=== PATIENT | male | born 1945 | race Caucasian/White ===

== ENCOUNTER 2023-03-21 07:28 | Outpatient (OUT) | payer MEDICARE, SELFPAY ==
[2023-03-21 09:24] LABS: Prostate Specific Antigen Dx 3.88 ng/mL (<=4.00)
== END 2023-03-21 07:29 | disposition home or self-care (01) ==
LOC: LAB 07:33
PROVIDERS: PCP Family Medicine
DX: N40.0 Benign prostatic hyperplasia without lower urinary tract symptoms (principal)
CPT/HCPCS: 36415; 84153

== ENCOUNTER 2023-06-15 08:04 | Outpatient (OUT) | payer MEDICARE, SELFPAY ==
[2023-06-15 08:24] LABS: Basophils Percent Auto 0.9 % (0.2-2.0); Eosinophils Absolute Auto 0.1 10^3/uL (0.0-0.7); Eosinophils Percent Auto 2.8 % (0.9-7.0); Hematocrit 41.4 % (42.0-54.0); Hemoglobin 13.8 g/dL (14.0-18.0); Immature Granulocytes Abs Auto 0.03 10^3/uL (0.00-0.03); Immature Granulocytes Pct Auto 0.7 % (0.0-0.5); Lymphocytes Absolute Auto 1.5 10^3/uL (1.2-3.8); Lymphocytes Percent Auto 34.6 % (20.5-60.0); Mean Corpuscular HGB Conc 33.3 g/dL (29.9-35.2); Mean Corpuscular Hemoglobin 31.1 pg (25.9-34.0); Mean Corpuscular Volume 93.2 fL (80.0-94.0); Mean Platelet Volume 10.6 fL (9.5-13.5); Monocytes Absolute Auto 0.3 10^3/uL (0.3-0.8); Monocytes Percent Auto 7.7 % (1.7-12.0); Neutrophils Absolute Auto 2.3 10^3/uL (1.4-6.5); Neutrophils Percent Auto 53.3 % (43.0-75.0); Platelet Count 158 10^3/uL (150-450); Red Blood Count 4.44 10^6/uL (4.70-6.10); White Blood Count 4.3 10^3/uL (4.0-11.0)
[2023-06-15 14:34] LABS: Anion Gap 11.8; Calcium 9.1 mg/dL (8.5-10.1); Carbon Dioxide 29.3 mmol/L (21.0-32.0); Chloride 102 mmol/L (98-107); Estimated GFR (African America >60 (>=60); Estimated GFR (Non-African Ame >60 (>=60); Glucose 85 mg/dL (74-106); Potassium 4.1 mmol/L (3.5-5.1); Sodium 139 mmol/L (136-145)
== END 2023-06-15 08:05 | disposition home or self-care (01) ==
LOC: LAB 08:05
PROVIDERS: PCP Family Medicine; Visit Provider Internal Medicine Cardiovascular Disease
DX: I25.10 Atherosclerotic heart disease of native coronary artery without angina pectoris (principal); I48.0 Paroxysmal atrial fibrillation; Z79.899 Other long term (current) drug therapy
CPT/HCPCS: 36415; 80048; 85025

== ENCOUNTER 2023-10-13 10:57 | Outpatient (OUT) | payer MEDICARE, SELFPAY ==
--- NOTE | 2023-10-13 11:13 | XR_ITS ---
The [address] [address] Patient Name: TANISHA JAIN MRN: [id number] date: 1945 Sex: M Assigned Patient Location: RAD Current Patient Location: RAD Accession/Order Number: [id number] Exam Date: 10/13/2023 11:08 Report Date: 10/13/2023 11:24 At the request of: ZUHAIR MISTRY Procedure: XR knee LT 3V PROCEDURE: XR knee LT 3V COMPARISON: None. 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 No acute fracture, dislocation or mechanical failure. SOFT TISSUES:Negative. No visible soft tissue swelling. EFFUSION:Moderate joint effusion OTHER: Negative. XR/XR knee LT 3V IMPRESSION: Moderate joint effusion Electronically authenticated by: FORTINO GREENE Date: 10/13/2023 11:24
== END 2023-10-13 10:58 | disposition home or self-care (01) ==
LOC: RAD 10:58
PROVIDERS: PCP Family Medicine; Visit Provider Physician Assistant
DX: M25.562 Pain in left knee (principal); M25.462 Effusion, left knee
CPT/HCPCS: 73562

== ENCOUNTER 2023-12-22 14:03 | Outpatient (OUT) | payer MEDICARE, SELFPAY ==
[2023-12-22 07:39] LABS: Basophils Percent Auto 0.8 % (0.2-2.0); Eosinophils Absolute Auto 0.1 10^3/uL (0.0-0.7); Eosinophils Percent Auto 2.9 % (0.9-7.0); Hematocrit 42.1 % (42.0-54.0); Hemoglobin 14.3 g/dL (14.0-18.0); Immature Granulocytes Abs Auto 0.03 10^3/uL (0.00-0.03); Immature Granulocytes Pct Auto 0.6 % (0.0-0.5); Lymphocytes Absolute Auto 1.8 10^3/uL (1.2-3.8); Lymphocytes Percent Auto 37.9 % (20.5-60.0); Mean Corpuscular Hemoglobin 32.1 pg (25.9-34.0); Mean Corpuscular Volume 94.6 fL (80.0-94.0); Mean Platelet Volume 10.7 fL (9.5-13.5); Monocytes Absolute Auto 0.4 10^3/uL (0.3-0.8); Monocytes Percent Auto 9.1 % (1.7-12.0); Neutrophils Absolute Auto 2.4 10^3/uL (1.4-6.5); Neutrophils Percent Auto 48.7 % (43.0-75.0); Platelet Count 179 10^3/uL (150-450); Red Blood Count 4.45 10^6/uL (4.70-6.10); Red Cell Distribution Width 12.3 % (11.0-15.0); White Blood Count 4.9 10^3/uL (4.0-11.0)
[2023-12-22 09:04] LABS: Alanine Aminotransferase 61 U/L (16-63); Anion Gap 10.3; Aspartate Amino Transferase 32 U/L (15-37); BUN Creatinine Ratio 22.4; Calcium 9.1 mg/dL (8.5-10.1); Carbon Dioxide 31.5 mmol/L (21.0-32.0); Chloride 103 mmol/L (98-107); Chol HDL Ratio 2.1; Cholesterol 121 mg/dL (<=200); Estimated GFR (African America >60 (>=60); Estimated GFR (Non-African Ame >60 (>=60); Glucose 104 mg/dL (74-106); HDL Cholesterol 58 mg/dL (40-60); LDL Cholesterol Calculated 51.4 mg/dL; Potassium 3.8 mmol/L (3.5-5.1); Sodium 141 mmol/L (136-145); Triglycerides 58 mg/dL (<=150); VLDL CHOLESTEROL 11.6 mg/dL
--- OUTSIDE RECORDS SUMMARY | 2023-12-26 14:18 | XMS_ITS | CCD ---
Author Organization [facility] Care Team Providers Care Sales Team Member Name Role Phone Unavailable Unavailable Jasmin Watts Unavailable MD Jasmin Watts Primary Care Provider [phone] MD David Braga Admit Provider MD David Braga Attending Provider [phone] Jasmin Watts Primary Care Unavailable David Braga Attending Unavailable David Braga Admitting Unavailable JASMIN WATTS Primary Care Unavailable David Braga Attending Unavailable David Braga Referring Unavailable David Braga Attending Unavailable MAC, JASMIN Primary Care Unavailable David Braga Referring Unavailable David Braga Attending Unavailable JASMIN WATTS Primary Care Unavailable David Brgaa Referring Unavailable MACJASMIN Primary Care Unavailable David Braga Attending Unavailable David Braga Attending Unavailable David Braga Referring Unavailable MAC, RUGVALERIY Primary Care Unavailable David Braga Attending Unavailable JASMIN WATTS Primary Care Unavailable MAC, DR JONES Primary Care Unavailable CARL, DR ANGEL Sun Admitting Unavailable CARL, DR ANGEL Sun Attending Unavailable CARL, DR ANGEL Sun Consulting Unavailable RADHA, DR DELTA Ram Consulting UnavailMARYBEL Braxton Consulting Unavailable SHELBY ARZATE Consulting Unavailable BRAGA, DR DAVID Bowen Admitting Unavailable BRAGA, DR DAVID Bowen Attending Unavailable MAC, DR JONES Primary Care Unavailable BRAGA, DR DAVID Bowen Consulting Unavailable MAC, DR JONES Admitting Unavailable MAC, DR JONES Attending Unavailable MAC, DR JONES Primary Care Unavailable MAC, DR JONES Consulting Unavailable LEONARD, DR KACIE Sun Consulting Unavailable SUZIE RED Attending Unavailable JASMIN WATTS Attending Unavailable [place] MD, Rugen Mabalay Primary Care Provider [phone] David Braga MD Unavailable DAVID BRAGA Attending Unavailable JASMIN WATTS Primary Care Unavailable Medications Current Medications Medication Drug Class(es) Dates Sig (Normalized) Sig (Original) apixaban 5 mg oral tablet (12 sources) Factor Xa Inhibitor Start: 11-02-2022 take 1 tablet by mouth twice daily Apixaban (Eliquis) 5 mg tablet Active 5 MG PO Twice daily November 02, 2022 12:00am dofetilide 0.25 mg oral capsule (7 sources) Antiarrhythmic Start: 10-07-2023 dofetilide (Tikosyn) 250 mcg capsule Indications: Paroxysmal atrial fibrillation (CMS/HCC) Take one capsule twice daily 180 capsule 1 10/07/2023 Active Start: 11-26-2022 take 1 capsule by mo uth every twelve hours Dofetilide 250 MCG Oral Capsule TAKE 1 CAPSULE BY MOUTH EVERY 12 HOURS FOR 30 DAYS Quantity: 30 Refills: 0 Ordered: 29-Nov-2022 David Braga MD Start : 26-Nov-2022 Active Start: 11-04-2022 take 250 ug by mouth every twelve hours Dofetilide Active 250 MCG PO Q12H 60 November 04, 2022 12:00am take 1 capsule by mo uth twice daily Tikosyn 250 MCG Oral Capsule TAKE 1 CAPSULE TWICE DAILY. Quantity: 0 Refills: 0 Ordered: 11-Nov-2022 DO Active lisinopril 2.5 mg oral tablet (14 sources) Angiotensin Converting Enzyme Inhibitor Start: 08-31-2021 take 1 tablet by mouth once daily lisinopril 2.5 mg tablet Take 1 tablet (2.5 mg) by mouth once daily. 0 08/31/2021 Active nitroglycerin 0.4 mg sublingual tablet (1 source) Nitrate Vasodilator Start: 06-16-2020 Nitroglycerin Active 0.4 MG SUBLINGUAL every 5 to 15 minutes June 15, 2020 11:00pm Completed/Discontinued Medications Medication Drug Class(es) Dates Sig (Normalized) Sig (Original) aspirin 81 mg delayed release oral tablet (15 sources) Platelet Aggregation Inhibitor, Nonsteroidal Anti-inflammatory Drug Start: 06-14-2023 Aspirin 81 MG Oral Tablet Delayed Release take one tablet on Tue and only Quantity: 24 Refills: 3 Ordered: 14-Jun-2023 David Braga MD Start : 14-Jun-2023 Active Start: 04-20-2021 take 1 tablet by lynsey th two times weekly aspirin 81 mg EC tablet Take 1 tablet (81 mg) by mouth 2 times a week. 0 04/20/2021 Active Start: 06-16-2020 take 1 tablet by lynsey th once daily Aspirin EC 81 MG Oral Tablet Delayed Release TAKE 1 TABLET DAILY. Quantity: 90 Refills: 3 Ordered: 30-Sep-2022 David Braga MD Start : 28-Oct-2021 Active atorvastatin 80 mg oral tablet (5 sources) HMG-CoA Reductase Inhibitor Start: 11-26-2022 take 1 tablet by mouth once daily at bedtime Atorvastatin Calcium 80 MG Oral Tablet TAKE 1 TABLET BY MOUTH EVERYDAY AT BEDTIME Quantity: 90 Refills: 3 Ordered: 29-Nov-2022 David Braga MD Start : 26-Nov-2022 Active Start: 11-04-2022 take 80 mg by mouth at bedtime Atorvastatin Active 80 MG PO Bedtime November 04, 2022 12:00am baclofen 10 mg oral tablet (6 sources) gamma-Aminobutyric Acid-ergic Agonist take 1 tablet by mouth three times daily as needed for muscle spasms Baclofen 10 MG Oral Tablet TAKE 1 TABLET 3 TIMES DAILY NEEDED FOR MUSCLE SPASM. Quantity: 0 Refills: 0 Ordered: 30-Sep-2022 DO Active Calcium Citrate (6 sources) Citracal TABS TA KE 1 TABLET ONCE DAILY. Quantity: 0 Refills: 0 Ordered: 28-Oct-2021 DO Active clopidogrel 75 mg oral tablet (2 sources) P2Y12 Platelet Inhibitor Start: 021 take 1 tablet by mouth once daily Clopidogrel Bisulfate 75 MG Oral Tablet TAKE 1 TABLET DAILY. Quantity: 0 Refills: 0 Ordered: 30-Aug-2021 DO Start : 20-Apr-2021 Active lovastatin 40 mg oral tablet (1 source) HMG-CoA Reductase Inhibitor Start: 020 End: 023 take 40 mg by mouth once daily at bedtime Lovastatin Discontinued 40 MG PO Daily at bedtime June 15, 2020 11:00pm November 02, 2022 11:10am metoprolol tartrate 25 mg oral tablet (16 sources) beta-Adrenergic Marleny Start: take 1 tablet by mouth twice daily as needed Metoprolol Tartrate 25 MG Oral Tablet Take 1 tablet twice daily as needed only Quantity: 20 Refills: 5 Ordered: 14-Jun-2023 David Braga MD Start : 14-Jun-2023 Active PRN, NEW Start: 06-16-2020 take 1 tablet by lynsey th once daily metoprolol succinate XL (Toprol-XL) 50 mg 24 hr tablet Take 1 tablet (50 mg) by mouth once daily. 0 04/20/2021 Active rosuvastatin calcium 40 mg oral tablet (9 sources) HMG-CoA Reductase Inhibitor Start: 11-02-2022 End: 11-04-2022 take 40 mg by mouth at bedtime Rosuvastatin Discontinued 40 MG PO Bedtime November 02, 2022 12:00am November 04, 2022 1:19pm Start: 07-14-2021 take 1 tablet by lynsey th at bedtime Rosuvastatin Calcium 40 MG Oral Tablet TAKE 1 TABLET Bedtime Quantity: 90 Refills: 0 Ordered: 25-Oct-2022 David Braga MD Start : 14-Jul-2021 Active ticagrelor 90 mg oral tablet (1 source) Start: 06-16-2020 End: 11-02-2022 take 1 tablet by mouth twice daily Ticagrelor (Brilinta) 90 mg Tablet Discontinued 90 MG PO Twice daily 180 90 June 15, 2020 11:00pm November 02, 2022 11:11am Vitamin B Complex CAPS (8 sources) Vitamin B Comple x CAPS TAKE 1 CAPSULE Daily Quantity: 0 Refills: 0 Ordered: 28-Oct-2021 DO Active Problems Active Problems Problem Classification Problem Date Documented Date Episodic/Chronic Cardiac dysrhythmias (18 sources) Paroxysmal atrial fibrillation; Translations: [Atrial fibrillation] Onset: 02-11-2022 11-02-2022 Chronic Cardiac dysrhythmias (3 sources) Tachycardia; Translations: [Tachycardia, unspecified] Episodic Coronary atherosclerosis and other heart disease (20 sources) Arteriosclerotic vascular disease; Translations: [Cardiovascular disease, unspecified] Onset: 05-26-2022 02-14-2023 Chronic Coronary atherosclerosis and other heart disease (5 sources) Stented coronary artery; Translations: [Presence of coronary angioplasty implant and graft] Onset: 02-11-2022 11-02-2022 Episodic Disorders of lipid metabolism (20 sources) Hyperlipidemia; Translations: [Other and unspecified hyperlipidemia] Onset: 11-02-2022 11-02-2022 Chronic Essential hypertension (1 source) Essential (primary) hypertension; Translations: [ESSENTIAL PRIMARY HYPERTENSION] Onset: 02-11-2022 Chronic Immunizations and screening for infectious disease (6 sources) Patient encounter status; Translations: [Other specified vaccination] Episodic Other aftercare (10 sources) Drug therapy finding; Translations: [Long-term (current) use of other medications] Episodic Other aftercare (1 source) Other prison (current) drug therapy; 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] Onset: 12-11-2022 Episodic Other aftercare (1 source) Taking high risk medication; Translations: [Other prison (current) drug therapy] 12-20-2023 Episodic Other nutritional; endocrine; and metabolic disorders (14 sources) Overweight in adulthood with body mass index of 25 or more but less than 30; Translations: [Overweight] Onset: 12-20-2023 12-20-2023 Episodic Other nutritional; endocrine; and metabolic disorders (2 sources) Body mass index (BMI) 27.0-27.9, adult; Translations: [Body mass index (BMI) 27.0-27.9, adult] Onset: 12-20-2023 Episodic Residual codes; unclassified (2 sources) Never smoked tobacco; Translations: [Other specified health status] Onset: 12-20-2023 12-20-2023 Episodic Residual codes; unclassified (2 sources) Other specified health status; Translations: [Other specified health status] Onset: 12-20-2023 Episodic Unclassified (1 source) CONTACT W/AND (SUSP) EXPOS COVID-19; Translations: [CONTACT W/AND (SUSP) EXPOS COVID-19] Onset: 02-11-2022 Past or Other Problems Problem Classification Problem Date Documented Da te Episodic/Chronic Abdominal pain (3 sources) Epigastric pain; Translations: [EPIGASTRIC PAIN] Onset: 01-02-2022 Episodic Nonspecific chest pain (11 sources) Atypical chest pain; Translations: [Other chest pain] Resolved: 03-15-2022 Episodic Other aftercare (1 source) snf (current) use of aspirin; 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] Onset: 02-11-2022 Episodic Other gastrointestinal disorders (1 source) Perforation of intestine (nontraumatic); Translations: [PERFORATION INTESTINE NONTRAUMATIC] Onset: 02-11-2022 Episodic Other hematologic conditions (1 source) Other specified abnormalities of plasma proteins; Translations: [OTH SPEC ABNORM PLASMA PROTEINS] Onset: 02-11-2022 Episodic Other screening for suspected conditions (not mental disorders or infectious disease) (12 sources) Cardiovascular stress test abnormal; Translations: [Other nonspecific abnormal results of function study of cardiovascular system] Resolved: 10-28-2021 Episodic Residual codes; unclassified (10 sources) History of clinical finding in subject; Translations: [Personal history of other specified diseases] Resolved: 03-15-2022 Episodic Sprains and strains (4 sources) Sprain of ligaments of lumbar spine, initial encounter; Translations: [SPRAIN LIGAMENTS LUMBAR SPN INITIAL] Onset: 12-17-2021 Episodic Unclassified (12 sources) Never smoked tobacco; Translations: [Never a smoker] Unclassified (1 source) Onset: 12-20-2023 12-20-2023 Results Test Name Value Interpretation Reference Range Facility ECG 12 Leadon 12-20-2023 ECG revealed normal sinus rhythm and normal ECG [facility] Work Phone: Tobacco Screening.on 023 Tobacco use status [facility]PH[facility] b) No MP-Cardiolo aram-Kellee 250 DO Work Phone: LIPID PROFILEon 12-06-2022 CHOL-HDL RATIO NORM SEE BELOW Normal [facility] Comment on above: Result Comment: 3.3 - 4.4 LOW RISK 4.4 - 7.1 AVERAGE RISK 7.1 - 11.0 MODERATE RISK >11.0 HIGH RISK Performed By: #### B MP, LIPID, ALT, AST #### [facility] [address] [address] [address] Luz Burr Cholesterol [Mass/Vol] 105 mg/dL Normal <=200 Th e [facility] Comment on above: Performed By: #### B MP, LIPID, ALT, AST #### [facility] [address] [address] [address] Luz Burr Cholesterol in HDL [Mass/Vol] 50 mg/dL Normal 40-60 Comment on above: Performed By: #### B MP, LIPID, ALT, AST #### [facility] [address] [address] [address] Luz Burr Cholesterol in LDL [Mass/Vol] 44.8 mg/dL Normal Comment on above: Performed By: #### B MP, LIPID, ALT, AST #### [facility] [address] [address] [address] Luz Burr Cholesterol.total/Chol esterol in HDL [Mass ratio] 2.1 {ratio} Normal Comment on above: Performed By: #### B MP, LIPID, ALT, AST #### [facility] [address] [address] [address] Luz Burr HDL NORMAL > or = 60 mg/dl - LO W CARDIOVASCULAR RISK <40 mg/dl - HIGH CARDIOVASCULAR RISK Normal Comment on above: Performed By: #### B MP, LIPID, ALT, AST #### [facility] [address] [place] [address] Dr. Luz Burr LDL CALC NORMAL SEE BELOW Normal Comment on above: Result Comment: <100 mg/dl OPTIMAL 100 - 129 mg/dl NEAR OR ABOVE OPTIMAL 130 - 159 mg/dl BORDERLINE HIGH 160 - 189 mg/dl HIGH >190 mg/dl VERY HIGH Performed By: #### B MP, LIPID, ALT, AST #### [facility] [address] [address] [address] Luz Burr Triglyceride [Mass/Vol] 51 mg/dL Normal <=150 [facility] Comment on above: Performed By: #### B MP, LIPID, ALT, AST #### [facility] [address] [place] [address] Dr. Luz Burr VLDL CALC 10.2 mg/dL Normal Comment on above: Performed By: #### B MP, LIPID, ALT, AST #### [facility] [address] [address] [address] Luz Burr PROF CHEM 8 (BAS METB)on Anion gap [Moles/Vol] 10.2 mmol/L Normal Th [facility] Comment on above: Performed By: #### B MP, LIPID, ALT, AST #### [facility] [address] [place] [address] Dr. Luz Burr Calcium [Mass/Vol] 9.4 mg/dL Normal 8.5-10.1 Comment on above: Performed By: #### B MP, LIPID, ALT, AST #### [facility] [address] [address] [address] Luz Burr Chloride [Moles/Vol] 103 mmol/L Normal 98-107 Comment on above: Performed By: #### B MP, LIPID, ALT, AST #### [facility] [address] [place] [address] Dr. Luz Burr CO2 [Moles/Vol] 31.1 mmol/L Normal 21.0-32.0 Comment on above: Performed By: #### B MP, LIPID, ALT, AST #### [facility] [address] [place] [address] Dr. Luz Burr Creatinine [Mass/Vol] 0.83 mg/dL Normal 0.70-1.30 Comment on above: Performed By: #### B MP, LIPID, ALT, AST #### [facility] [address] [place] [address] Dr. Luz Burr EGFR-AF SOU[place] >60 Normal >=60 Comment on above: Performed By: #### B MP, LIPID, ALT, AST #### [facility] [address] [place] [address] Dr. Luz Burr EGFR-NON AF [place] >60 Normal >=60 Comment on above: Performed By: #### B MP, LIPID, ALT, AST #### [facility] [address] [place] [address] Dr. Luz Burr Glucose [Mass/Vol] 110 mg/dL Critically high 74-106 T [facility] Comment on above: Performed By: #### B MP, LIPID, ALT, AST #### [facility] [address] [place] [address] Dr. Luz Burr Potassium [Moles/Vol] 4.3 mmol/L Normal 3.5-5.1 Comment on above: Performed By: #### B MP, LIPID, ALT, AST #### [facility] [address] [place] [address] Dr. Luz Burr Sodium [Moles/Vol] 140 mmol/L Normal 136-145 Comment on above: Performed By: #### B MP, LIPID, ALT, AST #### [facility] [address] [place] [address] Dr. Luz Burr Urea nitrogen [Mass/Vol] 21.0 mg/dL Critically high 7.0-18.0 Comment on above: Performed By: #### B MP, LIPID, ALT, AST #### [facility] [address] [place] [address] Dr. Luz Burr Urea nitrogen/Creatinine [Mass ratio] 25.3 mg/mg Normal Comment on above: Performed By: #### B MP, LIPID, ALT, AST #### [facility] [address] [place] [address] Dr. Luz Barillas 12-06-2022 AST [Catalytic activity/Vol] 29 U/L Normal 15-37 Comment on above: Performed By: #### B MP, LIPID, ALT, AST #### [facility] [address] [place] [address] Dr. Luz SAHNIPTon 12-06-2022 ALT [Catalytic activity/Vol] 57 U/L Normal 16-63 Comment on above: Performed By: #### B MP, LIPID, ALT, AST #### [facility] [address] [place] [address] Dr. Luz Burr Office Visit (Cardiology)on 12-02-2022 Follow-up visit Diagnoses/Problems Assessed Paroxysmal atrial fibrillation (427.31) (I48.0) Arteriosclerotic cardiovascular disease (ASCVD) (429.2,440.9) (I25.10) History of PTCA (V45.82) (Z98.61) Hyperlipidemia (272.4) (E78.5) High risk medication use (V58.69) (Z79.899) Overweight with body mass index (BMI) of 27 to 27.9 in adult (278.02,V85.23) (E66.3,Z68.27) Never a smoker Orders Arteriosclerotic cardiovascular disease (ASCVD), High risk medication use Basic Metabolic Panel; Status:Active - Retrospective Authorization; Requested for:03Dec2022; Arteriosclerotic cardiovascular disease (ASCVD), History of PTCA, PMH: History of tachycardia, Hyperlipidemia Renew: Aspirin EC 81 MG Oral Tablet Delayed Release; TAKE 1 TABLET DAILY Arteriosclerotic cardiovascular disease (ASCVD), Hyperlipidemia ALT - Alanine Aminotransferase, Serum; Status:Active - Retrospective Authorization; Requested for:02Dec2022; AST; Status:Active - Retrospective Authorization; Requested for:02Dec2022; Lipid Panel; Status:Active - Retrospective Authorization; Requested for:02Dec2022; Overweight with body mass index (BMI) of 27 to 27.9 in adult Healthy Weight Tips; Status:Complete - Retrospective Authorization; Done: 02Dec2022 Some eating tips that can help you lose weight.; Status:Complete - Retrospective Authorization; Done: 02Dec2022 Paroxysmal atrial fibrillation IO EKG Electrocardiogram- 12 Lead; Status:Complete; Done: 02Dec2022 SocHx: Never a smoker Tobacco Use Screening; Status:Complete; Done: 02Dec2022 Patient Instructions Please bring all medicines, vitamins, and herbal supplements with you when you come to the office. Prescriptions will not be filled unless you are compliant with your follow up appointments or have a follow up appointment scheduled as per instruction of your physician. Refills should be requested at the time of your visit. Follow up in 6 months Ablation discussed The provider reviewed the following test(s) and result(s) with the patient: ECG Chief Complaint HOSSEIN BENTLEY is being seen for follow-up of a hospitalization for. Patient is in the office for follow-up for paroxysmal atrial fibrillation. He was admitted recently to the hospital for drug loading with dofetilide which was successful. EKG today confirmed normal sinus rhythm and normal intervals. He is currently anticoagulated. He has had intermittent breakthrough atrial fibrillation lasting for several hours. They are not causing a problem in particular but the patient feels the symptoms. His examination otherwise is unremarkable for overweight today. Presently patient has no side effect of medications. 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 No recurrent symptoms and risk factors have been under control. 2?hyperlipidemia on statin therapy, lipid profile is ordered 3?slight overweight, patient has remained very active in his lifestyle, few pounds weight loss will be advised. 4?paroxysmal atrial fibrillation, currently on Tikosyn and long-term anticoagulation with Eliquis but with recurrent breakthrough events. I provided the patient and his the option of radiofrequency ablation as a last resort and long-term therapy atrial fibrillation. 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 If he cannot tolerate atrial fibrillation he does not need to go that route. He will decide later. 5?high risk medication with Eliquis and Tikosyn, no complications Current Meds Medication NameInstruction Aspirin EC 81 MG Oral Tablet Delayed ReleaseTAKE 1 TABLET DAILY. Atorvastatin Calcium 80 MG Oral TabletTAKE 1 TABLET BY MOUTH EVERYDAY AT BEDTIME Baclofen 10 MG Oral TabletTAKE 1 TABLET 3 TIMES DAILY NEEDED FOR MUSCLE SPASM. Dofetilide 250 MCG Oral CapsuleTAKE 1 CAPSULE BY MOUTH EVERY 12 HOURS FOR 30 DAYS Eliquis 5 MG Oral TabletTake 1 tablet twice daily Lisinopril 2.5 MG Oral TabletTAKE 1 TABLET BY MOUTH EVERY DAY Metoprolol Succinate ER 50 MG Oral Tablet Extended Release 24 HourTAKE 1 TABLET BY MOUTH EVERY DAY Allergies Medication No Known Drug Allergies Recorded By: Thelma Hernadez; 09/01/2021 2:38:02 PM Social History Problems Caffeine use (V49.89) (Z78.9) Never a smoker No alcohol use No illicit drug use Review of Systems Constitutional: not feeling tired. Cardiovascular: no intermittent leg claudication and as noted in HPI. Respiratory: no cough and no shortness of breath. Gastrointestinal: no change in bowel habits and no blood in stools. Integumentary: no skin rashes. Neurological: no seizures and no frequent falls. All other systems have been reviewed and are negative for complaint. Vitals Vital Signs Recorded: 02Dec2022 10:56AM Heart Rate57, Apical Saihtydi230, RUE Xfstdhxga45, RUE Height5 ft 9 in Mihghy153 lb BMI Calculated2 (more content not included)... Normal [facility] ECG 12 lead ECGon 11-04-2022 ECG 12 lead [place] [address] Electrocardiograph Report Signed Patient: Hossein Bentley MR#: [id number] 2 : 1945 Acct:[id number] Age/Sex: 77 / M ADM Date: 11/02/22 Loc: Room: [address] [place] [address] Type: DIS IN Attending Dr: David Braga MD Ordering Provider: David Braga MD, [facility] Date of Service: 11/04/22 ECG/ECG 12 lead ECG: rhythm assessment Copies to: Test Reason : Blood Pressure : / mmHG Vent. Rate : 053 BPM Atrial Rate : 053 BPM P-R Int : 168 ms QRS Dur : 088 ms QT Int : 444 ms P-R-T Axes : 040 002 027 degrees QTc Int : 416 ms Sinus bradycardia Otherwise normal ECG When compared with ECG of 03-NOV-2022 07:29, (Unconfirmed) No significant change was found Confirmed by SHELBY CALDERON DO ([id number]) on 11/04/2022 9:42:38 PM Referred By: Electronically Signed By:HSELBY CALDERON DO Transcribed By: MUS Signed By Shelby Calderon DO 11/04 Normal [facility] - CoagulationOrde red By: David Braga on 11-04-2022 PT Coag (PPP) [Time] 16.2 s 9.0-12.9 [facility] Platelet poor plasma interna tional normalized ratio (INR) by coagulation assay (relatOrdered By: David Braga on 11-04-2022 INR Coag (PPP) [Relative time] 1.4 {INR} [facility] Comment on above: INR Therapeutic Rang e A) Pre- and Peroperative OAT started two weeks before surgery. NOT HIP SURGERY: 1.5 - 2.5 HIP SURGERY: 2 - 3B) Primary and secondary prevention of venous THROMBOSIS: 2 - 3C) Active venous thrombosis, pulmonary embolismand prevention of recurrent venous thrombosis: 2 - 3D) Prevention of arterial thromboembolismincluding patients with mechanical heart valves: 3 - 4.5 Prothrombin Time INRon 11-04 INR Coag (PPP) [Relative time] 1.4 {INR} Normal [facility] Comment on above: Result Comment: INR Therapeutic Range A) Pre- and Peroperative OAT started two weeks before surgery. NOT HIP SURGERY: 1.5 - 2.5 HIP SURGERY: 2 - 3 B) Primary and secondary prevention of venous THROMBOSIS: 2 - 3 C) Active venous thrombosis, pulmonary embolism and prevention of recurrent venous thrombosis: 2 - 3 D) Prevention of arterial thromboembolism including patients with mechanical heart valves: 3 - 4.5 PERFORMED BY: [place] [address] PATHOLOGIST TREAD BUILDER MARQUIS CARRANZA M.D. Performed By: #### P T #### [facility] [address] [place] [address] PT Coag (PPP) [Time] 16.2 s High 9.0-12.9 [facility] Comment on above: Performed By: #### P T #### [facility] [address] [place] [address] ECG 12 lead ECGon 11-03-2022 ECG 12 lead [place] [address] Electrocardiograph Report Signed Patient: Hossein Bentley MR#: [id number] 2 : 1945 Acct:[id number] Age/Sex: 77 / M ADM Date: 11/02/22 Loc: Room: [address] [place] [address] Type: DIS IN Attending Dr: David Braga MD Ordering Provider: David Braga MD, [facility] Date of Service: 11/03/22 ECG/ECG 12 lead ECG: rhythm assessment Copies to: Test Reason : Blood Pressure : / mmHG Vent. Rate : 054 BPM Atrial Rate : 054 BPM P-R Int : 150 ms QRS Dur : 084 ms QT Int : 428 ms P-R-T Axes : 053 007 034 degrees QTc Int : 405 ms Sinus bradycardia Otherwise normal ECG When compared with ECG of 02-NOV-2022 23:52, (Unconfirmed) No significant change was found Confirmed by SHELBY CALDERON DO ([id number]) on 11/04/2022 9:56:25 PM Referred By: Electronically Signed By:SHELBY CALDERON DO Transcribed By: MUS Signed By Shelby Calderon DO 11/04 [facility] ECG 12 lead ECG [facility] [address] [place] [address] Electrocardiograph Report Signed Patient: Hossein Bentley MR#: [id number] 2 : 1945 Acct:[id number] Age/Sex: 77 / M ADM Date: 11/02/22 Loc: Room: [address] [place] [address] Type: DIS IN Attending Dr: David Braga MD Ordering Provider: David Braga MD, [facility] Date of Service: 11/02/22 ECG/ECG 12 lead ECG: Rhythm change Copies to: Test Reason : Blood Pressure : / mmHG Vent. Rate : 057 BPM Atrial Rate : 057 BPM P-R Int : 156 ms QRS Dur : 086 ms QT Int : 440 ms P-R-T Axes : 063 015 055 degrees QTc Int : 428 ms Sinus bradycardia Otherwise normal ECG When compared with ECG of 02-NOV-2022 10:17, (Unconfirmed) Sinus rhythm has replaced Atrial fibrillation Vent. rate has decreased BY 59 BPM Nonspecific T wave abnormality no longer evident in Lateral leads Confirmed by SHELBY CALDERON DO ([id number]) on 11/04/2022 9:56:51 PM Referred By: Electronically Signed By:SHELBY CALDERON DO Transcribed By: MUS Signed By Shelby Calderon DO 11/04 [facility] Prothrombin Time INRon 11-03 INR Coag (PPP) [Relative time] 1.4 {INR} [facility] Comment on above: Result Comment: INR Therapeutic Range A) Pre- and Peroperative OAT started two weeks before surgery. NOT HIP SURGERY: 1.5 - 2.5 HIP SURGERY: 2 - 3 B) Primary and secondary prevention of venous THROMBOSIS: 2 - 3 C) Active venous thrombosis, pulmonary embolism and prevention of recurrent venous thrombosis: 2 - 3 D) Prevention of arterial thromboembolism including patients with mechanical heart valves: 3 - 4.5 PERFORMED BY: [place] [address] PATHOLOGIST TREAD BUILDER MARQUIS CARRANZA M.D. Performed By: #### P T #### [address] PT Coag (PPP) [Time] 15.7 s High 9.0-12.9 [facility] Comment on above: Performed By: #### P T #### [address] Basic Metabolic Panelon 10-20 Anion gap [Moles/Vol] 11.0 mmol/L Normal 6.0-15.0 [facility] Comment on above: Performed By: #### B MP, PT #### [address] Calcium [Mass/Vol] 9.7 mg/dL Normal 8.2-10.2 [facility] Comment on above: Result Comment: PERF ORMED BY: [place] [address] PATHOLOGIST [employer] BUIL[employer] MARQUIS CARRANZA M.D. Performed By: #### B MP, PT #### [address] Chloride [Moles/Vol] 104 mmol/L Normal 95-114 [facility] Comment on above: Performed By: #### B MP, PT #### [address] CO2 [Moles/Vol] 28.2 mmol/L Normal 22.0-30.0 [facility] Comment on above: Performed By: #### B MP, PT #### [address] Creatinine [Mass/Vol] 0.83 mg/dL Normal 0.64-1.[address] [facility] Comment on above: Performed By: #### B MP, PT #### [facility] [address] Estimated GFR ( Nicol > 60 Normal [facility] Comment on above: Result Comment: GFR estimated reference range: According to KDOQI guidelines, <60 ml/min/1.73m2 is sufficient to diagnose a patient with chronic kidney disease. Performed By: #### B MP, PT #### [facility] [address] Estimated GFR (Non- Am > 60 Normal [facility] Comment on above: Performed By: #### B MP, PT #### [facility] [address] Glucose [Mass/Vol] 137 mg/dL High 70-100 [facility] Comment on above: Result Comment: [place] Glucose Reference Range is dependent on time and content of last meal. Glucose of more than 200 mg/dL in a nonstressed, ambulatory subject supports the diagnosis of Diabetes Mellitus. ADA recommended reference range Performed By: #### B MP, PT #### [address] Potassium [Moles/Vol] 4.2 mmol/L Normal 3.5-5.[address] [facility] Comment on above: Performed By: #### B MP, PT #### [facility] [address] [place] [address] [place] Sodium [Moles/Vol] 139 mmol/L Normal 136-146 [facility] Comment on above: Performed By: #### B MP, PT #### [facility] [address] [place] [address] [place] Urea nitrogen [Mass/Vol] 23 mg/dL Normal 9-23 [facility] Comment on above: Performed By: #### B MP, PT #### [facility] [address] [place] [address] [place] Creatinine and Glomerular fi ltration rate.predicted panel (S/P/Bld)Ordered By: David Braga on 11-02-2022 Creatinine [Mass/Vol] 0.83 mg/dL 0.64-1.[address] [facility] ECG 12 lead ECGon 11-02-2022 ECG 12 lead ECG [facility] [address] [place], [place] [id number] Electrocardiograph Report Signed Patient: Hossein Bentley MR#: [id number] 2 : 1945 Acct:[id number] Age/Sex: 77 / M ADM Date: 11/02/22 Loc: Room: [address] [place] [address] Type: DIS IN Attending Dr: David Braga MD Ordering Provider: David Braga MD, [facility] Date of Service: 11/02/22 ECG/ECG 12 lead ECG: rhythm assessment Copies to: Test Reason : Blood Pressure : / mmHG Vent. Rate : 116 BPM Atrial Rate : 288 BPM P-R Int : 000 ms QRS Dur : 080 ms QT Int : 316 ms P-R-T Axes : 000 003 043 degrees QTc Int : 439 ms Atrial fibrillation with rapid ventricular response Abnormal ECG When compared with ECG of 16-JUN-2020 12:11, Atrial fibrillation has replaced Sinus rhythm Vent. rate has increased BY 54 BPM Confirmed by SHELBY CALDERON DO ([id number]) on 11/04/2022 9:57:50 PM Referred By: Electronically Signed By:SHELBY CALDERON DO Transcribed By: MUS Signed By Shelby Calderon DO 11/04 Normal [facility] Estimated glomerular filtrat ion rate (GFR) non- AmericanOrdered By: David Braga on 11-02-2022 GFR/1.73 sq M.predicted among non-blacks MDRD (S/P/Bld) [Vol rate/Area] > 60 mL/Min [facility] No Panel InformationOrdered By: David Braga on 11-02-2022 Estimated GFR () > 60 mL/Min [facility] Comment on above: GFR estimated refere nce range: According to KDOQI guidelines, <60 ml/min/1.73m2 is sufficient to diagnose a patient with chronic kidney disease. Pharmacy Creatinine Clearance (Chem N/A [facility] Prothrombin Time INRon 11-02 INR Coag (PPP) [Relative time] 1.4 {INR} Normal [facility] Comment on above: Result Comment: INR Therapeutic Range A) Pre- and Peroperative OAT started two weeks before surgery. NOT HIP SURGERY: 1.5 - 2.5 HIP SURGERY: 2 - 3 B) Primary and secondary prevention of venous THROMBOSIS: 2 - 3 C) Active venous thrombosis, pulmonary embolism and prevention of recurrent venous thrombosis: 2 - 3 D) Prevention of arterial thromboembolism including patients with mechanical heart valves: 3 - 4.5 PERFORMED BY: [place] [address] PATHOLOGIST TREAD BUILDER MARQUIS CARRANZA M.D. Performed By: #### B MP, PT #### [facility] [address] [place] [address] PT Coag (PPP) [Time] 16.6 s High 9.0-12.9 [facility] Comment on above: Performed By: #### B MP, PT #### [facility] [address] [place] [address] Serum or plasma anion gap de terminationOrdered By: David Braga on 11-02-2022 Anion gap [Moles/Vol] 11.0 mmol/L 6.0-15.0 [facility] Serum or plasma calcium vicenta urement (mass/volume)Ordered By: David Braga on 11-02-2022 Calcium [Mass/Vol] 9.7 mg/dL 8.2-10.2 [facility] Serum or plasma chloride yoli surement (moles/volume)Ordered By: David Braga on 11-02-2022 Chloride [Moles/Vol] 104 mmol/L 95-114 [facility] Serum or plasma glucose vicenta urement (mass/volume)Ordered By: David Braga on 11-02-2022 Glucose [Mass/Vol] 137 mg/dL 70-100 [facility] Comment on above: ADA recommended refe rence rangeRandom Glucose Reference Range is dependent on time and content of last meal. Glucose of more than 200 mg/dL in a nonstressed, ambulatory subject supports the diagnosis of Diabetes Mellitus. Serum or plasma potassium me asurement (moles/volume)Ordered By: David Braga on 11-02-2022 Potassium [Moles/Vol] 4.2 mmol/L 3.5-5.[address] [facility] Serum or plasma sodium measu rement (moles/volume)Ordered By: David Braga on 11-02-2022 Sodium [Moles/Vol] 139 mmol/L 136-146 [facility] Serum or plasma total carbon dioxide measurement (moles/volume)Ordered By: David Braga on 11-02-2022 CO2 [Moles/Vol] 28.2 mmol/L 22.0-30.0 [facility] Serum or plasma urea nitroge n measurement (mass/volume)Ordered By: David Braga on 11-02-2022 Urea nitrogen [Mass/Vol] 23 mg/dL 9-23 [facility] Office Visit (Cardiology)on 09-30-2022 Follow-up visit Diagnoses/Problems Assessed Arteriosclerotic cardiovascular disease (ASCVD) (429.2,440.9) (I25.10) History of PTCA (V45.82) (Z98.61) Hyperlipidemia (272.4) (E78.5) Paroxysmal atrial fibrillation (427.31) (I48.0) High risk medication use (V58.69) (Z79.899) Never a smoker Overweight with body mass index (BMI) of 27 to 27.9 in adult (278.02,V85.23) (E66.3,Z68.27) Orders Arteriosclerotic cardiovascular disease (ASCVD), High risk medication use, Hyperlipidemia, Paroxysmal atrial fibrillation ALT - Alanine Aminotransferase, Serum; Status:Active - Retrospective Authorization; Requested for:30Sep2022; AST; Status:Active - Retrospective Authorization; Requested for:30Sep2022; Basic Metabolic Panel; Status:Active - Retrospective Authorization; Requested for:30Sep2022; Complete Blood Count; Status:Active - Retrospective Authorization; Requested for:30Sep2022; Lipid Panel; Status:Active - Retrospective Authorization; Requested for:30Sep2022; Arteriosclerotic cardiovascular disease (ASCVD), History of PTCA, PMH: History of tachycardia, Hyperlipidemia Renew: Aspirin EC 81 MG Oral Tablet Delayed Release; TAKE 1 TABLET DAILY Arteriosclerotic cardiovascular disease (ASCVD), Hyperlipidemia Renew: Rosuvastatin Calcium 40 MG Oral Tablet; TAKE 1 TABLET DAILY Overweight with body mass index (BMI) of 27 to 27.9 in adult Continue with our present treatment plan.; Status:Complete - Retrospective Authorization; Done: 30Sep2022 Healthy Weight Tips; Status:Complete - Retrospective Authorization; Done: 30Sep2022 Paroxysmal atrial fibrillation Drug Load Inpatient Med Initiation; Status:Active - Retrospective Authorization; Requested for:30Sep2022; SocHx: Never a smoker Tobacco Use Screening; Status:Complete; Done: 30Sep2022 Patient Instructions Please bring all medicines, vitamins, and herbal supplements with you when you come to the office. Prescriptions will not be filled unless you are compliant with your follow up appointments or have a follow up appointment scheduled as per instruction of your physician. Refills should be requested at the time of your visit. 2 day drug load at [facility] tikosyn 250 mcg BID Follow up after testing completed Chief Complaint HOSSEIN BENTLEY is being seen for a 6 month follow-up of. Patient is in the office for follow-up for the problems noted below accompanied by his . He reported recurrent episodes of atrial fibrillation lasting for over a day at times and actually make him stay at home. He denies any angina associated with it no dizziness and no shortness of breath. He has been on Eliquis which has been well-tolerated. He has not utilize nitroglycerin lately, he is active but slightly is overweight. He has not had any blood work since he was last seen in the office. His examination today was essentially normal except for overweight. Assessment/recommendations : 1?significant coronary arteries involving the proximal anterior descending artery status post drug-eluting stent with no complications. Back in May 2020. No recurrent symptoms and risk factors have been under control. 2?hyperlipidemia on statin therapy, lipid profile is ordered 3?slight overweight, patient has remained very active in his lifestyle, few pounds weight loss will be advised. 4?paroxysmal atrial fibrillation, currently on no antiarrhythmic therapy but on Eliquis. Recently there has been an increase in the frequency of atrial fibrillation. Discussed with the patient the best options available and I suggested admission to the hospital for drug loading with dofetilide 250 mcg twice daily and if that fails ablation procedure. Patient is in full agreement. 5?high risk medication with Eliquis which will be monitored. Active Problems Problems Arteriosclerotic cardiovascular disease (ASCVD) (429.2,440.9) (I25.10) High risk medication use (V58.69) (Z79.899) History of PTCA (V45.82) (Z98.61) Hyperlipidemia (272.4) (E78.5) Never a smoker Overweight with body mass index (BMI) of 27 to 27.9 in adult (278.02,V85.23) (E66.3,Z68.27) Paroxysmal atrial fibrillation (427.31) (I48.0) Surgical History Problems History of Back surgery History of Cardiac catheterization History of Colonoscopy History of Knee replacement History of Laparoscopy History of Percutaneous transluminal coronary angioplasty Current Meds Medication NameInstruction Aspirin EC 81 MG Oral Tablet Delayed ReleaseTAKE 1 TABLET DAILY. Baclofen 10 MG Oral TabletTAKE 1 TABLET 3 TIMES DAILY NEEDED FOR MUSCLE SPASM. Eliquis 5 MG Oral TabletTake 1 tablet twice daily Lisinopril 2.5 MG Oral TabletTAKE 1 TABLET BY MOUTH EVERY DAY Metoprolol Succinate ER 50 MG Oral Tablet Extended Release 24 HourTAKE 1 TABLET BY MOUTH EVERY DAY Rosuvastatin Calcium 40 MG Oral TabletTAKE 1 TABLET DAILY. Vitamin B Complex CAPSTAKE 1 CAPSULE Daily Patient did not bring medication list or bottles. Updated verbally with patient Allergies Medication No (more content not included)... Normal [facility] Tobacco Screening.on 023 Adult depression screening assessment No [facility] [employer] DO Work Phone: Fall risk assessment a) No falls within the last year [facility] [employer] DO Work Phone: Tobacco use status [facility] b) No [facility] [employer] DO Work Phone: Office Visit (Cardiology)on 03-15-2022 Follow-up visit Diagnoses/Problems Assessed Arteriosclerotic cardiovascular disease (ASCVD) (429.2,440.9) (I25.10) Hyperlipidemia (272.4) (E78.5) History of PTCA (V45.82) (Z98.61) Paroxysmal atrial fibrillation (427.31) (I48.0) Never a smoker Overweight with body mass index (BMI) of 27 to 27.9 in adult (278.02,V85.23) (E66.3,Z68.27) High risk medication use (V58.69) (Z79.899) Orders Arteriosclerotic cardiovascular disease (ASCVD), History of PTCA, PMH: History of tachycardia, Hyperlipidemia Renew: Aspirin EC 81 MG Oral Tablet Delayed Release; TAKE 1 TABLET DAILY Overweight with body mass index (BMI) of 27 to 27.9 in adult Healthy Weight Tips; Status:Complete - Retrospective Authorization; Done: 15Mar2022 SocHx: Never a smoker Tobacco Use Screening; Status:Complete; Done: 15Mar2022 Patient Instructions Please bring all medicines, vitamins, and herbal supplements with you when you come to the office. Prescriptions will not be filled unless you are compliant with your follow up appointments or have a follow up appointment scheduled as per instruction of your physician. Refills should be requested at the time of your visit. Patient is okay to hold his Eliquis 3 days and Aspirin 7 days prior to colonoscopy. Will request [facility] records Follow up in 6 months Chief Complaint HOSSEIN BENTLEY is being seen for follow-up of a hospitalization for [facility] D/C 01/05. Patient is in the office for follow-up for CAD and previous PCI in 2019. Since his last visit in October 2021 he had an admission to [facility] in [place] where he had laparoscopic abdominal procedure for pain which came back negative. Apparently during that admission he had atrial fibrillation with RVR which prompted discontinuation of Plavix and institution of therapy with Eliquis. There has been no recurrent abdominal pain and no recurrent tachycardia. Has had no bleeding complications. His lab data from October 2021 which I reviewed with him showed excellent lipid profile LDL of 70. He has no side effect of medications. Currently denies any chest pain and is scheduled to have colonoscopy next week for which she has to hold the Eliquis and the aspirin which I allowed. His heart rhythm was regular today. His weight is over target and this was brought his attention as well. Assessment/recommendations : 1?significant coronary arteries involving the proximal anterior descending artery status post drug-eluting stent with no complications. Back in May 2020. No recurrent symptoms and risk factors have been under control. 2?hyperlipidemia on statin therapy, lipid profile is under control based on October 2021 data. 3?slight overweight, patient has remained very active in his lifestyle, few pounds weight loss will be advised. 4?paroxysmal atrial fibrillation while having acute abdominal pain 2021. He was in [place]. Records were requested, presently he is on Eliquis replacing the Plavix but still on aspirin. No antiarrhythmic therapy was initiated or needed at the present time. Patient remains without any palpitations. 5?high risk medication with Eliquis which will be monitored. 6?patient need colonoscopy next week he was advised to hold the Eliquis and the aspirin as requested by gastroenterology Surgical History Problems History of Back surgery History of Cardiac catheterization History of Knee replacement History of Laparoscopy History of Percutaneous transluminal coronary angioplasty Past Medical History Problems History of Abnormal stress test (794.39) (R94.39) Resolved Date: 28 Oct 2021 History of Atypical chest pain (786.59) (R07.89) History of tachycardia (V13.89) (Z87.898) Current Meds Medication NameInstruction Aspirin EC 81 MG Oral Tablet Delayed ReleaseTAKE 1 TABLET DAILY. Citracal TABSTAKE 1 TABLET ONCE DAILY. Eliquis 5 MG Oral TabletTake 1 tablet twice daily Lisinopril 2.5 MG Oral TabletTAKE 1 TABLET BY MOUTH EVERY DAY Metoprolol Succinate ER 50 MG Oral Tablet Extended Release 24 HourTAKE 1 TABLET DAILY. Rosuvastatin Calcium 40 MG Oral TabletTAKE 1 TABLET DAILY. Vitamin B Complex CAPSTAKE 1 CAPSULE Daily Allergies Medication No Known Drug Allergies Recorded By: Thelma Hernadez; 09/01/2021 2:38:02 PM Social History Problems Caffeine use (V49.89) (Z78.9) Never a smoker No alcohol use No illicit drug use Review of Systems Constitutional: not feeling tired. Cardiovascular: palpitations, but no intermittent leg claudication and as noted in HPI. Respiratory: shortness of breath, but no cough. Gastrointestinal: no change in bowel habits and no blood in stools. Integumentary: no skin rashes. Neurological: dizziness, but no seizures and no frequent falls. All other systems have been reviewed and are negative for complaint. Vitals Vital Signs Recorded: 15Mar2022 02:16PM Heart Rate60, R Radial [id number], RUE, Sitting Gqqhqakpl12, RUE, Sitting Height5 ft 9 in Qobwry771 lb (more content not included)... Normal [facility] Tobacco Screening.on 022 Adult depression screening assessment No [facility] [employer] DO Work Phone: Fall risk assessment a) No falls within the last year [facility] [employer] DO Work Phone: Tobacco use status [facility] b) No [facility] [employer] DO Work Phone: AMYLASEon 01-02-2022 Amylase [Catalytic activity/Vol] 57 U/L Normal 25-115 [facility] Comment on above: Performed By: #### B MP, LIPID, ALT, AST #### [facility] [address] [place] [address] Dr. Luz Burr CBC AUTO DIFFon 01-02-2022 BASO # 0.0 103/ul Normal 0.0-0.1 [facility] Comment on above: Performed By: #### B MP, LIPID, ALT, AST #### [facility] [address] [address] [address] Luz Burr Basophils/100 WBC (Bld) 0.3 % Normal 0.2-2.0 [facility] Comment on above: Performed By: #### B MP, LIPID, ALT, AST #### [facility] [address] [place] [address] Dr. Luz Burr EO # 0.0 103/ul Normal 0.0-0.7 [facility] Comment on above: Performed By: #### B MP, LIPID, ALT, AST #### [facility] [address] [place] [address] Dr. Luz Burr Eosinophils/100 WBC (Bld) 0.2 % Critically low 0.9-7.0 [facility] Comment on above: Performed By: #### B MP, LIPID, ALT, AST #### [facility] [address] [place] [address] Dr. Luz Burr Erythrocyte distribution width (RBC) [Ratio] 13.1 % Normal 11.0-15.0 [facility] Comment on above: Performed By: #### B MP, LIPID, ALT, AST #### [facility] [address] [place] [address] Dr. Luz Burr Hematocrit (Bld) [Volume fraction] 50.5 % Normal 42.0-54.0 Comment on above: Performed By: #### B MP, LIPID, ALT, AST #### [facility] [address] [place] [address] Dr. Luz Burr Hemoglobin (Bld) [Mass/Vol] 17.0 g/dL Normal 14.0-18.0 Comment on above: Performed By: #### B MP, LIPID, ALT, AST #### [facility] [address] [place] [address] Dr. Luz Burr IG # 0.09 10e3/ul Critically high 0.00-0.03 Comment on above: Performed By: #### B MP, LIPID, ALT, AST #### [facility] [address] [place] [address] Dr. Luz Burr IG % 0.7 % Critically high 0.0-0.5 Comment on above: Performed By: #### B MP, LIPID, ALT, AST #### [facility] [address] [place] [address] Dr. Luz Burr LYMPH # 0.8 103/ul Critically low 1.2-3.8 Comment on above: Performed By: #### B MP, LIPID, ALT, AST #### [facility] [address] [place] [address] Dr. Luz Burr Lymphocytes/100 WBC (Bld) 5.8 % Critically low 20.5-60.0 Comment on above: Performed By: #### B MP, LIPID, ALT, AST #### [facility] [address] [place] [address] Dr. Luz Burr MANUAL DIFF REQ NO Normal [facility] Comment on above: Performed By: #### B MP, LIPID, ALT, AST #### [facility] [address] [place] [address] Dr. Luz Burr MCH (RBC) [Entitic mass] 31.4 pg Normal 25.9-34.0 [facility] Comment on above: Performed By: #### B MP, LIPID, ALT, AST #### [facility] [address] [place] [address] Dr. Luz Burr MCHC (RBC) [Mass/Vol] 33.7 g/dL Normal 29.9-35.2 [facility] Comment on above: Performed By: #### B MP, LIPID, ALT, AST #### [facility] [address] [place] [address] Dr. Luz Burr MCV (RBC) [Entitic vol] 93.3 fL Normal 80.0-94.0 Comment on above: Performed By: #### B MP, LIPID, ALT, AST #### [facility] [address] [place] [address] Dr. Luz Burr MONO # 0.7 103/ul Normal 0.3-0.8 [facility] Comment on above: Performed By: #### B MP, LIPID, ALT, AST #### [facility] [address] [place] [address] Dr. Luz Burr Monocytes/100 WBC (Bld) 5.4 % Normal 1.7-12.0 Comment on above: Performed By: #### B MP, LIPID, ALT, AST #### [facility] [address] [place] [address] Dr. Luz Burr NEUT # 11.4 103/ul Critically high 1.4-6.5 [facility] Comment on above: Performed By: #### B MP, LIPID, ALT, AST #### [facility] [address] [place] [address] Dr. Luz Burr Neutrophils/100 WBC (Bld) 87.6 % Critically high 43.0-75.0 Comment on above: Performed By: #### B MP, LIPID, ALT, AST #### [facility] [address] [place] [address] Dr. Luz Burr Platelet mean volume (Bld) [Entitic vol] 10.3 fL Normal 9.5-13.5 Comment on above: Performed By: #### B MP, LIPID, ALT, AST #### [facility] [address] [address] [address] Luz Burr PLT 213 103/ul Normal 150-450 [facility] Comment on above: Performed By: #### B MP, LIPID, ALT, AST #### [facility] [address] [address] [address] Luz Burr RBC 5.41 106/ul Normal 4.70-6.10 Comment on above: Performed By: #### B MP, LIPID, ALT, AST #### [facility] [address] [address] [address] Luz Burr WBC 13.0 103/ul Critically high 4.0-11.0 Comment on above: Performed By: #### B MP, LIPID, ALT, AST #### [facility] [address] [place] [address] ABD/PELV W CONon 01-03-20 CT ABD/PELV W CON EXAMINATION: CT ABD/ PELV W CON HISTORY: Abdominal pain COMPARISON: None. TECHNIQUE: Axial CT images through the abdomen and pelvis were obtained after the intravenous administration of 100 mL Omnipaque 300 contrast. Coronal and sagittal reformats were obtained. Dose reduction techniques were achieved by using automated exposure control and/or adjustment of mA and/or kV according to patient size and/or use of iterative reconstruction technique. FINDINGS: There is mild bibasilar atelectasis. There is coronary artery disease. Fluid is seen within the esophagus. Abdomen: There are a few cysts within the liver with additional subcentimeter hypodensities in the liver which are too small to characterize by CT size criteria. The spleen enhances homogeneously without focal lesion. There is no intra or extrahepatic biliary duct dilatation. The gallbladder is unremarkable. There is a 1.6 x 1.1 cm cyst in the pancreatic head (series 3, image 57). There are numerous bilateral renal cysts with additional renal hypodensities which are too small to characterize by CT size criteria. There is liquid stool throughout the colon without evidence of bowel obstruction. There are a few small foci of intraperitoneal free air adjacent to the ascending colon. The adrenal glands and the appendix are unremarkable. There is no mesenteric or retroperitoneal lymphadenopathy. There is a tiny fat-containing umbilical hernia. Pelvis: The bladder and rectum are unremarkable. There is no iliac or inguinal lymphadenopathy. There is mild prostatomegaly. There is mild atherosclerotic disease. Bone windows show no aggressive osseous lesions. IMPRESSION: 1. There are a few small foci of intraperitoneal free air adjacent to the ascending colon, concerning for a bowel perforation. 2. Fluid in the esophagus suggestive of gastroesophageal reflux. 3. There is a 1.6 x 1.17 m cyst in the pancreatic head which could represent an IPMN; however, further evaluation with a nonemergent outpatient contrast-enhanced MRI examination is recommended to exclude malignancy. 4. Numerous renal and hepatic cysts. 5. Liquid stool throughout the colon, in keeping with diarrhea. There is no evidence of bowel obstruction. 6. Mild prostatomegaly. Finding #[address] Lozoya by Dr. Richter at 6:08 AM on 01/02/2022. Electronically authenticated by: Mal RICHTER Date: 2022-01-02 06:09 Normal [facility] Covid-19 PCR (CVDTB)on 12-18 SARS-CoV-2 (COVID-19) RNA BLANCA+probe Ql (Unsp spec) Not detected Normal NOT DETECTED [facility] Comment on above: Result Comment: When diagnostic testing is negative, the possibility of a false negative should be considered in the context of a patient's recent exposures and the presence of clinical signs and symptoms consistent with SARS-CoV-2. This test is not yet approved or cleared by the [place] Food and Drug Administration (FDA). This test was developed by [employer], [place], [place]. The performance characteristics of this test were validated by [facility]. The results are not intended to be used as the sole means for clinical diagnosis or patient management decisions. The [facility] is authorized under Clinical Laboratory Improvement Amendments (CLIA) to perform high- complexity testing. This test is not yet approved or cleared by the [place] FDA. When there are no FDA-approved or cleared tests available, and other criteria are met, FDA can make tests available under an emergency access mechanism called an Emergency Use Authorization (EUA). The EUA for this test is supported by the Ballistics Tester of Health and Human Service's declaration that circumstances exist to justify the emergency use of in vitro diagnostics for the detection and/or diagnosis of the virus that causes COVID-19. This EUA will remain in effect for the duration of the COVID-19 declaration justifying emergency of IVDs, unless it is terminated or revoked by the FDA (after which the test may no longer be used). Performed By: #### C VDTBH #### [facility] [address] [place] [address] Dr. Luz Burr LIPASEon 01-02-2022 Lipase [Catalytic activity/Vol] 178.0 U/L Normal 23.0-300.0 Comment on above: Performed By: #### B MP, LIPID, ALT, AST #### [facility] [address] [place] [address] Dr. Luz Burr PROF 14(COMP METB)on 022 Albumin [Mass/Vol] 3.8 g/dL Normal 3.4-5.0 Comment on above: Performed By: #### B MP, LIPID, ALT, AST #### [facility] [address] [place] [address] Dr. Luz Burr Albumin/Globulin [Mass ratio] 1.0 {ratio} Normal [facility] Comment on above: Performed By: #### B MP, LIPID, ALT, AST #### [facility] [address] [place] [address] Dr. Luz Burr ALP [Catalytic activity/Vol] 53 U/L Normal 46-116 [facility] Comment on above: Performed By: #### B MP, LIPID, ALT, AST #### [facility] [address] [place] [address] Dr. Luz Burr ALT [Catalytic activity/Vol] 47 U/L Normal 16-63 [facility] Comment on above: Performed By: #### B MP, LIPID, ALT, AST #### [facility] [address] [place] [address] Dr. Luz Burr Anion gap [Moles/Vol] 16.0 mmol/L Normal Th e [facility] Comment on above: Performed By: #### B MP, LIPID, ALT, AST #### [facility] [address] [place] [address] Dr. Luz Burr AST [Catalytic activity/Vol] 33 U/L Normal 15-37 Comment on above: Performed By: #### B MP, LIPID, ALT, AST #### [facility] [address] [place] [address] Dr. Luz Burr Bilirubin [Mass/Vol] 1.2 mg/dL Normal 0.2-1.3 [facility] Comment on above: Performed By: #### B MP, LIPID, ALT, AST #### [facility] [address] [place] [address] Dr. Luz Burr Calcium [Mass/Vol] 8.5 mg/dL Normal 8.5-10.1 Comment on above: Performed By: #### B MP, LIPID, ALT, AST #### [facility] [address] [place] [address] Dr. Luz Burr Chloride [Moles/Vol] 100 mmol/L Normal 98-107 [facility] Comment on above: Performed By: #### B MP, LIPID, ALT, AST #### [facility] [address] [place] [address] Dr. Luz Burr CO2 [Moles/Vol] 26.3 mmol/L Normal 22.0-30.0 Comment on above: Performed By: #### B MP, LIPID, ALT, AST #### [facility] [address] [place] [address] Dr. Luz Burr Creatinine [Mass/Vol] 1.21 mg/dL Normal 0.66-1.25 [facility] Comment on above: Performed By: #### B MP, LIPID, ALT, AST #### [facility] [address] [place] [address] Dr. Luz Burr EGFR-AF SOUTH AFRICAN >60 Normal >=60 [facility] Comment on above: Performed By: #### B MP, LIPID, ALT, AST #### [facility] [address] [address] [address] Luz Burr EGFR-NON AF SOUTH AFRICAN 58 mL/min/1.73m2 Critically low >=60 Comment on above: Performed By: #### B MP, LIPID, ALT, AST #### [facility] [address] [address] [address] Luz Burr Globulin (S) [Mass/Vol] 3.7 g/dL Normal Comment on above: Performed By: #### B MP, LIPID, ALT, AST #### [facility] [address] [address] [address] Luz Burr Glucose [Mass/Vol] 169 mg/dL Critically high 74-106 [facility] Comment on above: Performed By: #### B MP, LIPID, ALT, AST #### [facility] [address] [place] [address] Dr. uLz Burr Potassium [Moles/Vol] 4.3 mmol/L Normal 3.4-5.0 Comment on above: Performed By: #### B MP, LIPID, ALT, AST #### [facility] [address] [address] [address] Luz Burr Protein [Mass/Vol] 7.5 g/dL Normal 6.1-8.2 Comment on above: Performed By: #### B MP, LIPID, ALT, AST #### [facility] [address] [address] [address] Luz Burr Sodium [Moles/Vol] 138 mmol/L Normal 137-145 Comment on above: Performed By: #### B MP, LIPID, ALT, AST #### [facility] [address] [address] [address] Luz Burr Urea nitrogen [Mass/Vol] 37.0 mg/dL Critically high 7.0-18.0 Comment on above: Performed By: #### B MP, LIPID, ALT, AST #### [facility] [address] [address] [address] Luz Burr Urea nitrogen/Creatinine [Mass ratio] 30.6 mg/mg Normal Comment on above: Performed By: #### B MP, LIPID, ALT, AST #### [facility] [address] [id number] Luz Burr TROPONIN, HIGH SENSITIVITYon 01-02-2022 HSTROP 101.8 pg/mL Critically high 4.0-42.2 Comment on above: Result Comment: CUT- OFF POINTS HAVE BEEN ESTABLISHED BASED ON THE FOURTH UNIVERSAL DEFINITIONS OF MYOCARDIAL INFARCTION. THE UPPER REFERENCE LIMIT (URL) OF TROPONIN, DEFINED THE 99TH PERCENTILE OF cTnI DISTRIBUTION IN A REFERENCE POPULATION, HAS BEEN CONFIRMED THE DECISION THRESHOLD FOR [place] DIAGNOSIS. repeated Performed By: #### H STROPN #### [facility] [address] [place] [address] Dr. Luz Burr HSTROP 91.6 pg/mL Critically high 4.0-42.2 Comment on above: Result Comment: CUT- OFF POINTS HAVE BEEN ESTABLISHED BASED ON THE FOURTH UNIVERSAL DEFINITIONS OF MYOCARDIAL INFARCTION. THE UPPER REFERENCE LIMIT (URL) OF TROPONIN, DEFINED THE 99TH PERCENTILE OF cTnI DISTRIBUTION IN A REFERENCE POPULATION, HAS BEEN CONFIRMED THE DECISION THRESHOLD FOR [place] DIAGNOSIS. repeated Performed By: #### H STROPN #### [facility] [address] [place] [address] Dr. Luz Burr XR CHEST 1 Von 01-02-2022 XR CHEST 1 V EXAM: XR CHEST 1 V HISTORY: Abdominal pain COMPARISON: None. TECHNIQUE: Single frontal view chest x-ray FINDINGS: No lobar consolidation, large pleural effusions, pneumothorax, or acute bony abnormality. Cardiac size unremarkable. IMPRESSION: No radiographic evidence for acute chest abnormality. Electronically authenticated by: SHELBY ARZATE Date: 2022-01-02 04:33 Normal XR LSPINE 2_3 VIEWSon 2021 XR LSPINE 2_3 VIEWS EXAMINATION: XR LSPI NE 2_3 VIEWS HISTORY: Lumbar sprain , chronic COMPARISON: No relevant comparison available. FINDINGS: BONES: Grade 1 anterior listhesis of L3 on 4. No fracture or bone lesion. Moderate degenerative facet arthropathy L3-L4 through L5-S1. DISC SPACES: Marked narrowing L4-L5, L5-S1. PARASPINOUS: Negative. No paraspinous abnormality is seen. OTHER: Negative. IMPRESSION: 1. Multilevel marked degenerative disc disease and moderate degenerative facet arthropathy. Consider MRI for further evaluation. Electronically authenticated by: KACIE VALLE Date: 2021-12-17 10:15 Normal [facility] Tobacco Screening.on 022 Fall risk assessment a) No falls within the last year [facility] [place] [address] DO Work Phone: Tobacco use status CP b) No [facility] 250 DO Work Phone: Vital Signs Date Time Vital Sign Value Performing Clinician Facility 12-20-2023 09:52-0400 Body height 172.7 cm David Braga MD Work Phone: [facility] 12-20-2023 09:52-0400 Body mass index (BMI) [Ratio] 27.83 kg/m2 David Braga MD Work Phone: [facility] 12-20-2023 09:52-0400 Body weight 83.01 kg David Braga MD Work Phone: [facility] 12-20-2023 09:52-0400 Diastolic blood pressure 74 mm[Hg] David Braga MD Work Phone: [facility] 12-20-2023 09:52-0400 Heart rate 64 /min David Braga MD Work Phone: [facility] 12-20-2023 09:52-0400 Systolic blood pressure 128 mm[Hg] David Braga MD Work Phone: [facility] 06-14-2023 10:51-0400 Body height 175.26 cm Jasmin Watts Work Phone: [facility]Frdis [facility] 250 DO Work Phone: 06-14-2023 10:51-0400 Body mass index (BMI) [Ratio] 26.82 kg/m2 Jasmin Watts Work Phone: SV-Eofkaklzds-Jgcwh [address] 250 DO Work Phone: 06-14-2023 10:51-0400 Body surface area Derived from formula 1.98 m2 Rugen M [place] Work Phone: AY-Vmhlqdujpg-Ryhiv [address]gar 250 DO Work Phone: 06-14-2023 10:51-0400 Body weight 82.37 kg Rugen M Mac Work Phone: ZQ-Bdpaieaeex-Ogopd [address] 250 DO Work Phone: 06-14-2023 10:51-0400 Diastolic blood pressure 72 mm[Hg] Rugen M Mac Work Phone: CP-Kplsudtvfe-Hebba [address] 250 DO Work Phone: 06-14-2023 10:51-0400 Heart rate 61 /min Rugen M [place] Work Phone: OR-Skonnbbbgc-Auenv [address] 250 DO Work Phone: 06-14-2023 10:51-0400 Systolic blood pressure 114 mm[Hg] Rugen M [place] Work Phone: ED-Jerjfjjeai-Uoicc [address]gar 250 DO Work Phone: 11-11-2022 14:10-0500 Body height 175.26 cm Rugen M Mac Work Phone: [facility] 250 DO Work Phone: 11-11-2022 14:10-0500 Body mass index (BMI) [Ratio] 27.02 kg/m2 Rugen M [place] Work Phone: [facility] 250 DO Work Phone: 11-11-2022 14:10-0500 Body surface area Derived from formula 1.99 m2 Rugen M Mac Work Phone: [facility] 250 DO Work Phone: 11-11-2022 14:10-0500 Body weight 83.01 kg Rugen M Mac Work Phone: [facility] 250 DO Work Phone: 11-11-2022 14:10-0500 Diastolic blood pressure 78 mm[Hg] Jasmin Bowen [place] Work Phone: [facility] 250 DO Work Phone: 11-11-2022 14:10-0500 Heart rate 55 /min Jasmin Bowen Mac Work Phone: [facility] 250 DO Work Phone: 11-11-2022 14:10-0500 Systolic blood pressure 132 mm[Hg] Jasmin Bowen [place] Work Phone: [facility] DO Work Phone: 11-04-2022 11:27-0500 Body temperature 98.3 [degF] MD Jasmin Watts Work Phone: [facility] 11-04-2022 11:27-0500 Diastolic blood pressure 75 mm[Hg] MD Jasmin Watts Work Phone: [facility] 11-04-2022 11:27-0500 Heart rate 56 /min MD Jasmin Watts Work Phone: [facility] 11-04-2022 11:27-0500 Respiratory rate 18 /min MD Jasmin Watts Work Phone: [facility] 11-04-2022 11:27-0500 SaO2% (BldA) [Mass fraction] 95 % MD Jasmin Watts Work Phone: [facility] 11-04-2022 11:27-0500 Systolic blood pressure 120 mm[Hg] MD Jasmin Watts Work Phone: [facility] 11-04-2022 04:23-0500 Body weight 82.6 kg MD Jasmin Watts Work Phone: [facility] 11-03-2022 13:54-0500 Body height 175.26 cm Jasmin Mac Work Phone: [facility] 09-30-2022 08:49-0500 Body height 175.26 cm Rugen M [place] Work Phone: [facility] 250 DO Work Phone: 09-30-2022 08:49-0500 Body mass index (BMI) [Ratio] 27.02 kg/m2 Rugen M Mac Work Phone: [facility] 250 DO Work Phone: 09-30-2022 08:49-0500 Body surface area Derived from formula 1.99 m2 Rugen M Mac Work Phone: [facility] 250 DO Work Phone: 09-30-2022 08:49-0500 Body weight 83.01 kg Rugen M [place] Work Phone: [facility] 250 DO Work Phone: 09-30-2022 08:49-0500 Diastolic blood pressure 64 mm[Hg] Rugen M Mac Work Phone: [facility] 250 DO Work Phone: 09-30-2022 08:49-0500 Heart rate 62 /min Rugen M Mac Work Phone: [facility] 250 DO Work Phone: 09-30-2022 08:49-0500 Systolic blood pressure 122 mm[Hg] Rugen M Mac Work Phone: [facility] 250 DO Work Phone: 03-15-2022 14:16-0400 Body height 175.26 cm Rugen M Mac Work Phone: [facility] 250 DO Work Phone: 03-15-2022 14:16-0400 Body mass index (BMI) [Ratio] 27.47 kg/m2 Rugen M Mac Work Phone: [facility] 250 DO Work Phone: 03-15-2022 14:16-0400 Body surface area Derived from formula 2 m2 Rugen M Mac Work Phone: [facility] 250 DO Work Phone: 03-15-2022 14:16-0400 Body weight 84.37 kg Rugen M [place] Work Phone: [facility] 250 DO Work Phone: 03-15-2022 14:16-0400 Diastolic blood pressure 80 mm[Hg] Rugen M Mac Work Phone: [facility] 250 DO Work Phone: 03-15-2022 14:16-0400 Heart rate 60 /min Rugen Jessi [place] Work Phone: [facility] DO Work Phone: 03-15-2022 14:16-0400 Systolic blood pressure 130 mm[Hg] Rugen M [place] Work Phone: [facility] 250 DO Work Phone: 10-28-2021 11:21-0500 Body height 175.26 cm Rugen M [place] Work Phone: [facility] 250 DO Work Phone: 10-28-2021 11:21-0500 Body mass index (BMI) [Ratio] 27.17 kg/m2 Rugen M Mac Work Phone: [facility] 250 DO Work Phone: 10-28-2021 11:21-0500 Body surface area Derived from formula 1.99 m2 Rugen M [place] Work Phone: [facility] 250 DO Work Phone: 10-28-2021 11:21-0500 Body weight 83.46 kg Rugen M [place] Work Phone: [facility] 250 DO Work Phone: 10-28-2021 11:21-0500 Diastolic blood pressure 72 mm[Hg] Rugen M Mac Work Phone: [facility] 250 DO Work Phone: 10-28-2021 11:21-0500 Heart rate 76 /min Rugen M [place] Work Phone: [facility] 250 DO Work Phone: 10-28-2021 11:21-0500 Systolic blood pressure 108 mm[Hg] Rugen M Mac Work Phone: [facility] 250 DO Work Phone: Encounters Encounter Date Encounter Type Care Provider Facility Start: 12-20-2023 End: 12-20-2023 ambulatory DAVID Bowen [facility] Ambulatory Start: 12-20-2023 End: 12-20-2023 Office outpatient visit 25 minutes David Braga MD Work Phone: [facility] Comment on above: Arteriosclerotic car diovascular disease (ASCVD) (Primary Dx); History of PTCA; Paroxysmal atrial fibrillation (CMS/HCC); Mixed hyperlipidemia; BMI 27.0-27.9,adult; Never smoked tobacco; High risk medication use Start: 10-13-2023 End: 10-13-2023 ambulatory SUZIE RED Not Available Start: 08-29-2023 End: 08-29-2023 ambulatory JASMIN Bowen [place] Not Available Start: 06-14-2023 Office outpatient vi sit 25 minutes Rugen M Mac Work Phone: [facility] 250 DO Work Phone: Start: 12-06-2022 End: 12-07-[address] DAVID BRAGA Facility:[facility] Start: 12-02-2022 ambulatory David Braga Facility : Start: 11-26-2022 Rx Renewal Rugen M Mac Work Phone: [facility] 250 DO Work Phone: Start: 11-26-2022 Rx Renewal Rugen M [place] Work Phone: [facility] 250 DO Work Phone: Start: 11-11-2022 Patient encounter procedure Ru gen M Mac Work Phone: [facility] 250 DO Work Phone: Start: 11-11-2022 ambulatory David Braga Facility : Start: 11-04-2022 ambulatory David Braga Facility :[id number] Start: 11-03-2022 ambulatory RUGEN MAC Facility:[id number] Start: 11-02-2022 End: 11-04-2022 Evaluation and management of inpatient Rugen M Mac Facility:[facility] Start: 11-02-2022 End: 11-04-2022 Evaluation and management of inpatient Jasmin Noonana Work Phone: [facility] [place] [facility] Work Phone: Start: 10-25-2022 Rx Renewal Rugen M Mac Work Phone: [facility] 250 DO Work Phone: Start: 09-30-2022 Office outpatient vi sit 25 minutes Rugen M [place] Work Phone: [facility] 250 DO Work Phone: Start: 09-30-2022 ambulatory David Braga Facility : Start: 06-07-2022 Rx Renewal Rugen M Mac Work Phone: [facility] 250 DO Work Phone: Start: 05-20-2022 Rx Renewal Rugen M [place] Work Phone: [facility] 250 DO Work Phone: Start: 03-15-2022 Office outpatient vi sit 25 minutes Rugen M [place] Work Phone: [facility] 250 DO Work Phone: Start: 03-15-2022 ambulatory David Braga Facility :[id number] Start: 01-02-2022 End: 01-02-[address] JASMIN WATTS Facility:[facility] Start: 12-17-2021 End: 12-18-[address] JASMIN WATTS Facility:[facility] Start: 10-28-2021 Office outpatient vi sit 25 minutes Rugen M Mac Work Phone: [facility] 250 DO Work Phone: Start: 10-28-2021 Patient encounter procedure Ru gen M [place] Work Phone: [facility] 250 DO Work Phone: Start: 08-31-2021 Rx Renewal David Braga MD Work Phone: [facility] 250 DO Work Phone: Procedures Date Procedure Procedure Detail Performing Clinician Start: 12-20-2023 Alanine aminotransfe rase [Enzymatic activity/volume] in Serum or Plasma DAVID BRAGA Start: 12-20-2023 Aspartate aminotrans ferase [Enzymatic activity/volume] in Serum or Plasma DAVID BRAGA Start: 12-20-2023 Basic metabolic 2000 panel - Serum or Plasma DAVID BRAGA Start: 12-20-2023 CBC panel - Blood by Automated count DAVID BRAGA Start: 12-20-2023 Lipid panel DAVID THIBODEAUX Start: 12-20-2023 ECG 12-LEAD DAVID THIBODEAUX Start: 12-20-2023 Ecg routine ecg w/le ast 12 lds w/i&r David Braga MD Work Phone: Start: 10-06-2023 History of percutane ous transluminal coronary angioplasty History of PTCA David Braga MD Work Phone: Arthroplasty of knee Rugen M Mac Work Phone: Cardiac catheterization Ruge n M [place] Work Phone: Colonoscopy Rugen M [place] Work Phone: History of percutane ous transluminal coronary angioplasty History of PTCA Rugen M [place] Work Phone: History of percutane ous transluminal coronary angioplasty History of PTCA David Braga MD Work Phone: Laparoscopy Rugen M [place] Work Phone: Percutaneous translu khang coronary angioplasty Rugen M [place] Work Phone: Procedure on back Jasmin Bowen [place] Work Phone: Plan of Treatment Date Care Activity Detail Author Start: 12-26-2028 DTaP/Tdap/Td Vaccines (2 - Td or Tdap) DTaP/Tdap/Td Vaccines (2 - Td or Tdap) [facility] Start: 06-27-2024 End: 06-27-2024 Patient encounter procedure 06/27/2024 9:30 AM EDT Office Visit [facility] [address] [id number] David Braga MD 703 [facility] [address], [address] [address] [facility] Start: 12-20-2023 End: 12-19-2024 Alanine aminotransferase [Enzymatic activity/volume] in Serum or Plasma by With P-5'-P Alanine Aminotransferase Lab Routine 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 Paroxysmal atrial fibrillation (CMS/HCC) Mixed hyperlipidemia Expected: 12/20/2023 (Approximate), Expires: 12/19/2024 [facility] Service Area Work Phone: Comment on above: Expected: 12/20/2023 (Approximate), Expi res: 12/19/2024 Start: 12-20-2023 End: 12-19-2024 Aspartate aminotransferase [Enzymatic activity/volume] in Serum or Plasma by With P-5'-P Aspartate Aminotransferase Lab Routine 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 Paroxysmal atrial fibrillation (CMS/HCC) Mixed hyperlipidemia Expected: 12/20/2023 (Approximate), Expires: 12/19/2024 [facility] Work Phone: Comment on above: Expected: 12/20/2023 (Approximate), Expi res: 12/19/2024 Start: 12-20-2023 End: 12-19-2024 Basic metabolic 2000 panel - Serum or Plasma Basic Metabolic Panel Lab Routine 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 Paroxysmal atrial fibrillation (CMS/HCC) Mixed hyperlipidemia Expected: 12/20/2023 (Approximate), Expires: 12/19/2024 [facility] Work Phone: Comment on above: Expected: 12/20/2023 (Approximate), Expi res: 12/19/2024 Start: 12-20-2023 End: 12-19-2024 CBC panel - Blood by Automated count CBC Lab Routine 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 Paroxysmal atrial fibrillation (CMS/HCC) Mixed hyperlipidemia Expected: 12/20/2023 (Approximate), Expires: 12/19/2024 [facility] Work Phone: Comment on above: Expected: 12/20/2023 (Approximate), Expi res: 12/19/2024 Start: 12-20-2023 End: 12-19-2024 Lipid 1996 panel - Serum or Plasma Lipid Panel Lab Routine 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 Paroxysmal atrial fibrillation (CMS/HCC) Mixed hyperlipidemia Expected: 12/20/2023 (Approximate), Expires: 12/19/2024 [facility] Work Phone: Comment on above: Expected: 12/20/2023 (Approximate), Expi res: 12/19/2024 Start: 12-02-2022 FUV, Provider: David Braga, Status: Pen, Time: 11:00 AM FUV, Provider: David Braga, Status: Pen, Time: 11:00 AM -[facility] 250 DO Work Phone: Start: 11-04-2022 [facility] Start: 11-02-2022 Hospital admission [facility] Start: 10-19-2022 SURGNONUH, Provider: David Braga, Status: Pen, Time: 8:00 AM SURGNONUH, Provider: David Braga, Status: Pen, Time: 8:00 AM -[facility] 250 DO Work Phone: Start: 09-30-2022 FUV, Provider: David Braga, Status: Pen, Time: 9:00 AM FUV, Provider: David Braga, Status: Pen, Time: 9:00 AM MP-[facility] 250 DO Work Phone: Start: 05-05-2022 FUV, Provider: David Braga, Status: Pen, Time: 10:30 AM FUV, Provider: David Braga, Status: Pen, Time: 10:30 AM [facility] 250 DO Work Phone: Start: 10-28-2021 FUV, Provider: David Braga, Status: Pen, Time: 11:00 AM FUV, Provider: David Braga, Status: Pen, Time: 11:00 AM -[facility] 250 DO Work Phone: Start: 1994 Zoster Vaccines (1 of 2) Zoster Vaccines (1 of 2) [facility] Start: 1962 Diabetes mellitus screening Diabetes Screening [facility] Start: 1962 Hepatitis C screening Hepatitis C Screening [facility] Start: 1944 Lipid panel Lipid Panel [facility] Start: 1944 Medicare Annual Wellness Visit Medicare Annual Wellness Visit (AWV) [facility] Patient Education Atrial Fibrillation (DC ) [facility] Work Phone: Patient referral [facility] Work Phone: Immunizations Immunization Date Immunization Notes Care Provider Shu moyer 05-31-2023 Fluad Quadrivalent 0 .5 ML Intramuscular Prefilled Syringe Rugen Jessi [place] Work Phone: [facility] 250 DO Work Phone: 06-19-2022 influenza, injectabl e, quadrivalent, preservative free Rugen Jessi [place] Work Phone: [facility] DO Work Phone: 06-02-2022 Moderna COVID-19 Biv al Booster 50 MCG/0.5ML Intramuscular Suspension Rugvaleriy Noon[place] Work Phone: [facility] 250 DO Work Phone: 05-26-2022 Fluzone High-Dose Quadrivalent 0.7 ML Intramuscular Suspension Prefilled Syringe Rugen Jessi [place] Work Phone: [facility] 250 DO Work Phone: 12-22-2021 Moderna COVID-19 Vac cine 100 MCG/0.5ML Intramuscular Suspension Jasmin Noonana Work Phone: [facility] 250 DO Work Phone: 07-13-2021 Moderna COVID-19 Vac cine 100 MCG/0.5ML Intramuscular Suspension Jasmin [place] Work Phone: [facility] 250 DO Work Phone: 06-19-2021 influenza, seasonal, injectable Rugen M [place] Work Phone: [facility] 250 DO Work Phone: Comment on above: Series: 12-10-2020 Moderna COVID-19 Vac cine 100 MCG/0.5ML Intramuscular Suspension Rugen M [place] Work Phone: [facility] 250 DO Work Phone: 11-12-2020 Moderna COVID-19 Vac cine 100 MCG/0.5ML Intramuscular Suspension Rugen M [place] Work Phone: [place] [address] DO Work Phone: 05-20-2020 influenza, high dose seasonal, preservative-free Rugen M [place] Work Phone: [place] [address] DO Work Phone: 05-28-2019 influenza, high dose seasonal, preservative-free Rugen M [place] Work Phone: [place] [address] DO Work Phone: 12-26-2018 tetanus toxoid, redu miranda diphtheria toxoid, and acellular pertussis vaccine, adsorbed Rugen M [place] Work Phone: [place] [address] DO Work Phone: 06-19-2018 influenza, high dose seasonal, preservative-free Rugen M [place] Work Phone: [place] [address] DO Work Phone: 06-19-2018 pneumococcal conjuga te vaccine, 13 valent Rugen M [place] Work Phone: [place] [address] DO Work Phone: 06-30-2017 pneumococcal conjuga te vaccine, 13 valent Rugen M [place] Work Phone: [place] [address] DO Work Phone: 06-06-2017 influenza, injectabl e, quadrivalent, preservative free Rugen M Mac Work Phone: [place] [address] DO Work Phone: 05-23-2017 pneumococcal conjuga te vaccine, 13 valent Rugen M Mac Work Phone: [place] [address] DO Work Phone: 01-19-2016 pneumococcal polysaccharide vaccine, 23 valent Rugen M [place] Work Phone: -[facility] 250 DO Work Phone: 09-24-2009 novel influenza-H1N1 -09, preservative-free, injectable Jasmin Watts Work Phone: -[facility] 250 DO Work Phone: Payers Date Payer Category Payer Medicare [id number] 2022 Self-pay [id number] 2021 Medicare AETNA MEDICARE A ETNA GOLDEN MEDICARE [id number] 2021-Present [address] [place] [address] [id number] 1959 Private Health Insurance [id number] 1944 Unknown [id number] 56 1944 Unknown [id number] 56 1944 Unknown [id number] [id number] 56 1944 Unknown [id number] [id number] 56 1944 Unknown [id number] [id number] 56 1944 Unknown [id number] [id number] 56 1944 Unknown [id number] [id number] 93 1944 Unknown [id number] [id number] 93 1944 Unknown [id number] [id number] 93 1944 Unknown [id number] [id number] 259 1944 Unknown [id number] [id number] 259 1944 Unknown [id number] 244 Unknown [employer] Unknown [id number] 31 Social History Date Type Detail Facility Start: 12-20-2023 Caffeine use Caffeine use -[facility] 250 DO Work Phone: Start: 11-02-2022 End: 12-20-2023 Tobacco smoking status NHIS Never smoked tobacco (finding) [facility] Start: 1945 Sex Assigned At Male [facility] Start: 12-20-2023 Tobacco use and exposure Smokeless tobacco non-user [facility] Work Phone: Start: 12-20-2023 Alcohol intake Lifetime non-d faith (finding) [facility] Work Phone: Start: 12-20-2023 Tobacco use panel [facility] Work Phone: Start: 1945 Sex Assigned At Not on file [facility] Work Phone: Start: 12-10-2023 End: 12-20-2023 Exposure to SARS-CoV-2 (event) Not sure [facility] Medical Equipment Procedure Code Equipment Code Equipment Original Text Equipment Identifier Dates [id number] [facility] Start: 06-16-2020 Goals Date Patient Goal Desired Activity /State Functional Status Date Assessment Result Facility 11-04-2022 Functional status Patient at Baseline [facility] Work Phone: Mental Status Date Assessment Result Facility 11-04-2022 Cognitive function Cognitive Sta tus Patient at Baseline [facility] Work Phone: History of Present illness Narrative 12-20-2023 David Braga MD - 12/20/2023 10:10 AM EDT Note Date & Type Note Facility 12-20-2023 History of Present illness Narrative Subjective Hossein Bentley is a 78 y.o. male Chief Complaint Follow-up HPI Patient is in the office for follow-up for the problems noted below. He has had no cardiac events since he was last seen. He maintains active lifestyle and came with his . Review of system essentially normal physical examination was remarkable for mildly diminished breath sound with no prior exposure to tobacco or environmental dust. He does not have any symptoms of dyspnea. EKG confirmed normal sinus rhythm with normal QTc interval on Tikosyn. He has had no significant breakthrough events and has had no bleeding complications. His weight remains slightly above target which is something he is working on Assessment/recommendations: 1-significant coronary arteries involving the proximal anterior descending artery status post drug-eluting stent with no complications back in May 2020. No recurrent symptoms and risk factors have been under control. 2-hyperlipidemia on statin therapy, lipid profile is ordered 3-slight overweight, patient has remained very active in his lifestyle, few pounds weight loss will be advised. 4-paroxysmal atrial fibrillation, currently on Tikosyn and long-term anticoagulation with Eliquis, he has few recurrences that are well-tolerated for which metoprolol tartrate to be used as an as-needed basis was provided we will reduce the aspirin to twice weekly. 5-high risk medication with Eliquis and Tikosyn, no complications, basic metabolic profile and CBC were ordered Review of Systems All other systems reviewed and are negative. Vitals: 12/20/23 0952 BP: 128/74 BP Location: Right arm Patient Position: Sitting Pulse: 64 Weight: 83 kg (183 lb) Height: 1.727 m (5' 8 ) EKG done in office today Objective Physical Exam Constitutional: Appearance: Normal appearance. HENT: Nose: Nose normal. Neck: Vascular: No carotid bruit. Cardiovascular: Rate and Rhythm: Normal rate. Pulses: Normal pulses. Heart sounds: Normal heart sounds. Pulmonary: Effort: Pulmonary effort is normal. Abdominal: General: Bowel sounds are normal. Palpations: Abdomen is soft. Musculoskeletal: General: Normal range of motion. Cervical back: Normal range of motion. Right lower leg: No edema. Left lower leg: No edema. Skin: General: Skin is warm and dry. Neurological: General: No focal deficit present. Mental Status: He is alert. Psychiatric: Mood and Affect: Mood normal. Behavior: Behavior normal. Thought Content: Thought content normal. Judgment: Judgment normal. Allergies Patient has no known allergies. Current Medications Current Outpatient Medications: apixaban (Eliquis) 5 mg tablet, Take 1 tablet (5 mg) by mouth 2 times a day., Disp: , Rfl: aspirin 81 mg EC tablet, Take 1 tablet (81 mg) by mouth 2 times a week., Disp: , Rfl: atorvastatin (Lipitor) 80 mg tablet, Take 1 tablet (80 mg) by mouth once daily., Disp: , Rfl: dofetilide (Tikosyn) 250 mcg capsule, Take one capsule twice daily, Disp: 180 capsule, Rfl: 1 lisinopril 2.5 mg tablet, Take 1 tablet (2.5 mg) by mouth once daily., Disp: , Rfl: metoprolol succinate XL (Toprol-XL) 50 mg 24 hr tablet, Take 1 tablet (50 mg) by mouth once daily., Disp: , Rfl: metoprolol tartrate (Lopressor) 25 mg tablet, Take 1 tablet (25 mg) by mouth 2 times a day as needed (elevated heart rate)., Disp: , Rfl: Assessment/Plan 1. Arteriosclerotic cardiovascular disease (ASCVD) Follow Up In Cardiology Alanine Aminotransferase Aspartate Aminotransferase Basic Metabolic Panel CBC Lipid Panel Alanine Aminotransferase Aspartate Aminotransferase Basic Metabolic Panel CBC Lipid Panel 2. History of PTCA Alanine Aminotransferase Aspartate Aminotransferase Basic Metabolic Panel CBC Lipid Panel Alanine Aminotransferase Aspartate Aminotransferase Basic Metabolic Panel CBC Lipid Panel 3. Paroxysmal atrial fibrillation (CMS/HCC) Follow Up In Cardiology ECG 12 Lead Alanine Aminotransferase Aspartate Aminotransferase Basic Metabolic Panel CBC Lipid Panel Alanine Aminotransferase Aspartate Aminotransferase Basic Metabolic Panel CBC Lipid Panel 4. Mixed hyperlipidemia Alanine Aminotransferase Aspartate Aminotransferase Basic Metabolic Panel CBC Lipid Panel Alanine Aminotransferase Aspartate Aminotransferase Basic Metabolic Panel CBC Lipid Panel 5. BMI 27.0-27.9,adult 6. Never smoked tobacco 7. High risk medication use Scribe Attestation By signing my name below, I, Sharri Chandra LPN attest that this documentation has been prepared under the direction and in the presence of David Braga MD. Provider Attestation - Scribe documentation All medical record entries made by the Scribe were at my direction and personally dictated by me. I have reviewed the chart and agree that the record accurately reflects my personal performance of the history, physical exam, discussion and plan. documented in this encounter [facility] Work Phone: Instructions 12-20-2023 Patient Instructions Note Date & Type Note Facility 12-20-2023 Instructions Disha Atkinson LPN - 12/20/2023 10:10 AM EDT Please bring all medicines, vitamins, and herbal supplements with you when you come to the office. Prescriptions will not be filled unless you are compliant with your follow up appointments or have a follow up appointment scheduled as per instruction of your physician. Refills should be requested at the time of your visit. BMI was above normal measurement. Current weight: 83 kg (183 lb) Weight change since last visit (-) denotes wt loss 1.4 lbs Weight loss needed to achieve BMI 25: 18.9 Lbs Weight loss needed to achieve BMI 30: -13.9 Lbs Provided instructions on dietary changes Provided instructions on exercise. documented in this encounter [facility] Work Phone: Discharge summary 11-04-2022 Note Date & Type Note Facility 11-04-2022 Discharge summary Note Date/Time November 04, 2022 1:20pm [facility] [address] [place] [address] Discharge Summary Signed Patient: Hossein Bentley MR#: [id number] : 1945 Acct:[id number] Age/Sex: 77 / M Adm Date: 3 Loc: Room: [address] [place] [address]: David Braga MD Copies to: David Braga MD, [facility] Jasmin Watts MD~ Providers Date of Discharge: 11/04/22 Discharging Provider: David Braga Primary Care Provider: Jasmin Watts Discharge Diagnosis (1) Paroxysmal atrial fibrillation with RVR: (2) Coronary artery disease: (3) Stented coronary artery: (4) Dyslipidemia: Final Diagnosis Final Discharge Diagnosis: Paroxysmal atrial fibrillation CAD status post PCI Summary Hospital Course Hospital course: Patient was electively admitted for drug loading with Tikosyn at 250 mcg twice daily while he is currently anticoagulated with Eliquis. His lab on admission was normal. His vital signs were abnormal with atrial fibrillation and controlled rate noted on presentation causing symptoms of palpitations. The patient was started on Tikosyn 250 mcg twice daily with daily monitoring of the QTc interval. The patient converted back to normal sinus rhythm after taking 2 doses of the Tikosyn. QTc interval remained below 450 ms. The patient completed 5 doses of the medicine with no QTc prolongation and had no side effect of the medicine. He was discharged home on his home medications in addition to Tikosyn. He will have follow-up EKG in the office in 1 week. Time Spent with Patient Time spent providing/coordinating discharge services (# min): 30 Diagnostic Studies Completed and Pending Studies Pending studies at discharge: 11/05/22 05:00 ECG 12 lead ECG IN AM Prothrombin Time INR IN AM 11/06/22 05:00 ECG 12 lead ECG IN AM Prothrombin Time INR IN AM 11/07/22 05:00 ECG 12 lead ECG IN AM Prothrombin Time INR IN AM Labs on day of discharge: 11/04/22 03:58: PT 16.2 H, INR 1.4 Exam Physical Exam Vital Signs: Temp Pulse Resp BP Pulse Ox O2 Del Method 98.3 F 56 L 18 120/75 95 Room Air 11/04/22 11:27 11/04/22 11:27 11/04/22 11:27 11/04/22 11:27 11/04/22 11:27 11/04/22 11:27 Const General: cooperative, comfortable and no acute distress Nutritional Appearance: average body habitus Orientation: alert, awake and oriented x3 HEENT Head: normal to inspection, normocephalic and atraumatic Ears: hearing grossly normal bilaterally Nose: external nose normal Face and sinus: normal facial exam Eyes General: appearance normal, both eyes and all related structures Conjunctivae: conjunctivae normal Pupils: PERRL Neck Neck: normal visual inspection, full ROM, trachea midline and supple Neck mass: No Thyroid: thyroid normal Carotids: normal carotid upstroke Resp Effort & Inspection: normal respiratory effort Auscultation: clear to auscultation bilaterally Cardio Jugular venous pressure: no JVD Palpation: normal PMI Rate: regular rate Rhythm: regular rhythm and abnormal rhythm irregularly irregular Heart Sounds: S1 normal and S2 normal GI Inspection: normal to inspection Palpation: soft and no hepatosplenomegaly Auscultation: normal bowel sounds Extrem General: no clubbing, cyanosis or edema Discharge Plan Discharge Plan Patient Disposition: Home Activity: Ambulate as Tolerated Diet: Low-Fat and Low-Sodium Prescriptions: New atorvastatin 80 mg Tablet 80 mg PO HS 30 Days Qty: 30 12RF dofetilide 250 mcg Capsule 250 mcg PO Q12H 30 Days Qty: 60 12RF dofetilide [Tikosyn] 250 mcg capsule 250 mcg PO Q12H 7 Days Qty: 14 0RF Continued lisinopril 2.5 mg tablet 2.5 mg PO DAILY Eliquis 5 mg tablet 5 mg PO BID metoprolol succinate 50 mg Tablet Extended Release 24 Hr 50 mg PO DAILY aspirin 81 mg Tablet,Delayed Release (Dr/Ec) 81 mg PO DAILY nitroglycerin 0.4 mg Tablet, Sublingual 0.4 mg SUBLINGUAL Q5-15M PRN (Reason: Chest Pain) Discontinued rosuvastatin 40 mg tablet 40 mg PO HS Follow Up: David Braga MD [Active Staff] - Documented By: David Braga MD, [facility] 3 [id number] Signed By: <Electronically signed by MD JORDAN Braga> 11/04/22 1320 [facility] Work Phone: Progress note 11-03-2022 Note Date & Type Note Facility 11-03-2022 Progress note Note Date/Time November 03, 2022 2:50pm [facility] [address] [place] [address] Cardiology Progress Note Signed Patient: Hossein Bentley MR#: [id number] : 1945 Acct:[id number] Age/Sex: 77 / M Adm Date: 3 Loc: 4 Room: [address] [place] [address] Type: ADM IN Attending Dr: David Braga MD Copies to: ~ Date of Service: 11/03/2022 Subjective Principal diagnosis: Paroxysmal atrial fibrillation Interval history: Patient converted to sinus rhythm overnight and remains in sinus rhythm with normal QTc interval. He is currently asymptomatic. He will be monitored for another 24 hours after which he will likely be discharged on the same dose of Tikosyn. No plans for cardioversion. Exam Physical Exam Vital Signs: Temp Pulse Resp BP Pulse Ox O2 Del Method 98.0 F 67 16 116/75 95 Room Air 11/03/22 11:12 11/03/22 11:12 11/03/22 11:12 11/03/22 11:12 11/03/22 11:12 11/03/22 11:12 Const General: cooperative, comfortable and no acute distress Nutritional Appearance: average body habitus Orientation: alert, awake and oriented x3 HEENT Head: normal to inspection, normocephalic and atraumatic Ears: hearing grossly normal bilaterally Nose: external nose normal Face and sinus: normal facial exam Eyes General: appearance normal, both eyes and all related structures Conjunctivae: conjunctivae normal Pupils: PERRL Neck Neck: normal visual inspection, full ROM, trachea midline and supple Neck mass: No Thyroid: thyroid normal Carotids: normal carotid upstroke Resp Effort & Inspection: normal respiratory effort Auscultation: clear to auscultation bilaterally Cardio Jugular venous pressure: no JVD Palpation: normal PMI Rate: regular rate Rhythm: regular rhythm Heart Sounds: S1 normal and S2 normal GI Inspection: normal to inspection Palpation: soft and no hepatosplenomegaly Auscultation: normal bowel sounds Extrem General: no clubbing, cyanosis or edema Objective Labs 11/02/22 09:23 Labs: Laboratory Results - last 24 hr 11/03/22 04:28 PT 15.7 H INR 1.4 A&P - Cardiology (1) Paroxysmal atrial fibrillation with RVR: Assessment/Problem Details: Patient is currently in sinus rhythm on Tikosyn loading. Code(s): I48.0 - Paroxysmal atrial fibrillation Status: Acute Plan: Continue loading with Tikosyn and monitor for another 24 hours. (2) Coronary artery disease: Assessment/Problem Details: Asymptomatic following PCI 3 years ago Code(s): I25.10 - Atherosclerotic heart disease of [place] coronary artery without angina pectoris Status: Acute Plan: Continue secondary prevention measures (3) Stented coronary artery: Assessment/Problem Details: Asymptomatic Status: Acute Plan: Continue statin and antiplatelet therapy (4) Dyslipidemia: Assessment/Problem Details: On statin therapy Code(s): E78.5 - Hyperlipidemia, unspecified Status: Acute Plan: Continue rosuvastatin Documented By: David Braga MD, [facility] 3 1448 Signed By: <Electronically signed by MD JORDAN Braga> 11/03/22 1450 [facility] Work Phone: History and physical note 11-02-2022 Note Date & Type Note Facility 11-02-2022 History and physi misael note Note Date/Time November 02, 2022 5:52pm [facility] [address] [place] [address] Cardiology H&P Signed Patient: Hossein Bentley MR#: [id number] : 1945 Acct:[id number] Age/Sex: 77 / M Adm Date: 3 Loc: Room: [address] [place] [address] Type: ADM IN Attending Dr: David Braga MD Copies to: David Braga MD, [facility] Jasmin Watts MD~ Date of Service: 11/02/2022 Cardiology HPI History of Present Illness Chief complaint: Paroxysmal atrial fibrillation HPI: Mr. Bentley is a 77 year old male who was admitted electively by myself for drug loading with Tikosyn for management of paroxysmal atrial fibrillation. The patient has history of coronary artery disease and had PCI of the anterior descending artery in the past back in May 2020 with no recurrences. The patient has hyperlipidemia on medical therapy and paroxysmal atrial fibrillationoff of antiarrhythmic therapy but on chronic anticoagulation. He was advised onthe need for antiarrhythmic therapy to reduce the load of atrial fibrillation and because of this he has been admitted for drug loading with Tikosyn. Review of Systems Review of Systems Review of systems: Denies angina but has palpitations. No dyspnea no chest pain no fever or [id number] point review of system essentially normal PMFSH Vaccinated for COVID-19?: Yes Medical History (Updated 11/02/22 @ 17:52 by David Braga MD) A-fib Hyperlipidemia Surgical History (Updated 11/02/22 @ 17:52 by David Braga MD) H/O cardiac catheterization with stents History of back surgery Hx of total knee replacement Family History (Updated 11/02/22 @ 10:20 by Domingo Burnett RN) Brother A-fib Myocardial infarction Father Prostate cancer Stroke Social History Smoking Status: Never smoker Substance Use Type: None Meds Medications and Allergies Allergies No Known Allergies Allergy (Verified 06/16/20 10:31) Home Medications aspirin 81 mg tablet,delayed release 81 mg PO DAILY 06/16/20 [History Confirmed 11/02/22] metoprolol succinate 50 mg tablet,extended release 24 hr 50 mg PO DAILY 06/16/20[History Confirmed 11/02/22] nitroglycerin 0.4 mg sublingual tablet 0.4 mg sublingual Q5-15M PRN Chest Pain 06/16/20 [History Confirmed 11/02/22] lisinopril 2.5 mg tablet 2.5 mg PO DAILY 11/02/22 [History Confirmed 11/02/22] rosuvastatin 40 mg tablet 40 mg PO HS 11/02/22 [History Confirmed 11/02/22] Exam Physical Exam Vital Signs: Temp Pulse Resp BP Pulse Ox O2 Del Method 97.4 F L 73 19 115/74 95 Room Air 11/02/22 16:00 11/02/22 16:00 11/02/22 16:00 11/02/22 16:00 11/02/22 16:00 11/02/22 16:00 Const General: cooperative, comfortable and no acute distress Nutritional Appearance: average body habitus Orientation: alert, awake and oriented x3 HEENT Head: normal to inspection, normocephalic and atraumatic Ears: hearing grossly normal bilaterally Nose: external nose normal Face and sinus: normal facial exam Eyes General: appearance normal, both eyes and all related structures Conjunctivae: conjunctivae normal Pupils: PERRL Neck Neck: normal visual inspection, full ROM, trachea midline and supple Neck mass: No Thyroid: thyroid normal Carotids: normal carotid upstroke Resp Effort & Inspection: normal respiratory effort Auscultation: clear to auscultation bilaterally Cardio Jugular venous pressure: no JVD Palpation: normal PMI Rate: regular rate Rhythm: abnormal rhythm irregularly irregular Heart Sounds: S1 normal and S2 normal GI Inspection: normal to inspection Palpation: soft and no hepatosplenomegaly Auscultation: normal bowel sounds Extrem General: no clubbing, cyanosis or edema Results Labs 11/02/22 09:23 Lab results: Comprehensive Metabolic Panel 11/02/22 Range/Units 09:23 Sodium 139 (136-146) mmol/L Potassium 4.2 (3.5-5.1) mmol/L Chloride 104 (95-114) mmol/L Carbon Dioxide 28.2 (22.0-30.0) mmol/L BUN 23 (9-23) mg/dL Creatinine 0.83 (0.64-1.27) mg/dL Glucose 137 H (70-100) mg/dL Calcium 9.7 (8.2-10.2) mg/dL Intake and Output 11/02/22 11/02/22 11/02/22 07:59 15:59 23:59 Intake Total 450 / 450 Balance 450 / 450 Intake: Oral 450 / 450 Other: # Unmeasured Voids 1 # Bowel Movements 0 Weight 82.7 kg Date of Last Bowel Movement 11/01/22 Patient Weight 11/02/22 23:59 Weight 82.7 kg Lab 11/02/22 09:23 PT 16.6 H INR 1.4 A&P - Cardiology (1) Paroxysmal atrial fibrillation with RVR: Plan: Drug loading with Tikosyn 250 mcg twice daily, Daily EKG for QTc monitoring, in 48 hours cardioversion if necessary. Continue beta-marleny therapy with metoprolol Code(s): I48.0 - Paroxysmal atrial fibrillation (2) Coronary artery disease: Assessment/Problem Details: Stable after angioplasty 2019 Plan: Continue secondary prevention measures Code(s): I25.10 - Atherosclerotic heart disease of [place] coronary artery without angina pectoris (3) Stented coronary artery: Assessment/Problem Details: Back in 2019 involving anterior descending artery Plan: Continue statin and antiplatelet therapy (4) Dyslipidemia: Assessment/Problem Details: On rosuvastatin Plan: Continue rosuvastatin Code(s): E78.5 - Hyperlipidemia, unspecified Documented By: David Braga MD, [facility] 3 1749 Signed By: <Electronically signed by MD JORDAN Braga> 11/02/22 1754 [facility] Work Phone: Evaluation note Note Date & Type Note Facility Evaluation note Diagnosis Onset Date Coronary artery disease acut e Dyslipidemia acute Paroxysmal atrial fibrillation with RVR acute Stented coronary artery acut e [facility] Work Phone: Evaluation note Note Date & Type Note Facility Evaluation note Diagnosis Arteriosclerotic cardiovascular disease (ASCVD)- Primary Unspecified cardiovascular disease History of PTCA Postsurgical percutaneous transluminal coronary angioplasty status Paroxysmal atrial fibrillation (CMS/HCC) Atrial fibrillation Mixed hyperlipidemia BMI 27.0-27.9,adult Never smoked tobacco High risk medication use documented in this encounter [facility] Work Phone: Hospital Discharge instructions Note Date & Type Note Facility Hospital Discharge instructions Additional Instructions You are scheduled for an EKG at [facility] Office on 11/11/2022 at 2:00pm [facility] Work Phone: Chief Complaint HOSSEIN BENTLEY is being seen for a 6 month follow-up of.* HOSSEIN BENTLEY is being seen for a 6 month follow-up of. * Patient is in the office for follow-up for single-vessel CAD involving the LAD status post angioplasty in 2019 who has had no events since the intervention. He is currently asymptomatic and maintain adequate level of daily activities and has had no symptoms of chest angina pectoris he does have symptoms of atypical chest pain and palpitations which does not at the present time require any investigations. He was advised that if he has continuous palpitations that event monitor will be needed to capture the events. Meanwhile his medical therapy will be left unchanged and will continue to followhis lipid profile closely. * Assessment/recommendations: * 1 significant coronary arteries involving the proximal anterior descending artery status post drug-eluting stent with no complications. Back in May 2020. Emphasized the need for secondary prevention measures and suggested targeting LDL cholesterol between 55 and 70 mg/dL, lipid profile is ordered * 2 hyperlipidemia on statin therapy, lipid profile is ordered * 3 slight overweight, patient has remained very active in his lifestyle, few pounds weight loss willbe advised. * 4 occasional symptoms atypical chest pain noncardiac in origin to be monitored * 5 occasional palpitations and tachycardia, if it continues to be recurrent an event monitor will berecommended * HOSSEIN BENTLEY is being seen for follow-up of a [facility]. * Patient is in the office for follow-up for CAD and previous PCI in 2019. Since his last visit in October 2021 he had an admission to [facility] in [place] where he had laparoscopic abdominal procedure for pain which came back negative. Apparently during that admission he had atrial fibrillation with RVR which prompted discontinuation of Plavix and institution of therapy with Eliquis. There has been no recurrent abdominal pain and no recurrent tachycardia. Has had no bleeding complications. His lab data from October 2021 which I reviewed with him showed excellent lipid profile LDL of 70. He has no side effect of medications. Currently denies any chest pain and is scheduled to have colonoscopy next week for which she has to hold the Eliquis and the aspirin which I allowed. His heart rhythm was regular today. His weight is over target and this was brought his attention as well. * Assessment/recommendations: * 1 significant coronary arteries involving the proximal anterior descending artery status post drug-eluting stent with no complications. Back in May 2020. No recurrent symptoms and risk factors have been under control. * 2 hyperlipidemia on statin therapy, lipid profile is under control based on October 2021 data. * 3 slight overweight, patient has remained very active in his lifestyle, few pounds weight loss willbe advised. * 4 paroxysmal atrial fibrillation while having acute abdominal pain 2021. He was in [place]. Records were requested, presently he is on Eliquis replacing the Plavix but still on aspirin. No antiarrhythmic therapy was initiated or needed at the present time. Patient remains without any palpitations. * 5 high risk medication with Eliquis which will be monitored. * 6 patient need colonoscopy next week he was advised to hold the Eliquis and the aspirin as requested by gastroenterology * HOSSEIN BENTLEY is being seen for a 6 month follow-up of. * Patient is in the office for follow-up for the problems noted below accompanied by his . He reported recurrent episodes of atrial fibrillation lasting for over a day at times and actually make him stay at home. He denies any angina associated with it no dizziness and no shortness of breath. He has been on Eliquis which has been well-tolerated. He has not utilize nitroglycerin lately, he is active but slightly is overweight. He has not had any blood work since he was last seen in the office.His examination today was essentially normal except for overweight. * Assessment/recommendations: * 1 significant coronary arteries involving the proximal anterior descending artery status post drug-eluting stent with no complications. Back in May 2020. No recurrent symptoms and risk factors have been under control. * 2 hyperlipidemia on statin therapy, lipid profile is ordered * 3 slight overweight, patient has remained very active in his lifestyle, few pounds weight loss willbe advised. * 4 paroxysmal atrial fibrillation, currently on no antiarrhythmic therapy but on Eliquis. Recently there has been an increase in the frequency of atrial fibrillation. Discussed with the patient the best options available and I suggested admission to the hospital for drug loading with dofetilide 250 mcg twice daily and if that fails ablation procedure. Patient is in full agreement. * 5 high risk medication with Eliquis which will be monitored. Patient in office for EKG ordered by Dr. David Braga MD due to paroxysmal atrial fibrillation diagnosis. Dr. Charlotte Loya MD in suite. Patient in office for follow up to Tikosyn loading done 11/04/2022 at [facility]. Medication list updated verbally. No cardiac complaints while in office. EKG reviewed by Odalys Alaniz RN prior to discharge. To Dr. David Braga MD for review.* HOSSEIN BENTLEY is being seen for a 6 month follow-up of. * Patient is in the office for follow-up for atrial fibrillation. He has had no recurrent events of any significance. Rarely he goes into rapid heart rate that is well-tolerated likely caused by breakthrough atrial fibrillation. He will be provided with metoprolol to tartrate to be used as needed. EKG confirmed normal sinus rhythm. He is much happier with his heart rhythm now than he was last time.He is not at the present time interested in going for ablation. His coronary disease has been stable his lipids are under excellent control LDL cholesterol around 40 mg/dL based on his most recent testing this year. He has no side effect of current medications and his physical examination was normal today. * Assessment/recommendations: * 1 significant coronary arteries involving the proximal anterior descending artery status post drug-eluting stent with no complications back in May 2020. No recurrent symptoms and risk factors have been under control. * 2 hyperlipidemia on statin therapy, lipid profile is is under excellent control based on recent testing * 3 slight overweight, patient has remained very active in his lifestyle, few pounds weight loss willbe advised. * 4 paroxysmal atrial fibrillation, currently on Tikosyn and long-term anticoagulation with Eliquis, he has few recurrences that are well-tolerated for which metoprolol tartrate to be used as an as-needed basis was provided we will reduce the aspirin to twice weekly. * 5 high risk medication with Eliquis and Tikosyn, no complications, basic metabolic profile and CBC were ordered Family History No Family History Records FoundUnknown Family Member Name Dates Details Family history of acute myoc ardial infarction: Brother(V17.3, Z82.49) Status:Active Family history of atrial fib rillation: Brother(V17.49, Z82.49) Status:Active Condition of having porphyri n in the blood: Brother Status:Active Unknown Family Member Name Dates Details Condition of having porphyri n in the blood: Brother Status:Active Family history of atrial fib rillation: Brother(V17.49, Z82.49) Status:Active Family history of acute myoc ardial infarction: Brother(V17.3, Z82.49) Status:Active Unknown Family Member Name Dates Details Family history of acute myoc ardial infarction: Brother(V17.3, Z82.49) Status:Active Family history of atrial fib rillation: Brother(V17.49, Z82.49) Status:Active Condition of having porphyri n in the blood: Brother Status:Active Unknown Family Member Name Dates Details Condition of having porphyri n in the blood: Brother Status:Active Family history of atrial fib rillation: Brother(V17.49, Z82.49) Status:Active Family history of acute myoc ardial infarction: Brother(V17.3, Z82.49) Status:Active Unknown Family Member Name Dates Details Family history of acute myoc ardial infarction: Brother(V17.3, Z82.49) Status:Active Family history of atrial fib rillation: Brother(V17.49, Z82.49) Status:Active Condition of having porphyri n in the blood: Brother Status:Active Unknown Family Member Name Dates Details Family history of acute myoc ardial infarction: Brother(V17.3, Z82.49) Status:Active Family history of atrial fib rillation: Brother(V17.49, Z82.49) Status:Active Condition of having porphyri n in the blood: Brother Status:Active Unknown Family Member Name Dates Details Family history of acute myoc ardial infarction: Brother(V17.3, Z82.49) Status:Active Family history of atrial fib rillation: Brother(V17.49, Z82.49) Status:Active Condition of having porphyri n in the blood: Brother Status:Active Unknown Family Member Name Dates Details Family history of acute myoc ardial infarction: Brother(V17.3, Z82.49) Status:Active Family history of atrial fib rillation: Brother(V17.49, Z82.49) Status:Active Condition of having porphyri n in the blood: Brother Status:Active Relationship Condition Age at Onset Recorded Date/T ramesh brother Atrial fibrillation Unknown Myocardial infarction Unknown father Malignant neoplasm of prostate Unknown Cerebrovascular accident (CVA) Unknown Unknown Family Member Name Dates Details Family history of acute myoc ardial infarction: Brother(V17.3, Z82.49) Status:Active Family history of atrial fib rillation: Brother(V17.49, Z82.49) Status:Active Condition of having porphyri n in the blood: Brother Status:Active Unknown Family Member Name Dates Details Family history of acute myoc ardial infarction: Brother(V17.3, Z82.49) Status:Active Family history of atrial fib rillation: Brother(V17.49, Z82.49) Status:Active Condition of having porphyri n in the blood: Brother Status:Active Unknown Family Member Name Dates Details Condition of having porphyri n in the blood: Brother Status:Active Family history of atrial fib rillation: Brother(V17.49, Z82.49) Status:Active Family history of acute myoc ardial infarction: Brother(V17.3, Z82.49) Status:Active Unknown Family Member Name Dates Details Family history of acute myoc ardial infarction: Brother(V17.3, Z82.49) Status:Active Family history of atrial fib rillation: Brother(V17.49, Z82.49) Status:Active Condition of having porphyri n in the blood: Brother Status:Active Chief Complaint and Reason for Visit Chief Complaint Drug Load Reason for Visit Coronary artery dise ase Dyslipidemia Paroxysmal atrial fibrillation with RVR Stented coronary artery Advance Directives No Advanced Directives Records Found Advance Directive Response Recorded Date/ Time Advance Directives No October 28, 2022 10:40am Summary Purpose Reason for Referral Specialty Diagnoses / Procedures Referred By Contac t Referred To Contact Diagnoses Paroxysmal atrial fibrillation ([facility]/HCC) Procedures ECG 12 Lead David Braga MD [address] [place] [address] 2, [address] [address] Referral ID Status Reason Start Date Expiration Date V isits Requested Visits Authorized [id number] Authorized 12/20/2023 12/19/2024 1 1 Specialty Diagnoses / Procedures Referred By Contac t Referred To Contact Cardiology Diagnoses Arteriosclerotic cardiovascular disease (ASCVD) Paroxysmal atrial fibrillation ([facility]/HCC) Procedures Follow Up In Cardiology David Braga MD 3 [facility] 2, [address] [address] Referral ID Status Reason Start Date Expiration Date V isits Requested Visits Authorized [id number] Authorized 12/20/2023 12/19/2024 1 1 Additional Source Comments Care Teams (unrecognized sec tion and content) Team Status: Inactive Member Role Status Dates Jasmin Watts MD Primary Care Provider Active David Braga MD Admit Provider, Attending Provider Active Team Status: Active Member Role Status Dates Jasmin Watts MD Primary Care Provider Active Sales Team Member Relationship Specialty Start Date End Date Jasmin Watts MD [address] [place] [address] PCP - General 09/19/99 David Braga MD [address] [place], [place] [address]dg 2, [address] [place] [address] Consulting Physician Cardiology 12/20/23 (unrecognized sect ion and content) No Status Records FoundNo Status Records FoundNo Status Records FoundNo Status Records FoundNo Status Records FoundNo Status Records Found INFORMATION SOURCE (unrecogn ized section and content) DATE CREATED AUTHOR 11/11/2022 [facility] DATE CREATED AUTHOR AUTHOR'S ORGANIZ ATION 12/03/2022 [facility] [place] DATE CREATED AUTHOR AUTHOR'S ORGANIZ ATION 12/03/2022 [employer] DATE CREATED AUTHOR AUTHOR'S ORGANIZ ATION 12/12/2022 [facility] DATE CREATED AUTHOR AUTHOR'S ORGANIZ ATION 10/14/2023 [facility] DATE CREATED AUTHOR AUTHOR'S ORGANIZ ATION 12/21/2023 [facility] Reason for Visit (unrecogniz ed section and content) Reason Comments Follow-up 6 month Specialty Diagnoses / Procedures Referred By Contac t Referred To Contact Diagnoses Paroxysmal atrial fibrillation (CMS/HCC) Procedures ECG 12 Lead David Braga MD [address] [facility] 2, [address] [place] [address] Referral ID Status Reason Start Date Expiration Date V isits Requested Visits Authorized [id number] Authorized 12/20/2023 12/19/2024 1 1 FOR RECORDS PERTAINING TO PATIENTS WHO ARE OR HAVE BEEN ENROLLED IN A CHEMICAL DEPENDENCY/SUBSTANCEABUSE PROGRAM, SOME INFORMATION MAY BE OMITTED. This clinical summary was aggregated from multiple sources. Caution should be exercised in using it in the provision of clinical care. This summary normalizes information from multiple sources, and as a consequence, information in this document may materially change the coding, format and clinical context of patient data. In addition, data may be omitted in some cases. CLINICAL DECISIONS SHOULD BE BASED ON THE PRIMARY CLINICAL RECORDS. [employer] provides no warranty or guarantee of the accuracy or completeness of information in this document.
== END 2023-12-22 14:04 | disposition home or self-care (01) ==
LOC: LAB 12-26 14:03
PROVIDERS: PCP Family Medicine; Visit Provider Internal Medicine Cardiovascular Disease
DX: I25.10 Atherosclerotic heart disease of native coronary artery without angina pectoris (principal); Z98.61 Coronary angioplasty status; I48.0 Paroxysmal atrial fibrillation; E78.2 Mixed hyperlipidemia
CPT/HCPCS: 36415; 80048; 80061; 84450; 84460; 85025

== ENCOUNTER 2024-07-24 14:34 | Outpatient (OUT) | payer MEDICARE, SELFPAY | END 2024-07-24 14:35 | disposition home or self-care (01) | LOC: PST 14:34 | PROVIDERS: PCP Family Medicine; Visit Provider Ophthalmology | DX: Z01.818 Encounter for other preprocedural examination (principal); H25.11 Age-related nuclear cataract, right eye ==

== ENCOUNTER 2024-07-26 08:17 | Day surgery (SDC) | payer MEDICARE, SELFPAY ==
--- NOTE | 2024-07-26 | OP_ITS ---
OPERATION DATE: 07/26/2024 SURGEON: Placido Ward D.O. PREOPERATIVE DIAGNOSIS: Nuclear sclerotic cataract right eye. POSTOPERATIVE DIAGNOSIS: Nuclear sclerotic cataract right eye. PROCEDURE NAME: Cataract extraction with intraocular lens placement of the right eye. ANESTHESIA: Topical ESTIMATED BLOOD LOSS: Zero. COMPLICATIONS: None. PROCEDURE: The patient was brought to the Operating Room in supine position. After proper identification, the right eye was prepped and draped in a sterile ophthalmic fashion. A paracentesis created at the 11 o'clock position. Approximately 1 cc of unpreserved Xylocaine was injected into the anterior chamber followed by Amvisc Plus. Using a 2.6 mm Keratome blade, a clear corneal incision was created at the 9 o'clock limbus. A cystotome was then used to begin a curvilinear capsulorrhexis that was continued for 360 degrees with the Utrata forceps. BSS on a 26 gauge cannula was injected beneath the anterior capsule to hydrodissect as well as hydrodelineate the lens. After ensuring mobility, phacoemulsification was performed in a [id number]-type fashion. After all nuclear material had been removed from the eye, IA was introduced and all residual cortical material was cleaned up. Additional Amvisc Plus was injected into the posterior bag and a lens model MX60, 22.5 diopters was injected and dialed into position. After ensuring centration, IA was reintroduced into the anterior chamber and all residual Amvisc Plus was removed from the eye. BSS on a 30 gauge cannula was injected into the stroma of both the clear corneal incision as well as paracentesis to hydrate the wounds. Additional BSS was injected into the anterior chamber to pressurize the eye at approximately 20 to 22 mmHg by finger tension. 0.1 cc of antibiotic was injected into the anterior chamber and Weck-Tyra sponges were used to check the wounds to be watertight. One drop of apraclonidine and one drop of prednisolone acetate placed into the eye and a shield was placed over top. The patient was sent to the postoperative area in satisfactory condition to follow up the following day for postoperative care. KATIE
--- NOTE | 2024-07-26 08:17 | HP_ITS ---
PREOPERATIVE HISTORY AND PHYSICAL ? Date:? 07/25/2024 ? HISTORY:? The patient is an 79-year-old white male with complaints of declining vision out of his right eye.? He believes that the onset of this has been occurring over the last two years.? It is constant in nature, effecting distance vision, watching TV, driving and driving at night time.? His onset has gradually worsened.? ? PAST OCULAR HISTORY:? Denies. ? PAST MEDICAL HISTORY:? 1.? Osteoarthritis of the knees bilaterally. 2.? Myocardial ischemia. 3.? Intraductal papillary mucinous neoplasm. 4.? Hypertension. 5.? Hyperlipidemia. 6.? Degenerative disc disease. 7.? Coronary artery disease. 8.? Cataract. 9.? Atrial fibrillation. 10.? Total knee arthroplasty bilateral. 11.? Back surgery. ? SOCIAL HISTORY:? Denies tobacco, alcohol or recreational drug abuse.? ? SYSTEMIC MEDICATIONS:? Include calcium carbonate, baclofen, aspirin, Lidex, Tikosyn, metoprolol, lisinopril, atorvastatin, Eliquis. ? ALLERGIES:? Denies. ? REVIEW OF SYSTEMS:? No pertinent positives. ? PHYSICAL EXAM:? GENERAL:? He is awake, alert and oriented x3, well developed, well nourished, in no acute distress.? ? HEART:? Regular rate and rhythm. ? LUNGS:? Clear bilaterally. ? ABDOMEN:? Soft, non-tender, non-distended. ? EXTREMITIES:? No pitting edema. ? OPHTHALMIC EXAM:? Revealed a visual acuity of 20/50 in the right, 20/40 -2 in the left that glared to 20/200 bilaterally.? Pupils motility, muscle balance, confrontational visual wall within normal limits bilaterally.? Pressures were measured at 16 bilaterally.? Slit lamp exam revealed blepharitis with a severe decrease in tear film bilaterally.? Conjunctiva, cornea, anterior chamber and iris were within normal limits bilaterally.? Lens status demonstrated 3+ nuclear sclerosis with vacuoles bilaterally. ? FUNDUS EXAM:? Revealed a good view with good dilation bilaterally.? Optic discs, macula, vessels, periphery and vitreous were within normal limits bilaterally.? ? ASSESSMENT AND PLAN:? Visually significant cataract, right eye.? After risks, benefits, alternatives, as well as expectations were delivered to the patient, he elected to go forward with cataract removal.? He understands the risks include but not limited to infection, bleeding, loss of vision, loss of the eye itself.? Secondly, he understands postoperatively he is likely to require spectacle correction for his best visual acuity.? Finally, a complete ophthalmic exam was performed, there is not determined to be any other source of visual decline other than that of the cataract.?? After understanding all the risks as well as expectations, he elected to go forward with the procedure as listed above and will be doing so in the near future. KATIE
[2024-07-26] MEDS: DIAZEPAM 5 MG TABLET PO (08:32)
[2024-07-26] MEDS: TROPICAMIDE 1% OP SOL 300 DROP/15 ML BOTTLE OP ×4 (08:32→09:04)
[2024-07-26] MEDS: CYCLOPENTOLATE HCL 1% OP SOL 40 DROP/2 ML BOTTLE OP ×4 (08:32→09:03)
[2024-07-26] MEDS: PHENYLEPHRINE HCL 2.5% OP SOL 40 DROP/2 ML BOTTLE OP ×4 (08:32→09:04)
[2024-07-26] MEDS: BESIFLOXACIN HCL 100 DROP DROPS.SUSP OP ×4 (08:33→09:04)
--- OUTSIDE RECORDS SUMMARY | 2024-07-26 08:39 | XMS_ITS | CCD ---
Author Organization [facility] Care Team Providers Care Rivet Catcher Name Role Phone Unavailable Unavailable Jasmin Watts Unavailable MD Jasmin Watts Primary Care Provider MD David Braga Admit Provider MD David Braga Attending Provider Jasmin Watts Primary Care Unavailable David Braga Attending Unavailable David Braga Admitting Unavailable JASMIN WATTS Primary Care Unavailable David Braga Attending Unavailable David Braga Referring Unavailable David Braga Attending Unavailable JASMIN WATTS Primary Care Unavailable David Braga Referring Unavailable David Braga Attending Unavailable JASMIN WATTS Primary Care Unavailable David Braga Referring Unavailable [facility] Primary Care Unavailable David Braga Attending Unavailable David Braga Attending Unavailable David Braga Referring Unavailable JASMIN WATTS Primary Care Unavailable David [...] Care Unavailable MAC, DR JONES Consulting Unavailable ZIEBER, DR KACIE Sun Consulting Unavailable Jasmin Watts MD Primary Care Provider David Braga MD Unavailable DAVID BRAGA Attending Unavailable JASMIN WATTS Primary Care Unavailable SUZIE RED Attending Unavailable JASMNI WATTS Attending Unavailable JASMIN WATTS Attending Unavailable TRIXIE NIELSON Attending Unavailable JASMIN WATTS Referring Unavailable JASMIN WATTS Attending Unavailable UVALDO ROJAS Attending Unavailable JASMIN WATTS Attending Unavailable VALORIE DAVIDSON Attending Unavailable UVALDO ROJAS Attending Unavailable UVALDO ROJAS Attending Unavailable MARQUEZ WARD Attending Unavailable DANIELA SRINIVASAN Referring Unavailable Jasmin Watts MD Primary Care Provider [phone] Stephen Ogden MD Unavailable [phone] Medications Current Medications Medication Drug Class(es) Dates Sig (Normalized) Sig (Original) apixaban 5 mg oral tablet (15 sources) Factor Xa Inhibitor Start: 3 take 1 tablet by mouth in the morning apixaban (Eliquis) 5 MG tablet Indications: Longstanding persistent atrial fibrillation (CMS/HCC) Take 1 tablet (5 mg) by mouth in the morning and 1 tablet (5 mg) before bedtime. 200 tablet 3 10/10/2023 Active atorvastatin 80 mg oral tablet (8 sources) HMG-CoA Reductase Inhibitor Start: 3 take 1 tablet by mouth in the morning atorvastatin (Lipitor) 80 MG tablet Indications: Hypercholesterolemia (CMS/HCC) Take 1 tablet (80 mg) by mouth in the morning. 100 tablet 3 10/10/2023 Active baclofen 10 mg oral tablet (9 sources) gamma-Aminobutyric Acid-ergic Agonist take 1 tablet by mouth in the morning as needed, then take 1 tablet by mouth in the evening as needed, then take 1 tablet by mouth at bedtime as needed baclofen (Lioresal) 10 MG tablet Take 10 mg by mouth in the morning and 10 mg in the evening and 10 mg before bedtime. PRN. Active calcium carbonate 1500 mg oral tablet (3 sources) take 1 tablet by mouth in the morning calcium carbonate 1500 (600 Ca) MG tablet Take 1,500 mg by mouth in the morning and 1,500 mg in the evening. Take with meals. Active dofetilide 0.25 mg oral capsule (10 sources) Antiarrhythmic Start: dofetilide (Tikosyn) 250 mcg capsule Indications: Paroxysmal atrial fibrillation (CMS/HCC) Take one capsule twice daily 180 capsule 1 10/07/2023 Active Start: 11-26-2022 take 1 capsule by mo uth every twelve hours Dofetilide 250 MCG Oral Capsule TAKE 1 CAPSULE BY MOUTH EVERY 12 HOURS FOR 30 DAYS Quantity: 30 Refills: 0 Ordered: 29-Nov-2022 David Braga MD Start : 26-Nov-2022 Active Start: 11-08-2022 take 1 capsule by mo uth every twelve hours dofetilide (Tikosyn) 250 MCG capsule 1 capsule every 12 (twelve) hours. 11/08/2022 Active Start: 11-04-2022 take 250 ug by mouth every twelve hours Dofetilide Active 250 MCG PO Q12H 60 November 04, 2022 12:00am take 1 capsule by mo uth twice daily Tikosyn 250 MCG Oral Capsule TAKE 1 CAPSULE TWICE DAILY. Quantity: 0 Refills: 0 Ordered: 11-Nov-2022 DO Active fluocinonide 0.5 mg/ml topical cream (3 sources) Corticosteroid Start: 05-14-2019 fluocinonide (Lidex) 0.05 % cream Apply topically 2 (two) times a day. 05/14/2019 Active ketorolac tromethamine 5 mg/ml ophthalmic solution (2 sources) Nonsteroidal Anti-inflammatory Drug, Cyclooxygenase Inhibitor Start: 06-21-2024 End: 07-21-2024 take 1 drop(s) into the eye(s) in the morning ketorolac (Acular) 0.5 % ophthalmic solution Indications: Age-related nuclear cataract of both eyes Administer 1 drop into affected eye(s) in the morning and 1 drop before bedtime. 5 mL 1 06/21/2024 07/21/2024 Active lisinopril 2.5 mg oral tablet (17 sources) Angiotensin Converting Enzyme Inhibitor Start: 08-31-2021 take 1 tablet by mouth in the morning lisinopril 2.5 MG tablet Indications: Hypertension, unspecified type (CMS/HCC) Take 1 tablet (2.5 mg) by mouth in the morning. 100 tablet 3 10/10/2023 Active 24 hr metoprolol succinate 50 mg extended release oral tablet (20 sources) beta-Adrenergic Marleny Start: 10-11-2023 take 1 tablet by mouth every twenty-four hours in the morning metoprolol succinate XL (Toprol-XL) 50 MG 24 hr tablet Indications: Hypertension, unspecified type (CMS/HCC) Take 1 tablet (50 mg) by mouth in the morning. 100 tablet 3 10/11/2023 Active Start: 06-14-2023 take 1 tablet by lynsey th twice daily as needed metoprolol tartrate (Lopressor) 25 MG tablet Take 25 mg by mouth 2 (two) times a day as needed. 06/14/2023 Active Start: 06-16-2020 take 1 tablet by lynsey th once daily metoprolol succinate XL (Toprol-XL) 50 mg 24 hr tablet Take 1 tablet (50 mg) by mouth once daily. 0 04/20/2021 Active nitroglycerin 0.4 mg sublingual tablet (1 source) Nitrate Vasodilator Start: 06-16-2020 Nitroglycerin Active 0.4 MG SUBLINGUAL every 5 to 15 minutes June 15, 2020 11:00pm ofloxacin 3 mg/ml ophthalmic solution (2 sources) Quinolone Antimicrobial Start: 06-21-2024 End: 06-22-2024 take 1 drop(s) into the eye(s) five times daily ofloxacin (Ocuflox) 0.3 % ophthalmic solution Indications: Age-related nuclear cataract of both eyes Administer 1 drop into affected eye(s) 5 (five) times a day for 1 day Starting 1 day before surgery, continue after surgery as directed 5 mL 1 06/21/2024 06/22/2024 Active prednisoLONE acetate 10 mg/ml ophthalmic suspension (2 sources) Corticosteroid Start: 06-21-2024 End: 2024 prednisoLONE acetate (Pred-Forte) 1 % ophthalmic suspension Indications: Age-related nuclear cataract of both eyes Administer 1 drop into affected eye(s) in the morning and 1 drop at noon and 1 drop in the evening and 1 drop before bedtime. Do all this for 14 days. 5 mL 1 06/21/2024 2024 Active Completed/Discontinued Medications Medication Drug Class(es) Dates Sig (Normalized) Sig (Original) aspirin 81 mg delayed release oral tablet (18 sources) Platelet Aggregation Inhibitor, Nonsteroidal Anti-inflammatory Drug Start: 04-20-2021 Aspirin 81 MG Oral Tablet Delayed Release take one tablet on Tue and only Quantity: 24 Refills: 3 Ordered: 14-Jun-2023 David Braga MD Start : 14-Jun-2023 Active Start: 06-16-2020 take 1 tablet by lynsey th once daily Aspirin EC 81 MG Oral Tablet Delayed Release TAKE 1 TABLET DAILY. Quantity: 90 Refills: 3 Ordered: 30-Sep-2022 David Braga MD Start : 28-Oct-2021 Active Calcium Citrate (6 sources) Citracal TABS TA KE 1 TABLET ONCE DAILY. Quantity: 0 Refills: 0 Ordered: 28-Oct-2021 DO Active clopidogrel 75 mg oral tablet (2 sources) P2Y12 Platelet Inhibitor Start: 1 take 1 tablet by mouth once daily Clopidogrel Bisulfate 75 MG Oral Tablet TAKE 1 TABLET DAILY. Quantity: 0 Refills: 0 Ordered: 30-Aug-2021 DO Start : 20-Apr-2021 Active lovastatin 40 mg oral tablet (1 source) HMG-CoA Reductase Inhibitor Start: 0 End: 3 take 40 mg by mouth once daily at bedtime Lovastatin Discontinued 40 MG PO Daily at bedtime June 15, 2020 11:00pm November 02, 2022 11:10am rosuvastatin calcium 40 mg oral tablet (9 sources) HMG-CoA Reductase Inhibitor Start: 3 End: 3 take 40 mg by mouth at bedtime Rosuvastatin Discontinued 40 MG PO Bedtime November 02, 2022 12:00am November 04, 2022 1:19pm Start: 07-14-2021 take 1 tablet by lynsey at bedtime Rosuvastatin Calcium 40 MG Oral [...] Problem Classification Problem Date Documented Date Episodic/Chronic Anxiety disorders (3 sources) Anxiety; Translations: [Anxiety disorder, unspecified] Onset: 01-18-2023 01-18-2023 Chronic Cardiac dysrhythmias (20 sources) Paroxysmal atrial fibrillation; Translations: [Atrial fibrillation] Onset: 02-11-2022 11-02-2022 Chronic Cardiac dysrhythmias (3 sources) Tachycardia; Translations: [Tachycardia, unspecified] Episodic Cataract (4 sources) Bilateral age-related nuclear cataracts; Translations: [Age-related nuclear cataract, bilateral] Onset: 06-21-2024 06-21-2024 Chronic Coagulation and hemorrhagic disorders (3 sources) Thrombophilia; Translations: [Other thrombophilia] Onset: 03-27-2024 03-27-2024 Chronic Coronary atherosclerosis and other heart disease (20 sources) Arteriosclerotic vascular disease; Translations: [Cardiovascular disease, unspecified] Onset: 02-11-2022 11-02-2022 Chronic Disorders of lipid metabolism (20 sources) Hyperlipidemia; Translations: [Other and unspecified hyperlipidemia] Onset: 11-02-2022 11-02-2022 Chronic Essential hypertension (4 sources) Essential (primary) hypertension; Translations: [Hypertensive disorder] Onset: 02-11-2022 01-18-2023 Chronic Immunizations and screening for infectious disease (6 sources) Patient encounter status; Translations: [Other specified vaccination] Episodic Other aftercare (10 sources) Drug therapy finding; Translations: [Long-term (current) use of other medications] Episodic Other aftercare (1 source) Other terminal superintendent (current) drug therapy; Translations: [OTH [facility] CURRENT DRUG THERAPY] Onset: 12-11-2022 Episodic Other aftercare (1 source) Taking high risk medication; Translations: [Other terminal superintendent (current) drug therapy] 12-20-2023 Episodic Other nervous system disorders (3 sources) Carpal tunnel syndrome of right wrist; Translations: [Carpal tunnel syndrome, right upper limb] Onset: 03-27-2024 03-27-2024 Chronic Unclassified (1 source) CONTACT W/AND (SUSP) EXPOS COVID-19; Translations: [CONTACT W/AND (SUSP) EXPOS COVID-19] Onset: 02-11-2022 Past or Other Problems Problem Classification Problem Date Documented Da te Episodic/Chronic Abdominal pain (3 sources) Epigastric pain; Translations: [EPIGASTRIC PAIN] Onset: 01-02-2022 Episodic Coronary atherosclerosis and other heart disease (8 sources) Stented coronary artery; Translations: [Presence of coronary angioplasty implant and graft] Onset: 02-11-2022 11-02-2022 Episodic Nonspecific chest pain (11 sources) Atypical chest pain; Translations: [Other chest pain] Resolved: 03-15-2022 Episodic Other aftercare (1 source) penitentiary (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) 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 of 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; 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] Onset: 02-11-2022 Episodic Other gastrointestinal disorders (1 source) Perforation of intestine (nontraumatic); Translations: [PERFORATION INTESTINE NONTRAUMATIC] Onset: 02-11-2022 Episodic Other gastrointestinal disorders (3 sources) Perforation of intestine; Translations: [Perforation of intestine (nontraumatic)] Onset: 01-02-2022 08-14-2023 Episodic Other hematologic conditions (1 source) Other specified abnormalities of plasma proteins; Translations: [OTH SPEC ABNORM PLASMA PROTEINS] Onset: 02-11-2022 Episodic Other nutritional; endocrine; and metabolic disorders (17 sources) Overweight in adulthood with body mass index of 25 or more but less than 30; Translations: [Overweight] Onset: 12-20-2023 12-20-2023 Episodic Other nutritional; endocrine; and metabolic disorders (2 sources) Body mass index (BMI) 27.0-27.9, adult; Translations: [Body mass index (BMI) 27.0-27.9, adult] Onset: 12-20-2023 Episodic Other screening for suspected conditions (not mental disorders or infectious disease) (12 sources) Cardiovascular stress test abnormal; Translations: [Other nonspecific abnormal results of function study of cardiovascular system] Resolved: 10-28-2021 Episodic Residual codes; unclassified (10 sources) History of clinical finding in subject; Translations: [Personal history of other specified diseases] Resolved: 03-15-2022 Episodic Residual codes; unclassified (5 sources) Never smoked tobacco; Translations: [Other specified health status] Onset: 12-20-2023 4 Episodic Residual codes; unclassified (2 sources) Other specified health status; Translations: [Other specified health status] Onset: 12-20-2023 Episodic Sprains and strains (4 sources) Sprain of ligaments of lumbar spine, initial encounter; Translations: [SPRAIN LIGAMENTS LUMBAR SPN INITIAL] Onset: 12-17-2021 Episodic Unclassified (12 sources) Never smoked tobacco; Translations: [Never a smoker] Unclassified (1 source) Onset: 12-20-2023 12-20-2023 Results Test Name Value Interpretation Reference Range Facility US Eye+Orbit - bilateralon 1 Diagnosis: Cataract both eyes (OU) Testing Indication: Performed for preop measurements in the determination of an intraocular lens (IOL) for both eyes (OU) Test Reliability: Good quality both eyes (OU) Interpretation: Good measurements for intraocular lens (IOL) calculation purposes. Calculation made for both eyes (OU). [facility] Radiology Study observation (narrative) [facility] ECG 12 Leadon 12-20-2023 ECG revealed normal sinus rhythm and normal ECG [facility] Work Phone: Tobacco Screening.on 023 Tobacco use status HS b) No MP-Cardiolo gy-Kellee 250 DO Work Phone: LIPID PROFILEon 12-06-2022 CHOL-HDL RATIO NORM SEE BELOW Normal [facility] Comment on above: Result Comment: 3.3 - 4.4 LOW RISK 4.4 - 7.1 AVERAGE RISK 7.1 - 11.0 MODERATE RISK >11.0 HIGH RISK Performed By: #### B MP, LIPID, ALT, AST #### [facility] [address] [place], [place] [address] Dr. Luz Burr Cholesterol [Mass/Vol] 105 mg/dL Normal <=200 [facility] Comment on above: Performed By: #### B MP, LIPID, ALT, AST #### [facility] [address] [place], [place] [address] Dr. Luz Burr Cholesterol in HDL [Mass/Vol] 50 mg/dL Normal 40-60 [facility] Comment on above: Performed By: #### B MP, LIPID, ALT, AST #### [facility] [address] [place] [address] [address] Luz Burr Cholesterol in LDL [Mass/Vol] 44.8 mg/dL Normal [facility] Comment on above: Performed By: #### B MP, LIPID, ALT, AST #### [facility] [address] [place] [address] Dr. Luz Burr Cholesterol.total/Chol esterol in HDL [Mass ratio] 2.1 {ratio} Normal [facility] Comment on above: Performed By: #### B MP, LIPID, ALT, AST #### [facility] [address] [place] [address] Dr. Luz Burr HDL NORMAL > or = 60 mg/dl - LO W CARDIOVASCULAR RISK <40 mg/dl - HIGH CARDIOVASCULAR RISK Normal [facility] Comment on above: Performed By: #### B MP, LIPID, ALT, AST #### [facility] [address] [place] [address] Dr. Luz Burr LDL CALC NORMAL SEE BELOW Normal [facility] Comment on above: Result Comment: <100 mg/dl OPTIMAL 100 - 129 mg/dl NEAR OR ABOVE OPTIMAL 130 - 159 mg/dl BORDERLINE HIGH 160 - 189 mg/dl HIGH >190 mg/dl VERY HIGH Performed By: #### B MP, LIPID, ALT, AST #### [facility] [address] [place] [address] Dr. Luz Burr Triglyceride [Mass/Vol] 51 mg/dL Normal <=150 [facility] Comment on above: Performed By: #### B MP, LIPID, ALT, AST #### [facility] [address] [place] [address] Dr. Luz Burr VLDL CALC 10.2 mg/dL Normal [facility] Comment on above: Performed By: #### B MP, LIPID, ALT, AST #### [facility] [address] [place] [address] Dr. Luz Burr PROF CHEM 8 (BAS METB)on Anion gap [Moles/Vol] 10.2 mmol/L Normal [facility] Comment on above: Performed By: #### B MP, LIPID, ALT, AST #### [facility] [address] [place] [address] [address] Luz Burr Calcium [Mass/Vol] 9.4 mg/dL Normal 8.5-10.1 [facility] Comment on above: Performed By: #### B MP, LIPID, ALT, AST #### [facility] [address] [place] [address] Dr. Luz Burr Chloride [Moles/Vol] 103 mmol/L Normal 98-107 [facility] Comment on above: Performed By: #### B MP, LIPID, ALT, AST #### [facility] [address] [place] [address] Dr. Luz Burr CO2 [Moles/Vol] 31.1 mmol/L Normal 21.0-32.0 [facility] Comment on above: Performed By: #### B MP, LIPID, ALT, AST #### [facility] [address] [place] [address] Dr. Luz Burr Creatinine [Mass/Vol] 0.83 mg/dL Normal 0.70-1.30 [facility] Comment on above: Performed By: #### B MP, LIPID, ALT, AST #### [facility] [address] [place] [address] Dr. Luz Burr EGFR-AF ARGENTINE >60 Normal >=60 [facility] Comment on above: Performed By: #### B MP, LIPID, ALT, AST #### [facility] [address] [place] [address] Dr. Luz Burr EGFR-NON AF ARGENTINE >60 Normal >=60 [facility] Comment on above: Performed By: #### B MP, LIPID, ALT, AST #### [facility] [address] [place] [address] Dr. Luz Burr Glucose [Mass/Vol] 110 mg/dL Critically high 74-106 [facility] Comment on above: Performed By: #### B MP, LIPID, ALT, AST #### [facility] [address] [place] [address] Dr. Luz Burr Potassium [Moles/Vol] 4.3 mmol/L Normal 3.5-5.1 [facility] Comment on above: Performed By: #### B MP, LIPID, ALT, AST #### [facility] [address] [place] [address] Dr. Luz Burr Sodium [Moles/Vol] 140 mmol/L Normal 136-145 [facility] Comment on above: Performed By: #### B MP, LIPID, ALT, AST #### [facility] [address] [place], [place] [id number] Dr. Luz Burr Urea nitrogen [Mass/Vol] 21.0 mg/dL Critically high 7.0-18.0 [facility] Comment on above: Performed By: #### B MP, LIPID, ALT, AST #### [facility] [address] [place] [address] Dr. Luz Burr Urea nitrogen/Creatinine [Mass ratio] 25.3 mg/mg Normal [facility] Comment on above: Performed By: #### B MP, LIPID, ALT, AST #### [facility] [address] [place] [address] Dr. Luz Burr SGOTon 12-06-2022 AST [Catalytic activity/Vol] 29 U/L Normal 15-37 [facility] Comment on above: Performed By: #### B MP, LIPID, ALT, AST #### [facility] [address] [place] [address] Dr. Luz Burr SGPTon 12-06-2022 ALT [Catalytic activity/Vol] 57 U/L Normal 16-63 [facility] Comment on above: Performed By: #### B MP, LIPID, ALT, AST #### [facility] [address] [place] [address] Dr. 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 Normal [facility] ECG 12 lead ECG 11-04-2022 ECG 12 lead ECG [place] [address] Electrocardiograph Report Signed Patient: Hossein Bentley MR#: [id number] 2 : 1945 Acct:[id number] Age/Sex: 77 / M ADM Date: 11/02/22 Loc: Room: [address] [place] [address] Type: DIS IN Attending Dr: David Braga MD Ordering Provider: David Braga MD, [facility] Date of Service: 11/04/22 ECG/ECG 12 lead [...] 11/04/2022 9:42:38 PM Referred By: Electronically Signed By:SHELBY CALDERON DO Transcribed By: MUS Signed By Shelby Calderon DO 11/04 Normal [facility] - CoagulationOrde red By: David Braga on 11-04-2022 PT Coag (PPP) [Time] 16.2 s 9.0-12.9 [facility] Platelet poor plasma interna tional normalized ratio (INR) by coagulation assay (relatOrdered By: David Braga on 11-04-2022 INR Coag (PPP) [Relative time] 1.4 {INR} [facility] Comment on above: INR Therapeutic Rang e [...] Coag (PPP) [Relative time] 1.4 {INR} Normal [facility] Comment on above: Result Comment: INR Therapeutic [...] heart valves: 3 - 4.5 PERFORMED BY: [place] [address] PATHOLOGIST BUSINESS SUPPORT PROFESSIONAL MARQUIS CARRANZA M.D. Performed By: #### P T #### [facility] [address] [place] [address] PT Coag (PPP) [Time] 16.2 s High 9.0-12.9 [facility] Comment on above: Performed By: #### P T #### [facility] [address] [place] [address] ECG 12 lead ECGon 11-03-2022 ECG 12 lead ECG [place] [address] Electrocardiograph Report Signed Patient: Hossein Bentley MR#: [id number] 2 : 1945 Acct:[id number] Age/Sex: 77 / M ADM Date: 11/02/22 Loc: Room: [address] [place] [address] Type: DIS IN Attending Dr: David Braga MD Ordering Provider: David Braga MD, [facility] Date of Service: 11/03/22 ECG/ECG 12 lead [...] MUS Signed By Shelby Calderon DO 11/04 [facility] ECG 12 lead ECG [place] [address] Electrocardiograph Report Signed Patient: Hossein Bentley MR#: [id number] 2 : 1945 Acct:[id number] Age/Sex: 77 / M ADM Date: 11/02/22 Loc: Room: [address] [place] [address] Type: DIS IN Attending Dr: David Braga MD Ordering Provider: David Braga MD, [facility] Date of Service: 11/02/22 ECG/ECG 12 lead [...] Electronically Signed By:SHELBY CALDERON DO Transcribed By: ROMMEL Signed By Shelby Calderon DO 11/04 [facility] Prothrombin Time INRon 11-03 INR Coag (PPP) [Relative time] 1.4 {INR} [facility] Comment on above: Result Comment: INR Therapeutic [...] heart valves: 3 - 4.5 PERFORMED BY: [place] [address] PATHOLOGIST BUSINESS SUPPORT PROFESSIONAL MARQUIS CARRANZA M.D. Performed By: #### P T #### [address] PT Coag (PPP) [Time] 15.7 s High 9.0-12.9 [facility] Comment on above: Performed By: #### P T #### [address] Basic Metabolic Panelon - Anion gap [Moles/Vol] 11.0 mmol/L Normal 6.0-15.0 [facility] Comment on above: Performed By: #### B MP, PT #### [address] Calcium [Mass/Vol] 9.7 mg/dL Normal 8.2-10.2 [facility] Comment on above: Result Comment: PERF ORMED BY: [place] [address] PATHOLOGIST BUSINESS SUPPORT PROFESSIONAL MARQUIS CARRANZA M.D. Performed By: #### B MP, PT #### [address] Chloride [Moles/Vol] 104 mmol/L Normal 95-114 [facility] Comment on above: Performed By: #### B MP, PT #### [address] CO2 [Moles/Vol] 28.2 mmol/L Normal 22.0-30.0 [facility] Comment on above: Performed By: #### B MP, PT #### [address] Creatinine [Mass/Vol] 0.83 mg/dL Normal 0.64-1.27 [facility] Comment on above: Performed By: #### B MP, PT #### [address] Estimated GFR ( Nicol > 60 Normal [facility] Comment on above: Result Comment: GFR estimated reference range: According to KDOQI guidelines, <60 ml/min/1.73m2 is sufficient to diagnose a patient with chronic kidney disease. Performed By: #### B MP, PT #### [facility] [address] [place] [address] [place] Estimated GFR (Non- Am > 60 Normal [facility] Comment on above: Performed By: #### B MP, PT #### [facility] [address] [place] [address] [place] Glucose [Mass/Vol] 137 mg/dL High 70-100 [facility] Comment on above: Result Comment: [place] Glucose Reference Range is dependent on time and content of last meal. Glucose of more than 200 mg/dL in a nonstressed, ambulatory subject supports the diagnosis of Diabetes Mellitus. ADA recommended reference range Performed By: #### B MP, PT #### [place] [address] [place] Potassium [Moles/Vol] 4.2 mmol/L Normal 3.5-5.1 [facility] Comment on above: Performed By: #### B MP, PT #### [place] [address] [place] Sodium [Moles/Vol] 139 mmol/L Normal 136-146 [facility] Comment on above: Performed By: #### B MP, PT #### [place] [id number] [place] Urea nitrogen [Mass/Vol] 23 mg/dL Normal 9-23 [facility] Comment on above: Performed By: #### B MP, PT #### [place] [address] [place] Creatinine and Glomerular fi ltration rate.predicted panel (S/P/Bld)Ordered By: David Braga on 11-02-2022 Creatinine [Mass/Vol] 0.83 mg/dL 0.64-1.27 [facility] ECG 12 lead ECGon 11-02-2022 ECG 12 lead ECG [facility] [address] [place], [place] [address] Electrocardiograph Report Signed Patient: Hossein Bentley MR#: [id number] 2 : 1945 Acct:[id number] Age/Sex: 77 / M ADM Date: 11/02/22 Loc: Room: [address] [place] [address] Type: DIS IN Attending Dr: David Braga MD Ordering Provider: David Braga MD, [facility] Date of Service: 11/02/22 ECG/ECG 12 lead [...] MUS Signed By Shelby Calderon DO 11/04 [facility] Estimated glomerular filtrat ion rate (GFR) non- AmericanOrdered By: David Braga on 11-02-2022 GFR/1.73 sq M.predicted among non-blacks MDRD (S/P/Bld) [Vol rate/Area] > 60 mL/Min [facility] No Panel InformationOrdered By: David Braga on 11-02-2022 Estimated GFR () > 60 mL/Min [facility] Comment on above: GFR estimated refere nce range: According to KDOQI guidelines, <60 ml/min/1.73m2 is sufficient to diagnose a patient with chronic kidney disease. Pharmacy Creatinine Clearance (Chem N/A [facility] Prothrombin Time INRon 11-02 INR Coag (PPP) [Relative time] 1.4 {INR} [facility] Comment on above: Result Comment: INR Therapeutic [...] heart valves: 3 - 4.5 PERFORMED BY: [place] [address] PATHOLOGIST BUSINESS SUPPORT PROFESSIONAL MARQUIS CARRANZA M.D. Performed By: #### B MP, PT #### [facility] [address] PT Coag (PPP) [Time] 16.6 s High 9.0-12.9 [facility] Comment on above: Performed By: #### B MP, PT #### [facility] [address] Serum or plasma anion gap de terminationOrdered By: David Braga on 11-02-2022 Anion gap [Moles/Vol] 11.0 mmol/L 6.0-15.0 [facility] Serum or plasma calcium vicenta urement (mass/volume)Ordered By: David Braga on 11-02-2022 Calcium [Mass/Vol] 9.7 mg/dL 8.2-10.2 [facility] Serum or plasma chloride yoli surement (moles/volume)Ordered By: David Braga on 11-02-2022 Chloride [Moles/Vol] 104 mmol/L 95-114 [facility] Serum or plasma glucose vicenta urement (mass/volume)Ordered By: David Braga on 11-02-2022 Glucose [Mass/Vol] 137 mg/dL 70-100 [facility] Comment on above: ADA recommended refe rence rangeRandom Glucose Reference Range is dependent on time and content of last meal. Glucose of more than 200 mg/dL in a nonstressed, ambulatory subject supports the diagnosis of Diabetes Mellitus. Serum or plasma potassium me asurement (moles/volume)Ordered By: David Braga on 11-02-2022 Potassium [Moles/Vol] 4.2 mmol/L 3.5-5.1 [facility] Serum or plasma sodium measu rement (moles/volume)Ordered By: David Braga on 11-02-2022 Sodium [Moles/Vol] 139 mmol/L 136-146 [facility] Serum or plasma total carbon dioxide measurement (moles/volume)Ordered By: David Braga on 11-02-2022 CO2 [Moles/Vol] 28.2 mmol/L 22.0-30.0 [facility] Serum or plasma urea nitroge n measurement (mass/volume)Ordered By: David Braga on 11-02-2022 Urea nitrogen [Mass/Vol] 23 mg/dL 9- [facility] Office Visit (Cardiology)on 09-30-2022 Follow-up visit Diagnoses/Problems [...] your visit. 2 day drug load at [facility] tikosyn 250 mcg BID Follow up after [...] Medication No (more content not included)... [facility] Tobacco Screening.on 023 Adult depression screening assessment No [employer] [employer] 250 DO Work Phone: Fall risk assessment a) No falls within the last year [facility] [employer] 250 DO Work Phone: Tobacco use status [facility] b) No [facility] [employer] 250 DO Work Phone: Office Visit (Cardiology)on [...] 7 days prior to colonoscopy. Will request [facility] records Follow up in 6 months Chief Complaint HOSSEIN BENTLEY is being seen for follow-up of a hospitalization for [facility] D/C 01/05. Patient is in the office for follow-up for CAD and previous PCI in 2019. Since his last visit in October 2021 he had an admission to [facility] in [place] where he had laparoscopic abdominal procedure for [...] acute abdominal pain 2021. He was in [place]. Records were requested, presently he is on [...] Recorded: 15Mar2022 02:16PM Heart Rate60, R Radial [id number], RUE, Sitting Btyksnfnx39, RUE, Sitting Height5 ft 9 in Brnkoq007 lb (more content not included)... Normal [facility] Tobacco Screening.on 022 Adult depression screening assessment No -[facility] Heart-Sandu edgar 250 DO Work Phone: Fall risk assessment a) No falls within the last year -[facility] [employer] 250 DO Work Phone: Tobacco use status [facility] b) No -[facility] [employer] 250 DO Work Phone: AMYLASEon 01-02-2022 Amylase [Catalytic activity/Vol] 57 U/L Normal 25-115 [facility] Comment on above: Performed By: #### B MP, LIPID, ALT, AST #### [facility] [address] [place] [address] Dr. Luz Burr CBC AUTO DIFFon 01-02-2022 BASO # 0.0 103/ul Normal 0.0-0.1 [facility] Comment on above: Performed By: #### B MP, LIPID, ALT, AST #### [facility] [address] [place] [address] Dr. Luz Burr Basophils/100 WBC (Bld) 0.3 % Normal 0.2-2.0 [facility] Comment on above: Performed By: #### B MP, LIPID, ALT, AST #### [facility] [address] [place] [address] Dr. Luz Burr EO # 0.0 103/ul Normal 0.0-0.7 [facility] Comment on above: Performed By: #### B MP, LIPID, ALT, AST #### [facility] [address] [place] [address] Dr. Lzu Burr Eosinophils/100 WBC (Bld) 0.2 % Critically low 0.9-7.0 [facility] Comment on above: Performed By: #### B MP, LIPID, ALT, AST #### [facility] [address] [place] [address] Dr. Luz Burr Erythrocyte distribution width (RBC) [Ratio] 13.1 % Normal 11.0-15.0 [facility] Comment on above: Performed By: #### B MP, LIPID, ALT, AST #### [facility] [address] [place] [address] Dr. Luz Burr Hematocrit (Bld) [Volume fraction] 50.5 % Normal 42.0-54.0 [facility] Comment on above: Performed By: #### B MP, LIPID, ALT, AST #### [facility] [address] [place] [address] Dr. Luz Burr Hemoglobin (Bld) [Mass/Vol] 17.0 g/dL Normal 14.0-18.0 [facility] Comment on above: Performed By: #### B MP, LIPID, ALT, AST #### [facility] [address] [place] [address] Dr. Luz Burr IG # 0.09 10e3/ul Critically high 0.00-0.03 [facility] Comment on above: Performed By: #### B MP, LIPID, ALT, AST #### [facility] [address] [place] [address] Dr. Luz Burr IG % 0.7 % Critically high 0.0-0.5 [facility] Comment on above: Performed By: #### B MP, LIPID, ALT, AST #### [facility] [address] [place] [address] Dr. Luz Burr LYMPH # 0.8 103/ul Critically low 1.2-3.8 [facility] Comment on above: Performed By: #### B MP, LIPID, ALT, AST #### [facility] [address] [place] [address] Dr. Luz Burr Lymphocytes/100 WBC (Bld) 5.8 % Critically low 20.5-60.0 [facility] Comment on above: Performed By: #### B MP, LIPID, ALT, AST #### [facility] [address] [place] [address] Dr. Luz Burr MANUAL DIFF REQ NO Normal [facility] Comment on above: Performed By: #### B MP, LIPID, ALT, AST #### [facility] [address] [place] [address] Dr. Luz Burr MCH (RBC) [Entitic mass] 31.4 pg Normal 25.9-34.0 [facility] Comment on above: Performed By: #### B MP, LIPID, ALT, AST #### [facility] [address] [place] [address] Dr. Luz Burr MCHC (RBC) [Mass/Vol] 33.7 g/dL Normal 29.9-35.2 [facility] Comment on above: Performed By: #### B MP, LIPID, ALT, AST #### [facility] [address] [place] [address] Dr. Luz Burr MCV (RBC) [Entitic vol] 93.3 fL Normal 80.0-94.0 [facility] Comment on above: Performed By: #### B MP, LIPID, ALT, AST #### [facility] [address] [place] [address] Dr. Luz Burr MONO # 0.7 103/ul Normal 0.3-0.8 [facility] Comment on above: Performed By: #### B MP, LIPID, ALT, AST #### [facility] [address] [place] [address] Dr. Luz Burr Monocytes/100 WBC (Bld) 5.4 % Normal 1.7-12.0 [facility] Comment on above: Performed By: #### B MP, LIPID, ALT, AST #### [facility] [address] [place] [address] Dr. Luz Burr NEUT # 11.4 103/ul Critically high 1.4-6.5 [facility] Comment on above: Performed By: #### B MP, LIPID, ALT, AST #### [facility] [address] [place] [address] Dr. Luz Burr Neutrophils/100 WBC (Bld) 87.6 % Critically high 43.0-75.0 [facility] Comment on above: Performed By: #### B MP, LIPID, ALT, AST #### [facility] [address] [place] [address] Dr. Luz Burr Platelet mean volume (Bld) [Entitic vol] 10.3 fL Normal 9.5-13.5 [facility] Comment on above: Performed By: #### B MP, LIPID, ALT, AST #### [facility] [address] [place] [address] Dr. Luz Burr PLT 213 103/ul Normal 150-450 [facility] Comment on above: Performed By: #### B MP, LIPID, ALT, AST #### [facility] [address] [place], [place] [address] Dr. Luz Burr RBC 5.41 106/ul Normal 4.70-6.10 [facility] Comment on above: Performed By: #### B MP, LIPID, ALT, AST #### [facility] [address] [place], [place] [address] Dr. Luz Burr WBC 13.0 103/ul Critically high 4.0-11.0 [facility] Comment on above: Performed By: #### B MP, LIPID, ALT, AST #### [facility] [address] [place], [place] [address] ABD/PELV W CONon [...] Mal RICHTER Date: 2022-01-02 06:09 Normal [facility] Covid-19 PCR (CVDTBH)on 12-18 SARS-CoV-2 (COVID-19) RNA BLANCA+probe Ql (Unsp spec) Not detected Normal NOT DETECTED [facility] Comment on above: Result Comment: When diagnostic testing is negative, the possibility of a false negative should be considered in the context of a patient's recent exposures and the presence of clinical signs and symptoms consistent with SARS-CoV-2. This test is not yet approved or cleared by the [place] Food and Drug Administration (FDA). This test was developed by [employer], [place], [place]. The performance characteristics of this test were validated by [facility]. The results are not intended to be used as the sole means for clinical diagnosis or patient management decisions. [facility] is authorized under Clinical Laboratory Improvement Amendments [...] for this test is supported by the Chemistry Professor of Health and Human Service's declaration that [...] used). Performed By: #### C VDTBH #### [facility] [address] [place] [address] Dr. Luz Burr LIPASEon 01-02-2022 Lipase [Catalytic activity/Vol] 178.0 U/L Normal 23.0-300.0 [facility] Comment on above: Performed By: #### B MP, LIPID, ALT, AST #### [facility] [address] [place] [address] Dr. Luz Burr PROF 14(COMP METB)on 022 Albumin [Mass/Vol] 3.8 g/dL Normal 3.4-5.0 [facility] Comment on above: Performed By: #### B MP, LIPID, ALT, AST #### [facility] [address] [place] [address] Dr. Luz Burr Albumin/Globulin [Mass ratio] 1.0 {ratio} Normal [facility] Comment on above: Performed By: #### B MP, LIPID, ALT, AST #### [facility] [address] [place] [address] Dr. Luz Burr ALP [Catalytic activity/Vol] 53 U/L Normal 46-116 [facility] Comment on above: Performed By: #### B MP, LIPID, ALT, AST #### [facility] [address] [place] [address] Dr. Luz Burr ALT [Catalytic activity/Vol] 47 U/L Normal 16-63 [facility] Comment on above: Performed By: #### B MP, LIPID, ALT, AST #### [facility] [address] [place] [address] Dr. Luz Burr Anion gap [Moles/Vol] 16.0 mmol/L Normal [facility] Comment on above: Performed By: #### B MP, LIPID, ALT, AST #### [facility] [address] [place] [address] Dr. Luz Burr AST [Catalytic activity/Vol] 33 U/L Normal 15-37 [facility] Comment on above: Performed By: #### B MP, LIPID, ALT, AST #### [facility] [address] [place] [address] Dr. Luz Burr Bilirubin [Mass/Vol] 1.2 mg/dL Normal 0.2-1.3 [facility] Comment on above: Performed By: #### B MP, LIPID, ALT, AST #### [facility] [address] [place] [address] Dr. Luz Burr Calcium [Mass/Vol] 8.5 mg/dL Normal 8.5-10.1 [facility] Comment on above: Performed By: #### B MP, LIPID, ALT, AST #### [facility] [address] [place] [address] Dr. Luz Burr Chloride [Moles/Vol] 100 mmol/L Normal 98-107 [facility] Comment on above: Performed By: #### B MP, LIPID, ALT, AST #### [facility] [address] [place] [address] Dr. Luz Burr CO2 [Moles/Vol] 26.3 mmol/L Normal 22.0-30.0 [facility] Comment on above: Performed By: #### B MP, LIPID, ALT, AST #### [facility] [address] [place] [address] Dr. Luz Burr Creatinine [Mass/Vol] 1.21 mg/dL Normal 0.66-1.25 [facility] Comment on above: Performed By: #### B MP, LIPID, ALT, AST #### [facility] [address] [place] [address] Dr. Luz Burr EGFR-AF ARGENTINE >60 Normal >=60 [facility] Comment on above: Performed By: #### B MP, LIPID, ALT, AST #### [facility] [address] [place] [address] Dr. Luz Burr EGFR-NON AF ARGENTINE 58 mL/min/1.73m2 Critically low >=60 [facility] Comment on above: Performed By: #### B MP, LIPID, ALT, AST #### [facility] [address] [place] [address] [address] Luz Burr Globulin (S) [Mass/Vol] 3.7 g/dL Normal [facility] Comment on above: Performed By: #### B MP, LIPID, ALT, AST #### [facility] [address] [place] [address] [address] Luz Burr Glucose [Mass/Vol] 169 mg/dL Critically high 74-106 [facility] Comment on above: Performed By: #### B MP, LIPID, ALT, AST #### [facility] [address] [place] [address] [address] Luz Burr Potassium [Moles/Vol] 4.3 mmol/L Normal 3.4-5.0 [facility] Comment on above: Performed By: #### B MP, LIPID, ALT, AST #### [facility] [address] [place] [address] Dr. Luz Burr Protein [Mass/Vol] 7.5 g/dL Normal 6.1-8.2 [facility] Comment on above: Performed By: #### B MP, LIPID, ALT, AST #### [facility] [address] [place] [address] [address] Luz Burr Sodium [Moles/Vol] 138 mmol/L Normal 137-145 [facility] Comment on above: Performed By: #### B MP, LIPID, ALT, AST #### [facility] [address] [place] [address] [address] Luz Burr Urea nitrogen [Mass/Vol] 37.0 mg/dL Critically high 7.0-18.0 [facility] Comment on above: Performed By: #### B MP, LIPID, ALT, AST #### [facility] [address] [place] [address] [address] Luz Burr Urea nitrogen/Creatinine [Mass ratio] 30.6 mg/mg Normal [facility] Comment on above: Performed By: #### B MP, LIPID, ALT, AST #### [facility] [address] [place] [address] [address] Luz Burr TROPONIN, HIGH SENSITIVITYon 01-02-2022 HSTROP 101.8 pg/mL Critically high 4.0-42.2 [facility] Comment on above: Result Comment: CUT- OFF POINTS HAVE BEEN ESTABLISHED BASED ON THE FOURTH UNIVERSAL DEFINITIONS OF MYOCARDIAL INFARCTION. THE UPPER REFERENCE LIMIT (URL) OF TROPONIN, DEFINED THE 99TH PERCENTILE OF cTnI DISTRIBUTION IN A REFERENCE POPULATION, HAS BEEN CONFIRMED THE DECISION THRESHOLD FOR [place] DIAGNOSIS. repeated Performed By: #### H STROPN #### [facility] [address] [place] [address] [address] Luz Burr HSTROP 91.6 pg/mL Critically high 4.0-42.2 [facility] Comment on above: Result Comment: CUT- OFF POINTS HAVE BEEN ESTABLISHED BASED ON THE FOURTH UNIVERSAL DEFINITIONS OF MYOCARDIAL INFARCTION. THE UPPER REFERENCE LIMIT (URL) OF TROPONIN, DEFINED THE 99TH PERCENTILE OF cTnI DISTRIBUTION IN A REFERENCE POPULATION, HAS BEEN CONFIRMED THE DECISION THRESHOLD FOR [place] DIAGNOSIS. repeated Performed By: #### H STROPN #### [facility] [address] [place] [address] [address] Luz Burr XR CHEST 1 Von 01-02-2022 XR CHEST 1 V EXAM: XR CHEST 1 V HISTORY: Abdominal pain COMPARISON: None. TECHNIQUE: Single frontal view chest x-ray FINDINGS: No lobar consolidation, large pleural effusions, pneumothorax, or acute bony abnormality. Cardiac size unremarkable. IMPRESSION: No radiographic evidence for acute chest abnormality. Electronically authenticated by: SHELBY ARZATE Date: 2022-01-02 04:33 Normal [facility] XR LSPINE 2_3 VIEWSon 2021 XR LSPINE [...] by: KACIE VALLE Date: 2021-12-17 10:15 Normal [facility] Tobacco Screening.on 022 Fall risk assessment a) No falls within the last year [facility] 250 DO Work Phone: Tobacco use status [facility] b) No [facility] 250 DO Work Phone: Vital Signs Date Time Vital Sign Value Performing Clinician Facility 12-20-2023 09:52-0400 Body height 172.7 cm David Braga MD Work Phone: [facility] 12-20-2023 09:52-0400 Body mass index (BMI) [Ratio] 27.83 kg/m2 David Braga MD Work Phone: [facility] 12-20-2023 09:52-0400 Body weight 83.01 kg David Braga MD Work Phone: [facility] 12-20-2023 09:52-0400 Diastolic blood pressure 74 mm[Hg] David Braga MD Work Phone: [facility] 12-20-2023 09:52-0400 Heart rate 64 /min David Braga MD Work Phone: [facility] 12-20-2023 09:52-0400 Systolic blood pressure 128 mm[Hg] David Braga MD Work Phone: [facility] 06-14-2023 10:51-0400 Body height 175.26 cm Jasmin Jessi [place] Work Phone: [facility]-Cpbavqgrja-Esesq edgar 250 DO Work Phone: 06-14-2023 10:51-0400 Body mass index (BMI) [Ratio] 26.82 kg/m2 Rugvaleriy Bowen [place] Work Phone: [facility]-Nosijlcfou-Txrpb edgar 250 DO Work Phone: 06-14-2023 10:51-0400 Body surface area Derived from formula 1.98 m2 Maryen Jessi [place] Work Phone: [facility]-Tedhjttiqv-Tbqmj edgar 250 DO Work Phone: 06-14-2023 10:51-0400 Body weight 82.37 kg Rugen M [place] Work Phone: LM-Xdevxktytg-Rudur edgar 250 DO Work Phone: 06-14-2023 10:51-0400 Diastolic blood pressure 72 mm[Hg] Rugen M Mac Work Phone: [facility]-Hkyowlvcqw-Ibsmj edgar 250 DO Work Phone: 06-14-2023 10:51-0400 Heart rate 61 /min Rugen M Mac Work Phone: [facility]-Cqmecajblc-Iilqx edgar 250 DO Work Phone: 06-14-2023 10:51-0400 Systolic blood pressure 114 mm[Hg] Rugen M [place] Work Phone: XK-Ywjieyrikj-Rvtxh edgar 250 DO Work Phone: 11-11-2022 14:10-0500 Body height 175.26 cm Rugen M [place] Work Phone: [facility] 250 DO Work Phone: 11-11-2022 14:10-0500 Body mass index (BMI) [Ratio] 27.02 kg/m2 Rugen M Mac Work Phone: [facility] 250 DO Work Phone: 11-11-2022 14:10-0500 Body surface area Derived from formula 1.99 m2 Rugen M Mac Work Phone: [facility] 250 DO Work Phone: 11-11-2022 14:10-0500 Body weight 83.01 kg Rugen M [place] Work Phone: [facility] 250 DO Work Phone: 11-11-2022 14:10-0500 Diastolic blood pressure 78 mm[Hg] Rugen M [place] Work Phone: [facility] 250 DO Work Phone: 11-11-2022 14:10-0500 Heart rate 55 /min Maryvaleriy Jessi [place] Work Phone: [facility] 250 DO Work Phone: 11-11-2022 14:10-0500 Systolic blood pressure 132 mm[Hg] Jasmin Bowen Mac Work Phone: [facility] 250 DO Work Phone: 11-04-2022 11:27-0500 Body temperature 98.3 [degF] MD Jasmin Watts Work Phone: [facility] 11-04-2022 11:27-0500 Diastolic blood pressure 75 mm[Hg] MD Jasmin Watts Work Phone: [facility] 11-04-2022 11:27-0500 Heart rate 56 /min MD Jasmin Watts Work Phone: [facility] 11-04-2022 11:27-0500 Respiratory rate 18 /min MD Jasmin Watts Work Phone: [facility] 11-04-2022 11:27-0500 SaO2% (BldA) [Mass fraction] 95 % MD Jasmin Watts Work Phone: [facility] 11-04-2022 11:27-0500 Systolic blood pressure 120 mm[Hg] MD Jasmin Watts Work Phone: [facility] 11-04-2022 04:23-0500 Body weight 82.6 kg MD Jasmin Watts Work Phone: [facility] 11-03-2022 13:54-0500 Body height 175.26 cm MD Jasmin Watts Work Phone: [facility] 09-30-2022 08:49-0500 Body height 175.26 cm Jasmin Noonana Work Phone: [facility] 250 DO Work Phone: 09-30-2022 08:49-0500 Body mass index (BMI) [Ratio] 27.02 kg/m2 Rugen M Mac Work Phone: [facility] 250 DO Work Phone: 09-30-2022 08:49-0500 Body surface area Derived from formula 1.99 m2 Rugen Jessi Mac Work Phone: [facility] 250 DO Work Phone: 09-30-2022 08:49-0500 Body weight 83.01 kg Rugen M [place] Work Phone: [facility] 250 DO Work Phone: 09-30-2022 08:49-0500 Diastolic blood pressure 64 mm[Hg] Rugen Jessi [place] Work Phone: [facility] 250 DO Work Phone: 09-30-2022 08:49-0500 Heart rate 62 /min Rugen Jessi Mac Work Phone: [facility] 250 DO Work Phone: 09-30-2022 08:49-0500 Systolic blood pressure 122 mm[Hg] Rugen Jessi Mac Work Phone: [facility] 250 DO Work Phone: 03-15-2022 14:16-0400 Body height 175.26 cm Rugen M Mac Work Phone: [facility] 250 DO Work Phone: 03-15-2022 14:16-0400 Body mass index (BMI) [Ratio] 27.47 kg/m2 Rugen M [place] Work Phone: [facility] 250 DO Work Phone: 03-15-2022 14:16-0400 Body surface area Derived from formula 2 m2 Rugen M Mac Work Phone: [facility] 250 DO Work Phone: 03-15-2022 14:16-0400 Body weight 84.37 kg Rugen M [place] Work Phone: [facility] 250 DO Work Phone: 03-15-2022 14:16-0400 Diastolic blood pressure 80 mm[Hg] Rugen M [place] Work Phone: [facility] 250 DO Work Phone: 03-15-2022 14:16-0400 Heart rate 60 /min Rugen M [place] Work Phone: [facility] 250 DO Work Phone: 03-15-2022 14:16-0400 Systolic blood pressure 130 mm[Hg] Rugen M Mac Work Phone: [facility] 250 DO Work Phone: 10-28-2021 11:21-0500 Body height 175.26 cm Rugen M Mac Work Phone: [facility] 250 DO Work Phone: 10-28-2021 11:21-0500 Body mass index (BMI) [Ratio] 27.17 kg/m2 Rugen M [place] Work Phone: [facility] 250 DO Work Phone: 10-28-2021 11:21-0500 Body surface area Derived from formula 1.99 m2 Rugen M Mac Work Phone: [facility] 250 DO Work Phone: 10-28-2021 11:21-0500 Body weight 83.46 kg Rugen M [place] Work Phone: [facility] 250 DO Work Phone: 10-28-2021 11:21-0500 Diastolic blood pressure 72 mm[Hg] Rugen M [place] Work Phone: [facility] 250 DO Work Phone: 10-28-2021 11:21-0500 Heart rate 76 /min Rugen M [place] Work Phone: [facility] 250 DO Work Phone: 10-28-2021 11:21-0500 Systolic blood pressure 108 mm[Hg] Rugen M Mac Work Phone: [facility] 250 DO Work Phone: Encounters Encounter Date Encounter Type Care Provider Facility Start: 06-21-2024 End: 06-21-2024 Bamboo flowsheet Marquez Ward DO Work Phone: [facility] Start: 06-21-2024 End: 06-21-2024 Bamboo flowsheet Marquez Ward DO Work Phone: [facility] Start: 06-21-2024 End: 06-21-2024 ambulatory MARQUEZ WARD Not Available Start: 06-13-2024 End: 06-13-2024 ambulatory UVALDO B APLING Not Available Start: 05-16-2024 End: 05-16-2024 ambulatory UVALDO B APLING Not Available Start: 05-03-2024 End: 05-03-2024 ambulatory VALORIE Rere LETY Not Available Start: 05-02-2024 End: 05-02-2024 ambulatory UVALDO B APLING Not Available Start: 04-30-2024 End: 04-30-2024 ambulatory RUGEN M MAC Not Available Start: 04-16-2024 End: 04-16-2024 ambulatory TRIXIE NIELSON Not Available Start: 03-27-2024 Patient encounter procedure Marquez Ward DO Work Phone: [facility] Start: 03-27-2024 End: 03-27-2024 ambulatory RUGEN M MAC Not Available Start: 02-28-2024 End: 02-28-2024 ambulatory RUGEN M MAC Not Available Start: 12-20-2023 End: 12-20-2023 Office outpatient visit 25 minutes David Braga MD Work Phone: [facility] Comment on above: Arteriosclerotic car diovascular disease (ASCVD) (Primary Dx); History of PTCA; Paroxysmal atrial fibrillation (CMS/HCC); Mixed hyperlipidemia; BMI 27.0-27.9,adult; Never smoked tobacco; High risk medication use Start: 12-20-2023 End: 12-20-2023 ambulatory DAVID Bowen [facility] Ambulatory Start: 10-13-2023 End: 10-13-2023 ambulatory SUZIE RED Not Available Start: 08-29-2023 End: 08-29-2023 ambulatory RUGEN M MAC Not Available Start: 06-14-2023 Office outpatient vi sit 25 minutes Rugen M [place] Work Phone: [facility] 250 DO Work Phone: Start: 12-06-2022 End: 12-07-[address] DAVID BRAGA Facility:H1 Start: 12-02-2022 ambulatory David Braga Facility : Start: 11-26-2022 Rx Renewal Rugen M Mac Work Phone: [facility] 250 DO Work Phone: Start: 11-26-2022 Rx Renewal Rugen M Mac Work Phone: [facility] 250 DO Work Phone: Start: 11-11-2022 Patient encounter procedure Rugen M [place] Work Phone: [facility] 250 DO Work Phone: Start: 11-11-2022 ambulatory David Braga Facility : Start: 11-04-2022 ambulatory David Braga Facility :[id number] Start: 11-03-2022 ambulatory RUGEN MAC Facility:9 090 Start: 11-02-2022 End: 11-04-2022 Evaluation and management of inpatient Rugen M [place] Facility:[facility] Start: 11-02-2022 End: 11-04-2022 Evaluation and management of inpatient MD Jasmin [place] Work Phone: [facility] [place] [facility] Work Phone: Start: 10-25-2022 Rx Renewal Rugen M Mac Work Phone: [facility] 250 DO Work Phone: Start: 09-30-2022 Office outpatient vi sit 25 minutes Rugen M Mac Work Phone: [facility] 250 DO Work Phone: Start: 09-30-2022 ambulatory David Braga Facility : Start: 06-07-2022 Rx Renewal [place]en M [place] Work Phone: [facility] 250 DO Work Phone: Start: 05-20-2022 Rx Renewal Rugen M [place] Work Phone: [facility] 250 DO Work Phone: Start: 03-15-2022 Office outpatient vi sit 25 minutes Rugen M Mac Work Phone: [facility] 250 DO Work Phone: Start: 03-15-2022 ambulatory David Braga Facility : Start: 01-02-2022 End: 01-02-[address] JASMIN WATTS Facility:H1 Start: 12-17-2021 End: 12-18-[address] JASMIN WAT[place] Facility:H1 Start: 10-28-2021 Office outpatient vi sit 25 minutes Rugen M [place] Work Phone: [facility] 250 DO Work Phone: Start: 10-28-2021 Patient encounter procedure Rugen M [place] Work Phone: [facility] 250 DO Work Phone: Start: 08-31-2021 Rx Renewal David Braga MD Work Phone: [facility] 250 DO Work Phone: Procedures Date Procedure Procedure Detail Performing Clinician Start: 06-21-2024 Oph bmtry prtl coher intrfrmtry io lens pwr misael Marquez Ward DO Work Phone: Start: 06-21-2024 End: 06-21-2024 Oph medical xm&eval compre new pt 1/> vst Age-related nuclear cataract of both eyes Marquez Ward DO Work Phone: Comment on above: Age-related nuclear cataract of both eyes (Primary Dx) Start: 12-20-2023 Alanine aminotransfe rase [Enzymatic activity/volume] [...] Braga MD Work Phone: Arthroplasty of knee Maryen M [place] Work Phone: Cardiac catheterization Marye n M Mac Work Phone: Colonoscopy Rugen M [place] Work Phone: History of percutane ous transluminal coronary angioplasty History of PTCA Rugen M Mac Work Phone: History of percutane ous transluminal coronary angioplasty History of PTCA David Braga MD Work Phone: Laparoscopy Jasmin Watts Work Phone: Percutaneous translu khang coronary angioplasty Jasmin [place] Work Phone: Procedure on back Jasmin Reese Work Phone: Plan of Treatment Date Care Activity Detail Author Start: 12-26-2028 DTaP/Tdap/Td Vaccines (2 - Td or Tdap) DTaP/Tdap/Td Vaccines (2 - Td or Tdap) [facility] Start: 03-27-2025 Medicare Annual Wellness (AWV) Medicare Annual Wellness (AWV) [facility] Start: 09-25-2024 End: 09-25-2024 Patient encounter procedure 09/25/2024 9:00 AM EST Office Visit [facility] [address] [facility] [address] [place] [address] Jasmin [place] MD [address] [facility] [address] [place] [address] [facility] Start: 08-28-2024 End: 08-28-2024 Patient encounter procedure 08/28/2024 9:00 AM EST Office Visit [facility] [address] [facility] [address] [place] [address] Jasmin [place] MD [address] [facility] [address] [place] [address] [facility] Start: 07-26-2024 End: 07-26-2024 Patient encounter procedure 07/26/2024 9:20 AM EST Procedure Visit [facility] Marquez Ward, DO [address] [place] [address] [facility] Start: 07-12-2024 End: 07-12-2024 Patient encounter procedure 07/12/2024 8:30 AM EDT Procedure Visit [facility] Marquez Long, DO [address] [place] [address] [facility] Start: 06-27-2024 End: 06-27-2024 Patient encounter procedure 06/27/2024 9:30 AM EDT Office Visit [facility] [address] [facility] [address] [place] [phone] David Braga MD [address] [place] [address] [facility] Start: 06-21-2024 End: 06-21-2024 Patient encounter procedure 06/21/2024 2:00 PM EDT Office Visit [facility] [address] [place] [id number] Marquez Ward, DO [address] [place] [address] Arrived [facility] Comment on above: Arrived Start: 12-20-2023 End: 12-19-2024 Alanine aminotransferase [Enzymatic activity/volume] in Serum or Plasma by With P-5'-P Alanine Aminotransferase Lab Routine 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 Paroxysmal atrial fibrillation (CMS/HCC) Mixed hyperlipidemia Expected: 12/20/2023 (Approximate), Expires: 12/19/2024 [facility] Service Area Work Phone: Comment on above: Expected: 12/20/2023 (Approximate), Expi res: 12/19/2024 Start: 12-20-2023 End: 12-19-2024 Aspartate aminotransferase [Enzymatic activity/volume] in Serum or Plasma by With P-5'-P Aspartate Aminotransferase Lab Routine 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 Paroxysmal atrial fibrillation (CMS/HCC) Mixed hyperlipidemia Expected: 12/20/2023 (Approximate), Expires: 12/19/2024 [facility] Work Phone: Comment on above: Expected: 12/20/2023 (Approximate), Expi res: 12/19/2024 Start: 12-20-2023 End: 12-19-2024 Basic metabolic 2000 panel - Serum or Plasma Basic Metabolic Panel Lab Routine 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 Paroxysmal atrial fibrillation (CMS/HCC) Mixed hyperlipidemia Expected: 12/20/2023 (Approximate), Expires: 12/19/2024 [facility] Work Phone: Comment on above: Expected: 12/20/2023 (Approximate), Expi res: 12/19/2024 Start: 12-20-2023 End: 12-19-2024 CBC panel - Blood by Automated count CBC Lab Routine 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 Paroxysmal atrial fibrillation (CMS/HCC) Mixed hyperlipidemia Expected: 12/20/2023 (Approximate), Expires: 12/19/2024 [facility] Work Phone: Comment on above: Expected: 12/20/2023 (Approximate), Expi res: 12/19/2024 Start: 12-20-2023 End: 12-19-2024 Lipid 1996 panel - Serum or Plasma Lipid Panel Lab Routine 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 Paroxysmal atrial fibrillation (CMS/HCC) Mixed hyperlipidemia Expected: 12/20/2023 (Approximate), Expires: 12/19/2024 [facility] Work Phone: Comment on above: Expected: 12/20/2023 (Approximate), Expi res: 12/19/2024 Start: 12-02-2022 FUV, Provider: David Braga, Status: Pen, Time: 11:00 AM FUV, Provider: David Braga, Status: Pen, Time: 11:00 AM [facility] 250 DO Work Phone: Start: 11-04-2022 [facility] Start: 11-02-2022 Hospital admission [facility] Start: 10-19-2022 [facility] Provider: David Braga, Status: Pen, Time: 8:00 AM [facility], Provider: David Braga, Status: Pen, Time: 8:00 AM [facility] 250 DO Work Phone: Start: 09-30-2022 FUV, Provider: David Braga, Status: Pen, Time: 9:00 AM FUV, Provider: David Braga, Status: Pen, Time: 9:00 AM [facility] 250 DO Work Phone: Start: 05-05-2022 FUV, Provider: David Braga, Status: Pen, Time: 10:30 AM FUV, Provider: David Braga, Status: Pen, Time: 10:30 AM [facility] 250 DO Work Phone: Start: 10-28-2021 FUV, Provider: David Braga, Status: Pen, Time: 11:00 AM FUV, Provider: David Braga, Status: Pen, Time: 11:00 AM [facility] 250 DO Work Phone: Start: 1994 Zoster Vaccines (1 of 2) Zoster Vaccines (1 of 2) [facility] Start: 1962 Diabetes mellitus screening Diabetes Screening [facility] Start: 1962 Hepatitis C screening Hepatitis C Screening [facility] Start: 1944 Lipid panel Lipid Panel [facility] Start: 1944 Medicare Annual Wellness Visit Medicare Annual Wellness Visit (AWV) [facility] Patient Education Atrial Fibrillation (DC ) [facility] Work Phone: Patient referral [facility] Work Phone: Immunizations Immunization Date Immunization Notes Care Provider Fa cility 05-31-2023 Fluad Quadrivalent 0 .5 ML Intramuscular Prefilled Syringe Jasmin [place] Work Phone: [facility] 250 DO Work Phone: 06-19-2022 influenza, injectabl e, quadrivalent, preservative free Rugen M [place] Work Phone: [facility] 06-02-2022 Moderna COVID-19 Biv al Booster 50 MCG/0.5ML Intramuscular Suspension Rugen M Mac Work Phone: [facility] 250 DO Work Phone: 05-26-2022 Fluzone High-Dose Quadrivalent 0.7 ML Intramuscular Suspension Prefilled Syringe Rugen M [place] Work Phone: [facility] 12-22-2021 Moderna COVID-19 Vac cine 100 MCG/0.5ML Intramuscular Suspension Rugen M Mac Work Phone: [facility] 250 DO Work Phone: 07-13-2021 Moderna COVID-19 Vac cine 100 MCG/0.5ML Intramuscular Suspension Rugen M Mac Work Phone: [facility] 250 DO Work Phone: 06-22-2021 Influenza, High-dose Seasonal, Quadrivalent, Preservative Free Marquez Ward DO Work Phone: [facility] 06-19-2021 influenza, seasonal, injectable Rugen M [place] Work Phone: [facility] 250 DO Work Phone: Comment on above: Series: 12-10-2020 Moderna COVID-19 Vac cine 100 MCG/0.5ML Intramuscular Suspension Rugen M Mac Work Phone: [facility] 250 DO Work Phone: 11-12-2020 Moderna COVID-19 Vac cine 100 MCG/0.5ML Intramuscular Suspension Rugen M Mac Work Phone: [facility] 250 DO Work Phone: 05-23-2020 Influenza, High-dose Seasonal, Quadrivalent, Preservative Free Marquez Ward DO Work Phone: [facility] 05-20-2020 influenza, high dose seasonal, preservative-free Rugen M Mac Work Phone: [place] [address] DO Work Phone: 05-28-2019 influenza, high dose seasonal, preservative-free Rugen M Mac Work Phone: [facility] 12-26-2018 tetanus toxoid, redu miranda diphtheria toxoid, and acellular pertussis vaccine, adsorbed Rugen M Mac Work Phone: [facility] 06-23-2018 influenza, high dose seasonal, preservative-free Marquez Zahler DO Work Phone: [facility] 06-23-2018 Influenza, High-dose Seasonal, Quadrivalent, Preservative Free Marquez Zahler DO Work Phone: [facility] 06-19-2018 influenza, high dose seasonal, preservative-free Rugen M [place] Work Phone: [place] [address] DO Work Phone: 06-19-2018 pneumococcal conjuga te vaccine, 13 valent Rugen M Mac Work Phone: [facility] 06-30-2017 pneumococcal conjuga te vaccine, 13 valent Rugen M [place] Work Phone: [place] [address] DO Work Phone: 06-06-2017 influenza, injectabl e, quadrivalent, preservative free Rugen M Mac Work Phone: [facility] 06-01-2017 influenza, high dose seasonal, preservative-free Marquez Zahler DO Work Phone: [facility] 05-23-2017 pneumococcal conjuga te vaccine, 13 valent Rugen M [place] Work Phone: [place] [address] DO Work Phone: 01-19-2016 pneumococcal polysaccharide vaccine, 23 valent Rugen M Mac Work Phone: [facility] 09-24-2009 novel influenza-H1N1 -09, preservative-free, injectable Jasmin [place] Work Phone: [facility] 250 DO Work Phone: Payers Date Payer Category Payer Medicare [id number] 2022 Self-pay [id number] 2021 Medicare [id number] 1959 Private Health Insurance [id number] 1944 Unknown [id number] 2.16. 840.1.570609.3.579.2.356 1944 Unknown [id number] 2.16. 840.1.701750.3.579.2.356 1944 Unknown [id number] 2.16. 840.1.782802.3.579.2.356 1944 Unknown [id number] 2.16. 840.1.103138.3.579.2.356 1944 Unknown [id number] 2.16. 840.1.579755.3.579.2.356 1944 Unknown [id number] 2.16. 840.1.147757.3.579.2.356 1944 Unknown [id number] 2.16.84 0.1.460175.3.579.2.593 1944 Unknown [id number] 2.16.84 0.1.711844.3.579.2.593 1944 Unknown [id number] 2.16.84 0.1.264607.3.579.2.593 1944 Unknown [id number] 2.16.8 40.1.104505.3.579.2.1244 1944 Unknown [id number] 2.16.84 0.1.358841.3.579.2.1259 1944 Unknown [id number] 2.16.84 0.1.332748.3.579.2.1259 1944 Unknown [id number] 2.16.84 0.1.186290.3.579.2.1259 1944 Unknown [id number] 2.16.84 0.1.009207.3.579.2.1259 1944 Unknown [id number] 2.16.84 0.1.976187.3.579.2.1259 1944 Unknown [id number] 2.16.84 0.1.788345.3.579.2.1259 1944 Unknown [id number] 2.16.84 0.1.732284.3.579.2.1259 1944 Unknown [id number] 2.16.84 0.1.344722.3.579.2.1259 1944 Unknown [id number] 2.16.84 0.1.058363.3.579.2.1259 1944 Unknown [id number] 2.16.84 0.1.363314.3.579.2.1259 1944 Unknown [id number] 2.16.840 .1.707903.3.579.2.1259 Unknown [employer] Unknown [id number] 2.16.8 40.1.765120.3.579.2.531 Social History Date Type Detail Facility Start: 12-20-2023 End: 03-27-2024 Caffeine use Caffeine use -[place] [address] DO Work Phone: Start: 11-02-2022 End: 02-07-2023 Tobacco smoking status NHIS Never smoked tobacco (finding) [facility] Start: 1945 Sex Assigned At Male F [facility] Start: 02-07-2023 End: 12-20-2023 Tobacco use and exposure Smokeless tobacco non-user [facility] Work Phone: Start: 12-20-2023 End: 06-21-2024 Alcohol intake Lifetime non-drinker (finding) [facility] Work Phone: Start: 12-20-2023 End: 03-27-2024 Tobacco use panel [facility] Work Phone: Start: 1945 [facility] Start: 12-10-2023 End: 12-20-2023 Exposure to SARS-CoV-2 (event) Not sure [facility] Start: 01-21-2023 Alcohol Comment Caffeine Intake: non e [facility] Medical Equipment Procedure Code Equipment Code Equipment Original Text Equipment Identifier Dates [id number] FDA Start: 06-16-2020 Goals Date Patient Goal Desired Activity /State Functional Status Date Assessment Result Facility 11-04-2022 Functional status Patient at Baseline [facility] Work Phone: Mental Status Date Assessment Result Facility 11-04-2022 Cognitive function Cognitive Sta tus Patient at Baseline [facility] Work Phone: History of Present illness Narrative 06-21-2024 Marquez Ward DO - 06/21/2024 2:00 PM EDT Note Date & Type Note Facility 06-21-2024 History of Presen t illness Narrative Images from the original note were not included. Assessment/Plan Diagnoses and all orders for this visit: Age-related nuclear cataract of both eyes - Visually Significant Cataract, OU: I discussed the risks, benefits, alternatives, and expectations of cataract surgery. A complete ophthalmic exam was performed and it was determined that the cataracts were a primary source of vision decline, affecting activities of daily living, necessitating removal. Limited vision post-surgery may occur with pre-existing conditions affecting other areas of the eye or the brain was explained and the patient displayed an understanding. The overall objective is to improve ADLs, not eliminate glasses or restore vision to 20/20. Tests were reviewed - the different lens options were explained including the ggh-xe-plqqal fees for any upgrades. Intraocular lens (IOL) selection may be altered either prior to or during the procedure based on the doctor's discretion including reverting to a traditional intraocular lens (IOL). They understood that there will exist the potential of glasses prescription need post surgery for near, distance or possibly both. The patient stated a full understanding and a desire to proceed with the procedure. The patient received cataract measurements and had any additional questions answered. - A complete exam was performed including a physical exam: General: AAOx3 and NAD, Lungs: Clear, Heart: RRR, Abdomen: S/NT/ND, Extremities: no pitting edema. - Coordination of care will be shared with Dr. Srinivasan. Cataract Surgery for OS will take place - and OD - . documented in this encounter [facility] History of Present illness Narrative 12-20-2023 David [...] Scribe Attestation By signing my name below, IDisha LPN, Scribe attest that this documentation has been prepared [...] discussion and plan. documented in this encounter [facility] Work Phone: Instructions 12-20-2023 Patient Instructions Note [...] instructions on exercise. documented in this encounter [facility] Work Phone: Discharge summary 11-04-2022 Note Date & Type Note Facility 11-04-2022 Discharge summary Note Date/Time November 04, 2022 1:20pm [facility] [address] [place] [address] Discharge Summary Signed Patient: Hossein Bentley MR#: [id number] : 1945 Acct:[id number] Age/Sex: 77 / M Adm Date: 3 Loc: Room: [address] [place] [address]: David Braga MD Copies to: David Braga MD, [facility] Jasmin [place] MD~ Providers Date of Discharge: [...] Staff] - Documented By: David Braga MD, [facility] 3 1318 Signed By: <Electronically signed by [facility] David Braga> 11/04/22 1320 [facility] Work Phone: Progress note 11-03-2022 Note Date & Type Note Facility 11-03-2022 Progress note Note Date/Time November 03, 2022 2:50pm [facility] [address] [place] [address] Cardiology Progress Note Signed Patient: Hossein Bentley MR#: [id number] : 1945 Acct:[id number] Age/Sex: 77 / M Adm Date: 3 Loc: Room: [address] [place] [address] Type: ADM IN Attending Dr: David Braga [...] Code(s): I25.10 - Atherosclerotic heart disease of [place] coronary artery without angina pectoris Status: Acute Plan: Continue secondary prevention measures (3) Stented coronary artery: Assessment/Problem Details: Asymptomatic Status: Acute Plan: Continue statin and antiplatelet therapy (4) Dyslipidemia: Assessment/Problem Details: On statin therapy Code(s): E78.5 - Hyperlipidemia, unspecified Status: Acute Plan: Continue rosuvastatin Documented By: David Braga MD, [facility] 3 1448 Signed By: <Electronically signed by [facility] David Braga> 11/03/22 6175 [facility] Work Phone: History and physical note 11-02-2022 Note Date & Type Note Facility 11-02-2022 History and physi misael note Note Date/Time November 02, 2022 5:52pm [facility] [address] [place] [address] Cardiology H&P Signed Patient: Hossein Bentley MR#: [id number] : 1945 Acct:[id number] Age/Sex: 77 / M Adm Date: 3 Loc: Room: [address] [place] [address] Type: ADM IN Attending Dr: David Braga MD Copies to: David Braga MD, [facility] Jasmin [place] MD~ Date of Service: 11/02/2022 [...] dyspnea no chest pain no fever or xivrag73 point review of system essentially normal PMFSH [...] Code(s): I25.10 - Atherosclerotic heart disease of [place] coronary artery without angina pectoris (3) Stented coronary artery: Assessment/Problem Details: Back in 2019 involving anterior descending artery Plan: Continue statin and antiplatelet therapy (4) Dyslipidemia: Assessment/Problem Details: On rosuvastatin Plan: Continue rosuvastatin Code(s): E78.5 - Hyperlipidemia, unspecified Documented By: David Braga MD, [facility] 3 [id number] Signed By: <Electronically signed by [facility] David Braga> 11/02/22 9659 [facility] Work Phone: Evaluation note Note Date & Type Note Facility Evaluation note Diagnosis Onset Date Coronary artery disease acut e Dyslipidemia acute Paroxysmal atrial fibrillation with RVR acute Stented coronary artery acut e [facility] Work Phone: Evaluation note Note Date & Type Note Facility Evaluation note Diagnosis Arteriosclerotic cardiovascular disease (ASCVD)- Primary Unspecified cardiovascular disease History of PTCA Postsurgical percutaneous transluminal coronary angioplasty status Paroxysmal atrial fibrillation ([facility]/HCC) Atrial fibrillation Mixed hyperlipidemia BMI 27.0-27.9,adult Never smoked tobacco High risk medication use documented in this encounter [facility] Work Phone: Evaluation note Note Date & Type Note Facility Evaluation note Diagnosis Age-related nuclear cataract of both eyes- Primary documented in this encounter [facility] Discharge instructions Note Date & Type Note Facility Hospital Discharge instructions Additional Instructions You are scheduled for an EKG at [facility] Office on 11/11/2022 at 2:00pm [facility] Work Phone: Chief Complaint HOSSEIN BENTLEY [...] seen for follow-up of a hospitalization for [facility] D/C 01/05. * Patient is in the office for follow-up for CAD and previous PCI in 2019. Since his last visit in October 2021 he had an admission to [facility] in [place] where he had laparoscopic abdominal procedure for [...] acute abdominal pain 2021. He was in [place]. Records were requested, presently he is on [...] up to Tikosyn loading done 11/04/2022 at [facility]. Medication list updated verbally. No cardiac complaints [...] profile and CBC were ordered Family History Unknown Family Member Name Dates Details Family [...] with RVR Stented coronary artery Advance Directives Advance Directive Response Recorded Date/ Time Advance Directives No October 28, 2022 10:40am Summary Purpose Reason for Referral Specialty Diagnoses / Procedures Referred By Robi elizabeth Referred To Contact Diagnoses Paroxysmal atrial fibrillation (CMS/HCC) Procedures ECG 12 Lead David Braga MD [address] [place] [address] 2, [address] [address] Referral ID Status Reason Start Date Expiration Date V isits Requested Visits Authorized [id number] Authorized 12/20/2023 12/19/2024 1 1 Specialty Diagnoses / Procedures Referred By Robi elizabeth Referred To Contact Cardiology Diagnoses Arteriosclerotic cardiovascular disease (ASCVD) Paroxysmal atrial fibrillation (CMS/HCC) Procedures Follow Up In Cardiology David Braga MD [address] [facility] 2, [address] [address] Referral ID Status Reason Start Date Expiration Date V isits Requested Visits Authorized [id number] Authorized 12/20/2023 12/19/2024 1 1 Additional Source Comments Care Teams (unrecognized sec tion and content) Team Status: Inactive Member Role Status Dates Jasmin [place] MD Primary Care Provider Active David Braga MD Admit Provider, Attending Provider Active Team Status: Active Member Role Status Dates Jasmin [place] MD Primary Care Provider Active Rivet Catcher Relationship Specialty Start Date End Date Jasmin [place] MD [address] [address] [facility] [address] [place] [address] PCP - General 09/19/99 David Braga MD 3 [facility] 2, [address] [place] [address] Consulting Physician Cardiology 12/20/23 Rivet Catcher Relationship Specialty Start Date End Date Jasmin Watts MD [address] [facility] [address] [place] [address] PCP - General Family Medicine 01/31/23 tSephen Ogden MD [address] [facility] [address] [place] [address] PCP - Aet[employer] 09/19/21 Rivet Catcher Relationship Specialty Start Date End Date Jasmin Watts MD [address] [facility] [address] [place] [address] PCP - General Family Medicine 01/31/23 Stephen Ogden MD [address] [facility] [address] [place] [address] PCP - [employer]et[employer] 09/19/21 (unrecognized sect ion and content) No Status Records FoundNo Status Records FoundNo Status Records FoundNo Status Records FoundNo Status Records FoundNo Status Records Found INFORMATION SOURCE (unrecogn ized section and content) DATE CREATED AUTHOR 11/11/2022 [facility] DATE CREATED AUTHOR AUTHOR'S ORGANIZ ATION 12/03/2022 [facility] DATE CREATED AUTHOR AUTHOR'S ORGANIZ ATION 12/03/2022 [employer] DATE CREATED AUTHOR AUTHOR'S ORGANIZ ATION 12/12/2022 [facility] DATE CREATED AUTHOR AUTHOR'S ORGANIZ ATION 05/05/2024 [facility] DATE CREATED AUTHOR AUTHOR'S ORGANIZ ATION 06/23/2024 [facility] dical Specialists EPIC Reason for Visit (unrecogniz ed section and content) Reason Comments Follow-up 6 month Specialty Diagnoses / Procedures Referred By Contgeno t Referred To Contact Diagnoses Paroxysmal atrial fibrillation (CMS/HCC) Procedures ECG 12 Lead David Braga MD 703 [facility] 2, [address] [address] Referral ID Status Reason Start Date Expiration Date V isits Requested Visits Authorized [id number] Authorized 12/20/2023 12/19/2024 1 1 Reason Comments Cataract FOR RECORDS PERTAINING TO PATIENTS WHO ARE [...] BE BASED ON THE PRIMARY CLINICAL RECORDS. [employer] [facility]. provides no warranty or guarantee of the accuracy or completeness of information in this document.
[2024-07-26 08:42] VITALS: BP 119/78; PULSE 67; TEMP 36.2; O2SAT 96
[2024-07-26] MEDS: BETADINE POVIDONE-IODINE 5% OP SOL 30 ML BOTTLE OP (10:27)
[2024-07-26] MEDS: PROPARACAINE HCL 0.5% 300 DROP/15 ML BOTTLE OP (10:27)
[2024-07-26] MEDS: LIDOCAINE 2% JELLY 10 ML TOPICAL (10:35)
[2024-07-26 10:36] VITALS: BP 111/71; BP 149/69; PULSE 56; PULSE 60; O2SAT 98
[2024-07-26] MEDS: HYALURONATE SODIUM 16 MG/ML SYRINGE OP (10:39)
[2024-07-26] MEDS: LIDOCAINE HCL 1% PF 20 MG/2 ML VIAL INJ (10:39)
[2024-07-26] MEDS: PHENYLEPHRINE/KETOROLAC 1-0.3% ML VIAL 4 ML IRR (10:39)
[2024-07-26] MEDS: TETRACAINE HCL 0.5% OP SOL 80 DROP/4 ML BOTTLE OP (10:40)
[2024-07-26] MEDS: CEFUROXIME SODIUM 750 MG, 0.9 % SODIUM CHLORIDE 16.3 ML OP (10:40)
[2024-07-26] MEDS: PREDNISOLONE ACETATE OP 1% SUSP 100 DROPS/5 ML 1 DROP OP (10:49)
[2024-07-26] MEDS: APRACLONIDINE HCL 0.5% SOL 100 DROP/5 ML BOTTLE OP (10:49)
== END 2024-07-26 11:01 | disposition home or self-care (01) ==
LOC: SURGOUT 08:19
PROVIDERS: PCP Family Medicine; Visit Provider Ophthalmology
PROC: (CPT 66984; principal; 2024-07-26 09:45)
DX: H25.11 Age-related nuclear cataract, right eye (principal)
CPT/HCPCS: 66984; J0697; V2630

== ENCOUNTER 2025-03-09 12:35 | Emergency (ER) | payer MEDICARE, SELFPAY ==
[2025-03-09 12:39] VITALS: BP 149/89; PULSE 86; TEMP 36.6; O2SAT 96; BMI 26.6
--- OUTSIDE RECORDS SUMMARY | 2025-03-09 12:40 | XMS_ITS | Encounter Summary ---
Author Organization [facility] Address [address] [facility] [place] [address] Care Team Providers Care Data Reduction Technician Name Role Phone Jasmin Maurice MD Unavailable Jasmin Maurice MD Primary Care Provider [phone] Encounter Details Date Type Department Care Team (Late Contact Info) Description 09/02/2023 Abstract [facility] [address] [facility] 110 [place] [phone] Jasmin Maurice MD [address] [facility] [address] [place] [address] Social History Tobacco Use Types Packs/Day Years Used Date Smoking Tobacco: Never Smokeless Tobacco: Never Alcohol Use Standard Drinks/Week Comments Never 0 (1 standard drink = 0.6 oz pur e alcohol) Caffeine Intake: none PHQ-2 Answer Date Recorded Patient Health Questionnaire-2 Score 0 08/29/2023 Sex and Gender Information Value Date Recorded Sex Assigned at Not on file Legal Sex Male 7:20 PM EDT Gender Identity Not on file Sexual Orientation Not on file documented as of this encounter Plan of Treatment Upcoming Encounters Date Type Department Care Team (Late st Contact Info) Description 03/12/2025 9:30 AM EDT Office Visit [facility] [address] [facility] [address] [place] [phone] Alma Gold, JOHNNY [address] [place] [address] 08/07/2025 9:30 AM EST Office Visit [facility] [address] [facility] [address] [place] [phone] Yani York PA [address] [facility] 110 [place] [address] documented as of this encounter Visit Diagnoses Not on filedocumented in this encounter Care Teams Data Reduction Technician Relationship Specialty Start Date End Date Jasmin Maurice MD [address] [facility] 110 [place] [address] PCP - [employer]et[employer] 09/19/20 Jasmin Maurice MD [address] [facility] 110 [place] [address] PCP - General Family Medicine 01/31/23 documented as of this encounter
--- OUTSIDE RECORDS SUMMARY | 2025-03-09 12:40 | XMS_ITS | Encounter Summary ---
Author Organization [facility] Address [address] [facility] [place] [address] Care Team Providers Care Live Truck Technician Name Role Phone Jasmin Maurice MD Unavailable Jasmin Maurice MD Primary Care Provider [phone] Encounter Details Date Type Department Care Team (Late Contact Info) Description 03/17/2023 Abstract [facility] [address] [facility] 110 [place] [phone] Erin Freeman LEVER MILLER [address] [facility] 110 [place] [address] Social History Tobacco Use Types Packs/Day Years Used Date Smoking Tobacco: Never Smokeless Tobacco: Never Alcohol Use Standard Drinks/Week Comments Never 0 (1 standard drink = 0.6 oz pur e alcohol) Caffeine Intake: none Sex and Gender Information Value Date Recorded Sex Assigned at Not on file Legal Sex Male 7:20 PM EDT Gender Identity Not on file Sexual Orientation Not on file documented as of this encounter Functional Status * Over the past 2 weeks, how often have you been bothered by any of the following problems? Question Answer Date of Assessment Author Little interest or pleasure in doing things Not at all 03/17/2023 8:00 AM EDT Yvrose Knight MA documented as of this encounter Plan of Treatment Upcoming Encounters Date Type Department Care Team (Late Contact Info) Description 03/12/2025 9:30 AM EDT Office Visit [facility] [address] [facility] [address] [place] [phone] Alma Gold NP [address] [facility] 110 [place] [address] 08/07/2025 9:30 AM EST Office Visit [facility] [address] [facility] [address] [place] [phone] Yani York, PA [address] [facility] [address] [place] [address] documented as of this encounter Visit Diagnoses Not on filedocumented in this encounter Care Teams Live Truck Technician Relationship Specialty Start Date End Date Jasmin Maurice MD [address] [facility] 110 [place] [address] PCP - [employer]et[employer] 09/19/20 Jasmin Maurice MD [address] [facility] [address] [place] [address] PCP - General Family Medicine 01/31/23 documented as of this encounter
--- OUTSIDE RECORDS SUMMARY | 2025-03-09 12:40 | XMS_ITS | Encounter Summary ---
Author Organization [facility] Address [address] [facility] [place] [address] Care Team Providers Care Senior It Recruiter Name Role Phone Jasmin Maurice MD Unavailable Jasmin Maurice MD Primary Care Provider [phone] Encounter Details Date Type Department Care Team (Late Contact Info) Description 01/21/2023 Abstract [facility] [address] [facility] [address] [place] [phone] Jasmin Maurice MD [address] [facility] [address] [place] [address] Social History Tobacco Use Types Packs/Day Years Used Date Smoking Tobacco: Never Tobacco Cessation:Counseling Given: Not Answered Alcohol Use Standard Drinks/Week Comments Never 0 [...] FM [address] [facility] [address] [place] [phone] Alma Gold, MECHANICAL HANDYMAN [address] [facility] [place] [address] 08/07/2025 9:30 AM EST Office Visit [facility] [address] [facility] [address] [place] [address] Yani York PA [address] [facility] [address] [place] [address] documented as of this encounter Visit Diagnoses Not on filedocumented in this encounter Care Teams Senior It Recruiter Relationship Specialty Start Date End Date Jasmin Maurice MD 112 [facility] 110 [place] [address] PCP - Aet[employer] 09/19/20 Jasmin Maurice MD 112 [facility] [address] [place] [address] PCP - General Family Medicine 01/31/23 documented as of this encounter
--- OUTSIDE RECORDS SUMMARY | 2025-03-09 12:40 | XMS_ITS | Encounter Summary ---
Author Organization [facility] Address [address] [facility] [place] [address] Care Team Providers Care Sterile Processing Tech Name Role Phone Jasmin Maurice MD Unavailable Jasmin Maurice MD Primary Care Provider [phone] Encounter Details Date Type Department Care Team (Late Contact Info) Description 09/20/2024 Orders Only [facility] [address] [facility] [address] [place] [phone] Cori Schuster LPN [address] [place] [address] Acute pain of left knee Social History Tobacco Use Types Packs/Day Years Used Date Smoking Tobacco: Never Smokeless Tobacco: Never Alcohol Use Standard Drinks/Week Comments Never 0 (1 standard drink = 0.6 oz pur e alcohol) Caffeine Intake: none PHQ-2 Answer Date Recorded Patient Health Questionnaire-2 Score 0 03/27/2024 Sex and Gender Information Value Date Recorded [...] FM [address] [facility] [address] [place] [address] Alma Gold, SOLUTIONS EXEC[employer]IVE [employer] [address] [place] [address] 08/07/2025 9:30 AM EST Office Visit [facility] [address] [facility] [address] [place] [address] Yani York PA 112 [facility] 110 [place] [address] documented as of this encounter Visit Diagnoses Diagnosis Acute pain of left knee documented in this encounter Care Teams Sterile Processing Tech Relationship Specialty Start Date End Date Jasmin Maurice MD 112 [facility] [address] [place] [address] PCP - Aetna 09/19/20 Jasmin Maurice MD 112 [facility] [address] [place] [address] PCP - General Family Medicine 01/31/23 documented as of this encounter
--- OUTSIDE RECORDS SUMMARY | 2025-03-09 12:40 | XMS_ITS | Encounter Summary ---
Author Organization [facility] Address [address] [facility] [place] [address] Care Team Providers Care Drivers License Examiner Name Role Phone Jasmin Maurice MD Unavailable Jasmin Maurice MD Primary Care Provider [phone] Encounter Details Date Type Department Care Team (Late Contact Info) Description 06/15/2023 Orders Only [facility] [address] [facility] [address] [place] [phone] A, Unknown Practice [address] [place], [place] [phone] Social History Tobacco Use Types Packs/Day Years [...] [address] [facility] [address] [place] [address] Alma Gold, MOLDING SUPERVISOR [address] [facility] [place] [address] 08/07/2025 9:30 AM EST Office Visit [facility] [address] [facility] [address] [place] [address] Yani York, PA [address] [facility] [place] [address] documented as of this encounter Procedures Procedure Name Priority Date/Time Associated Diagnosis Comments SCANNED LABS Routine 06/15/2023 3:27 PM EDT SCANNED LABS Routine 06/15/2023 10:26 AM EDT documented in this encounter Results * SCANNED LABS (06/15/2023 3:27 PM EDT) us Unknown Practice A LAB CHG PERFORMABLES Final Re sult * SCANNED LABS (06/15/2023 10:26 AM EDT) us Unknown Practice A LAB CHG PERFORMABLES Final Re sult documented in this encounter Visit Diagnoses Not on filedocumented in this encounter Care Teams Drivers License Examiner Relationship Specialty Start Date End Date Jasmin Maurice MD [address] [place] [address] PCP - Aetna 09/19/20 Jasmin Maurice MD [address] [facility] [place] [address] PCP - General Family Medicine 01/31/23 documented as of this encounter
--- OUTSIDE RECORDS SUMMARY | 2025-03-09 12:40 | XMS_ITS | Encounter Summary ---
Author Organization [facility] Address [address] [place] [address] Phone Care Team Providers Care Budget Coordinator Name Role Phone Jasmin Maurice MD Primary Care Provider [phone] Chanda Braga MD Unavailable Encounter Details Date Type Department Care Team (Late st Contact Info) Description 11/02/2022 Orders Only [facility] LE[facility] [address] [place] [address] Conversion, Onbase Social History Tobacco Use Types Packs/Day Years Used Date Smoking Tobacco: Never Assessed Sex and Gender Information Value Date Recorded Sex Assigned at Not on file Legal Sex Male 2:43 PM EST Gender Identity Not on file Sexual Orientation Not on file documented as of this encounter Plan of Treatment Upcoming Encounters Date Type Department Care Team (Late st Contact Info) Description 03/14/2025 9:30 AM EDT Office Visit [place] [address] [address] Chanda Braga MD [address] [place] [address] 2, [address] [place], [place] [id number] 05/21/2025 12:30 PM EDT Appointment [address] Vance [facility] [place] [address] Scheduled Orders Name Type Priority Associated Diagnoses Orde r Schedule OUTSIDE LAB SCAN Lab Ordered: 11/02/2022 OUTSIDE LAB SCAN Lab Ordered: 11/02/2022 documented as of this encounter Visit Diagnoses Not on filedocumented in this encounter Care Teams Budget Coordinator Relationship Specialty Start Date End Date Jasmin Maurice MD 112 [facility] 110 [place] [address] PCP - General 09/19/99 Chanda Braga MD 703 [facility] 2, [address] [place], [place] [id number] Consulting Physician Cardiology 12/20/23 documented as of this encounter
--- OUTSIDE RECORDS SUMMARY | 2025-03-09 12:40 | XMS_ITS | Encounter Summary ---
Author Organization [facility] Address [address] [place] [address] Phone Care Team Providers Care Quarter Inspector Name Role Phone Jasmin Maurice MD Primary Care Provider [phone] Chanda Braga MD Unavailable [phone] Encounter Details Date Type Department Care Team (Late Contact Info) Description 06/15/2023 Orders Only [facility] LEGACY [address] [place] [address] Conversion, Onbase Social History Tobacco Use Types [...] Description 03/14/2025 9:30 AM EDT Office Visit [address] [address] Chanda Braga MD [address] [place] [address] 2, [address] [place] [address] 05/21/2025 12:30 PM EDT Appointment [address] [facility] [place] [address] Scheduled Orders Name Type Priority Associated Diagnoses Orde r Schedule OUTSIDE LAB SCAN Lab Ordered: 06/15/2023 documented as of this encounter Visit Diagnoses Not on filedocumented in this encounter Care Teams Quarter Inspector Relationship Specialty Start Date End Date Jasmin Maurice MD [address] [place] [address] PCP - General 09/19/99 Chanda Braga MD 703 [facility] 2, [address] [place] [address] Consulting Physician Cardiology 12/20/23 documented as of this encounter
--- OUTSIDE RECORDS SUMMARY | 2025-03-09 12:40 | XMS_ITS | Encounter Summary ---
Author Organization [facility] Address [address] [facility] [place] [address] Care Team Providers Care Compotype Operator Name Role Phone Jasmin Maurice MD Unavailable Jasmin Maurice MD Primary Care Provider [phone] Encounter Details Date Type Department Care Team (Late Contact Info) Description 06/14/2023 Abstract [facility] [address] [facility] 110 [place] [phone] Jasmin Maurice MD [address] [facility] 110 [place] [address] Social History Tobacco Use Types Packs/Day Years [...] Visit [facility] [address] [facility] 110 [place] [address] Alma Gold, RAILROAD SHOP INSPECTOR [address] [place] [address] 08/07/2025 9:30 AM EST Office Visit [facility] [address] [facility] [address] [place] [address] Yani York PA [address] [place] [address] documented as of this encounter Visit Diagnoses Not on filedocumented in this encounter Care Teams Compotype Operator Relationship Specialty Start Date End Date Jasmin Maurice MD 112 [facility] 110 [place] [address] PCP - Aetna 09/19/20 Jasmin Maurice MD 112 [facility] [address] [place] [address] PCP - General Family Medicine 01/31/23 documented as of this encounter
--- OUTSIDE RECORDS SUMMARY | 2025-03-09 12:40 | XMS_ITS | Encounter Summary ---
Author Organization [facility] Address [address] [facility] [place] [address] Care Team Providers Care Weather Strip Installer Name Role Phone Jasmin Maurice MD Unavailable Jasmin Maurice MD Primary Care Provider [phone] Encounter Details Date Type Department Care Team (Late Contact Info) Description 04/03/2024 Abstract [facility] [address] [facility] 110 [place] [phone] Jasmin Maurice MD [address] [facility] 110 [place] [address] Social History Tobacco Use Types Packs/Day Years [...] FM [address] [facility] [address] [place] [address] Alma Gold, JOHNNY [address] [facility] [place] [address] 08/07/2025 9:30 AM EST Office Visit [facility] [address] [facility] [address] [place] [phone] Yani York PA [address] [facility] 110 [place] [address] documented as of this encounter Visit Diagnoses Not on filedocumented in this encounter Care Teams Weather Strip Installer Relationship Specialty Start Date End Date Jasmin Maurice MD [address] [facility] 110 [place] [address] PCP - Aetna 09/19/20 Jasmin Maurice MD [address] [facility] 110 [place] [address] PCP - General Family Medicine 01/31/23 documented as of this encounter
--- OUTSIDE RECORDS SUMMARY | 2025-03-09 12:40 | XMS_ITS | Encounter Summary ---
Author Organization [facility] Address [address] [place] [address] Phone Care Team Providers Care Patient Services Clerk Name Role Phone Jasmin Maurice MD Primary Care Provider [phone] Chanda Braga MD Unavailable Encounter Details Date Type Department Care Team (Late st Contact Info) Description 01/02/2022 Orders Only [facility] [address] [place] [address] Conversion, Onbase Social History Tobacco Use Types [...] Description 03/14/2025 9:30 AM EDT Office Visit [address] [address] Chanda Braga MD [address] [place] [address] 2, [address] [place] [address] 05/21/2025 12:30 PM EDT Appointment [address] [facility] [address] Scheduled Orders Name Type Priority Associated Diagnoses Orde r Schedule OUTSIDE LAB SCAN Lab Ordered: 01/02/2022 documented as of this encounter Visit Diagnoses Not on filedocumented in this encounter Care Teams Patient Services Clerk Relationship Specialty Start Date End Date Jasmin Maurice MD [address] [place] [address] PCP - General 09/19/99 Chanda Braga MD 703 [facility] 2, [address] [place] [address] Consulting Physician Cardiology 12/20/23 documented as of this encounter
--- OUTSIDE RECORDS SUMMARY | 2025-03-09 12:40 | XMS_ITS | Encounter Summary ---
Author Organization [employer] Address [id number] [address] [place] [address] Care Team Providers Care Expeller Worker Name Role Phone Jasmin Maurice MD Primary Care Provider [phone] Encounter Details Date Type Department Care Team (Late st Contact Info) Description 01/02/2022 Orders Only [facility] [address] [place] [address] Transcribe, Orders Support User Pain (Primary Dx) Social History Tobacco Use Types Packs/Day Years Used Date Smoking Tobacco: Never Smokeless Tobacco: Never Alcohol Use Standard Drinks/Week Comments Not Currently 0 (1 standard drink = 0.6 oz pur e alcohol) Sex and Gender Information Value Date Recorded Sex Assigned at Not on file Legal Sex Male 8:32 AM EDT Gender Identity Not on file Sexual Orientation Not on file COVID-19 Exposure Response Date Recorded In the last 10 days, have yo u been in contact with someone who was confirmed or suspected to have Coronavirus/COVID-19? No / Unsure 01/02/2022 4:39 PM EDT documented as of this encounter Functional Status documented as of this encounter Plan of Treatment Not on file documented as of this encounter Goals Goal Patient Goal Type Associated Problems Recent Progress Patient-Stated? Author home General Yes Margo Mcdonald, RN Note: Evaluation of progress towards goal: home w supportive documented as of this encounter Results * CT abdomen and pelvis with contrast (01/02/2022 3:35 AM EDT) us Scanning Provider External IMG CT ORDERABLES Fin al Result * X-ray chest 1 view (01/02/2022 3:00 AM EDT) us Scanning Provider External IMG DIAGNOSTIC IMAGIN G ORDERABLES Final Result documented in this encounter Visit Diagnoses Diagnosis Pain- Primary Generalized pain documented in this encounter Care Teams Expeller Worker Relationship Specialty Start Date End Date Jas[place] [address] [place] [address] PCP - General Family Medicine 01/04/22 documented as of this encounter
--- OUTSIDE RECORDS SUMMARY | 2025-03-09 12:40 | XMS_ITS | CCD ---
Author Organization [facility] Care Team Providers Care Pot Firer Name Role Phone Unavailable Unavailable Robert Watts Unavailable MD Robert Watts Primary Care Provider MD Chanda Wing Admit Provider [phone] MD Chanda Wing Attending Provider Robert Watts Primary Care Unavailable Chanda Wing Attending Unavailable Chanda Wing Admitting Unavailable MAC, DR JONES Primary Care Unavailable CARL, DR ANGEL Sun Admitting Unavailable CARL, DR ANGEL Sun Attending Unavailable CARL, DR ANGEL Sun Consulting Unavailable RADHA, DR DELTA Ram Consulting UnavailMARYBEL Braxton Consulting Unavailable SHELBY ARZATE Consulting Unavailable WING, DR CHANDA Bowen Admitting Unavailable WING, DR CHANDA Bowen Attending Unavailable MAC, DR JONES Primary Care Unavailable WING, DR CHANDA Bowen Consulting Unavailable MAC, DR JONES Admitting Unavailable MAC, DR JONES Attending Unavailable MAC, DR JONES Primary Care Unavailable MAC, DR JONES Consulting Unavailable ZIEBER, DR KACIE Sun Consulting Unavailable Robert Watts MD Primary Care Provider Chanda Wing MD Unavailable [phone] Robert Watts MD Primary Care Provider [phone] Stephen Ogden MD Unavailable Robert Watts MD Unavailable Robert Watts MD Primary Care Provider Chanda Wing MD Unavailable CHANDA WING Attending Unavailable [facility] Unavailable CHANDA WING Attending Unavailable CHANDA WING [facility] Unavailable JUAN R KEYLA S Referring Unavailable [facility] ROBERT WATTS Attending Unavailable ROBERT WATTS Attending Unavailable ROBERT WATTS M Attending Unavailable TRIXIE NIELSON Attending Unavailable ROBERT WATTS Referring Unavailable ROBERT WATTS Attending Unavailable LANNY SEVERINO Attending Unavailable VALORIE HOU Attending Unavailable LANNY SEVERINO Attending Unavailable LANNY SEVERINO Attending Unavailable MARQUEZ SIMMONS Attending Unavailable DANIELA WARD Referring Unavailable MACROBERT Attending Unavailable KEYLA GARZA S Attending Unavailable CHANDA WING Referring Unavailable [facility] Unavailable JUAN R, KEYLA S Admitting Unavailable JUAN R KEYLA S Attending Unavailable [facility] Unavailable CHANDA WING Referring Unavailable JANE JOHNSON Attending Unavailable [facility] Unavailable JANE JOHNSON Referring Unavailable Medications Current Medications Medication Drug Class(es) Dates Sig (Normalized) Sig (Original) ALPRAZolam 0.5 mg oral tablet (11 sources) Benzodiazepine Start: 07-24-2024 ALPRAZolam (Xanax) 0.5 mg tablet Take 1 tablet (0.5 mg) by mouth as needed at bedtime for sleep. 07/24/2024 Active apixaban 5 mg oral tablet (20 sources) Factor Xa Inhibitor Start: 11-26-2024 apixaban (Eliquis) 5 MG tablet Indications: Longstanding persistent atrial fibrillation (CMS/HCC) TAKE 1 TABLET EVERY MORNINGAND 1 TABLET BEFORE BEDTIME 180 tablet 3 11/26/2024 Active Start: 11-02-2022 End: 02-18-2025 take 5 mg by mouth twice daily 5 mg, oral, 2 times endy ly, First dose on Ninfa 01/17/25 at 2100 aspirin 81 mg delayed release oral tablet (20 sources) Platelet Aggregation Inhibitor, Nonsteroidal Anti-inflammatory Drug Start: 02-18-2025 End: 02-18-2026 aspirin 81 mg EC tablet Indications: Arteriosclerotic cardiovascular disease (ASCVD) Take 1 tablet (81 mg) by mouth once daily. START ON 03/19 AND STOP ELIQUIS 90 tablet 3 02/18/2025 02/18/2026 Active Start: 04-20-2021 End: 12-10-2025 take 1 tablet by mouth two times weekly aspirin 81 mg EC tablet Indications: Arteriosclerotic cardiovascular disease (ASCVD) Take 1 tablet (81 mg) by mouth 2 times a week. 24 tablet 3 12/10/2024 02/18/2025 Discontinued (Reorder) Start: 06-16-2020 take 1 tablet by lynsey th once daily Aspirin EC 81 MG Oral Tablet Delayed Release TAKE 1 TABLET DAILY. Quantity: 90 Refills: 3 Ordered: 30-Sep-2022 Chanda Wing MD Start : 28-Oct-2021 Active atorvastatin 80 mg oral tablet (20 sources) HMG-CoA Reductase Inhibitor Start: 11-04-2022 End: 11-03-2024 take 1 tablet by mouth in the morning atorvastatin (Lipitor) 80 MG tablet Indications: Hypercholesterolemia (CMS/HCC) Take 1 tablet (80 mg) by mouth in the morning. 90 tablet 3 11/03/2024 Active baclofen 10 mg oral tablet (20 sources) gamma-Aminobuty sergio Acid-ergic Agonist Start: 07-24-2024 baclofen (Lioresal) 10 mg tablet Take 1 tablet (10 mg) by mouth if needed for muscle spasms. 07/24/2024 Active calcium carbonate 1500 mg oral tablet (17 sources) take 1 tablet by mouth in the morning calcium carbonate 1500 (600 Ca) MG tablet Take 1,500 mg by mouth in the morning and 1,500 mg in the evening. Take with meals. Active calcium carbonat e (OS-THOMAS) 500 mg elemental (1,250 mg) chewable tablet Chew 1 tablet (500 mg total) and swallow in the morning. Active calcium citrate 1500 mg / cholecalciferol 200 unt oral tablet (5 sources) Vitamin D take 1 tablet by mouth once daily calcium citrate-vitamin D3 (Citracal+D) 315 mg-5 mcg (200 unit) tablet Take 1 tablet by mouth once daily. Active calcium citrate- vitamin D3 (Citracal+D) 315 mg-5 mcg (200 unit) tablet Take 1 tablet by mouth if needed. Active clopidogrel 75 mg oral tablet (4 sources) P2Y12 Platelet Inhibitor Start: 02-18-2025 End: 08-17-2025 clopidogrel (Plavix) 75 mg tablet Indications: Atrial fibrillation, persistent (Multi) Take 1 tablet (75 mg) by mouth once daily. START ON 03/19 AND STOP ELIQUIS 90 tablet 1 02/18/2025 08/17/2025 Active Start: 04-20-2021 take 1 tablet by lynsey once daily Clopidogrel Bisulfate 75 MG Oral Tablet TAKE 1 TABLET DAILY. Quantity: 0 Refills: 0 Ordered: 30-Aug-2021 DO Start : 20-Apr-2021 Active dofetilide 0.25 mg oral capsule (20 sources) Antiarrhythmic Start: 01-18-2025 take 1 capsule by mouth every twelve hours 250 mcg, oral, Every 12 hours, First dose (after last modification) on Tue01/18/25 at 2000, QTc monitoring required 2-3 hours after each dofetilide dose during initiation or upward titration. Contact provider if QTc exceeds 500 msec on any check., Prescriber certifies: baseline QTc before dofetilide initiation is Start: 10-07-2023 End: 01-18-2025 take 1 capsule by mouth twice daily dofetilide (Tikosyn) 250 mcg capsule Indications: Paroxysmal atrial fibrillation (Multi) TAKE 1 CAPSULE BY MOUTH 2 TIMES A DAY 180 capsule 3 04/30/2024 Active Start: 11-26-2022 take 1 capsule by mo [facility] every twelve hours Dofetilide 250 MCG Oral Capsule TAKE 1 CAPSULE BY MOUTH EVERY 12 HOURS FOR 30 DAYS Quantity: 30 Refills: 0 Ordered: 29-Nov-2022 Chanda Wing MD Start : 26-Nov-2022 Active Start: 11-08-2022 take 1 capsule by mo uth every twelve hours dofetilide (Tikosyn) 250 MCG capsule 1 capsule every 12 (twelve) hours. 11/08/2022 Active Start: 11-04-2022 take 250 ug by mouth every twelve hours Dofetilide Active 250 MCG PO Q12H 60 November 04, 2022 12:00am fluocinonide 0.5 mg/ml topical cream (16 sources) Corticosteroid Start: 05-14-2019 fluocinonide (Lidex) 0.05 [...] 07/21/2024 Active lisinopril 2.5 mg oral tablet (20 sources) Angiotensin Converting Enzyme Inhibitor Start: 08-31-2021 End: 11-03-2024 take 1 tablet by mouth once daily lisinopril 2.5 mg tablet Take 1 tablet (2.5 mg) by mouth once daily. 08/31/2021 Active metoprolol tartrate 25 mg oral tablet (20 sources) beta-Adrenergic Halle Start: 10-11-2023 take 1 tablet by mouth every twenty-four hours in the morning metoprolol succinate XL (Toprol-XL) 50 MG 24 hr tablet Indications: Hypertension, unspecified type (CMS/HCC) Take 1 tablet (50 mg) by mouth in the morning. 100 tablet 3 10/11/2023 Active Start: 06-14-2023 End: 08-01-2025 take 1 tablet by mouth twice daily as needed metoprolol tartrate (Lopressor) 25 mg tablet Indications: Paroxysmal atrial fibrillation (Multi) Take 1 tablet (25 mg) by mouth 2 times a day as needed (elevated heart rate). 180 tablet 1 08/01/2024 08/01/2025 Active Start: 06-16-2020 take 1 tablet by lynsey th once daily metoprolol succinate XL (Toprol-XL) 50 mg 24 hr tablet Take 1 tablet (50 mg) by mouth once daily. 04/20/2021 Active nitroglycerin 0.4 mg sublingual tablet (1 source) Nitrate Vasodilator Start: 06-16-2020 Nitroglyce rin Active 0.4 MG SUBLINGUAL every 5 to 15 minutes June 15, 2020 11:00pm ofloxacin 3 mg/ml ophthalmic solution (4 sources) Quinolone Antimicrobial Start: 07-20-2024 End: 08-28-2024 ofloxacin (Ocuflox) 0.3 % ophthalmic solution PLEASE SEE ATTACHED FOR DETAILED DIRECTIONS 07/20/2024 08/28/2024 Discontinued (Other) Start: 06-21-2024 End: 06-22-2024 take 1 drop(s) into the eye(s) five times daily ofloxacin (Ocuflox) 0.3 % ophthalmic solution Indications: Age-related nuclear cataract of both eyes Administer 1 drop into affected eye(s) 5 (five) times a day for 1 day Starting 1 day before surgery, continue after surgery as directed 5 mL 1 06/21/2024 06/22/2024 Active pantoprazole 40 mg delayed release oral tablet (5 sources) Proton Pump Inhibitor Start: 01-18-2025 End: 02-18-2025 take 1 tablet by mouth once daily before mealtime pantoprazole (ProtoNix) 40 mg EC tablet Indications: Paroxysmal atrial fibrillation (Multi) Take 1 tablet (40 mg) by mouth once daily in the morning. Take before meals for 29 doses. Do not crush, chew, or split. 29 tablet 01/19/2025 02/18/2025 Discontinued (Therapy completed) prednisoLONE acetate 10 mg/ml ophthalmic suspension (4 sources) Corticosteroid Start: 07-20-2024 End: 08-28-2024 prednisoLONE acetate (Pred-Forte) 1 % ophthalmic suspension PLEASE SEE ATTACHED FOR DETAILED DIRECTIONS 07/20/2024 08/28/2024 Discontinued (Other) Start: 06-21-2024 End: 2024 prednisoLONE acetate (Pred-F orte) 1 % ophthalmic suspension Indications: Age-related nuclear cataract of both eyes Administer 1 drop into affected eye(s) in the morning and 1 drop at noon and 1 drop in the evening and 1 drop before bedtime. Do all this for 14 days. 5 mL 1 06/21/2024 2024 Active traMADol hydrochloride 50 mg oral tablet (3 sources) Opioid Agonist Start: 05-08-2024 End: 05-16-2024 take 1 tablet by mouth every six hours for pain traMADol (Ultram) 50 MG tablet Indications: Post-operative pain Take 1 tablet (50 mg) by mouth every 6 (six) hours if needed for severe pain for up to 3 days 12 tablet 05/08/2024 05/16/2024 Discontinued (Med list cleanup) Completed/Discontinued Medications Medication Drug Class(es) Dates Sig (Normalized) Sig (Original) Calcium Citrate (6 sources) Citracal TABS TA KE 1 TABLET ONCE DAILY. Quantity: 0 Refills: 0 Ordered: 28-Oct-2021 DO Active iohexol (OMNIPaque) 350 mg iodine/mL solution 75 mL (1 source) Start: 01-11-2025 End: 01-11-2025 75 mL, intravenous, Once in imaging, Starting on Tue01/11/25 at 1223, For 1 dose lovastatin 40 mg oral tablet (1 source) HMG-CoA Reductase Inhibitor Start: 06-16-2020 End: 11-02-2022 take 40 mg by mouth once daily at bedtime Lovastatin Discontinued 40 MG PO Daily at bedtime June 15, 2020 11:00pm November 02, 2022 11:10am predniSONE 10 mg oral tablet (1 source) End: 05-08-2024 take 1 tablet by mouth in the morning predniSONE (DELTASONE) 10 mg tablet Take 1 tablet (10 mg total) by mouth in the morning. 05/08/2024 Discontinued (Therapy completed) rosuvastatin calcium 40 mg oral tablet (10 sources) HMG-CoA Reductase Inhibitor Start: 11-02-2022 End: 11-04-2022 take 40 mg by mouth at bedtime Rosuvastatin Discontinued 40 MG PO Bedtime November 02, 2022 12:00am November 04, 2022 1:19pm Start: 07-14-2021 End: 05-08-2024 take 1 tablet by mouth at bedtime Rosuvastatin Calcium 40 MG Oral Tablet TAKE 1 TABLET Bedtime Quantity: 90 Refills: 0 Ordered: 25-Oct-2022 Chanda Wing MD Start : 14-Jul-2021 Active ticagrelor 90 [...] Problem Classification Problem Date Documented Date Episodic/Chronic Acute cerebrovascular disease (3 sources) Acute cerebrovascular disease 11-19-2024 Anxiety disorders (16 sources) Anxiety; Translations: [Anxiety disorder, unspecified] Onset: 01-18-2023 01-18-2023 Chronic Cardiac dysrhythmias (20 sources) Paroxysmal atrial fibrillation; Translations: [Atrial fibrillation] Onset: 02-11-2022 11-02-2022 Chronic Cardiac dysrhythmias (3 sources) Tachycardia; Translations: [Tachycardia, unspecified] Episodic Cataract (10 sources) Bilateral age-related nuclear cataracts; Translations: [Age-related nuclear cataract, bilateral] Onset: 06-21-2024 06-21-2024 Chronic Coagulation and hemorrhagic disorders (16 sources) Thrombophilia; Translations: [Other thrombophilia] Onset: 03-27-2024 03-27-2024 Chronic Coronary atherosclerosis and other heart disease (20 sources) Arteriosclerotic vascular disease; Translations: [Cardiovascular disease, unspecified] Onset: 02-11-2022 11-02-2022 Chronic Disorders of lipid metabolism (20 sources) Hyperlipidemia; Translations: [Other and unspecified hyperlipidemia] Onset: 11-02-2022 11-02-2022 Chronic Essential hypertension (20 sources) Essential (primary) hypertension; Translations: [Hypertensive disorder] Onset: 02-11-2022 01-18-2023 Chronic Immunizations and screening for infectious disease (6 sources) Patient encounter status; Translations: [Other specified vaccination] Episodic Other aftercare (10 sources) Drug therapy finding; Translations: [Long-term (current) use of other medications] Episodic Other aftercare (1 source) Other watermelon inspector (current) drug therapy; Translations: [OTH LIBRARY SUPERVISOR CURRENT DRUG THERAPY] Onset: 12-11-2022 Episodic Other aftercare (1 source) Taking high risk medication; Translations: [Other retirement (current) drug therapy] 12-20-2023 Episodic Other circulatory disease (3 sources) Presence of other cardiac implants and grafts; Translations: [Other specified cardiac device in situ] Onset: 02-18-2025 02-18-2025 Chronic Other connective tissue disease (2 sources) Presence of artificial knee joint, bilateral; Translations: [Presence of artificial knee joint, bilateral] Onset: 11-19-2024 Chronic Other injuries and conditions due to external causes (11 sources) At risk for falls ; Translations: [History of falling] Onset: 11-19-2024 11-19-2024 Episodic Other nervous system disorders (16 sources) Carpal tunnel syndrome of right wrist; Translations: [Carpal tunnel syndrome, right upper limb] Onset: 03-27-2024 03-27-2024 Chronic Unclassified (1 source) CONTACT W/AND (SUSP) EXPOS COVID-19; Translations: [CONTACT W/AND (SUSP) EXPOS COVID-19] Onset: 02-11-2022 Unclassified (3 sources) Patient encounter status 11-19-2024 Unclassified (2 sources) Other persistent atrial fibrillation; Translations: [Other persistent atrial fibrillation] Onset: 11-19-2024 Past or Other Problems Problem Classification Problem Date Documented Da te Episodic/Chronic Abdominal pain (3 sources) Epigastric pain; Translations: [EPIGASTRIC PAIN] Onset: 01-02-2022 Episodic Coronary atherosclerosis and other heart disease (20 sources) Stented coronary artery; Translations: [Presence of coronary angioplasty implant and graft] Onset: 02-11-2022 11-02-2022 Episodic Nonspecific chest pain (11 sources) Atypical chest pain; Translations: [Other chest pain] Resolved: 03-15-2022 Episodic Other aftercare (1 source) halfway (current) use of aspirin; Translations: [LIBRARY SUPERVISOR CURRENT USE OF ASPIRIN] Onset: 02-11-2022 Episodic Other gastrointestinal disorders (1 source) Perforation of intestine (nontraumatic); Translations: [PERFORATION INTESTINE NONTRAUMATIC] Onset: 02-11-2022 Episodic Other gastrointestinal disorders (17 sources) Perforation of intestine; Translations: [Perforation of intestine (nontraumatic)] Onset: 01-02-2022 08-14-2023 Episodic Other hematologic conditions (1 source) Other specified abnormalities of plasma proteins; Translations: [OTH SPEC ABNORM PLASMA PROTEINS] Onset: 02-11-2022 Episodic Other injuries and conditions due to external causes (2 sources) History of falling; Translations: [History of falling] Onset: 11-19-2024 Episodic Other nervous system disorders (1 source) Postoperative pain ; Translations: [Other acute postprocedural pain] 05-08-2024 Episodic Other nutritional; endocrine; and metabolic disorders (20 sources) Overweight in adulthood with body mass index of 25 or more but less than 30; Translations: [Overweight] Onset: 12-20-2023 12-20-2023 Episodic Other nutritional; endocrine; and metabolic disorders (2 sources) Body mass index (BMI) 26.0-26.9, adult; Translations: [Body mass index (BMI) 26.0-26.9, adult] Onset: 07-31-2024 Episodic Other nutritional; endocrine; and metabolic disorders [...] diseases] Resolved: 03-15-2022 Episodic Residual codes; unclassified (20 sources) Never smoked tobacco; Translations: [Other specified health status] Onset: 12-20-2023 12-20-2023 Episodic Residual codes; unclassified (10 sources) Other specified personal risk factors, not elsewhere classified; Translations: [Other specified personal history presenting hazards to health] Onset: 11-19-2024 11-19-2024 Episodic Residual codes; unclassified (2 sources) Other specified health status; Translations: [Other specified health status] Onset: 12-20-2023 Episodic Sprains and strains (4 sources) Sprain of ligaments of lumbar spine, initial encounter; Translations: [SPRAIN LIGAMENTS LUMBAR SPN INITIAL] Onset: 12-17-2021 Episodic Unclassified (12 sources) Never smoked tobacco; Translations: [Never a smoker] Unclassified (6 sources) Onset: 12-20-2023 Resolved: 02-18-2025 12-20-2023 Results Test Name Value Interpretation Reference Range Facility ECG 12-[facility] 02-18-2025 ECG 12-[facility] Ventricular Rate 59 Atrial Rate 59 P-R Interval 160 QRS Duration 86 Q-T Interval 420 QTC Calculation(Bazett) 415 P [place] 16 R [place] -2 T [place] 24 QRS Count 10 Q Onset 226 P Onset 146 P Offset 204 T Offset 436 QTC Fredericia 417 Diagnosis Sinus bradycardia Otherwise normal ECG When compared with ECG of 18-JAN-2025 08:28, Sinus rhythm has replaced Atrial fibrillation Vent. rate has decreased BY 51 BPM Normal [facility] ECG 12-LEADon 01-18-2025 ECG 12-[facility] Ventricular Rate 110 Atrial Rate 129 QRS Duration 86 Q-T Interval 330 QTC Calculation(Bazett) 446 R [place] 2 T [place] 9 QRS Count 18 Q Onset 226 T Offset 391 QTC Fredericia 404 Diagnosis Atrial fibrillation with rapid ventricular response Nonspecific T wave abnormality Abnormal ECG When compared with ECG of 17-JAN-2025 19:37, Atrial fibrillation has replaced Sinus rhythm Vent. rate has increased BY 36 BPM Confirmed by Garret Guerrero ([id number]) on 01/21/2025 5:14:13 PM Normal [facility] Electrophysiology studyon Images from the orig inal result were not included. Catheter Ablation for Atrial Fibrillation Watchman Implant for LAAO Procedures AF Ablation + Watchman (LAAO) DRG 317; Atrial Fibrillation ablation (52150), LA Pacing and recording (25298), 3D Mapping (70672), Intracardiac Echocardiogram (50910), Transseptal Catheterization (19221), Ultrasound Guided vascular access (38588) Patient history: Please refer to the detailed history and physical on the patient's medical chart for further details. Procedure narrative: The procedure was performed under general anesthesia (administered and monitored by headlight adjuster and COMPOSITION PROFESSOR). Anesthesia sedated and intubated the patient without any acute complications. Radial arterial line was placed for continuous hemodynamic monitoring. The right common femoral vein was evaluated with ultrasound, it was normal in size and anatomy. The vein was accessed using ultrasound guidance and an 18G Cook needle, with direct visualization of the needle at all times. Over the guidewires 3 sheaths were inserted into the right femoral vein. Under fluoroscopic guidance an intracardiac echocardiogram catheter (ICE) was introduced into the right atrium. The right atrium, left atrium, left atrial appendage, RV were evaluated. No obvious structural abnormalities were noted. Initial imaging revealed no pericardial effusion. Via the 8Fr femoral venous access a DuoDecapolar catheter by Jambo was introduced and placed into the distal coronary sinus and high right atrium. The 8.5Fr right femoral vein access was then switched to a deflectable sheath ([employer], [employer]) and positioned appropriately over an exchange wire cephalad to the site of transeptal puncture. A heparin bolus and drip was initiated with intermittent monitoring of ACT values, ensuring therapeutic anticoagulation throughout the case. Transseptal catheterization: Under fluoroscopic and ICE guidance the RF versacross wire was introduced into the deflectable sheath and single transseptal catheterization was performed using the [employer] RF generator. Then the versacross wire was removed. An exchange-length Amplatz stiff wire was then advanced through the deflectable sheath and placed in the LSPV for support. The wire was left in the LA while the sheath was retracted and the ICE catheter was advanced through the same puncture site into the LA. Then the deflectable sheath was advanced again into the LA. Pre-ablation 3D mapping: The [employer] Farapulse PFA catheter was then advanced over a 0.035 Mancini wire into the left atrium. A limited left atrial 3D electroanatomic voltage map was created with the [employer] Farapulse catheter. There were 4 pulmonary veins. There was no significant low voltage areas suggestive of fibrotic remodeling. Ablation (PFA): The Farapulse catheter was then advanced over a 0.035 Mancini wire into the pulmonary veins. The Farapulse catheter was placed in the basket configuration and 2 deliveries of PFA energy were performed at the ostia of the pulmonary veins. The catheter was then rotated in the Faradrive sheath slightly and 2 more deliveries were performed. This was repeated in the flower configuration. This was performed until local EGMs were abolished in each pulmonary vein. EGMs on the Farapulse catheter within the pulmonary veins were recorded. These were consistent with pulmonary vein entrance and exit block with post PFA delivery. Exit block was confirmed with pacing form the Farapulse catheter. 4/4 Pulmonary veins were isolated. Left atrial appendage occlusion device (Watchman) placement Using previously obtained sheathes in the right groin, the long ([employer]) deflectable sheath was exchanged over a wire for the Watchman delivery sheath. The wire was left in the LA while the sheath was retracted and the ICE catheter was advanced through the same puncture site into the LA. Visualization of the SONDRA was performed with ICE. A pigtail was advanced into the SONDRA and a dye injection was used to confirm the Watchman size. A 20 mm Watchman device was prepped, delivered, and deployed in the SONDRA without complication. Dye injection and ICE images confirmed good position without leaks. Avarage compression was 18%. The Watchman delivery sheath was exchanged over a wire for a 12Fr sheath. No effusion on ICE was present pre and post watchman deployment. Protamine was given. All sheaths were removed and hemostasis was achieved with vascade closure systems and manual pressure. The patient was successfully extubated and was able to move all 4 extremities spontaneously and follow commands. The patient was then moved to PACU/holding for recovery. End-of-case: 1. At this time all catheters were pulled back into the IVC. Protamine was given. ACT was maintained with a combination of heparin boluses +/- (more content not included)... [email or web address]_SECTRA _CARDIOLAB_X PER [facility] Work Phone: ACT Coag (Bld)on 01-17-2025 Interpretation and review of laboratory results Abnormal [facility] Interpretation and review of laboratory results Abnormal [facility] Interpretation and review of laboratory results Abnormal [facility] ACTIVATED CLOTTING TIME HIGH on 01-17-2025 ACT Coag (Bld) 302 s [facility] Comment on above: Target ACT range ismael l vary based on the patient population, clinical status, and surgical intervention occurring. ACT Coag (Bld) 329 s [facility] Comment on above: Target ACT range ismael l vary based on the patient population, clinical status, and surgical intervention occurring. ACT Coag (Bld) 332 s [facility] Comment on above: Target ACT range ismael l vary based on the patient population, clinical status, and surgical intervention occurring. Abo/Rh Group Teston 01-18-20 25 ABO group Nom (Bld) A [facility] D Ag Ql (Bld) Positive [facility] Activated clotting timeon ACT Coag (Bld) 302 s [facility] 82-174 [facility] Comment on above: Result Comment: Targ et ACT range will vary based on the patient population, clinical status, and surgical intervention occurring. Performed By: #### 3 184-9 #### SABINO Dutta ([id number]) [facility] ([facility]) [address] [place] [address] ACT Coag (Bld) [address] Comment on above: Result Comment: Targ et ACT range will vary based on the patient population, clinical status, and surgical intervention occurring. Performed By: #### 3 184-9 #### SABINO Dutta ([id number]) [facility] ([facility]) [address] [place] [address] ACT Coag (Bld) [address] Comment on above: Result Comment: Targ et ACT range will vary based on the patient population, clinical status, and surgical intervention occurring. Performed By: #### 3 184-9 #### SABINO Dutta ([id number]) [facility] ([facility]) [address] [place] [address] Basic metabolic 2000 panelon 01-17-2025 Anion gap [Moles/Vol] 19 mmol/L 10 - 2 0 mmol/L [facility] Calcium [Mass/Vol] 8.6 mg/dL 8.6 - 10. 6 mg/dL [facility] Chloride [Moles/Vol] 106 mmol/L 98 - 10 7 mmol/L [facility] CO2 [Moles/Vol] 15 mmol/L Low 21 - 32 mmol/L [facility] Creatinine [Mass/Vol] 0.78 mg/dL 0.50 - 1.30 mg/dL [facility] GFR/1.73 sq M.predicted among non-blacks MDRD (S/P/Bld) [Vol rate/Area] 90 mL/min/{1.73_m2} - PINF [facility] Comment on above: Calculations of ramo mated GFR are performed using the 2020 CKD-EPI Study Refit equation without the race variable for the IDMS-Traceable creatinine methods. https://jasn.asnjournals.org/content//ASN.32623 29519 Glucose [Mass/Vol] 116 mg/dL High 74 - 99 mg/dL [facility] Potassium [Moles/Vol] 4.6 mmol/L 3.5 - 5.3 mmol/L [facility] Comment on above: MILD HEMOLYSIS DETEC RENATO. The result may be falsely elevated due to hemolysis or other interferents. Clinical correlation is recommended. Repeat testing may be considered. Sodium [Moles/Vol] 135 mmol/L Low 136 - 145 mmol/L [facility] Urea nitrogen [Mass/Vol] 20 mg/dL 6 - 23 mg/dL [facility] Anion gap [Moles/Vol] 19 mmol/L Normal 10-20 [facility] Comment on above: Performed By: #### 2 4321-2 #### SABINO SALVADORMOTZER L ([id number]) [facility] ([facility]) [id number] [place] [address] Calcium [Mass/Vol] 8.6 mg/dL Normal 8.6-10.6 [facility] Comment on above: Performed By: #### 2 4321-2 #### SABINO SCHMOTZER L ([id number]) [facility] ([facility]) [id number] [place] [address] Chloride [Moles/Vol] 106 mmol/L Normal 98-107 [facility] Comment on above: Performed By: #### 2 4321-2 #### SABINO SCHMOTZER L ([id number]) [facility] ([facility]) [address] [place] [address] CO2 [Moles/Vol] 15 mmol/L Low 21-32 [facility] Comment on above: Performed By: #### 2 4321-2 #### SABINO SCHMOTZER L ([id number]) [facility] ([facility]) [address] [place] [address] Creatinine [Mass/Vol] 0.78 mg/dL Normal 0.50-1.30 [facility] Comment on above: Performed By: #### 2 4321-2 #### SABINO SCHMOTZER L ([id number]) [facility] ([facility]) [address] [place] [address] Glomerular filtration rate/1.73 sq M.predicted 90 mL/min/1.73m*2 Normal >60 [facility] Comment on above: Result Comment: Calc ulations of estimated GFR are performed using the 2020 CKD-EPI Study Refit equation without the race variable for the IDMS-Traceable creatinine methods. https://jasn.asnjournals.org/content/early/ASN.32402 59943 Performed By: #### 2 4321-2 #### SABINO Dutta ([id number]) [facility] ([facility]) [address] [place] [address] Glucose [Mass/Vol] 116 mg/dL High 74-99 [facility] Comment on above: Performed By: #### 2 4321-2 #### SABINO Dutta ([id number]) [facility] ([facility]) [id number] [place] [address] Potassium [Moles/Vol] 4.6 mmol/L Normal 3.5-5.3 [facility] Comment on above: Result Comment: MILD HEMOLYSIS DETECTED. The result may be falsely elevated due to hemolysis or other interferents. Clinical correlation is recommended. Repeat testing may be considered. Performed By: #### 2 4321-2 #### SABINO Dutta ([id number]) [facility] ([facility]) [id number] [place] [address] Sodium [Moles/Vol] 135 mmol/L Low 136-145 [facility] Comment on above: Performed By: #### 2 4321-2 #### SABINO Dutta ([id number]) [facility] ([facility]) [address] [place] [address] Urea nitrogen [Mass/Vol] 20 mg/dL Normal 6-23 [facility] Comment on above: Performed By: #### 2 4321-2 #### SABINO Dutta ([id number]) [facility] ([facility]) [id number] [place] [address]449 ECG 12-LEADon 01-17-2025 ECG 12-LEAD Ventricular Rate 60 Atrial Rate 59 P-R Interval 140 QRS Duration 80 Q-T Interval 414 QTC Calculation(Bazett) 414 P [place] 8 R [place] -8 T [place] 26 QRS Count 10 Q Onset 227 P Onset 157 P Offset 198 T Offset 434 QTC Fredericia 414 Diagnosis NSR NL ECG Confirmed by Garret Guerrero ([id number]) on 01/21/2025 5:14:07 PM Normal [facility] Magnesiumon 01-17-2025 Magnesium [Mass/Vol] 2.66 mg/dL High 1.60 - 2.40 mg/dL [facility] Comment on above: MILD HEMOLYSIS DETEC RENATO. The result may be falsely elevated due to hemolysis or other interferents. Clinical correlation is recommended. Repeat testing may be considered. Magnesium [Mass/Vol] 2.66 mg/dL High 1.60-2.40 [facility] Comment on above: Result Comment: MILD HEMOLYSIS DETECTED. The result may be falsely elevated due to hemolysis or other interferents. Clinical correlation is recommended. Repeat testing may be considered. Performed By: #### 1 9123-9 #### SABINO Dutta ([id number]) [facility] ([facility]) [address] [place] [address] No Panel Informationon 01-17 Interpretation and review of laboratory results Abnormal [facility] VERAB/VERIFY ABORHon 025 ABO group Nom (Bld) A Normal [facility] Comment on above: Performed By: #### V ERAB #### SABINO Dutta ([id number]) [facility] ([facility]) [address] [place] [address] D Ag Ql (Bld) Positive Normal [facility] Comment on above: Performed By: #### V ERAB #### SABINO Dutta ([id number]) [facility] ([facility]) [address] [place] [address] CT PRE WATCHMAN FULL CONTRAS Ton 01-11-2025 CT PRE WATCHMAN FULL CONTRAST Interpreted By: Dominick Riley, ADDENDUM: Technical: The following is to serve as an over-read for a contrast-enhanced cardiac CT, to evaluate the extravascular structures. Contiguous axial CT sections are performed from level the marco to the upper abdomen following the bolus administration of 70 cc of intravenous Omnipaque 350. Findings: The visualized portions of both lungs are clear. There is no sign of pathologic lymph node enlargement. There is no pericardial or pleural effusion. Images through the upper abdomen demonstrate a partially visualized cyst in the caudate lobe measuring at least 2 cm in diameter. A partially visualized cyst in the right hepatic lobe is noted posteriorly which measures at least 2.2 cm. There is a round hypodensity medial to the spleen measuring 2.7 cm which is also incompletely visualized there was not of simple fluid attenuation. This appears posterior to the visualized portions of the adrenal gland. This could be of renal or adrenal origin. The visualized osseous structures are intact. Impression: Incompletely visualized hepatic cysts. 2.7 cm hypodense lesion is partially visualized between the upper pole of the left kidney and left adrenal gland. Further workup with dedicated left renal ultrasound is recommended. Signed by: Dominick Riley 01/11/2025 8:09 PM -------- ORIGINAL REPORT -------- Dictation workstation: [id number] Interpreted By: Dominick Biswas, STUDY: CT PRE WATCHMAN FULL CONTRAST; 01/11/2025 12:23 pm INDICATION: Signs/Symptoms:Pre watchman sizing and thrombus detection. COMPARISON: None. ACCESSION NUMBER(S): [id number] ORDERING CLINICIAN: KEYLA GARZA TECHNIQUE: Using multidetector CT technology, Elena CT 64-slice scanner, axial, sequential imaging with retrospective gating and minimal slice thickness was performed of the chest following the intravenous administration of contrast material. A low-osmolar contrast agent was used 70 mL of Omnipaque 350. Also, the imaging was repeated after 30 sec delay as per watchman protocol. Also, patient received 500 mL of normal saline prior to exam as per protocol. For optimization of anatomic evaluation, multiplanar reconstruction, maximum intensity projections, and advanced 3-D off-line postprocessing were performed on a dedicated stand-alone workstation under the direct supervision of the interpreting physician. CT Dose-Length Product (DLP): 1282.8 mGy/cm CT Dose Reduction Employed: Yes Prospective triggering, iterative reconstruction FINDINGS: LEFT ATRIAL APPENDAGE: Ostial diameter: 28 x 20 mm Depth: 25 mm No evidence of left atrial appendage thrombus. CORONARY ARTERIES: The study was not tailored for the evaluation of coronary arteries. There is normal origin of the coronary arteries. Coronary anatomy is right dominant. Heavy diffuse coronary artery calcification. CARDIAC CHAMBERS: The cardiac chambers demonstrate normal atrioventricular and ventriculoarterial concordance, and systemic and pulmonary venous return. LEFT ATRIUM: Dilated 4.4 cm. RIGHT ATRIUM: Normal size INTERATRIAL SEPTUM: Intact. LEFT VENTRICLE: Normal size RIGHT VENTRICLE: Normal size AORTIC VALVE: The aortic valve is mildly calcified trileaflet in morphology. MITRAL VALVE: No thickening/calcification. THORACIC AORTA: Dilated aortic root 4.0 cm. PERICARDIUM: There is no pericardial effusion of thickening. IMPRESSION: 1. Left atrial appendage ostial orifice dimension 28 x 20 mm. 2. Left atrial appendage depth 25 mm. 3. No evidence of left atrial/left atrial appendage thrombus. Reading Manager Web Application: Dr. Dominick Biswas, Date: 01/11/2025 1:22 pm Signed by: Dominick Biswas 01/11/2025 1:23 PM Dictation workstation: [id number] [facility] CT WATCHMAN FULL CONTRASTon 01-11-2025 Source Facility: [facility] Interpreted By: Dominick Biswas, STUDY: CT PRE WATCHMAN FULL CONTRAST; 01/11/2025 12:23 pm INDICATION: Signs/Symptoms:Pre watchman sizing and thrombus detection. COMPARISON: None. ACCESSION NUMBER(S): [id number] ORDERING CLINICIAN: KEYLA GARZA TECHNIQUE: Using multidetector CT technology, Elena CT 64-slice scanner, axial, sequential imaging with retrospective gating and minimal slice thickness was performed of the chest following the intravenous administration of contrast material. A low-osmolar contrast agent was used 70 mL of Omnipaque 350. Also, the imaging was repeated after 30 sec delay as per watchman protocol. Also, patient received 500 mL of normal saline prior to exam as per protocol. For optimization of anatomic evaluation, multiplanar reconstruction, maximum intensity projections, and advanced 3-D off-line postprocessing were performed on a dedicated stand-alone workstation under the direct supervision of the interpreting physician. CT Dose-Length Product (DLP): 1282.8 mGy/cm CT Dose Reduction Employed: Yes Prospective triggering, iterative reconstruction FINDINGS: LEFT ATRIAL APPENDAGE: Ostial diameter: 28 x 20 mm Depth: 25 mm No evidence of left atrial appendage thrombus. CORONARY ARTERIES: The study was not tailored for the evaluation of coronary arteries. There is normal origin of the coronary arteries. Coronary anatomy is right dominant. Heavy diffuse coronary artery calcification. CARDIAC CHAMBERS: The cardiac chambers demonstrate normal atrioventricular and ventriculoarterial concordance, and systemic and pulmonary venous return. LEFT ATRIUM: Dilated 4.4 cm. RIGHT ATRIUM: Normal size INTERATRIAL SEPTUM: Intact. LEFT VENTRICLE: Normal size RIGHT VENTRICLE: Normal size AORTIC VALVE: The aortic valve is mildly calcified trileaflet in morphology. MITRAL VALVE: No thickening/calcification. THORACIC AORTA: Dilated aortic root 4.0 cm. PERICARDIUM: There is no pericardial effusion of thickening. IMPRESSION: 1. Left atrial appendage ostial orifice dimension 28 x 20 mm. 2. Left atrial appendage depth 25 mm. 3. No evidence of left atrial/left atrial appendage thrombus. Reading Manager Web Application: Dr. Dominick Biswas, Date: 01/11/2025 1:22 pm Signed by: Dominick Biswas 01/11/2025 1:23 PM Dictation workstation: [id number] Radiology, Radiologi MD millicent - 01/11/2025 Source Facility: [facility] Interpreted By: Dominick Biswas, STUDY: CT PRE WATCHMAN FULL CONTRAST; 01/11/2025 12:23 pm INDICATION: Signs/Symptoms:Pre watchman sizing and thrombus detection. COMPARISON: None. ACCESSION NUMBER(S): [id number] ORDERING CLINICIAN: KEYLA GARZA TECHNIQUE: Using multidetector CT technology, Elena CT 64-slice scanner, axial, sequential imaging with retrospective gating and minimal slice thickness was performed of the chest following the intravenous administration of contrast material. A low-osmolar contrast agent was used 70 mL of Omnipaque 350. Also, the imaging was repeated after 30 sec delay as per watchman protocol. Also, patient received 500 mL of normal saline prior to exam as per protocol. For optimization of anatomic evaluation, multiplanar reconstruction, maximum intensity projections, and advanced 3-D off-line postprocessing were performed on a dedicated stand-alone workstation under the direct supervision of the interpreting physician. CT Dose-Length Product (DLP): 1282.8 mGy/cm CT Dose Reduction Employed: Yes Prospective triggering, iterative reconstruction FINDINGS: LEFT ATRIAL APPENDAGE: Ostial diameter: 28 x 20 mm Depth: 25 mm No evidence of left atrial appendage thrombus. CORONARY ARTERIES: The study was not tailored for the evaluation of coronary arteries. There is normal origin of the coronary arteries. Coronary anatomy is right dominant. Heavy diffuse coronary artery calcification. CARDIAC CHAMBERS: The cardiac chambers demonstrate normal atrioventricular and ventriculoarterial concordance, and systemic and pulmonary venous return. LEFT ATRIUM: Dilated 4.4 cm. RIGHT ATRIUM: Normal size INTERATRIAL SEPTUM: Intact. LEFT VENTRICLE: Normal size RIGHT VENTRICLE: Normal size AORTIC VALVE: The aortic valve is mildly calcified trileaflet in morphology. MITRAL VALVE: No thickening/calcification. THORACIC AORTA: Dilated aortic root 4.0 cm. PERICARDIUM: There is no pericardial effusion of thickening. IMPRESSION: 1. Left atrial appendage ostial orifice dimension 28 x 20 mm. 2. Left atrial appendage depth 25 mm. 3. No evidence of left atrial/left atrial appendage thrombus. Reading Manager Web Application: Dr. Dominick Biswas, Date: 01/11/2025 1:22 pm Signed by: Dominick Biswas 01/11/2025 1:23 PM Dictation workstation: [id number] [facility] [employer] Radiology Study observation (narrative) [facility] CT WATCHMAN FULL CONTRASTOrd ered By: Radiologist Radiology on 01-11-2025 [facility] [employer] Work Phone: CT pre watchman full contras ton 01-11-2025 Addendum by Brock Bertrand MD on 01/11/2025 8:09 PM EDT Interpreted By: Dominick Riley, ADDENDUM: Technical: The following is to serve as an over-read for a contrast-enhanced cardiac CT, to evaluate the extravascular structures. Contiguous axial CT sections are performed from level the marco to the upper abdomen following the bolus administration of 70 cc of intravenous Omnipaque 350. Findings: The visualized portions of both lungs are clear. There is no sign of pathologic lymph node enlargement. There is no pericardial or pleural effusion. Images through the upper abdomen demonstrate a partially visualized cyst in the caudate lobe measuring at least 2 cm in diameter. A partially visualized cyst in the right hepatic lobe is noted posteriorly which measures at least 2.2 cm. There is a round hypodensity medial to the spleen measuring 2.7 cm which is also incompletely visualized there was not of simple fluid attenuation. This appears posterior to the visualized portions of the adrenal gland. This could be of renal or adrenal origin. The visualized osseous structures are intact. Impression: Incompletely visualized hepatic cysts. 2.7 cm hypodense lesion is partially visualized between the upper pole of the left kidney and left adrenal gland. Further workup with dedicated left renal ultrasound is recommended. Signed by: Dominick Riley 01/11/2025 8:09 PM -------- ORIGINAL REPORT -------- Dictation workstation: [id number] [facility] Work Phone: 1. Left atrial appen dage ostial orifice dimension 28 x 20 mm. 2. Left atrial appendage depth 25 mm. 3. No evidence of left atrial/left atrial appendage thrombus. Reading Manager Web Application: Dr. Dominick Biswas, Date: 01/11/2025 1:22 pm Signed by: Dominick Biswas 01/11/2025 1:23 PM Dictation workstation: [id number] Interpreted By: Dominick Melo, STUDY: CT PRE WATCHMAN FULL CONTRAST; 01/11/2025 12:23 pm INDICATION: Signs/Symptoms:Pre watchman sizing and thrombus detection. COMPARISON: None. ACCESSION NUMBER(S): [id number] ORDERING CLINICIAN: KEYLA GARZA TECHNIQUE: Using multidetector CT technology, Elena CT 64-slice scanner, axial, sequential imaging with retrospective gating and minimal slice thickness was performed of the chest following the intravenous administration of contrast material. A low-osmolar contrast agent was used 70 mL of Omnipaque 350. Also, the imaging was repeated after 30 sec delay as per watchman protocol. Also, patient received 500 mL of normal saline prior to exam as per protocol. For optimization of anatomic evaluation, multiplanar reconstruction, maximum intensity projections, and advanced 3-D off-line postprocessing were performed on a dedicated stand-alone workstation under the direct supervision of the interpreting physician. CT Dose-Length Product (DLP): 1282.8 mGy/cm CT Dose Reduction Employed: Yes Prospective triggering, iterative reconstruction FINDINGS: LEFT ATRIAL APPENDAGE: Ostial diameter: 28 x 20 mm Depth: 25 mm No evidence of left atrial appendage thrombus. CORONARY ARTERIES: The study was not tailored for the evaluation of coronary arteries. There is normal origin of the coronary arteries. Coronary anatomy is right dominant. Heavy diffuse coronary artery calcification. CARDIAC CHAMBERS: The cardiac chambers demonstrate normal atrioventricular and ventriculoarterial concordance, and systemic and pulmonary venous return. LEFT ATRIUM: Dilated 4.4 cm. RIGHT ATRIUM: Normal size INTERATRIAL SEPTUM: Intact. LEFT VENTRICLE: Normal size RIGHT VENTRICLE: Normal size AORTIC VALVE: The aortic valve is mildly calcified trileaflet in morphology. MITRAL VALVE: No thickening/calcification. THORACIC AORTA: Dilated aortic root 4.0 cm. PERICARDIUM: There is no pericardial effusion of thickening. MMODAL Dominick Biswas D O / Brock Riley MD - 01/11/2025 Interpreted By: Dominick Biswas, STUDY: CT PRE WATCHMAN FULL CONTRAST; 01/11/2025 12:23 pm INDICATION: Signs/Symptoms:Pre watchman sizing and thrombus detection. COMPARISON: None. ACCESSION NUMBER(S): [id number] ORDERING CLINICIAN: KEYLA GARZA TECHNIQUE: Using multidetector CT technology, Elena CT 64-slice scanner, axial, sequential imaging with retrospective gating and minimal slice thickness was performed of the chest following the intravenous administration of contrast material. A low-osmolar contrast agent was used 70 mL of Omnipaque 350. Also, the imaging was repeated after 30 sec delay as per watchman protocol. Also, patient received 500 mL of normal saline prior to exam as per protocol. For optimization of anatomic evaluation, multiplanar reconstruction, maximum intensity projections, and advanced 3-D off-line postprocessing were performed on a dedicated stand-alone workstation under the direct supervision of the interpreting physician. CT Dose-Length Product (DLP): 1282.8 mGy/cm CT Dose Reduction Employed: Yes Prospective triggering, iterative reconstruction FINDINGS: LEFT ATRIAL APPENDAGE: Ostial diameter: 28 x 20 mm Depth: 25 mm No evidence of left atrial appendage thrombus. CORONARY ARTERIES: The study was not tailored for the evaluation of coronary arteries. There is normal origin of the coronary arteries. Coronary anatomy is right dominant. Heavy diffuse coronary artery calcification. CARDIAC CHAMBERS: The cardiac chambers demonstrate normal atrioventricular and ventriculoarterial concordance, and systemic and pulmonary venous return. LEFT ATRIUM: Dilated 4.4 cm. RIGHT ATRIUM: Normal size INTERATRIAL SEPTUM: Intact. LEFT VENTRICLE: Normal size RIGHT VENTRICLE: Normal size AORTIC VALVE: The aortic valve is mildly calcified trileaflet in morphology. MITRAL VALVE: No thickening/calcification. THORACIC AORTA: Dilated aortic root 4.0 cm. PERICARDIUM: There is no pericardial effusion of thickening. IMPRESSION: 1. Left atrial appendage ostial orifice dimension 28 x 20 mm. 2. Left atrial appendage depth 25 mm. 3. No evidence of left atrial/left atrial appendage thrombus. Reading Manager Web Application: Dr. Dominick Biswas, Date: 01/11/2025 1:22 pm Signed by: Dominick Biswas 01/11/2025 1:23 PM Dictation workstation: [id number] [facility] Work Phone: Radiology Study observation (narrative) [facility] Work Phone: CT pre watchman full contras tOrdered By: Brock Riley on 01-11-2025 [facility] Work Phone: BASIC METABOLIC PANEL WITH A NION GAPon 01-02-2025 ELECTROLYTE BALANCE 10 mmol/L (calc) Normal 7-17 [facility] Comment on above: Performed By: #### 9 832, 131, [id number] #### [facility] [place] [address] [employer] Operator: Carlos Quinones MD CBC (H/H, RBC, INDICES, WBC, PLT)on 01-02-2025 Erythrocyte distribution width (RBC) [Ratio] 12.1 % Normal 11.0-15.0 [facility] Comment on above: Performed By: #### 9 667, 175, 55882 #### [facility] [place] [address] [employer] Operator: Carlos Quinones MD Hematocrit (Bld) [Volume fraction] 41.9 % Normal 38.5-50.0 [facility] Comment on above: Performed By: #### 9 107, 175, 20459 #### [facility] [place] [address] [facility] [place] [address] [employer] Operator: Carlos Quinones MD Hemoglobin (Bld) [Mass/Vol] 14.2 g/dL Normal 13.2-17.1 [facility] Comment on above: Performed By: #### 9 2497, 175, 49541 #### [facility] of [address], [address] [place] [address] [employer] Operator: Carlos Quinones MD MCH (RBC) [Entitic mass] 31.5 pg Normal 27.0-33.0 [facility] Comment on above: Performed By: #### 9 2497, 1758, 37857 #### [facility] of [place] [address] [employer] Operator: Carlos Quinones MD MCHC (RBC) [Mass/Vol] 33.9 g/dL Normal 32.0-36.0 [facility], [facility] [address] Diagnostics Comment on above: Result Comment: For adults, a slight decrease in the calculated MCHC value (in the range of 30 to 32 g/dL) is most likely not clinically significant; however, it should be interpreted with caution in correlation with other red cell parameters and the patient's clinical condition. Performed By: #### 9 2497, 175, 26763 #### [facility] [place] [address] [employer] Operator: Carlos Quinones MD MCV (RBC) [Entitic vol] 92.9 fL Normal 80.0-100.0 [facility] Comment on above: Performed By: #### 9 2497, 175, 33745 #### [facility] [place] [address] [employer] Operator: Carlos Quinones MD Platelet mean volume (Bld) [Entitic vol] 11.2 fL Normal 7.5-12.5 [facility] Comment on above: Performed By: #### 9 2497, 1758, 86639 #### [facility] [place] [address] [employer] Operator: Carlos Quinones MD Platelets (Bld) [#/Vol] 176 10*3/uL Normal 140-400 [facility] Comment on above: Performed By: #### 9 2498, 175, 86890 #### [facility] of [address], [address] [place] [address] [employer] Operator: Carlos Quinones MD RBC (Bld) [#/Vol] 4.51 10*6/uL Normal 4.20-5.80 [facility] Comment on above: Performed By: #### 9 2498, 175, 40068 #### [facility] of [address], [address] [place] [address] [employer] Operator: Carlos Quinones MD WBC (d) [#/Vol] 5.2 10*3/uL Normal 3.8-10.8 [facility] Comment on above: Performed By: #### 9 2497, 175, 55519 #### [facility] [address], [address] [place] [address] [employer] Operator: Carlos Quinones MD RENAL FUNCTION PANEL 01-02 Albumin [Mass/Vol] 4.4 g/dL Normal 3.6-5.1 [facility] Comment on above: Order Comment: FASTI NG:NO FASTING: NO Performed By: #### 9 2497, 175, 74790 #### [facility] [place] [address] [employer] Operator: Carlos Quinones MD BUN/CREATININE RATIO SEE NOTE: Normal 6-22 Ques t Diagnostics Comment on above: Order Comment: FASTI NG:NO FASTING: NO Result Comment: Not Reported: BUN and Creatinine are within reference range. Performed By: #### 9 2498, 175, 64709 #### [facility] of [address], [address] [place] [address] [employer] Operator: Carlos Quinones MD Calcium [Mass/Vol] 9.5 mg/dL Normal 8.6-10.3 [facility] Comment on above: Order Comment: FASTI NG:NO FASTING: NO Performed By: #### 9 249, 175, 00669 #### [facility] [address], [address] [place] [address] [employer] Operator: Carlos Quinones MD Chloride [Moles/Vol] 103 mmol/L Normal 98-110 [facility] t Diagnostics Comment on above: Order Comment: FASTI NG:NO FASTING: NO Performed By: #### 9 2498, 1759, 77226 #### [facility] [address], [address] [place] [address] [employer] Operator: Carlos Quinones MD CO2 [Moles/Vol] 27 mmol/L Normal 20-32 [facility] Comment on above: Order Comment: FASTI NG:NO FASTING: NO Performed By: #### 9 2498, 175, 29981 #### [facility] [address], [address] [place] [address] [employer] Operator: Carlos Quinones MD Creatinine [Mass/Vol] 0.75 mg/dL Normal 0.70-1.22 [facility] Comment on above: Order Comment: FASTI NG:NO FASTING: NO Performed By: #### 9 249, 175, 08775 #### [facility] [address], [address] [place] [address] [employer] Operator: Carlos Quinones MD GFR/1.73 sq M.predicted among non-blacks MDRD (S/P/Bld) [Vol rate/Area] 91 mL/min/{1.73_m2} Normal > OR = 60 [facility] Comment on above: Order Comment: FASTI NG:NO FASTING: NO Performed By: #### 9 2498, 175, 61076 #### [facility] [address], [address] [place] [address] [employer] Operator: Carlos Quinones MD Glucose [Mass/Vol] 98 mg/dL Normal 65-139 [facility] Comment on above: Order Comment: FASTI NG:NO FASTING: NO Result Comment: Non-fasting reference interval Performed By: #### 9 2498, 175, 96555 #### [facility] [address], [address] [place] [address] [employer] Operator: Carlos Quinones MD Phosphate [Mass/Vol] 3.5 mg/dL Normal 2.1-4.3 Ques t Diagnostics Comment on above: Order Comment: FASTI NG:NO FASTING: NO Performed By: #### 9 2498, 1759, 00368 #### [facility] [address], [address] [place] [address] [employer] Operator: Carlos Quinones MD Potassium [Moles/Vol] 4.9 mmol/L Normal 3.5-5.3 [facility] Comment on above: Order Comment: FASTI NG:NO FASTING: NO Performed By: #### 9 2498, 1759, 16204 #### [facility] [address], [address] [place] [address] [employer] Operator: Carlos Quinones MD Sodium [Moles/Vol] 140 mmol/L Normal 135-146 [facility] Comment on above: Order Comment: FASTI NG:NO FASTING: NO Performed By: #### 9 249, 175, 91085 #### [facility] [address], [address] [place] [address] [employer] Operator: Carlos Quinones MD Urea nitrogen [Mass/Vol] 25 mg/dL Normal 7-25 [facility] Comment on above: Order Comment: FASTI NG:NO FASTING: NO Performed By: #### 9 2498, 1759, 20244 #### [facility] [place] [address] [employer] Operator: Carlos Quinones MD Blood type and Indirect anti body screen panel (Bld)on 01-01-2025 ABO group Nom (Bld) A Normal [facility] Comment on above: Order Comment: Speci men for compatibility testing requires full first and last name, MRN, , date, time of collection, and broomcorn press feeder/toll collector's signature on tube(s) or it will be rejected. Please collect 1 lavender top-KEDTA OR 1 pink top-KEDTA and sign, date and time with the patient's full first and last name, MRN and . Performed By: #### 3 4532-2 #### SABINO Dutta ([id number]) [facility] ([facility]) [address] [place] [address] Blood group antibody screen Ql Negative [facility] Comment on above: Order Comment: Speci men for compatibility testing requires full first and last name, MRN, , date, time of collection, and broomcorn press feeder/toll collector's signature on tube(s) or it will be rejected. Please collect 1 lavender top-KEDTA OR 1 pink top-KEDTA and sign, date and time with the patient's full first and last name, MRN and . Performed By: #### 3 4532-2 #### SABINO Dutta ([id number]) [facility] ([facility]) [address] [place] [id number] D Ag Ql (Bld) Positive [facility] Comment on above: Order Comment: Speci men for compatibility testing requires full first and last name, MRN, , date, time of collection, and broomcorn press feeder/toll collector's signature on tube(s) or it will be rejected. Please collect 1 lavender top-KEDTA OR 1 pink top-KEDTA and sign, date and time with the patient's full first and last name, MRN and . Result Comment: 2nd ABO test required. Order and Collect VERAB Performed By: #### 3 4532-2 #### SABINO Dutta ([id number]) [facility] ([facility]) [address] [place] [id number] ECG 12-LEADon 11-19-2024 ECG 12-LEAD Ventricular Rate 66 Atrial Rate 66 P-R Interval 172 QRS Duration 86 Q-T Interval 390 QTC Calculation(Bazett) 408 P [place] 24 R [place] 0 T [place] 34 QRS Count 11 Q Onset 228 P Onset 142 P Offset 200 T Offset 423 QTC Fredericia 403 Diagnosis Normal sinus rhythm Normal ECG No previous ECGs available Confirmed by Gallito Mandujano ([id number]) on 12/05/2024 7:00:04 AM Normal [facility] ECG 12 Leadon 07-31-2024 ECG revealed normal sinus rhythm, normal ECG [facility] Work Phone: US Eye+Orbit - bilateralon 1 Diagnosis: Cataract both eyes (OU) Testing Indication: Performed for preop measurements in the determination of an intraocular lens (IOL) for both eyes (OU) Test Reliability: Good quality both eyes (OU) Interpretation: Good measurements for intraocular lens (IOL) calculation purposes. Calculation made for both eyes (OU). [facility] Radiology Study observation (narrative) [facility] ECG 12 Leadon 12-20-2023 ECG revealed normal sinus rhythm and normal ECG [facility] Work Phone: Tobacco Screening.on 023 Tobacco use status CP b) No MP-Cardiolog y-Jose 250 DO Work Phone: LIPID PROFILEon 12-06-2022 CHOL-HDL RATIO NORM SEE BELOW Normal [facility] Comment on above: Result Comment: 3.3 - 4.4 LOW RISK 4.4 - 7.1 AVERAGE RISK 7.1 - 11.0 MODERATE RISK >11.0 HIGH RISK Performed By: #### B MP, LIPID, ALT, AST #### [facility] [address] [place] [address] [address] Luz Burr Cholesterol [Mass/Vol] 105 mg/dL Normal <=200 [facility] Comment on above: Performed By: #### B MP, LIPID, ALT, AST #### [facility] [address] [place] [address] [address] Luz Burr Cholesterol in HDL [Mass/Vol] 50 mg/dL Normal 40-60 [facility] Comment on above: Performed By: #### B MP, LIPID, ALT, AST #### [facility] [address] [place] [address] [address] Luz Burr Cholesterol in LDL [Mass/Vol] 44.8 mg/dL Normal [facility] Comment on above: Performed By: #### B MP, LIPID, ALT, AST #### [facility] [address] [place] [address] [address] Luz Burr Cholesterol.total/Chol esterol in HDL [Mass ratio] 2.1 {ratio} Normal [facility] Comment on above: Performed By: #### B MP, LIPID, ALT, AST #### [facility] [address] [place] [address] [address] Luz Burr HDL NORMAL > or = 60 mg/dl - LO W CARDIOVASCULAR RISK <40 mg/dl - HIGH CARDIOVASCULAR RISK Normal [facility] Comment on above: Performed By: #### B MP, LIPID, ALT, AST #### [facility] [address] [place] [address] [address] Luz Burr LDL CALC NORMAL SEE BELOW Normal [facility] Comment on above: Result Comment: <100 mg/dl OPTIMAL 100 - 129 mg/dl NEAR OR ABOVE OPTIMAL 130 - 159 mg/dl BORDERLINE HIGH 160 - 189 mg/dl HIGH >190 mg/dl VERY HIGH Performed By: #### B MP, LIPID, ALT, AST #### [facility] [address] [place] [address] Dr. Luz Burr Triglyceride [Mass/Vol] 51 mg/dL Normal <=150 [facility] Comment on above: Performed By: #### B MP, LIPID, ALT, AST #### [facility] [address] [place] [address] Dr. Luz Burr VLDL CALC 10.2 mg/dL Normal [facility] Comment on above: Performed By: #### B MP, LIPID, ALT, AST #### [facility] [address] [place] [address] Dr. Luz Burr PROF CHEM 8 (BAS METB)on Anion gap [Moles/Vol] 10.2 mmol/L Normal [facility] Comment on above: Performed By: #### B MP, LIPID, ALT, AST #### [facility] [address] [place] [address] Dr. Luz Burr Calcium [Mass/Vol] 9.4 mg/dL Normal 8.5-10.1 [facility] Comment on above: Performed By: #### B MP, LIPID, ALT, AST #### [facility] [address] [place] [address] Dr. Luz Burr Chloride [Moles/Vol] 103 mmol/L Normal 98-107 [facility] Comment on above: Performed By: #### B MP, LIPID, ALT, AST #### [facility] [address] [place] [address] [address] Luz Burr CO2 [Moles/Vol] 31.1 mmol/L Normal 21.0-32.0 [facility] Comment on above: Performed By: #### B MP, LIPID, ALT, AST #### [facility] [address] [place] [address] [address] Luz Burr Creatinine [Mass/Vol] 0.83 mg/dL Normal 0.70-1.30 [facility] Comment on above: Performed By: #### B MP, LIPID, ALT, AST #### [facility] [address] [place] [address] [address] Luz Burr EGFR-AF GHANAIAN >60 Normal >=60 [facility] Comment on above: Performed By: #### B MP, LIPID, ALT, AST #### [facility] [address] [place] [address] [address] Luz Burr EGFR-NON AF GHANAIAN >60 Normal >=60 [facility] Comment on above: Performed By: #### B MP, LIPID, ALT, AST #### [facility] [address] [place] [address] [address] Luz Burr Glucose [Mass/Vol] 110 mg/dL Critically high 74-106 [facility] Comment on above: Performed By: #### B MP, LIPID, ALT, AST #### [facility] [address] [place] [address] [address] Luz Burr Potassium [Moles/Vol] 4.3 mmol/L Normal 3.5-5.1 [facility] Comment on above: Performed By: #### B MP, LIPID, ALT, AST #### [facility] [address] [place] [address] [address] Luz Burr Sodium [Moles/Vol] 140 mmol/L Normal 136-145 [facility] Comment on above: Performed By: #### B MP, LIPID, ALT, AST #### [facility] [address] [place], [place] [address] Dr. Luz Burr Urea nitrogen [Mass/Vol] 21.0 mg/dL Critically high 7.0-18.0 [facility] Comment on above: Performed By: #### B MP, LIPID, ALT, AST #### [facility] [address] [place], [place] [address] Dr. Luz Burr Urea nitrogen/Creatinine [Mass ratio] 25.3 mg/mg Normal [facility] Comment on above: Performed By: #### B MP, LIPID, ALT, AST #### [facility] [address] [place] [address] [address] Luz Barillas 12-06-2022 AST [Catalytic activity/Vol] 29 U/L Normal 15-37 [facility] Comment on above: Performed By: #### B MP, LIPID, ALT, AST #### [facility] [address] [place] [address] Dr. Luz Dennison 12-06-2022 ALT [Catalytic activity/Vol] 57 U/L Normal 16-63 [facility] Comment on above: Performed By: #### B MP, LIPID, ALT, AST #### [facility] [address] [place] [address] Dr. 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 Normal [facility] ECG 12 lead ECGon 11-04-2022 ECG 12 lead ECG [facility] [place] [address] [place] [address] Electrocardiograph Report Signed Patient: Tanisha Bentley MR#: [id number] 2 : 1945 Acct:[id number] Age/Sex: 77 / M ADM Date: 11/02/22 Loc: Room: [address] [place] [address] Type: DIS IN Attending Dr: Chanda Wing MD Ordering Provider: Chanda Wing MD, [facility] Date of Service: 11/04/22 ECG/ECG 12 [...] MUS Signed By Shelby Calderon DO 11/04 [facility] - CoagulationOrde red By: Chanda Wing on 11-04-2022 PT Coag (PPP) [Time] 16.2 s 9.0-12.9 [facility] Platelet poor plasma interna tional normalized ratio (INR) by coagulation assay (relatOrdered By: Chanda Wing on 11-04-2022 INR Coag (PPP) [Relative time] 1.4 {INR} [facility] Comment on above: INR Therapeutic Rang e [...] INR Coag (PPP) [Relative time] 1.4 {INR} [facility] Comment on above: Result Comment: INR [...] heart valves: 3 - 4.5 PERFORMED BY: [place] [address] PATHOLOGIST [employer] PLANT SUPERVISOR MARQUIS CARRANZA M.D. Performed By: #### P T #### [facility] [address] [place], [place] [id number] [facility] PT Coag (PPP) [Time] 16.2 s High 9.0-12.9 [facility] Comment on above: Performed By: #### P T #### [address] ECG 12 lead ECGon 11-03-2022 ECG 12 lead ECG [facility] [place] [address] Electrocardiograph Report Signed Patient: Tanisha Bentley MR#: [id number] 2 : 1945 Acct:[id number] Age/Sex: 77 / M ADM Date: 11/02/22 Loc: Room: [address] [place] [address] Type: DIS IN Attending Dr: Chanda Wing MD Ordering Provider: Chanda Wing MD, [facility] Date of Service: 11/03/22 ECG/ECG 12 [...] 9:56:25 PM Referred By: Electronically Signed By:SHELBY CALDEORN DO Transcribed By: MUS Signed By Shelby Calderon DO 11/04 Normal [facility] ECG 12 lead ECG [facility] Main [place] [id number] Electrocardiograph Report Signed Patient: Tanisha Bentley MR#: [id number] 2 : 1945 Acct:[id number] Age/Sex: 77 / M ADM Date: 11/02/22 Loc: Room: [address] [place] [address] Type: DIS IN Attending Dr: Chanda Wing MD Ordering Provider: Chanda Wing MD, [facility] Date of Service: 11/02/22 ECG/ECG 12 [...] Signed By Shelby Calderon DO 11/04 Normal [facility] Prothrombin Time INRon 11-03 INR Coag (PPP) [Relative time] 1.4 {INR} Normal [facility] Comment on above: Result Comment: INR [...] heart valves: 3 - 4.5 PERFORMED BY: [place] [address] PATHOLOGIST [employer]ANT SUPERVISOR MARQUIS CARRANZA M.D. Performed By: #### P T #### [address] PT Coag (PPP) [Time] 15.7 s High 9.0-12.9 [facility] Comment on above: Performed By: #### P T #### [facility] [address] Basic Metabolic Panelon 10-20 Anion gap [Moles/Vol] 11.0 mmol/L Normal 6.0-15.0 [facility] Comment on above: Performed By: #### B MP, PT #### [facility] [address] Calcium [Mass/Vol] 9.7 mg/dL Normal 8.2-10.2 [facility] Comment on above: Result Comment: PERF ORMED BY: [place] [address] PATHOLOGIST [employer] PLANT SUPERVISOR MARQUIS CARRANZA M.D. Performed By: #### B MP, PT #### [facility] [address] Chloride [Moles/Vol] 104 mmol/L Normal 95-114 [facility] Comment on above: Performed By: #### B MP, PT #### [facility] [address] CO2 [Moles/Vol] 28.2 mmol/L Normal 22.0-30.0 [facility] Comment on above: Performed By: #### B MP, PT #### [facility] [address] Creatinine [Mass/Vol] 0.83 mg/dL Normal 0.64-1.27 [facility] Comment on above: Performed By: #### B MP, PT #### [facility] [address] [place] [address] [place] Estimated GFR ( Nicol > 60 Normal [facility] Comment on above: Result Comment: GFR estimated reference range: According to KDOQI guidelines, <60 ml/min/1.73m2 is sufficient to diagnose a patient with chronic kidney disease. Performed By: #### B MP, PT #### [facility] [address] [place] [address] [place] Estimated GFR (Non- Am > 60 Normal [facility] Comment on above: Performed By: #### B MP, PT #### [facility] [address] [place] [address] [place] Glucose [Mass/Vol] 137 mg/dL High 70-100 [facility] Comment on above: Result Comment: [place] Glucose Reference Range is dependent on time and content of last meal. Glucose of more than 200 mg/dL in a nonstressed, ambulatory subject supports the diagnosis of Diabetes Mellitus. ADA recommended reference range Performed By: #### B MP, PT #### [facility] [address] [place] [address] [place] Potassium [Moles/Vol] 4.2 mmol/L Normal 3.5-5.1 [facility] Comment on above: Performed By: #### B MP, PT #### [facility] [address] Sodium [Moles/Vol] 139 mmol/L Normal 136-146 [facility] Comment on above: Performed By: #### B MP, PT #### [facility] [address] [place] [id number] [place] Urea nitrogen [Mass/Vol] 23 mg/dL Normal 9-23 [facility] Comment on above: Performed By: #### B MP, PT #### [facility] [address] [place] [id number] [place] Creatinine and Glomerular fi ltration rate.predicted panel (S/P/Bld)Ordered By: Chanda Wing on 11-02-2022 Creatinine [Mass/Vol] 0.83 mg/dL 0.64-1.27 [facility] ECG 12 lead ECGon 11-02-2022 ECG 12 lead ECG [facility] [place] [address] [place] [address] Electrocardiograph Report Signed Patient: Tanisha Bentley MR#: [id number] 2 : 1945 Acct:[id number] Age/Sex: 77 / M ADM Date: 11/02/22 Loc: Room: [address] [place] [address] Type: DIS IN Attending Dr: Chanda Wing MD Ordering Provider: Chanda Wing MD, [facility] Date of Service: 11/02/22 ECG/ECG 12 [...] Signed By Shelby Calderon DO 11/04 Normal [facility] Estimated glomerular filtrat ion rate (GFR) non- AmericanOrdered By: Chanda Wing on 11-02-2022 GFR/1.73 sq M.predicted among non-blacks MDRD (S/P/Bld) [Vol rate/Area] > 60 mL/Min [facility] No Panel InformationOrdered By: Chanda Wing on 11-02-2022 Estimated GFR () > 60 mL/Min [facility] Comment on above: GFR estimated refere nce range: According to KDOQI guidelines, <60 ml/min/1.73m2 is sufficient to diagnose a patient with chronic kidney disease. Pharmacy Creatinine Clearance (Chem N/A [facility] Prothrombin Time INRon 11-02 INR Coag (PPP) [Relative time] 1.4 {INR} Normal [facility] Comment on above: Result Comment: INR [...] heart valves: 3 - 4.5 PERFORMED BY: [place] [address] [place] [address] PATHOLOGIST [employer]ANT SUPERVISOR MARQUIS CARRANZA M.D. Performed By: #### B MP, PT #### [facility] [address] [place] [id number] [facility] PT Coag (PPP) [Time] 16.6 s High 9.0-12.9 [facility] Comment on above: Performed By: #### B MP, PT #### [facility] [address] Serum or plasma anion gap de terminationOrdered By: Chanda Wing on 11-02-2022 Anion gap [Moles/Vol] 11.0 mmol/L 6.0-15.0 [facility] Serum or plasma calcium vicenta urement (mass/volume)Ordered By: Chanda Wing on 11-02-2022 Calcium [Mass/Vol] 9.7 mg/dL 8.2-10.2 [facility] Serum or plasma chloride yoli surement (moles/volume)Ordered By: Chanda Wing on 11-02-2022 Chloride [Moles/Vol] 104 mmol/L 95-114 [facility] Serum or plasma glucose vicenta urement (mass/volume)Ordered By: Chanda Wing on 11-02-2022 Glucose [Mass/Vol] 137 mg/dL 70-100 [facility] Comment on above: ADA recommended refe rence rangeRandom Glucose Reference Range is dependent on time and content of last meal. Glucose of more than 200 mg/dL in a nonstressed, ambulatory subject supports the diagnosis of Diabetes Mellitus. Serum or plasma potassium me asurement (moles/volume)Ordered By: Chanda Wing on 11-02-2022 Potassium [Moles/Vol] 4.2 mmol/L 3.5-5.1 [facility] Serum or plasma sodium measu rement (moles/volume)Ordered By: Chanda Wing on 11-02-2022 Sodium [Moles/Vol] 139 mmol/L 136-146 [facility] Serum or plasma total carbon dioxide measurement (moles/volume)Ordered By: Chanda Wing on 11-02-2022 CO2 [Moles/Vol] 28.2 mmol/L 22.0-30.0 [facility] Serum or plasma urea nitroge n measurement (mass/volume)Ordered By: Chanda Wing on 11-02-2022 Urea nitrogen [Mass/Vol] 23 mg/dL 06-11 [facility] Office Visit (Cardiology)on 09-30-2022 Follow-up visit Diagnoses/Problems [...] your visit. [address] [facility] tikosyn 250 mcg BID Follow up after testing completed Chief Complaint TANISHA BENTLEY is being seen for a 6 [...] Medication No (more content not included)... Normal [facility] Tobacco Screening.on Adult depression screening assessment No [facility] Work Phone: Fall risk assessment a) No falls within the last year [facility] Maxymiser DO Work Phone: Tobacco use status [facility] b) No [facility] Work Phone: Office Visit (Cardiology)on 03-15-2022 [...] 7 days prior to colonoscopy. Will request [place] healthcare records Follow up in 6 months Chief Complaint TANISHA BENTLEY is being seen for follow-up of a hospitalization for [facility] 01/05. Patient is in the office for follow-up for CAD and previous PCI in 2019. Since his last visit in October 2021 he had an admission to [facility] in [place] where he had laparoscopic abdominal procedure for [...] acute abdominal pain 2021. He was in [place]. Records were requested, presently he is on [...] Recorded: 15Mar2022 02:16PM Heart Rate60, R Radial [id number], RUE, Sitting Qehotpuiq30, RUE, Sitting Height5 ft 9 in Jrjuif286 lb (more content not included)... Normal [facility] Tobacco Screening.on 022 Adult depression screening assessment No [facility] [place] 250 DO Work Phone: Fall risk assessment a) No falls within the last year [facility] [place] 250 DO Work Phone: Tobacco use status CP b) No [facility] [place] [facility] DO Work Phone: AMYLASEon 01-02-2022 Amylase [Catalytic activity/Vol] 57 U/L Normal 25-115 [facility] Comment on above: Performed By: #### B MP, LIPID, ALT, AST #### [facility] [address] [place] [address] Dr. Luz Burr CBC AUTO DIFFon 01-02-2022 BASO # 0.0 103/ul Normal 0.0-0.1 [facility] Comment on above: Performed By: #### B MP, LIPID, ALT, AST #### [facility] [address] [place] [address] Dr. Luz Burr Basophils/100 WBC (Bld) 0.3 % Normal 0.2-2.0 [facility] Comment on above: Performed By: #### B MP, LIPID, ALT, AST #### [facility] [address] [place] [address] Dr. Luz Burr EO # 0.0 103/ul Normal 0.0-0.7 [facility] Comment on above: Performed By: #### B MP, LIPID, ALT, AST #### [facility] [address] [place] [address] Dr. Luz Burr Eosinophils/100 WBC (Bld) 0.2 % Critically low 0.9-7.0 [facility] Comment on above: Performed By: #### B MP, LIPID, ALT, AST #### [facility] [address] [place] [address] Dr. Luz Burr Erythrocyte distribution width (RBC) [Ratio] 13.1 % Normal 11.0-15.0 [facility] Comment on above: Performed By: #### B MP, LIPID, ALT, AST #### [facility] [address] [place] [address] Dr. Luz Burr Hematocrit (Bld) [Volume fraction] 50.5 % Normal 42.0-54.0 [facility] Comment on above: Performed By: #### B MP, LIPID, ALT, AST #### [facility] [address] [place] [address] Dr. Luz Burr Hemoglobin (Bld) [Mass/Vol] 17.0 g/dL Normal 14.0-18.0 [facility] Comment on above: Performed By: #### B MP, LIPID, ALT, AST #### [facility] [address] [address] [address] Luz Burr IG # 0.09 10e3/ul Critically high 0.00-0.03 [facility] Comment on above: Performed By: #### B MP, LIPID, ALT, AST #### [facility] [address] [address] [address] Luz Burr IG % 0.7 % Critically high 0.0-0.5 [facility] Comment on above: Performed By: #### B MP, LIPID, ALT, AST #### [facility] [address] [address] [address] Luz Burr LYMPH # 0.8 103/ul Critically low 1.2-3.8 [facility] Comment on above: Performed By: #### B MP, LIPID, ALT, AST #### [facility] [address] [place] [address] Dr. Luz Burr Lymphocytes/100 WBC (Bld) 5.8 % Critically low 20.5-60.0 [facility] Comment on above: Performed By: #### B MP, LIPID, ALT, AST #### [facility] [address] [address] [address] Luz Burr MANUAL DIFF REQ NO Normal [facility] Comment on above: Performed By: #### B MP, LIPID, ALT, AST #### [facility] [address] [address] [address] Luz Burr MCH (RBC) [Entitic mass] 31.4 pg Normal 25.9-34.0 [facility] Comment on above: Performed By: #### B MP, LIPID, ALT, AST #### [facility] [address] [address] [address] Luz Burr MCHC (RBC) [Mass/Vol] 33.7 g/dL Normal 29.9-35.2 [facility] Comment on above: Performed By: #### B MP, LIPID, ALT, AST #### [facility] [address] [address] [address] Luz Burr MCV (RBC) [Entitic vol] 93.3 fL Normal 80.0-94.0 [facility] Comment on above: Performed By: #### B MP, LIPID, ALT, AST #### [facility] [address] [place] [address] Dr. Luz Burr MONO # 0.7 103/ul Normal 0.3-0.8 [facility] Comment on above: Performed By: #### B MP, LIPID, ALT, AST #### [facility] [address] [place] [address] Dr. Luz Burr Monocytes/100 WBC (Bld) 5.4 % Normal 1.7-12.0 [facility] Comment on above: Performed By: #### B MP, LIPID, ALT, AST #### [facility] [address] [place] [address] Dr. Luz Burr NEUT # 11.4 103/ul Critically high 1.4-6.5 [facility] Comment on above: Performed By: #### B MP, LIPID, ALT, AST #### [facility] [address] [place] [address] Dr. Luz Burr Neutrophils/100 WBC (Bld) 87.6 % Critically high 43.0-75.0 [facility] Comment on above: Performed By: #### B MP, LIPID, ALT, AST #### [facility] [address] [place] [address] Dr. Luz Burr Platelet mean volume (Bld) [Entitic vol] 10.3 fL Normal 9.5-13.5 [facility] Comment on above: Performed By: #### B MP, LIPID, ALT, AST #### [facility] [address] [place] [address] Dr. Luz Burr PLT 213 103/ul Normal 150-450 [facility] Comment on above: Performed By: #### B MP, LIPID, ALT, AST #### [facility] [address] [place] [address] Dr. Luz Burr RBC 5.41 106/ul Normal 4.70-6.10 [facility] Comment on above: Performed By: #### B MP, LIPID, ALT, AST #### [facility] [address], [place] [address] Dr. Luz Burr WBC 13.0 103/ul Critically high 4.0-11.0 [facility] Comment on above: Performed By: #### B MP, LIPID, ALT, AST #### [facility] [address], [place] [address] ABD/PELV W CONon [...] Mal RICHTER Date: 2022-01-02 06:09 Normal [facility] Covid-19 PCR (CVDTBH)on 12-18 SARS-CoV-2 (COVID-19) RNA BLANCA+probe Ql (Unsp spec) Not detected Normal NOT DETECTED [facility] Comment on above: Result Comment: When diagnostic testing is negative, the possibility of a false negative should be considered in the context of a patient's recent exposures and the presence of clinical signs and symptoms consistent with SARS-CoV-2. This test is not yet approved or cleared by the [place] Food and Drug Administration (FDA). This test was developed by [email or web address], [place], [place]. The performance characteristics of this test were validated by [facility]. The results are not intended to be used as the sole means for clinical diagnosis or patient management decisions. [facility] is authorized under Clinical Laboratory Improvement Amendments [...] for this test is supported by the Front Counter Clerk of Health and Human Service's declaration that [...] longer be used). Performed By: #### C VDTB #### [facility] [address] [place] [address] Dr. Luz Burr LIPASEon 01-02-2022 Lipase [Catalytic activity/Vol] 178.0 U/L Normal 23.0-300.0 [facility] Comment on above: Performed By: #### B MP, LIPID, ALT, AST #### [facility] [address] [address] [address] Luz Burr PROF 14(COMP METB)on 022 Albumin [Mass/Vol] 3.8 g/dL Normal 3.4-5.0 [facility] Comment on above: Performed By: #### B MP, LIPID, ALT, AST #### [facility] [address] [place] [address] Dr. Luz Burr Albumin/Globulin [Mass ratio] 1.0 {ratio} Normal [facility] Comment on above: Performed By: #### B MP, LIPID, ALT, AST #### [facility] [address] [place] [address] Dr. Luz Burr ALP [Catalytic activity/Vol] 53 U/L Normal 46-116 [facility] Comment on above: Performed By: #### B MP, LIPID, ALT, AST #### [facility] [address] [place] [address] Dr. Luz Burr ALT [Catalytic activity/Vol] 47 U/L Normal 16-63 [facility] Comment on above: Performed By: #### B MP, LIPID, ALT, AST #### [facility] [address] [place] [address] Dr. Luz Burr Anion gap [Moles/Vol] 16.0 mmol/L Normal [facility] Comment on above: Performed By: #### B MP, LIPID, ALT, AST #### [facility] [address] [place] [address] Dr. Luz Burr AST [Catalytic activity/Vol] 33 U/L Normal 15-37 [facility] Comment on above: Performed By: #### B MP, LIPID, ALT, AST #### [facility] [address] [place] [address] Dr. Luz Burr Bilirubin [Mass/Vol] 1.2 mg/dL Normal 0.2-1.3 [facility] Comment on above: Performed By: #### B MP, LIPID, ALT, AST #### [facility] [address] [address] [address] Luz Burr Calcium [Mass/Vol] 8.5 mg/dL Normal 8.5-10.1 [facility] Comment on above: Performed By: #### B MP, LIPID, ALT, AST #### [facility] [address] [address] [address] Luz Burr Chloride [Moles/Vol] 100 mmol/L Normal 98-107 [facility] Comment on above: Performed By: #### B MP, LIPID, ALT, AST #### [facility] [address] [address] [address] Luz Burr CO2 [Moles/Vol] 26.3 mmol/L Normal 22.0-30.0 [facility] Comment on above: Performed By: #### B MP, LIPID, ALT, AST #### [facility] [address] [address] [address] Luz Burr Creatinine [Mass/Vol] 1.21 mg/dL Normal 0.66-1.25 [facility] Comment on above: Performed By: #### B MP, LIPID, ALT, AST #### [facility] [address] [address] [address] Luz Burr EGFR-AF GHANAIAN >60 Normal >=60 [facility] Comment on above: Performed By: #### B MP, LIPID, ALT, AST #### [facility] [address] [address] [address] Luz Burr EGFR-NON AF GHANAIAN 58 mL/min/1.73m2 Critically low >=60 [facility] Comment on above: Performed By: #### B MP, LIPID, ALT, AST #### [facility] [address] [address] [address] Luz Burr Globulin (S) [Mass/Vol] 3.7 g/dL Normal [facility] Comment on above: Performed By: #### B MP, LIPID, ALT, AST #### [facility] [address] [address] [address] Luz Burr Glucose [Mass/Vol] 169 mg/dL Critically high 74-106 [facility] Comment on above: Performed By: #### B MP, LIPID, ALT, AST #### [facility] [address] [place] [address] Dr. Luz Burr Potassium [Moles/Vol] 4.3 mmol/L Normal 3.4-5.0 [facility] Comment on above: Performed By: #### B MP, LIPID, ALT, AST #### [facility] [address] [place] [address] Dr. Luz Burr Protein [Mass/Vol] 7.5 g/dL Normal 6.1-8.2 [facility] Comment on above: Performed By: #### B MP, LIPID, ALT, AST #### [facility] [address] [place] [address] Dr. Luz Burr Sodium [Moles/Vol] 138 mmol/L Normal 137-145 [facility] Comment on above: Performed By: #### B MP, LIPID, ALT, AST #### [facility] [address] [place] [address] Dr. Luz Burr Urea nitrogen [Mass/Vol] 37.0 mg/dL Critically high 7.0-18.0 [facility] Comment on above: Performed By: #### B MP, LIPID, ALT, AST #### [facility] [address] [place] [address] Dr. Luz Burr Urea nitrogen/Creatinine [Mass ratio] 30.6 mg/mg Normal [facility] Comment on above: Performed By: #### B MP, LIPID, ALT, AST #### [facility] [address] [place] [address] Dr. Luz Burr TROPONIN, HIGH SENSITIVITYon 01-02-2022 HSTROP 101.8 pg/mL Critically high 4.0-42.2 [facility] Comment on above: Result Comment: CUT- OFF POINTS HAVE BEEN ESTABLISHED BASED ON THE FOURTH UNIVERSAL DEFINITIONS OF MYOCARDIAL INFARCTION. THE UPPER REFERENCE LIMIT (URL) OF TROPONIN, DEFINED THE 99TH PERCENTILE OF cTnI DISTRIBUTION IN A REFERENCE POPULATION, HAS BEEN CONFIRMED THE DECISION THRESHOLD FOR MS DIAGNOSIS. repeated Performed By: #### H STROPN #### [facility] [address], [place] [address] Dr. Luz Burr HSTROP 91.6 pg/mL Critically high 4.0-42.2 [facility] Comment on above: Result Comment: CUT- OFF POINTS HAVE BEEN ESTABLISHED BASED ON THE FOURTH UNIVERSAL DEFINITIONS OF MYOCARDIAL INFARCTION. THE UPPER REFERENCE LIMIT (URL) OF TROPONIN, DEFINED THE 99TH PERCENTILE OF cTnI DISTRIBUTION IN A REFERENCE POPULATION, HAS BEEN CONFIRMED THE DECISION THRESHOLD FOR MS DIAGNOSIS. repeated Performed By: #### H STROPN #### [facility] [address], [place] [address] Dr. Luz Burr XR CHEST 1 Von 01-02-2022 XR CHEST 1 V EXAM: XR CHEST 1 V HISTORY: Abdominal pain COMPARISON: None. TECHNIQUE: Single frontal view chest x-ray FINDINGS: No lobar consolidation, large pleural effusions, pneumothorax, or acute bony abnormality. Cardiac size unremarkable. IMPRESSION: No radiographic evidence for acute chest abnormality. Electronically authenticated by: SHELBY ARZATE Date: 2022-01-02 04:33 Normal [facility] XR LSPINE 2_3 VIEWSon 2021 XR [...] by: KACIE VALLE Date: 2021-12-17 10:15 Normal [facility] Tobacco Screening.on 022 Fall risk assessment a) No falls within the last year [facility] [place] 250 DO Work Phone: Tobacco use status CPHS b) No [facility] [place] 250 DO Work Phone: Vital Signs Date Time Vital Sign Value Performing Clinician Facility 02-18-2025 13:10-0400 Body mass index (BMI) [Ratio] 26.58 kg/m2 Jane Johnson DENTAL PATIENT COORDINATOR-ELECTROMEDICAL EQUIPMENT TECHNICIAN Work Phone: [facility] 02-18-2025 13:10-0400 Body weight 81.65 kg Jane Johnson DENTAL PATIENT COORDINATOR-ELECTROMEDICAL EQUIPMENT TECHNICIAN Work Phone: [facility] 02-18-2025 13:10-0400 Diastolic blood pressure 72 mm[Hg] Jane Johnson DENTAL PATIENT COORDINATOR-ELECTROMEDICAL EQUIPMENT TECHNICIAN Work Phone: [facility] 02-18-2025 13:10-0400 Heart rate 59 /min Jane Johnson DENTAL PATIENT COORDINATOR-ELECTROMEDICAL EQUIPMENT TECHNICIAN Work Phone: [facility] 02-18-2025 13:10-0400 SaO2% (BldA) [Mass fraction] 95 % Jane Johnson DENTAL PATIENT COORDINATOR-ELECTROMEDICAL EQUIPMENT TECHNICIAN Work Phone: [facility] 02-18-2025 13:10-0400 Systolic blood pressure 125 mm[Hg] Jane Johnson DENTAL PATIENT COORDINATOR-ELECTROMEDICAL EQUIPMENT TECHNICIAN Work Phone: [facility] 02-04-2025 14:53-0400 Body height 175.3 cm Robert Watts MD Work Phone: [facility] 02-04-2025 14:53-0400 Body mass index (BMI) [Ratio] 27.02 kg/m2 Robert Watts MD Work Phone: [facility] 02-04-2025 14:53-0400 Body weight 83.01 kg Robert Watts MD Work Phone: [facility] 02-04-2025 14:53-0400 Diastolic blood pressure 64 mm[Hg] Robert Watts MD Work Phone: [facility] 02-04-2025 14:53-0400 Heart rate 54 /min Robert Watts MD Work Phone: [facility] 02-04-2025 14:53-0400 SaO2% (BldA) [Mass fraction] 97 % Robert Watts MD Work Phone: [facility] 02-04-2025 14:53-0400 Systolic blood pressure 112 mm[Hg] Robert Watts MD Work Phone: [facility] 01-18-2025 11:55-0400 Body temperature 96.4 [degF] Keyla Garza MD Work Phone: [facility] 01-18-2025 11:55-0400 Diastolic blood pressure 63 mm[Hg] Keyla Garza MD Work Phone: [facility] 01-18-2025 11:55-0400 Heart rate 72 /min Keyla Garza MD Work Phone: [facility] 01-18-2025 11:55-0400 Respiratory rate 19 /min Keyla Garza MD Work Phone: [facility] 01-18-2025 11:55-0400 SaO2% (BldA) [Mass fraction] 94 % Keyla Garza MD Work Phone: [facility] 01-18-2025 11:55-0400 Systolic blood pressure 116 mm[Hg] Keyla Garza MD Work Phone: [facility] 01-17-2025 09:19-0400 Body height 175.3 cm Keyla Garza MD Work Phone: [facility] 01-17-2025 09:19-0400 Body mass index (BMI) [Ratio] 26.58 kg/m2 Keyla Garza MD Work Phone: [facility] 01-17-2025 09:19-0400 Body weight 81.65 kg Keyla Garza MD Work Phone: [facility] 11-19-2024 14:28-0500 Body height 175.3 cm Keyla Garza MD Work Phone: [facility] 11-19-2024 14:28-0500 Body mass index (BMI) [Ratio] 26.88 kg/m2 Keyla Garza MD Work Phone: [facility] 11-19-2024 14:28-0500 Body weight 82.56 kg Keyla Garza MD Work Phone: [facility] 11-19-2024 14:28-0500 Diastolic blood pressure 68 mm[Hg] Keyla Garza MD Work Phone: [facility] 11-19-2024 14:28-0500 Heart rate 66 /min Keyla Garza MD Work Phone: [facility] 11-19-2024 14:28-0500 SaO2% (BldA) [Mass fraction] 94 % Keyla Garza MD Work Phone: [facility] 11-19-2024 14:28-0500 Systolic blood pressure 118 mm[Hg] Keyla Garza MD Work Phone: [facility] 08-28-2024 08:51-0500 Body height 175.3 cm Robert Watts MD Work Phone: [facility] 08-28-2024 08:51-0500 Body mass index (BMI) [Ratio] 26.73 kg/m2 Robert Watts MD Work Phone: [facility] 08-28-2024 08:51-0500 Body weight 82.1 kg Robert Watts MD Work Phone: [facility] 08-28-2024 08:51-0500 Diastolic blood pressure 68 mm[Hg] Robert Watts MD Work Phone: [facility] 08-28-2024 08:51-0500 Heart rate 68 /min Robert Watts MD Work Phone: [facility] 08-28-2024 08:51-0500 SaO2% (BldA) [Mass fraction] 98 % Robert Watts MD Work Phone: [facility] 08-28-2024 08:51-0500 Systolic blood pressure 114 mm[Hg] Robert Watts MD Work Phone: [facility] 07-31-2024 09:17-0500 Body height 175.3 cm Chanda Wing MD Work Phone: [facility] 07-31-2024 09:17-0500 Body mass index (BMI) [Ratio] 26.29 kg/m2 Chadna Wing MD Work Phone: [facility] 07-31-2024 09:17-0500 Body weight 80.74 kg Chanda Wing MD Work Phone: [facility] 07-31-2024 09:17-0500 Diastolic blood pressure 64 mm[Hg] Chanda Wing MD Work Phone: [facility] 07-31-2024 09:17-0500 Heart rate 65 /min Chanda Wing MD Work Phone: [facility] 07-31-2024 09:17-0500 Systolic blood pressure 112 mm[Hg] Chanda Wing MD Work Phone: [facility] 05-08-2024 10:43-0400 Body height 175.3 cm [facility] 05-08-2024 10:43-0400 Body mass index (BMI) [Ratio] 26.58 kg/m2 [facility] 05-08-2024 10:43-0400 Body weight 81.65 kg [facility] 12-20-2023 09:52-0400 Body height 172.7 cm Chanda Wing MD Work Phone: [facility] 12-20-2023 09:52-0400 Body mass index (BMI) [Ratio] 27.83 kg/m2 Chadna Wing MD Work Phone: [facility] 12-20-2023 09:52-0400 Body weight 83.01 kg Chanda Wing MD Work Phone: [facility] 12-20-2023 09:52-0400 Diastolic blood pressure 74 mm[Hg] Chanda Wing MD Work Phone: [facility] 12-20-2023 09:52-0400 Heart rate 64 /min Chanda Wing MD Work Phone: [facility] 12-20-2023 09:52-0400 Systolic blood pressure 128 mm[Hg] Chanda Wing MD Work Phone: [facility] 06-14-2023 10:51-0400 Body height 175.26 cm Robert Bowen Houghton Work Phone: [facility] [place] 250 DO Work Phone: 06-14-2023 10:51-0400 Body mass index (BMI) [Ratio] 26.82 kg/m2 Robert Bowen Houghton Work Phone: ZI[facility]Lriwiiexha-Wyb[facility] [place] 250 DO Work Phone: 06-14-2023 10:51-0400 Body surface area Derived from formula 1.98 m2 Robert Bowen Mac Work Phone: CT-Mjzlpshsab-Xnptq [place] 250 DO Work Phone: 06-14-2023 10:51-0400 Body weight 82.37 kg Robert Bowen Houghton Work Phone: XL-Sezpxmeijv-Qjfeo [place] 250 DO Work Phone: 06-14-2023 10:51-0400 Diastolic blood pressure 72 mm[Hg] Robert Bowen Mac Work Phone: YB-Fkdjekytyz-Zxhsv [place] 250 DO Work Phone: 06-14-2023 10:51-0400 Heart rate 61 /min Robert Bowen Mac Work Phone: HF-Flhjnwubhm-Ulslh [place] 250 DO Work Phone: 06-14-2023 10:51-0400 Systolic blood pressure 114 mm[Hg] Maryen Jessi Houghton Work Phone: VK-Frccdgqmtn-Xjnnt [place] 250 DO Work Phone: 11-11-2022 14:10-0500 Body height 175.26 cm Rugen M Houghton Work Phone: [facility] 250 DO Work Phone: 11-11-2022 14:10-0500 Body mass index (BMI) [Ratio] 27.02 kg/m2 Rugen M Mac Work Phone: [facility] 250 DO Work Phone: 11-11-2022 14:10-0500 Body surface area Derived from formula 1.99 m2 Rugen M Houghton Work Phone: [facility] DO Work Phone: 11-11-2022 14:10-0500 Body weight 83.01 kg Rugen M Houghton Work Phone: [facility] DO Work Phone: 11-11-2022 14:10-0500 Diastolic blood pressure 78 mm[Hg] Rugen M Mac Work Phone: [facility] 250 DO Work Phone: 11-11-2022 14:10-0500 Heart rate 55 /min Rugen M Houghton Work Phone: [facility] 250 DO Work Phone: 11-11-2022 14:10-0500 Systolic blood pressure 132 mm[Hg] Rugen M Houghton Work Phone: [facility] 250 DO Work Phone: 11-04-2022 11:27-0500 Body temperature 98.3 [degF] MD Jones Mac Work Phone: [facility] 11-04-2022 11:27-0500 Diastolic blood pressure 75 mm[Hg] MD Jones Mac Work Phone: [facility] 11-04-2022 11:27-0500 Heart rate 56 /min MD Robert Watts Work Phone: [facility] 11-04-2022 11:27-0500 Respiratory rate 18 /min MD Robert Watts Work Phone: [facility] 11-04-2022 11:27-0500 SaO2% (BldA) [Mass fraction] 95 % MD Robert Watts Work Phone: [facility] 11-04-2022 11:27-0500 Systolic blood pressure 120 mm[Hg] MD Robert Watts Work Phone: [facility] 11-04-2022 04:23-0500 Body weight 82.6 kg MD Robert Watts Work Phone: [facility] 11-03-2022 13:54-0500 Body height 175.26 cm MD Robert Watts Work Phone: [facility] 09-30-2022 08:49-0500 Body height 175.26 cm Robert Bowen Mac Work Phone: [facility] DO Work Phone: 09-30-2022 08:49-0500 Body mass index (BMI) [Ratio] 27.02 kg/m2 Rugen M Houghton Work Phone: [facility] 250 DO Work Phone: 09-30-2022 08:49-0500 Body surface area Derived from formula 1.99 m2 Rugen M Mac Work Phone: [facility] 250 DO Work Phone: 09-30-2022 08:49-0500 Body weight 83.01 kg Rugen M Mac Work Phone: [facility] 250 DO Work Phone: 09-30-2022 08:49-0500 Diastolic blood pressure 64 mm[Hg] Rugen M Houghton Work Phone: [facility] DO Work Phone: 09-30-2022 08:49-0500 Heart rate 62 /min Rugen Jessi Mac Work Phone: [facility] 250 DO Work Phone: 09-30-2022 08:49-0500 Systolic blood pressure 122 mm[Hg] Rugen Jessi Mac Work Phone: [facility] 250 DO Work Phone: 03-15-2022 14:16-0400 Body height 175.26 cm Rugen Jessi Houghton Work Phone: [facility] 250 DO Work Phone: 03-15-2022 14:16-0400 Body mass index (BMI) [Ratio] 27.47 kg/m2 Robert Bowen Houghton Work Phone: [facility] 250 DO Work Phone: 03-15-2022 14:16-0400 Body surface area Derived from formula 2 m2 Rugen Jessi Mac Work Phone: [facility] 250 DO Work Phone: 03-15-2022 14:16-0400 Body weight 84.37 kg Robert Bowen Houghton Work Phone: [facility] 250 DO Work Phone: 03-15-2022 14:16-0400 Diastolic blood pressure 80 mm[Hg] Rugen Jessi Houghton Work Phone: [facility] DO Work Phone: 03-15-2022 14:16-0400 Heart rate 60 /min Rugen Jessi Houghton Work Phone: [facility] DO Work Phone: 03-15-2022 14:16-0400 Systolic blood pressure 130 mm[Hg] Rugen M Houghton Work Phone: [facility] DO Work Phone: 10-28-2021 11:21-0500 Body height 175.26 cm Rugen M Houghton Work Phone: [facility] DO Work Phone: 10-28-2021 11:21-0500 Body mass index (BMI) [Ratio] 27.17 kg/m2 Rugen M Houghton Work Phone: [facility] 250 DO Work Phone: 10-28-2021 11:21-0500 Body surface area Derived from formula 1.99 m2 Rugen M Houghton Work Phone: [facility] DO Work Phone: 10-28-2021 11:21-0500 Body weight 83.46 kg Rugen M Mac Work Phone: [facility] DO Work Phone: 10-28-2021 11:21-0500 Diastolic blood pressure 72 mm[Hg] Rugen M Mac Work Phone: [facility] DO Work Phone: 10-28-2021 11:21-0500 Heart rate 76 /min Rugen M Mac Work Phone: [facility] DO Work Phone: 10-28-2021 11:21-0500 Systolic blood pressure 108 mm[Hg] Rugen M Houghton Work Phone: [facility] DO Work Phone: Encounters Encounter Date Encounter Type Care Provider Facility Start: 02-18-2025 End: 02-18-2025 Office outpatient visit 25 minutes Jane Johnson DENTAL PATIENT COORDINATOR-ELECTROMEDICAL EQUIPMENT TECHNICIAN Work Phone: [facility] Comment on above: Atrial fibrillation, persistent (Multi) (Primary Dx); Arteriosclerotic cardiovascular disease (ASCVD); Presence of Watchman left atrial appendage closure device Start: 02-18-2025 End: 02-18-2025 ambulatory JANE C [facility] Start: 02-04-2025 End: 02-04-2025 Office outpatient visit 25 minutes Robert Watts MD Work Phone: [facility] Comment on above: Paroxysmal atrial fi brillation (CMS/HCC) (Primary Dx); 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) Start: 02-04-2025 End: 02-04-2025 ambulatory ROBERT WATTS Not Available Start: 01-17-2025 End: 01-18-2025 Evaluation and management of inpatient Keyla Garza MD Work Phone: [facility] Comment on above: Paroxysmal atrial fi brillation (Multi) (Primary Dx); At risk for stroke; At risk for falling; History of bilateral knee replacement; Preop testing; Atrial fibrillation, persistent (Multi) Start: 01-17-2025 End: 01-18-2025 Patient encounter status Keyla Garza MD Work Phone: [facility] Work Phone: Start: 01-11-2025 End: 01-11-2025 Clinisync Result Encounter Generic External Data Provider [facility] External Department Unsolicited Start: 01-11-2025 End: 01-11-2025 Clinisync Result Encounter Generic External Data Provider [facility] External Department Unsolicited Start: 01-11-2025 End: 01-11-2025 Subsequent hospital visit by physician Xenia [id number] 1 [facility] Comment on above: Paroxysmal atrial fi brillation (Multi) Start: 01-11-2025 End: 01-11-2025 ambulatory KEYLA GARZA [facility] Start: 01-01-2025 End: 01-01-2025 ambulatory ROBERT WATTS [facility] Start: 11-19-2024 Encounter for other preprocedural examination KEYLA GARZA [facility] Start: 11-19-2024 End: 11-19-2024 Office outpatient new 45 minutes Keyla Garza MD Work Phone: [facility] Comment on above: Paroxysmal atrial fi brillation (Multi) (Primary Dx); At risk for stroke; At risk for falling; History of bilateral knee replacement; Preop testing; Atrial fibrillation, persistent (Multi) Start: 11-19-2024 End: 11-19-2024 Patient encounter status Keyla Garza MD Work Phone: [facility] Work Phone: Start: 11-19-2024 End: 11-19-2024 ambulatory KEYLA GARZA [facility] Start: 11-19-2024 End: 11-19-2024 Encounter for other preprocedural examination KEYLA GARZA [facility] Start: 11-03-2024 End: 11-03-2024 Refill Robert Watts MD Work Phone: [facility] Comment on above: Hypertension, unspec ified type (CMS/HCC); Hypercholesterolemia (CMS/HCC) Start: 08-28-2024 End: 08-28-2024 Office outpatient visit 25 minutes Robert Watts MD Work Phone: [facility] Comment on above: Primary hypertension (CMS/HCC) (Primary Dx); Paroxysmal atrial fibrillation (CMS/HCC) Start: 08-28-2024 End: 08-28-2024 ambulatory ROBERT WATTS Not Available Start: 07-31-2024 End: 07-31-2024 Office outpatient visit 25 minutes Chanda Wing MD Work Phone: [facility] Comment on above: Arteriosclerotic car diovascular disease (ASCVD); Paroxysmal atrial fibrillation (Multi); History of PTCA; Mixed hyperlipidemia; BMI 26.0-26.9,adult Start: 07-31-2024 End: 07-31-2024 ambulatory [facility] Start: 06-21-2024 End: 06-21-2024 Bamboo flowsheet Marquez Simmons DO Work Phone: [facility] Start: 06-21-2024 End: 06-21-2024 Bamboo flowsheet Marquez Paula Simmons DO Work Phone: [facility] Start: 06-21-2024 End: 06-21-2024 ambulatory MARQUEZ SIMMONS Not Available Start: 06-13-2024 End: 06-13-2024 Bamboo flowsheet Lanny B Apling RN LPN CNA Work Phone: [facility] Start: 06-13-2024 End: 06-13-2024 Bamboo flowsheet Lanny B Apling RN LPN CNA Work Phone: [facility] Start: 06-13-2024 End: 06-13-2024 ambulatory LANNY B APLING Not Available Start: 06-13-2024 End: 06-13-2024 Postop follow up visit related to original px Lanny B Apling RN LPN CNA Work Phone: [facility] Comment on above: S/P carpal tunnel re lease (Primary Dx) Start: 05-16-2024 End: 05-16-2024 Bamboo flowsheet Lanny B Apling RN LPN CNA Work Phone: [facility] Start: 05-16-2024 End: 05-16-2024 Bamboo flowsheet Lanny B Apling RN LPN CNA Work Phone: [facility] Start: 05-16-2024 End: 05-16-2024 Postop follow up visit related to original px Lanny B Apling RN LPN CNA Work Phone: [facility] Comment on above: S/P carpal tunnel re lease (Primary Dx) Start: 05-16-2024 End: 05-16-2024 ambulatory LANNY B APLING Not Available Start: 05-08-2024 End: 05-08-2024 Refnaveen Child RN LPN CNA Work Phone: [facility] Comment on above: Post-operative pain (Primary Dx) Start: 05-03-2024 End: 05-03-2024 ambulatory VALORIE HOU Not Available Start: 05-02-2024 End: 05-02-2024 ambulatory LANNY SEVERINO Not Available Start: 04-30-2024 End: 04-30-2024 ambulatory RUGEN M MAC Not Available Start: 04-16-2024 End: 04-16-2024 ambulatory TRIXIE NIELSON Not Available Start: 03-27-2024 Patient encounter procedure Cecilio Child NP Work Phone: [facility] Start: 03-27-2024 End: 03-27-2024 ambulatory RUGEN M MAC Not Available Start: 02-28-2024 End: 02-28-2024 ambulatory RUGEN M MAC Not Available Start: 12-20-2023 End: 12-20-2023 Office outpatient visit 25 minutes Chanda Wing MD Work Phone: [facility] Comment on above: Arteriosclerotic car diovascular disease (ASCVD) (Primary Dx); History of PTCA; Paroxysmal atrial fibrillation (CMS/HCC); Mixed hyperlipidemia; BMI 27.0-27.9,adult; Never smoked tobacco; High risk medication use Start: 12-20-2023 End: 12-20-2023 ambulatory [facility] Ambulatory Start: 06-14-2023 Office outpatient vi sit 25 minutes Rugen M Houghton Work Phone: [facility] DO Work Phone: Start: 12-06-2022 End: 12-07-[address] CHANDA WING Facility: Start: 11-26-2022 Rx Renewal Rugen M Houghton Work Phone: [facility] DO Work Phone: Start: 11-26-2022 Rx Renewal Rugen M Houghton Work Phone: [facility] DO Work Phone: Start: 11-11-2022 Patient encounter procedure Rugen M Houghton Work Phone: [facility] DO Work Phone: Start: 11-02-2022 End: 11-04-2022 Evaluation and management of inpatient Rugen M Houghton Facility:[facility] Start: 11-02-2022 End: 11-04-2022 Evaluation and management of inpatient MD Robert Watts Work Phone: [facility] Work Phone: Start: 10-25-2022 Rx Renewal Rugen M Houghton Work Phone: [facility] DO Work Phone: Start: 09-30-2022 Office outpatient vi sit 25 minutes Rugen M Houghton Work Phone: [facility] DO Work Phone: Start: 06-07-2022 Rx Renewal Rugen M Houghton Work Phone: [facility] DO Work Phone: Start: 05-20-2022 Rx Renewal Rugen M Houghton Work Phone: [facility] DO Work Phone: Start: 03-15-2022 Office outpatient vi sit 25 minutes Rugen M Mac Work Phone: [facility] DO Work Phone: Start: 01-02-2022 End: 01-02-[address] ROBERT WATTS Facility:[facility] Start: 12-17-2021 End: 12-18-[address] ROBERT WATTS Facility:[facility] Start: 10-28-2021 Office outpatient vi sit 25 minutes Rugen M Houghton Work Phone: [facility] DO Work Phone: Start: 10-28-2021 Patient encounter procedure Rugen M Houghton Work Phone: [facility] DO Work Phone: Start: 08-31-2021 Rx Renewal Chanda Wing MD Work Phone: [facility] 250 DO Work Phone: Procedures Date Procedure Procedure Detail Performing Clinician Start: 01-17-2025 Basic metabolic pane l calcium total Danielle Cisneros MD Work Phone: Start: 01-17-2025 Electrophysiology study Keyla Garza MD Work Phone: Start: 01-17-2025 End: 01-17-2025 Coagulation time activated Keyla hernandez MD Work Phone: Start: 01-17-2025 VERAB/VERIFY ABORH Ever Garza MD Work Phone: Start: 01-11-2025 Ct heart contrast ev al cardiac structure&morph Keyla Garza MD Work Phone: Start: 01-11-2025 CT WATCHMAN FULL CONTRAST Generic External Data Provider Start: 11-19-2024 History of operative procedure on knee History of bilateral knee replacement Keyla Garza MD Work Phone: Start: 07-31-2024 Ecg routine ecg w/le ast 12 lds w/i&r Chanda Wing MD Work Phone: Start: 06-21-2024 Oph bmtry prtl coher intrfrmtry io lens pwr thomas Marquez Simmons DO Work Phone: Start: 06-21-2024 End: 06-21-2024 Ophth medical xm&eval compre new pt 1/> vst Age-related nuclear cataract of both eyes Marquez Simmons DO Work Phone: Comment on above: Age-related nuclear cataract of both eyes (Primary Dx) Start: 12-20-2023 Alanine aminotransfe rase [Enzymatic activity/volume] in Serum or Plasma CHANDA WING Start: 12-20-2023 Aspartate aminotrans ferase [Enzymatic activity/volume] in Serum or Plasma CHANDA WING Start: 12-20-2023 Basic metabolic 2000 panel - Serum or Plasma CHANDA WING Start: 12-20-2023 CBC panel - Blood by Automated count CHANDA WING Start: 12-20-2023 Lipid panel HERNANDEZ ROB BRAMBILA Start: 12-20-2023 ECG 12-LEAD CHANDA BRAMBILA Start: 12-20-2023 Ecg routine ecg w/le ast 12 lds w/i&r Chanda Wing MD Work Phone: Start: 10-06-2023 History of percutane ous transluminal coronary angioplasty History of PTCA Chanda Wing MD Work Phone: Arthroplasty of knee Robert M Houghton Work Phone: Cardiac catheterization Marye n M Houghton Work Phone: Colonoscopy Rugen M Mac Work Phone: History of decompres susi of median nerve S/P carpal tunnel release Lanny Severino RN LPN CNA Work Phone: History of decompres susi of median nerve S/P carpal tunnel release Lanny Severino RN LPN CNA Work Phone: History of operative procedure on knee History of bilateral knee replacement Keyla Garza MD Work Phone: History of percutane ous transluminal coronary angioplasty History of PTCA Maryen M Mac Work Phone: History of percutane ous transluminal coronary angioplasty History of PTCA Chanda Wing MD Work Phone: History of percutane ous transluminal coronary angioplasty History of PTCA Chanda Wing MD Work Phone: Laparoscopy Robert M Houghton Work Phone: Percutaneous translu khang coronary angioplasty Maryen M Mac Work Phone: Procedure on back Robert Bowen Al da Work Phone: Plan of Treatment Date Care Activity Detail Author Start: 12-26-2028 DTaP,Tdap and Td Vaccines (2 - Td or Tdap) DTaP,Tdap and Td Vaccines (2 - Td or Tdap) [facility] [employer] [facility] Start: 12-26-2028 DTaP/Tdap/Td Vaccines (2 - Td or Tdap) DTaP/Tdap/Td Vaccines (2 - Td or Tdap) [facility] Start: 08-07-2025 End: 08-07-2025 Patient encounter procedure 08/07/2025 9:30 AM EST Office Visit [facility] [address] [facility] 110 [place] [address] Stephen Ogden MD 112 [facility] 110 [place] [address] [facility] Start: 05-21-2025 End: 05-21-2025 Patient encounter procedure 05/21/2025 12:30 PM EDT Appointment [address] [place] [address] [facility] Start: 05-20-2025 End: 11-19-2025 CT watchman full contrast CT watchman full contrast Imaging Routine Paroxysmal atrial fibrillation (Multi) At risk for stroke At risk for falling History of bilateral knee replacement Preop testing Atrial fibrillation, persistent (Multi) Expected: 05/20/2025, Expires: 11/19/2025 [facility] Work Phone: Comment on above: Expected: 05/20/2025, Expires: Start: 03-28-2025 Medicare Annual Wellness Visit Medicare Annual Wellness Visit (AWV) [facility] Start: 03-27-2025 Medicare Annual Wellness (AWV) Medicare Annual Wellness (AWV) [facility] Start: 03-14-2025 End: 03-14-2025 Patient encounter procedure 03/14/2025 9:30 AM EDT Office Visit [place] [address] [address] [facility] 250 [place] [address] Chanda Wing MD [address] [facility] [address] [place] [address] [facility] Start: 02-26-2025 End: 02-26-2025 Patient encounter procedure [facility] Start: 02-18-2025 End: 02-18-2025 Patient encounter procedure 02/18/2025 1:00 PM EDT Office Visit [facility] [address] [place] [address] Jane Johnson, DENTAL PATIENT COORDINATOR-ELECTROMEDICAL EQUIPMENT TECHNICIAN [address] [place] [address] [facility] Start: 02-15-2025 End: 02-15-2025 Patient encounter procedure 02/15/2025 11:30 AM EDT Office Visit [facility] [address] [place] [address] Jane Johnson, DENTAL PATIENT COORDINATOR-ELECTROMEDICAL EQUIPMENT TECHNICIAN [address] [place] [address] [facility] Start: 01-17-2025 End: 01-17-2025 Admission to same day surgery center 01/17/2025 11:30 AM EDT - 01/17/2025 4:30 PM EDT Surgery [facility] [address] [id number] [place] [address] [place] [address] [place] [address] Ablation A-Fib Paroxysmal [63754 (CPT )] [facility] Comment on above: Ablation A-Fib Paroxysmal [51838 (CPT )] Start: 01-17-2025 Subsequent hospital visit by physician [facility] Comment on above: Paroxysmal atrial fibrillation (Multi); At risk for stroke; At risk for falling; History of bilateral knee replacement; Preop testing; Atrial fibrillation, persistent (Multi) Start: 12-27-2024 End: 11-19-2025 Blood type and Indirect antibody screen panel - Blood Type And Screen Is this order related to or an upcoming surgery? Yes; Where will this surgery/delivery be performed? [facility]; What is the date of the surgery? 01/17/2025; Has this patient ever had a transfusion? Unknown; I... Lab Routine Paroxysmal atrial fibrillation (Multi) At risk for stroke At risk for falling History of bilateral knee replacement Preop testing Atrial fibrillation, persistent (Multi) Expected: 12/27/2024 (Approximate), Expires: 11/19/2025 [facility] Work Phone: Comment on above: Expected: 12/27/2024 (Approximate), Expi res: 11/19/2025 Start: 11-19-2024 End: 11-19-2025 Basic metabolic 2000 panel - Serum or Plasma Basic Metabolic Panel Lab Routine Paroxysmal atrial fibrillation (Multi) At risk for stroke At risk for falling History of bilateral knee replacement Preop testing Atrial fibrillation, persistent (Multi) Expected: 11/19/2024 (Approximate), Expires: 11/19/2025 [facility] Work Phone: Comment on above: Expected: 11/19/2024 (Approximate), Expi res: 11/19/2025 Start: 11-19-2024 End: 11-19-2025 CBC panel - Blood by Automated count CBC Lab Routine Paroxysmal atrial fibrillation (Multi) At risk for stroke At risk for falling History of bilateral knee replacement Preop testing Atrial fibrillation, persistent (Multi) Expected: 11/19/2024, Expires: 11/19/2025 [facility] Work Phone: Comment on above: Expected: 11/19/2024, Expires: Start: 11-19-2024 COVID-19 Vaccine () COVID-19 Vaccine () [facility] Start: 11-19-2024 End: 11-19-2025 Renal function 2000 panel - Serum or Plasma Renal Function Panel Lab Routine Paroxysmal atrial fibrillation (Multi) At risk for stroke At risk for falling History of bilateral knee replacement Preop testing Atrial fibrillation, persistent (Multi) Expected: 11/19/2024 (Approximate), Expires: 11/19/2025 [facility] Work Phone: Comment on above: Expected: 11/19/2024 (Approximate), Expi res: 11/19/2025 Start: 09-25-2024 End: 09-25-2024 Patient encounter procedure 09/25/2024 9:00 AM EST Office Visit [facility] [address] [facility] [address] [place] [address] Robert Watts MD [address] [facility] 110 [place] [address] [facility] Start: 08-28-2024 End: 08-28-2024 Patient encounter procedure 08/28/2024 9:00 AM EST Office Visit [facility] [address] [facility] [address] [place] [address] Robert Watts MD [address] [facility] 110 [place] [address] [facility] Start: 07-26-2024 End: 07-26-2024 Patient encounter procedure 07/26/2024 9:20 AM EST Procedure Visit [facility] Marquez Simmons, DO [address] [place] [address] [facility] Start: 07-12-2024 End: 07-12-2024 Patient encounter procedure 07/12/2024 8:30 AM EDT Procedure Visit [facility] Marquez Long DO [address] [place] [address] [facility] Start: 06-27-2024 End: 06-27-2024 Patient encounter procedure 06/27/2024 9:30 AM EDT Office Visit [address] [id number] Chanda Wing MD [facility] [facility], [address] [place], [place] [id number] [facility] Start: 06-21-2024 End: 06-21-2024 Patient encounter procedure [facility] Comment on above: Arrived Start: 06-13-2024 End: 06-13-2024 Patient encounter procedure 06/13/2024 8:00 AM EDT Office Visit [facility] [address] [place] [address] Lanny Severino NP [address] [place] [address] [facility] Start: 05-20-2024 Influenza vaccination [facility] Start: 05-16-2024 End: 05-16-2024 Patient encounter procedure [facility] Comment on above: S/P carpal tunnel release (Primary Dx) Start: 05-09-2024 End: 05-09-2024 Patient encounter procedure 05/09/2024 10:30 AM EDT Procedure Visit [facility] Valorie Hou DO [address] [place] [address] [facility] Start: 05-09-2024 End: 05-09-2024 Neuroplasty &/transpos median nrv carpal tunne RELEASE CARPAL TUNNEL right carpal tunnel syndrome 05/09/2024 10:20 AM EDT [facility] Start: 12-20-2023 End: 12-19-2024 Alanine aminotransferase [Enzymatic activity/volume] in Serum or Plasma by With P-5'-P Alanine Aminotransferase Lab Routine 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 Paroxysmal atrial fibrillation (CMS/HCC) Mixed hyperlipidemia Expected: 12/20/2023 (Approximate), Expires: 12/19/2024 [facility] Service Area Work Phone: Comment on above: Expected: 12/20/2023 (Approximate), Expi res: 12/19/2024 Start: 12-20-2023 End: 12-19-2024 Aspartate aminotransferase [Enzymatic activity/volume] in Serum or Plasma by With P-5'-P Aspartate Aminotransferase Lab Routine 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 Paroxysmal atrial fibrillation (CMS/HCC) Mixed hyperlipidemia Expected: 12/20/2023 (Approximate), Expires: 12/19/2024 [facility] Work Phone: Comment on above: Expected: 12/20/2023 (Approximate), Expi res: 12/19/2024 Start: 12-20-2023 End: 12-19-2024 Basic metabolic 2000 panel - Serum or Plasma Basic Metabolic Panel Lab Routine 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 Paroxysmal atrial fibrillation (CMS/HCC) Mixed hyperlipidemia Expected: 12/20/2023 (Approximate), Expires: 12/19/2024 [facility] Work Phone: Comment on above: Expected: 12/20/2023 (Approximate), Expi res: 12/19/2024 Start: 12-20-2023 End: 12-19-2024 CBC panel - Blood by Automated count CBC Lab Routine 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 Paroxysmal atrial fibrillation (CMS/HCC) Mixed hyperlipidemia Expected: 12/20/2023 (Approximate), Expires: 12/19/2024 [facility] Work Phone: Comment on above: Expected: 12/20/2023 (Approximate), Expi res: 12/19/2024 Start: 12-20-2023 End: 12-19-2024 Lipid 1996 panel - Serum or Plasma Lipid Panel Lab Routine 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 Paroxysmal atrial fibrillation (CMS/HCC) Mixed hyperlipidemia Expected: 12/20/2023 (Approximate), Expires: 12/19/2024 [facility] Work Phone: Comment on above: Expected: 12/20/2023 (Approximate), Expi res: 12/19/2024 Start: 10-22-2023 COVID-19 Vaccine ( season) COVID-19 Vaccine ( season) [facility] Start: 02-03-2023 Adult BMI Screening Adult BMI Screening [facility] Start: 12-02-2022 FUV, Provider: Chanda Wing, Status: Pen, Time: 11:00 AM FUV, Provider: Chanda Wing, Status: Pen, Time: 11:00 AM -[facility] 250 DO Work Phone: Start: 11-04-2022 [facility] Start: 11-02-2022 Hospital admission [facility] Start: 10-19-2022 [facility], Provider: Chanda Wing, Status: Pen, Time: 8:00 AM [facility], Provider: Chanda Wing, Status: Pen, Time: 8:00 AM [facility] 250 DO Work Phone: Start: 09-30-2022 FUV, Provider: Chanda Wing, Status: Pen, Time: 9:00 AM FUV, Provider: Chanda Wing, Status: Pen, Time: 9:00 AM [facility] 250 DO Work Phone: Start: 05-05-2022 FUV, Provider: Chanda Wing, Status: Pen, Time: 10:30 AM FUV, Provider: Chanda Wing, Status: Pen, Time: 10:30 AM -[facility] 250 DO Work Phone: Start: 10-28-2021 FUV, Provider: Chanda Wing, Status: Pen, Time: 11:00 AM FUV, Provider: Chanda Wing, Status: Pen, Time: 11:00 AM [facility] 250 DO Work Phone: Start: 2019 RSV High Risk: (Elderly (60+) or Population) (1 - 1-dose 75+ series) RSV High Risk: (Elderly (60+) or Population) (1 - 1-dose 75+ series) [facility] Start: 2009 Fall Risk Screening Fall Risk Screening [facility] Start: 1994 Administration of varicella zoster vaccine Zoster (Shingles) Vaccine (1 of 2) [facility] Start: 1994 Zoster Vaccines (1 of 2) Zoster Vaccines (1 of 2) [facility] Start: 1962 Diabetes mellitus screening Diabetes Screening [facility] Start: 1962 Hepatitis C screening Hepatitis C Screening [facility] Start: 1956 Depression Screening Depression Screening [facility] Start: 1956 Tobacco Screening Tobacco Screening [facility] Start: 1944 Lipid panel Lipid Panel [facility] Start: 1944 Medicare Annual Wellness Visit [facility] End: 01-17-2025 Abo/Rh Group Test Abo/Rh Group Test Lab STAT STAT (Lab) for 1 Occurrences starting 01/17/2025 until 01/17/2025 [facility] Work Phone: Comment on above: STAT (Lab) for 1 Occurrences starting until 01/17/2025 End: 11-19-2025 CT watchman full contrast CT watchman full contrast Imaging Routine Paroxysmal atrial fibrillation (Multi) At risk for stroke At risk for falling History of bilateral knee replacement Preop testing Atrial fibrillation, persistent (Multi) 1 Occurrences starting 11/19/2024 until 11/19/2025 [facility] Work Phone: Comment on above: 1 Occurrences starting 11/19/2024 until 11/19/2025 ECG 12 lead (Clinic Performed) ECG 12 lead (Clinic Performed) ECG Routine Paroxysmal atrial fibrillation (Multi) At risk for stroke At risk for falling History of bilateral knee replacement Preop testing Atrial fibrillation, persistent (Multi) 11/19/2024 2:00 PM EST [facility] Work Phone: ECG 12 lead (Clinic Performed) ECG 12 lead (Clinic Performed) ECG Routine Atrial fibrillation, persistent (Multi) 02/18/2025 1:00 PM EDT [facility] Work Phone: End: 01-17-2025 Electrocardiogram - Post Ablation [facility] Work Phone: Comment on above: Once for 1 Occurrences starting 01/18/20 25 until 01/17/2025 As needed until disc ontinued starting 01/17/2025 Ephys evl trnsptl tx atrial fib isolat pulm vein [facility] Clinical Marketer Patient Education Atrial Fibrillation (DC ) [facility] Work Phone: Patient referral [facility] Work Phone: Immunizations Immunization Date Immunization Notes Care Provider Fa cili 05-22-2024 influenza, high dose seasonal, preservative-free Robert Watts MD Work Phone: [facility] 05-31-2023 Fluad Quadrivalent 0 .5 ML Intramuscular Prefilled Syringe Rugen M Mac Work Phone: [facility] 250 DO Work Phone: 05-31-2023 influenza virus vacc ine, unspecified formulation Cecilio Child NP Work Phone: [facility] 06-19-2022 influenza, injectabl e, quadrivalent, preservative free Rugen M Houghton Work Phone: [facility] 06-02-2022 Moderna COVID-19 Biv al Booster 50 MCG/0.5ML Intramuscular Suspension Rugen M Mac Work Phone: [facility] 250 DO Work Phone: 05-26-2022 Fluzone High-Dose Quadrivalent 0.7 ML Intramuscular Suspension Prefilled Syringe Rugen M Houghton Work Phone: [facility] 12-22-2021 Moderna COVID-19 Vac cine 100 MCG/0.5ML Intramuscular Suspension Rugen M Houghton Work Phone: [facility] 250 DO Work Phone: 07-13-2021 Moderna COVID-19 Vac cine 100 MCG/0.5ML Intramuscular Suspension Rugen M Houghton Work Phone: [facility] 250 DO Work Phone: 06-22-2021 Influenza, High-dose Seasonal, Quadrivalent, Preservative Free Cecilio Child RN LPN CNA Work Phone: [facility] 06-19-2021 influenza, seasonal, injectable Rugen M Houghton Work Phone: [facility] 250 DO Work Phone: Comment on above: Series: 12-10-2020 Moderna COVID-19 Vac cine 100 MCG/0.5ML Intramuscular Suspension Rugen M Houghton Work Phone: [facility] 250 DO Work Phone: 11-12-2020 Moderna COVID-19 Vac cine 100 MCG/0.5ML Intramuscular Suspension Rugen M Houghton Work Phone: [facility] 250 DO Work Phone: 05-23-2020 Influenza, High-dose Seasonal, Quadrivalent, Preservative Free Cecilio Child RN LPN CNA Work Phone: [facility] 05-20-2020 influenza, high dose seasonal, preservative-free Rugen M Houghton Work Phone: [facility] 250 DO Work Phone: 05-28-2019 influenza, high dose seasonal, preservative-free Rugen M Mac Work Phone: [facility] 12-26-2018 tetanus toxoid, redu miranda diphtheria toxoid, and acellular pertussis vaccine, adsorbed Rugen M Mac Work Phone: [facility] 06-23-2018 influenza, high dose seasonal, preservative-free Cecilio Child RN LPN CNA Work Phone: [facility] 06-23-2018 Influenza, High-dose Seasonal, Quadrivalent, Preservative Free Cecilio Child RN LPN CNA Work Phone: [facility] 06-19-2018 influenza, high dose seasonal, preservative-free Rugen M Houghton Work Phone: [facility] 250 DO Work Phone: 06-19-2018 pneumococcal conjuga te vaccine, 13 valent Rugen M Houghton Work Phone: [facility] 06-30-2017 pneumococcal conjuga te vaccine, 13 valent Rugen M Mac Work Phone: [facility] 250 DO Work Phone: 06-06-2017 influenza, injectabl e, quadrivalent, preservative free Rugen M Houghton Work Phone: [facility] 06-01-2017 influenza, high dose seasonal, preservative-free Cecilio Child RN LPN CNA Work Phone: [facility] 05-23-2017 pneumococcal conjuga te vaccine, 13 valent Rugen M Houghton Work Phone: [place] [address] DO Work Phone: 01-19-2016 pneumococcal polysaccharide vaccine, 23 valent Rugen M Mac Work Phone: [facility] 09-24-2009 novel influenza-H1N1 -09, preservative-free, injectable Rugen M Houghton Work Phone: [place] [address] DO Work Phone: Payers Date Payer Category Payer Medicaid [employer] MEDICARE A DVANTAGE [id number] 2022 Medicare [id number] 2022 Self-pay [id number] 2021 Medicare [id number] 2021 Medicare (Managed Care) [employer] GO NATTY[employer] MEDICARE [id number] 1959 Private Health Insurance [id number] 1944 Unknown [id number] 2.16.840.1.868114.3.579.2. 593 1944 Unknown [id number] 2.16840.1.924665.3.579.2. 593 1944 Unknown [id number] 2.16.840.1.154912.3.579.2. 593 1944 Unknown [id number] 2.16.840.1.108947.3.579.2. 1244 1944 Unknown [id number] 2.16.840.1.710003.3.579.2. 1244 1944 Unknown [id number] 2.16.840.1.354544.3.579.2. 1246 1944 Unknown [id number] 2.16.840.1.780661.3.579.2. 1246 1944 Unknown [id number] 2.16.840.1.067865.3.579.2. 1259 1944 Unknown [id number] 2.16.840.1.729533.3.579.2. 1259 1944 Unknown [id number] 2.16.840.1.838644.3.579.2. 1259 1944 Unknown [id number] 2.16.840.1.324251.3.579.2. 1259 1944 Unknown [id number] 2.16.840.1.314985.3.579.2. 1259 1944 Unknown [id number] 2.16.840.1.955927.3.579.2. 1259 1944 Unknown [id number] 2.16.840.1.866948.3.579.2. 1259 1944 Unknown [id number] 2.16.840.1.606196.3.579.2. 1259 1944 Unknown [id number] 2.16.840.1.267966.3.579.2. 1259 1944 Unknown [id number] 2.16.840.1.245321.3.579.2. 1259 1944 Unknown [id number] 2.16.840.1.638593.3.579.2. 1259 1944 Unknown [id number] 2.16.840.1.264824.3.579.2. 1245 1944 Unknown [id number] 2.16.840.1.530862.3.579.2. 1245 1944 Unknown [id number] 2.16.840.1.414892.3.579.2. 1245 Unknown [employer] Unknown [id number] 2.16.840.1.316564.3.579.2. 531 Social History Date Type Detail Facility Start: 12-20-2023 End: 02-18-2025 Caffeine use Caffeine use -[facility] 250 DO Work Phone: Start: 11-02-2022 End: 12-20-2023 Tobacco smoking status NHIS Never smoked tobacco (finding) [facility] Start: 1945 Sex Assigned At Male [facility] Start: 02-07-2023 End: 12-20-2023 Tobacco use and exposure Smokeless tobacco non-user [facility] Work Phone: Start: 12-20-2023 End: 02-18-2025 Alcohol intake Lifetime non-drinker (finding) [facility] Work Phone: Start: 12-20-2023 End: 02-18-2025 Tobacco use panel [facility] Work Phone: Start: 1945 [facility] Start: 12-10-2023 End: 02-18-2025 Exposure to SARS-CoV-2 (event) Not sure [facility] Start: 01-21-2023 Alcohol Comment Caffeine Intake: non e [facility] Start: 05-08-2024 Alcoholic beverage intake Ex-drinker (finding) [facility] Medical Equipment Procedure Code Equipment Code Equipment Original Text Equipment Identifier Dates [id number] FDA Start: 06-16-2020 Device, Closure, 20mm Watchman Flx Pro Laac - [id number] Start: 01-17-2025 Goals Date Patient Goal Desired Activity /State Personal health goal Comment on above: Formatting of this n ote might be different from the original. Evaluation of progress towards goal: home w supportive Functional Status Date Assessment Result Facility 02-18-2025 Patient Health Quest ionnaire 2 item (PHQ-2) [Reported] [facility] Work Phone: 02-18-2025 [place] - suicide s everity rating scale screener - recent [C-SSRS] [facility] Work Phone: 02-04-2025 Patient Health Quest ionnaire 2 item (PHQ-2) [Reported] [facility] 11-19-2024 [place] - suicide s everity rating scale screener - recent [C-SSRS] [facility] Work Phone: 11-04-2022 Functional status Patient at Baseline [facility] Work Phone: Mental Status Date Assessment Result Facility 11-04-2022 Cognitive function Cognitive Sta tus Patient at Baseline [facility] Work Phone: Clinical Notes 11-02-2022 to 02-18-2025 Jane Johnson APRN-ELECTROMEDICAL EQUIPMENT TECHNICIAN - 02/18/2025 1:00 PM Danii Watts MD - 02/04/2025 3:14 PM Danii Watts MD - 02/04/2025 3:13 PM Danii Watts MD - 02/04/2025 3:00 PM EDTDischarge Instructions Note Date & Type Note Facility 02-18-2025 History of Present illness Narrative Subjective Tanisha Bentley is a 79 y.o. male. Chief Complaint: Atrial Fibrillation 79 year old male presents today for 1 month follow up post Afib ablation/Watchman implant. 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 He was first diagnosed with AF with RVR in 10/2021- during a hospitalization at [facility] in [place], where he underwent a laparoscopic abdominal procedure for pain, which was negative. He was started on Tikosyn in 09/2022 and converted after a few doses, without requiring cardioversion. He has been on Eliquis for OAC with a [id number] score of 3 and is also treated with metoprolol. TESTING: STRESS TEST 06/12/2020: 1. Large area of reversible ischemia LAD distribution. Further evaluation is recommended 2. Low left ventricular ejection fraction 53% 3. Abnormal exercise test secondary to EKG changes Now s/p Afib PFA and Watchman implant with Dr. Garza 01/17/2025 ECG 02/18/2025 SB HR 59 bpm, Qtc 415 ms TODAY patient presents for 1 month follow-up post PFA and watchman implant. He has had about 3 episodes of A-fib since the procedure, the last being on lasting for about 20 hours. The other episodes last about 6 to 8 hours. Otherwise he is feeling okay. He is wondering if he can go back to exercising. BP 125/72 (BP Location: Left arm, Patient Position: Sitting, BP Cuff Size: Adult) Pulse 59 Wt 81.6 kg (180 lb) SpO2 95% BMI 26.58 kg/m Medications Ordered Prior to Encounter[1] Review of Systems Constitutional: Negative for diaphoresis, fever and malaise/fatigue. HENT: Negative for congestion and sore throat. Eyes: Negative for blurred vision and double vision. Cardiovascular: Positive for irregular heartbeat. Negative for chest pain, dyspnea on exertion, leg swelling, near-syncope, orthopnea, palpitations, paroxysmal nocturnal dyspnea and syncope. Respiratory: Negative for cough, hemoptysis, shortness of breath, snoring and sputum production. Hematologic/Lymphatic: Negative for bleeding problem. Skin: Negative for rash. Musculoskeletal: Negative for falls, joint pain and myalgias. Gastrointestinal: Negative for abdominal pain, diarrhea, nausea and vomiting. Neurological: Negative for dizziness, headaches, light-headedness and weakness. All other systems reviewed and are negative. Objective Constitutional: Appearance: Healthy appearance. Not in distress. Eyes: Conjunctiva/sclera: Conjunctivae normal. HENT: Nose: Nose normal. Mouth/Throat: Pharynx: Oropharynx is clear. Neck: Vascular: No JVR. JVD normal. Pulmonary: Effort: Pulmonary effort is normal. Breath sounds: Normal breath sounds. No wheezing. No rhonchi. Chest: Chest wall: Not tender to palpatation. Cardiovascular: Normal rate. Regular rhythm. Murmurs: There is no murmur. No rub. Pulses: Intact distal pulses. Edema: Peripheral edema absent. Abdominal: General: Bowel sounds are normal. Palpations: Abdomen is soft. Musculoskeletal: Normal range of motion. Cervical back: Neck supple. Skin: General: Skin is warm and dry. Comments: Right groin site well approximated, no bruising/bleeding/swelling/rednes s/pain Neurological: Mental Status: Alert and oriented to person, place and time. Motor: Motor function is intact. Lab Review: Admission on 01/17/2025, Discharged on 01/18/2025 Component Date Value ABO TYPE 01/17/2025 A Rh TYPE 01/17/2025 POS POCT Activated Clotting * 01/17/2025 332 (H) POCT Activated Clotting * 01/17/2025 329 (H) POCT Activated Clotting * 01/17/2025 302 (H) Ventricular Rate 01/17/2025 60 Atrial Rate 01/17/2025 59 VT Interval 01/17/2025 140 QRS Duration 01/17/2025 80 QT Interval 01/17/2025 414 QTC Calculation(Bazett) 01/17/2025 414 P [place] 01/17/2025 8 R [place] 01/17/2025 -8 T [place] 01/17/2025 26 QRS Count 01/17/2025 10 Q Onset 01/17/2025 227 P Onset 01/17/2025 157 P Offset 01/17/2025 198 T Offset 01/17/2025 434 QTC Fredericia 01/17/2025 414 Ventricular Rate 01/17/2025 110 Atrial Rate 01/17/2025 129 QRS Duration 01/17/2025 86 QT Interval 01/17/2025 330 QTC Calculation(Bazett) 01/17/2025 446 R [place] 01/17/2025 2 T [place] 01/17/2025 9 QRS Count 01/17/2025 18 Q Onset 01/17/2025 226 T Offset 01/17/2025 391 QTC Fredericia 01/17/2025 404 Magnesium 01/17/2025 2.66 (H) Glucose 01/17/2025 116 (H) Sodium 01/17/2025 135 (L) Potassium 01/17/2025 4.6 Chloride 01/17/2025 106 Bicarbonate 01/17/2025 15 (L) Anion Gap 01/17/2025 19 Urea Nitrogen 01/17/2025 20 Creatinine 01/17/2025 0.78 eGFR 01/17/2025 90 Calcium 01/17/2025 8.6 Orders Only on 12/27/2024 Component Date Value ABO TYPE 01/01/2025 A Rh TYPE 01/01/2025 POS ANTIBODY SCREEN 01/01/2025 NEG Assessment/Plan The primary encounter diagnosis was Atrial fibrillation, persistent (Multi). A diagnosis of Arteriosclerotic cardiovascular disease (ASCVD) was also pertinent to this visit. Patient is 1 month post watchman implant and A-fib PFA. He has had about 3 episodes of A-fib since his ablation, the most recent being on and lasting 20 hours. Otherwise he is feeling good and denies any cardiac complaints. He admits to some short episodes of brief chest pain at rest, lasting seconds and resolving on its own. We discussed normal symptoms that can happen post ablation and when he should go to the ED or have an office visit. Patient expresses understanding, all questions asked and answered. Patient will continue Eliquis for 1 more month. On 03/19/2025, we will transition to DAPT with 75 mg of clopidogrel and 81 mg of aspirin daily. Repeat CT scan scheduled 05/21. If the watchman he is healed on that scan, his last day of clopidogrel will be 07/20/2025 and he will continue daily aspirin indefinitely. We should continue dofetilide for at least 6 months post ablation before considering stopping it. If he continues to have intermittent episodes of A-fib, he may benefit from continuing it as well. Follow-up with general cardiology as scheduled Follow-up with EP in about 3 months. If he is feeling well, he can follow-up with Dr. Wing only [1] Current Outpatient Medications on File Prior to Visit Medication Sig Dispense Refill ALPRAZolam (Xanax) 0.5 mg tablet Take 1 tablet (0.5 mg) by mouth as needed at bedtime for sleep. atorvastatin (Lipitor) 80 mg tablet Take 1 tablet (80 mg) by mouth once daily. baclofen (Lioresal) 10 mg tablet Take 1 tablet (10 mg) by mouth if needed for muscle spasms. calcium citrate-vitamin D3 (Citracal+D) 315 mg-5 mcg (200 unit) tablet Take 1 tablet by mouth once daily. dofetilide (Tikosyn) 250 mcg capsule TAKE 1 CAPSULE BY MOUTH 2 TIMES A DAY 180 capsule 3 lisinopril 2.5 mg tablet Take 1 tablet (2.5 mg) by mouth once daily. metoprolol succinate XL (Toprol-XL) 50 mg 24 hr tablet Take 1 tablet (50 mg) by mouth once daily. metoprolol tartrate (Lopressor) 25 mg tablet Take 1 tablet (25 mg) by mouth 2 times a day as needed (elevated heart rate). 180 tablet 1 [DISCONTINUED] apixaban (Eliquis) 5 mg tablet Take 1 tablet (5 mg) by mouth 2 times a day. [DISCONTINUED] aspirin 81 mg EC tablet Take 1 tablet (81 mg) by mouth 2 times a week. 24 tablet 3 [DISCONTINUED] pantoprazole (ProtoNix) 40 mg EC tablet Take 1 tablet (40 mg) by mouth once daily in the morning. Take before meals for 29 doses. Do not crush, chew, or split. 29 tablet 0 No current facility-administered medications on file prior to visit. documented in this encounter [facility] Work Phone: 02-04-2025 History of Present illness Narrative Associated Problem(s): Coronary artery disease (CMS/HCC) No current symptoms Associated Problem(s): Atrial fibrillation (CMS/HCC) Watchmen placed On Eliquis fdor two months Plavix then for 3 months Then aspirin lifetime Images from the original note were not included. HPI Wound Check Additional comments: Afib ablation and watchmen placement Last edited by Yvrose Knight MA on 02/04/2025 7:47 AM. Subjective Patient ID: Tanisha Bentley is a 79 y.o. male who presents for Wound Check (Afib ablation and watchmen placement). Pt had surgery on 01/17 , would just liked to be checked over to make sure everything is going ok Current Outpatient Medications on File Prior to Visit Medication Sig Dispense Refill ALPRAZolam (Xanax) 0.5 MG tablet Take 0.5 mg by mouth as needed at bedtime for anxiety apixaban (Eliquis) 5 MG tablet TAKE 1 TABLET EVERY MORNINGAND 1 TABLET BEFORE BEDTIME 180 tablet 3 aspirin 81 MG EC tablet Take 81 mg by mouth in the morning. atorvastatin (Lipitor) 80 MG tablet Take 1 tablet (80 mg) by mouth in the morning. 90 tablet 3 baclofen (Lioresal) 10 MG tablet Take 10 mg by mouth in the morning and 10 mg in the evening and 10 mg before bedtime. PRN. calcium carbonate 1500 (600 Ca) MG tablet Take 1,500 mg by mouth in the morning and 1,500 mg in the evening. Take with meals. dofetilide (Tikosyn) 250 MCG capsule 1 capsule every 12 (twelve) hours. fluocinonide (Lidex) 0.05 % cream Apply topically 2 (two) times a day. lisinopril 2.5 MG tablet Take 1 tablet (2.5 mg) by mouth in the morning. 90 tablet 3 metoprolol succinate XL (Toprol-XL) 50 MG 24 hr tablet TAKE 1 TABLET EVERY MORNING 100 tablet 3 metoprolol tartrate (Lopressor) 25 MG tablet Take 25 mg by mouth 2 (two) times a day as needed. pantoprazole (ProtoNix) 40 MG EC tablet Take 40 mg by mouth in the morning. Take before meals. No current facility-administered medications on file prior to visit. I have reviewed and reconciled the history and medication list with the patient today. No Known Allergies Social History Tobacco Use Smoking status: Never Smokeless tobacco: Never Substance Use Topics Alcohol use: Never Comment: Caffeine Intake: none Drug use: Never Family History Problem Relation Name Age of Onset Other (old age) Mother 96 yrs Prostate cancer Father 85 yrs No Known Problems Brother Atrial fibrillation Brother No Known Problems Son Past Medical History: Diagnosis Date A-fib (CMS/HCC) [facility]: Afib, 01/02-01/04/22 Cataract Coronary artery disease (CMS/HCC) DDD (degenerative disc disease), lumbosacral 12/17/2021 Multilevel marked degenerative disc disease and moderate facet arthropathy. 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 Pancreatic head could represent IPMN. Numerous renal and hepatic cysts. Liquid Stool. Mild Prostamegaly Myocardial ischemia (CMS/HCC) 06/12/2020 Large Are of rversible ischemia, LAD distribution. Low EF 53% Osteoarthritis of knees, bilateral 2014 Past Surgical History: Procedure Laterality Date BACK SURGERY 1989 CARDIAC CATHETERIZATION 06/17/2020 Severe two vessel CAD with proximal LAD and distal circumflex, normal LV function with stents CARDIAC ELECTROPHYSIOLOGY STUDY AND ABLATION 01/17/2025 Also has Watchman CARPAL TUNNEL RELEASE Right 05/09/2024 Dr. Hou CORONARY ANGIOPLASTY WITH STENT PLACEMENT 2019 ESOPHAGOGASTRODUODENOSCOPY 03/24/2022 EGD/Colonoscopy- [facility] EYE SURGERY Bilateral 2023 LAPAROSCOPY ABDOMEN DIAGNOSTIC 01/02/2022 Laparoscopy [facility] [place] ARTHROSCOPY KNEE DIAGNOSTIC W/WO SYNOVIAL BX SPX Right TOTAL KNEE ARTHROPLASTY Right 10/04/2014 TOTAL KNEE ARTHROPLASTY Left Visit Vitals BP 112/64 Pulse 54 Ht 5' 9 Wt 183 lb SpO2 97% BMI 27.02 kg/m Smoking Status Never BSA 2.01 m Review of Systems Constitutional: Negative for chills and fever. Respiratory: Negative for shortness of breath. Cardiovascular: Negative for chest pain. Gastrointestinal: Negative for constipation, diarrhea, nausea and vomiting. Musculoskeletal: Negative for back pain and gait problem. Neurological: Negative. Negative for dizziness and facial asymmetry. Objective Physical Exam Vitals reviewed. Constitutional: Appearance: Normal appearance. HENT: Head: Normocephalic. Neck: Vascular: No carotid bruit. Cardiovascular: Rate and Rhythm: Normal rate and regular rhythm. Pulses: Normal pulses. Pulmonary: Effort: Pulmonary effort is normal. Breath sounds: Normal breath sounds. Neurological: General: No focal deficit present. Mental Status: He is alert and oriented to person, place, and time. Psychiatric: Mood and Affect: Mood normal. Assessment/Plan Problem List Items Addressed This Visit Atrial fibrillation (CMS/HCC) - Primary Watchmen placed On Eliquis fdor two months Plavix then for 3 months Then aspirin lifetime Coronary artery disease (CMS/HCC) No current symptoms Follow up in about 6 months (around 08/07/2025). documented in this encounter [facility] 01-18-2025 Nurse Note Discharge note: Pt discharged home with family. Tele and IV removed. Discharge instructions reviewed with patient and all questions answered. Romeo Hager RN. [facility] 01-18-2025 Nurse Note Discharge note: Pt discharged home with family. Tele and IV removed. Discharge instructions reviewed with patient and all questions answered. Romeo Hager RN. Dr Alvarez made aware patient in afib rvr rate ranging from 105-120. Patient is a tikosyn and eliquis patient. Patient asymptomatic with no new orders at this time. Will continue to monitor documented in this encounter [facility] Work Phone: 01-18-2025 Plan of care note The patient's goals for the shift include The clinical goals for the shift include [facility] Work Phone: 01-18-2025 Miscellaneous Notes The patient's goals for the shift include The clinical goals for the shift include The patient's goals for the shift include The clinical goals for the shift include Pt will remian hds until end of shift documented in this encounter [facility] Work Phone: 01-18-2025 Plan of care note The patient's goals for the shift include The clinical goals for the shift include Pt will remian hds until end of shift [facility] Work Phone: 01-18-[address] Alvarez made aware patient in afib rvr rate ranging from 105-120. Patient is a tikosyn and eliquis patient. Patient asymptomatic with no new orders at this time. Will continue to monitor [facility] 01-17-2025 History and physical note History Of Present Illness Tansiha Bentley is a 79 y.o. male with PMH of CAD s/p PCI to LAD in 2019, paroxysmal Afib (on Eliquis and dofetilide) who is here for a concomitant Afib ablation and LAAO device (Watchman) placement. He feels well today and denies active symptoms. He reports weekly symptoms of Afib including lightheadedness and palpitations. He is compliant with both Eliquis and dofetilide. Past Medical History Medical History[1] Surgical History Surgical History[2] Social History He reports that he has never smoked. He has never used smokeless tobacco. He reports that he does not drink alcohol and does not use drugs. Family History Family History[3] Allergies Patient has no known allergies. Review of Systems Constitutional: Negative for chills and fever. HENT: Negative for congestion and rhinorrhea. Eyes: Negative for pain and redness. Respiratory: Negative for shortness of breath and wheezing. Cardiovascular: Negative for chest pain. Positive for palpitations. Gastrointestinal: Negative for abdominal pain, constipation and diarrhea. Genitourinary: Negative for dysuria and hematuria. Musculoskeletal: Negative for back pain and neck pain. Neurological: Negative for dizziness and headaches. Psychiatric/Behavioral: Negative for agitation and confusion. Physical Exam Gen: awake and alert, AAOx3 HEENT: normocephalic. CV: RRR. No murmurs, gallops, rubs Pulm: clear to auscultation bilaterally. No coarse lung sounds Abd: soft, non-distended. Normal active bowel sounds Ext: warm and well-perfused. No LE edema Psych: appropriate affect Neuro: grossly intact sensation and motor functions. Last Recorded Vitals Height 1.753 m (5' 9 ), weight 81.6 kg (180 lb). Relevant Results Assessment & Plan Paroxysmal atrial fibrillation (Multi) At risk for stroke At risk for falling History of bilateral knee replacement Preop testing Atrial fibrillation, persistent (Multi) Tanisha Bentley is a 79 y.o. male with PMH of CAD s/p PCI to LAD in 2019, paroxysmal Afib (on Eliquis and dofetilide) who is here for a concomitant Afib ablation and LAAO device (Watchman) placement. Plan: Afib pulse field ablation with PVI and LAAO device (Watchman) placement under general anesthesia. I spent 30 minutes in the professional and overall care of this patient. Danielle Cisneros MD [1] Past Medical History: Diagnosis Date Abnormal result of other cardiovascular function study Abnormal stress test Other chest pain 10/28/2021 Atypical chest pain Personal history of other specified conditions 10/28/2021 History of tachycardia [2] Past Surgical History: Procedure Laterality Date CARPAL TUNNEL RELEASE Right CATARACT EXTRACTION OTHER SURGICAL HISTORY 09/21/2021 Percutaneous transluminal coronary angioplasty OTHER SURGICAL HISTORY 09/21/2021 Back surgery OTHER SURGICAL HISTORY 09/21/2021 Cardiac catheterization OTHER SURGICAL HISTORY 09/21/2021 Knee replacement OTHER SURGICAL HISTORY 03/15/2022 Laparoscopy [3] No family history on file. Cosigned by Keyla Garza MD at 01/17/2025 1:20 PM EDT [facility] Work Phone: 01-17-2025 History and physical note History Of Present Illness Tanisha Bentley is a 79 y.o. male with PMH of CAD s/p PCI to LAD in 2019, paroxysmal Afib (on Eliquis and dofetilide) who is here for a concomitant Afib ablation and LAAO device (Watchman) placement. He feels well today and denies active symptoms. He reports weekly symptoms of Afib including lightheadedness and palpitations. He is compliant with both Eliquis and dofetilide. Past Medical History Medical History[1] Surgical History Surgical History[2] Social History He reports that he has never smoked. He has never used smokeless tobacco. He reports that he does not drink alcohol and does not use drugs. Family History Family History[3] Allergies Patient has no known allergies. Review of Systems Constitutional: Negative for chills and fever. HENT: Negative for congestion and rhinorrhea. Eyes: Negative for pain and redness. Respiratory: Negative for shortness of breath and wheezing. Cardiovascular: Negative for chest pain. Positive for palpitations. Gastrointestinal: Negative for abdominal pain, constipation and diarrhea. Genitourinary: Negative for dysuria and hematuria. Musculoskeletal: Negative for back pain and neck pain. Neurological: Negative for dizziness and headaches. Psychiatric/Behavioral: Negative for agitation and confusion. Physical Exam Gen: awake and alert, AAOx3 HEENT: normocephalic. CV: RRR. No murmurs, gallops, rubs Pulm: clear to auscultation bilaterally. No coarse lung sounds Abd: soft, non-distended. Normal active bowel sounds Ext: warm and well-perfused. No LE edema Psych: appropriate affect Neuro: grossly intact sensation and motor functions. Last Recorded Vitals Height 1.753 m (5' 9 ), weight 81.6 kg (180 lb). Relevant Results Assessment & Plan Paroxysmal atrial fibrillation (Multi) At risk for stroke At risk for falling History of bilateral knee replacement Preop testing Atrial fibrillation, persistent (Multi) Tanisha Bentley is a 79 y.o. male with PMH of CAD s/p PCI to LAD in 2020, paroxysmal Afib (on Eliquis and dofetilide) who is here for a concomitant Afib ablation and LAAO device (Watchman) placement. Plan: Afib pulse field ablation with PVI and LAAO device (Watchman) placement under general anesthesia. I spent 30 minutes in the professional and overall care of this patient. Danielle Cisneros MD [1] Past Medical History: Diagnosis Date Abnormal result of other cardiovascular function study Abnormal stress test Other chest pain 10/28/2021 Atypical chest pain Personal history of other specified conditions 10/28/2021 History of tachycardia [2] Past Surgical History: Procedure Laterality Date CARPAL TUNNEL RELEASE Right CATARACT EXTRACTION OTHER SURGICAL HISTORY 09/21/2021 Percutaneous transluminal coronary angioplasty OTHER SURGICAL HISTORY 09/21/2021 Back surgery OTHER SURGICAL HISTORY 09/21/2021 Cardiac catheterization OTHER SURGICAL HISTORY 09/21/2021 Knee replacement OTHER SURGICAL HISTORY 03/15/2022 Laparoscopy [3] No family history on file. Cosigned by Keyla Garza MD at 01/17/2025 1:20 PM EDT documented in this encounter [facility] Work Phone: 01-17-2025 Hospital Discharge instructions Jarrod Castro PA-C - 01/17/2025 9:26 AM EDT INSTRUCTIONS AFTER ABLATION PROCEDURE and Watchman LAAO device: * You will need to continue blood thinner (Eliquis) as below. It is important not to interrupt blood thinner for any reason (other than an emergency) during the first 30 days after ablation. Due to AFib ablation and Watchman LAAO device placement, you will take Eliquis every 12 hours for 2 months. After that, you will stop taking Eliquis and start taking Plavix (clopidogrel) 75mg daily + aspirin 81mg daily for 4 months (Plavix will be prescribed at your upcoming Electrophysiology follow up). After that, you will stop taking Plavix but will continue to take aspirin 81mg daily for life (take with food to avoid stomach irritation). * You will be on Pantoprazole (a heartburn medicine) for 4 weeks to protect the esophagus as it can become irritated with AFib ablation. It is very important that you take this medication. * Resume taking your home medications today (including blood thinner) as listed on the discharge instructions. * In the first week post-ablation you should take it easy. No heavy lifting or heavy exercise, no treadmill. You can use the stairs if needed but go slowly and minimize the number of times up and down. * Some minor bruising is common at each groin access site with minor soreness as if you had banged the area. Bruising may occasionally be seen to extend down the leg. This is normal as is an occasional small quarter sized bump in the area. If larger swelling or more significant pain occurs at the area, please contact the office or go the nearest Emergency Room. * You may have some minor chest pain for the next week or so. The pain will often worsen with a deep breath and be better when leaning forward. This is pericardial chest pain from the ablation and is generally not of concern. It should resolve within a week although it might increase for a day or so after the ablation. * If you develop unexplained fevers exceeding 100 degrees anytime within the first 3 weeks post-ablation, you need to contact the office. Low grade fevers of around 99 degrees are common in the first day or so post-ablation. * Atrial fibrillation (AFib) can recur in all patients who undergo this ablation for up to 4-8 weeks post-ablation. The ablation itself can cause inflammation (pericarditis) in the atria and this can cause AFib. Some patients will actually experience an increased amount of atrial arrhythmia early after ablation. Approximately 1/3 of patients will have this early recurrence of AFib. Medications should be continued and your heart rate controlled. Nothing else needs be done initially except waiting as in many cases these episodes of AFib will prove self limited. * Continue to follow up with your primary care physician, primary benefits technician, and any other specialists you normally see. Dr Garza's office number is [phone]. * No driving for 2 days post procedure (IF you were driving prior to procedure) *Diet: Heart healthy Call Provider If: Breathing faster than normal. Fever of 100.4 F (38 C) or higher. Chills. Any new concerning symptoms. Passing out. Patient Instructions, Next 24 hours: DO NOT drive a car, operate machinery or power tools. It is recommended that a responsible adult be with you for the first 24 hours. DO NOT drink any alcoholic drinks or take any non-prescriptive medications that contain alcohol for the first 24 hours. DO NOT make any important decisions for the first 24 hours. Activity: You are advised to go directly home from the hospital. DO NOT lift anything heavier than 10 pounds for one week, this allows for proper healing of the groin. No excessive exercise or treadmill use for one week. You may walk and do stairs, slowly. No sexual activities for 24 hours after you arrive home. Wound Care: If slight bleeding should occur at groin site, lie down and have someone apply firm pressure just above the puncture site for 5 minutes. If it continues or is profuse, call 911. Always notify your doctor if bleeding occurs. Keep site clean and dry. Let air dry or you may use a simple bandaid. Gently cleanse the puncture site in your groin with soap and water only. You may experience some tenderness, bruising or minimal inflammation. If you have any concerns, you may contact the EP Lab or if any of these symptoms become excessive, contact your color finisher or go to the emergency room. No tub baths, soaking, hot tubs, or swimming for one week. May shower the next day after your procedure. Other Instructions: If you have any questions about the effects of the sedative drugs or groin care, please call the physician who performed your procedure. FOLLOW UP: 1) Primary care physician 2 weeks--call to schedule 2) Jane Johnson CNP ( Electrophysiology) 1 month after ablation/Watchman as scheduled Watchman Discharge Instructions Anticoagulation Plan: You will need to continue your blood thinner (Eliquis) for 2 months. Then you will be on Aspirin and Plavix for 4 months (Plavix will be stopped after 4 months and you will remain on Aspirin 81mg daily for life). You will have a [address] to assess the effectiveness of the Watchman Device and will need bloodwork prior to the CT. Watchman nurse coordinator Carla Boggs will arrange the CT and send you instructions about scheduling it (if not already scheduled). Her phone number is [phone]. General Instructions: DO NOT drink any alcoholic drinks or take any non-prescriptive medications that contain alcohol for the first 24 hours. DO NOT make any important decisions for the first 24 hours. Activity: You are advised to go directly home from the hospital. DO NOT lift anything heavier than 10 pounds for one week, this allows for proper healing of the groin. No excessive exercise or treadmill use for one week. You may walk and do stairs, slowly. No sexual activities for 24 hours after you arrive home. Wound Care: If slight bleeding should occur at site, lie down and have someone apply firm pressure just above the puncture site for 5 minutes. If it continues or is profuse, call 911. Always notify your doctor if bleeding occurs. Keep site clean and dry. Let air dry or you may use a simple bandaid. Gently cleanse the puncture site in your groin with soap and water only. You may experience some tenderness, bruising or minimal inflammation. If you have any concerns, you may contact the Hospice Clinical Marketer or if any of these symptoms become excessive, contact your benefits technician or go to the emergency room. No tub baths, soaking, or swimming for one week. May shower the next day after your procedure. Diet: You may resume your normal diet. However it is better to start with liquids such as juices then soup and crackers, and gradually work up to solid foods. Other Instructions: If you develop difficulty breathing, rash, hives, severe nausea, vomiting, light-headedness or any signs of infection, immediately contact your doctor and go to the nearest emergency room. - CALL 911 IF YOU HAVE ANY OF THE SIGNS AND SYMPTOMS OF HEART FAILURE: 1. Chest pain 2. Significant Shortness of breath 3. Fainting. Call Provider If (Home-going Patients): Breathing faster than normal. Breathing harder than normal or having retractions. Fever of 100.4 F (38 C) or higher. Chills. Drinking less than normal. Urinating less than normal, over 1 day. Acting very sleepy and difficult to awaken. Vomiting (throwing up) and not able to eat or drink for 12 hours. 3 or more loose, watery bowel movements in 24 hours (diarrhea). Any new concerning symptoms. Please call the STRUCTURAL HEART TEAM LINE if you have any questions or concerns - [phone] documented in this encounter [facility] Work Phone: 01-16-2025 Hospital Note Formatting of t his note might be different from the original. [facility] Work Phone: 01-16-2025 History of Present illness Narrative Pharmacy Medication History Review Tanisha Bentley is a 79 y.o. male who is planned to be admitted for No Principal Problem: There is no principal problem currently on the Problem List. Please update the Problem List and refresh.. Pharmacy called the patient prior to their scheduled procedure and reviewed the patient's [id number] medications for accuracy. Medications ADDED: none Medications CHANGED: none Medications REMOVED: none Please review updated prior to admission medication list and comments regarding how patient may be taking medications differently by going to Admission tab --> Admission Orders --> Admit Orders / Review prior to admission medications. Preferred pharmacy, last doses of medications, and allergies to be confirmed with patient by nursing the day of procedure. Sources used to complete the med history include: [facility] dispense history Patient Interview Good historian Chart Review Care Everywhere Below are additional concerns with the patient's HIGH LIGHTER list. Patient states they take metoprolol succinate 50mg once daily. Metoprolol tartrate 25mg is only taken as needed if their heart rate is elevated Patient states they take alprazolam 0.5mg and baclofen 10mg as needed. Taken very rarely. Laura Chávez [facility] Please reach out via Secure Chat for questions documented in this encounter [facility] Work Phone: 01-11-2025 Nurse Note Pt denies feeling dizzy or lightheaded, denies headache. Steady on feet, skin warm pink and dry. Pt verbalized understanding of increased water intake x24 hours, educated on side effects of medications. HL removed with tip intact, manual pressure held until hemostasis achieved, 2x2 and coban to site. Pt DC home to self care. [facility] Work Phone: 01-11-2025 Nurse Note Pt denies feeling dizzy or lightheaded, denies headache. Steady on feet, skin warm pink and dry. Pt verbalized understanding of increased water intake x24 hours, educated on side effects of medications. HL removed with tip intact, manual pressure held until hemostasis achieved, 2x2 and coban to site. Pt DC home to self care. documented in this encounter [facility] Work Phone: 11-19-2024 History of Present illness Narrative Current Outpatient Medications Medication Instructions ALPRAZolam (XANAX) 0.5 mg, Nightly PRN apixaban (Eliquis) 5 mg tablet 1 tablet, 2 times daily aspirin 81 mg EC tablet 1 tablet, 2 times weekly atorvastatin (LIPITOR) 80 mg, Daily baclofen (LIORESAL) 10 mg, oral, As needed calcium citrate-vitamin D3 (Citracal+D) 315 mg-5 mcg (200 unit) tablet 1 tablet, As needed dofetilide (Tikosyn) 250 mcg capsule oral, 2 times daily lisinopril 2.5 mg tablet 1 tablet, Daily metoprolol succinate XL (Toprol-XL) 50 mg 24 hr tablet 1 tablet, Daily metoprolol tartrate (LOPRESSOR) 25 mg, oral, 2 times daily PRN Subjective Tanisha Bentley is a 79 y.o. male. Chief Complaint: Atrial Fibrillation [id number] Score: 3 HPI Patient is referred by Chanda Wing MD to discuss AF Ablation associated with significant lightheadedness. He is concerned with falls due to his lightlessness, bilateral knee surgeries since he is on blood thinners. 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 He was first diagnosed with AF with RVR in 10/2021- during a hospitalization at [facility] in [place], where he underwent a laparoscopic abdominal procedure for pain, which was negative. He was started on Tikosyn in 09/2022 and converted after a few doses, without requiring cardioversion. He has been on Eliquis for OAC with a [id number] score of 3 and is also treated with metoprolol. Recently, he has reported frequent episodes of AF, accompanied by dizziness, SOB, chest pain, and palpitations for at least one month. His stress test (06/12/2020) showed a large area of reversible ischemia in the LAD distribution, a low LVEF of 53%, and abnormal ECG changes during exercise, followed by PCI in 2019. The patient presents today to discuss the possibility of AF RFA as a next step in his treatment plan. TESTING: STRESS TEST 06/12/2020: CONCLUSION: 1. Large area of reversible ischemia LAD distribution. Further evaluation is recommended 2. Low left ventricular ejection fraction 53% 3. Abnormal exercise test secondary to EKG changes Review of Systems Constitutional: Negative. HENT: Negative. Eyes: Negative. Cardiovascular: Positive for dyspnea on exertion, irregular heartbeat and palpitations. Respiratory: Positive for shortness of breath. Endocrine: Negative. Skin: Negative. Musculoskeletal: Positive for arthritis. Gastrointestinal: Negative. Genitourinary: Negative. Neurological: Positive for light-headedness. Psychiatric/Behavioral: Negative. Objective Constitutional: Appearance: Healthy appearance. Not in distress. Eyes: Pupils: Pupils are equal, round, and reactive to light. Neck: Thyroid: Thyroid normal. Vascular: JVD normal. Pulmonary: Effort: Pulmonary effort is normal. Breath sounds: Normal breath sounds. Cardiovascular: Normal rate. Regular rhythm. S1 with normal intensity. S2 with normal intensity. Murmurs: There is no murmur. No gallop. No click. No rub. Edema: Peripheral edema absent. Musculoskeletal: Normal range of motion. Cervical back: Normal range of motion and neck supple. Skin: General: Skin is warm and dry. Neurological: General: No focal deficit present. Mental Status: Alert and oriented to person, place and time. ASSESSMENT / PLAN: PRESENTS FOR TO DISCUSS MANEGEMENT OPTIONS FOR SYMPTOMATIC PAROXYSMAL AF AND STROKE PREVENTION SINCE He is concerned with falls due to his lightlessness, bilateral knee surgeries since he is on blood thinners. WE DISCUSSED THE RISKS AND BENEFITS OF CATHETER ABLATION FOR SYMPTOMATIC PAROXYSMAL AF. WE ALSO DISCUSSED THE RISKS AND BENEFITS OF SONDRA CLOSURE PROCEDURE ASSOCIATED WITH THE WATCHMAN DEVICE A NON PHARMACOLOGIC STRATEGY FOR STROKE PREVENTION IN THE SETTINGS OF AFIB AND CONTRAINDICATION FOR LONG-TERM ORAL ANTICOAGULATION. The Watchman device would be acritical measure to reduce the risk of complications related to anticoagulant therapy while effectively addressing the patients clinical needs. HE WILL MAKE A FINAL SHARED DECISION REGARDING THE REFERRAL FOR LAAO WITH DR. WING SCHEDULE AF ABLATION AND FOR WATCHMAN IMPLANT UNDER GENERAL ANESTHESIA HOLD ALL MEDS IN THE MORNING OF ABLATION CONTINUE ELIQUIS FOR 2 MO POST ABLATION THEN DC ELIQUIS AND START DAPT FOR 4 MO Our strategy is to perform cardiac CT following left atrial appendage closure for device surveillance. Cardiac CTA has been shown to be more sensitive for detection of device leak and device related thrombus than DARY, and in addition offers a non-invasive modality with less risk for the patient than DARY which requires esophageal intubation with anesthesia. MD Trip Malone Master Clinician of Cardiovascular [place]. [facility] [place]. Director of Electrophysiology Center staff development educator. [employer]. documented in this encounter [facility] Work Phone: 11-03-2024 Telephone encounter Note Atorvastatin and Lisinopril sent. [facility] 11-03-2024 Miscellaneous Notes Atorvastatin and Lisinopril sent. documented in this encounter [facility] 08-28-2024 History of Present illness Narrative Associated Problem(s): Atrial fibrillation (CMS/HCC) Alert bracelet On Blood thinner Tikosyn, Metoprolol Associated Problem(s): Hypertension (CMS/HCC) Our specific goals, for your hypertension, is to keep your blood pressure less than 140/90, and the importance of weight control. We made recommendations on how to control your blood pressure, and minimize your risk of these copmplications. We also discussed your current barriers to a healthy living and importance of healthy diet and exercise. Prior to your visit today we have reviewed your chart and formed a plan to assist with providing you the best possible care. We reviewed the possible complications of hypertension including, stroke, heart failure and kidney impairment. In addition, we discussed your medications, the importance of taking them as prescribed. DASH diet handouts Images from the original note were not included. Subjective Patient ID: Tanisha Bentley is a 79 y.o. male who presents for Hypertension. Hypertension This is a chronic problem. The current episode started more than 1 year ago. The problem is controlled. Pertinent negatives include no chest pain or shortness of breath. Past treatments include beta blockers and LUCY inhibitors. There is no history of angina, kidney disease, CAD/MS or CVA. Current Outpatient Medications on File Prior to Visit Medication Sig Dispense Refill [DISCONTINUED] ofloxacin (Ocuflox) 0.3 % ophthalmic solution PLEASE SEE ATTACHED FOR DETAILED DIRECTIONS [DISCONTINUED] prednisoLONE acetate (Pred-Forte) 1 % ophthalmic suspension PLEASE SEE ATTACHED FOR DETAILED DIRECTIONS ALPRAZolam (Xanax) 0.5 MG tablet Take 0.5 mg by mouth as needed at bedtime for anxiety apixaban (Eliquis) 5 MG tablet Take 1 tablet (5 mg) by mouth in the morning and 1 tablet (5 mg) before bedtime. 200 tablet 3 aspirin 81 MG EC tablet Take 81 mg by mouth in the morning. atorvastatin (Lipitor) 80 MG tablet Take 1 tablet (80 mg) by mouth in the morning. 100 tablet 3 baclofen (Lioresal) 10 MG tablet Take 10 mg by mouth in the morning and 10 mg in the evening and 10 mg before bedtime. PRN. calcium carbonate 1500 (600 Ca) MG tablet Take 1,500 mg by mouth in the morning and 1,500 mg in the evening. Take with meals. dofetilide (Tikosyn) 250 MCG capsule 1 capsule every 12 (twelve) hours. fluocinonide (Lidex) 0.05 % cream Apply topically 2 (two) times a day. lisinopril 2.5 MG tablet Take 1 tablet (2.5 mg) by mouth in the morning. 100 tablet 3 metoprolol succinate XL (Toprol-XL) 50 MG 24 hr tablet Take 1 tablet (50 mg) by mouth in the morning. 100 tablet 3 metoprolol tartrate (Lopressor) 25 MG tablet Take 25 mg by mouth 2 (two) times a day as needed. No current facility-administered medications on file prior to visit. I have reviewed and reconciled the history and medication list with the patient today. No Known Allergies Social History Tobacco Use Smoking status: Never Smokeless tobacco: Never Substance Use Topics Alcohol use: Never Comment: Caffeine Intake: none Drug use: Never Family History Problem Relation Name Age of Onset Other (old age) Mother 96 yrs Prostate cancer Father 85 yrs No Known Problems Brother Atrial fibrillation Brother No Known Problems Son Past Medical History: Diagnosis Date A-fib ([facility]: Afib, 01/02-01/04/22 Cataract Coronary artery disease ([facility]/HCC) DDD (degenerative disc disease), lumbosacral 12/17/2021 Multilevel marked degenerative disc disease and moderate facet arthropathy. 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 Pancreatic head could represent IPMN. Numerous renal and hepatic cysts. Liquid Stool. Mild Prostamegaly Myocardial ischemia ([facility]/HCC) 06/12/2020 Large Are of rversible ischemia, LAD distribution. Low EF 53% Osteoarthritis of knees, bilateral 2014 Past Surgical History: Procedure Laterality Date BACK SURGERY 1989 CARDIAC CATHETERIZATION 06/17/2020 Severe two vessel CAD with proximal LAD and distal circumflex, normal LV function with stents CARPAL TUNNEL RELEASE Right 05/09/2024 Dr. Hou CORONARY ANGIOPLASTY WITH STENT PLACEMENT 2019 ESOPHAGOGASTRODUODENOSCOPY 03/24/2022 EGD/Colonoscopy- AVV EYE SURGERY Bilateral 2023 LAPAROSCOPY ABDOMEN DIAGNOSTIC 01/02/2022 Laparoscopy [facility] [place] ARTHROSCOPY KNEE DIAGNOSTIC W/WO SYNOVIAL BX SPX Right TOTAL KNEE ARTHROPLASTY Right 10/04/2014 TOTAL KNEE ARTHROPLASTY Left Visit Vitals BP 114/68 Pulse 68 Ht 5' 9 Wt 181 lb SpO2 98% BMI 26.73 kg/m Smoking Status Never BSA 2 m Review of Systems Respiratory: Negative for shortness of breath. Cardiovascular: Negative for chest pain. Does go into afib a few times a month and out for a day Neurological: Negative for dizziness, facial asymmetry, light-headedness and numbness. Objective Physical Exam Vitals reviewed. Constitutional: Appearance: Normal appearance. HENT: Head: Normocephalic. Neck: Vascular: No carotid bruit. Cardiovascular: Rate and Rhythm: Normal rate. Rhythm irregular. Pulses: Normal pulses. Pulmonary: Effort: Pulmonary effort is normal. Breath sounds: Normal breath sounds. Musculoskeletal: Comments: Had CTS on the right Neurological: General: No focal deficit present. Mental Status: He is alert and oriented to person, place, and time. Psychiatric: Mood and Affect: Mood normal. Assessment/Plan Problem List Items Addressed This Visit Atrial fibrillation (CMS/HCC) Alert bracelet On Blood thinner Tikosyn, Metoprolol Hypertension ([facility]) - Primary Our specific goals, for your hypertension, is to keep your blood pressure less than 140/90, and the importance of weight control. We made recommendations on how to control your blood pressure, and minimize your risk of these copmplications. We also discussed your current barriers to a healthy living and importance of healthy diet and exercise. Prior to your visit today we have reviewed your chart and formed a plan to assist with providing you the best possible care. We reviewed the possible complications of hypertension including, stroke, heart failure and kidney impairment. In addition, we discussed your medications, the importance of taking them as prescribed. DASH diet handouts Follow up in about 6 months (around 02/26/2025). documented in this encounter [facility] 07-31-2024 History of Present illness Narrative Subjective Tanisha Bentley is a 79 y.o. male Chief Complaint Follow-up HPI Patient is in the office for follow-up for paroxysmal fibrillation and coronary disease among other problems noted below. He continued to have occasional breakthrough atrial fibrillation that could last up to 24 hours. He remains on dofetilide and Eliquis. EKG today confirmed normal sinus rhythm and normal ECG. Lab data from his PCPs office were reviewed and his numbers look on target. He has had no anginal symptoms no dyspnea and maintains active lifestyle. Assessment/recommendations: 1-coronary artery disease involving the proximal anterior descending artery status post drug-eluting stent with no complications back in May 2020. No recurrent symptoms and risk factors have been under control. 2-hyperlipidemia on statin therapy, lipid profile is on target 3-slight overweight, patient has remained very active in his lifestyle, few pounds weight loss will be advised. 4-paroxysmal atrial fibrillation, currently on Tikosyn and long-term anticoagulation with Eliquis, he has few recurrences that are well-tolerated for which metoprolol tartrate to be used as an as-needed basis was provided 5-high risk medication with Eliquis and Tikosyn, no complications Review of Systems All other systems reviewed and are negative. Vitals: 07/31/24 0917 BP: 112/64 BP Location: Left arm Patient Position: Sitting Pulse: 65 Weight: 80.7 kg (178 lb) Height: 1.753 m (5' 9 ) EKG done in office today Objective [...] known allergies. Current Medications Current Outpatient Medications: ALPRAZolam (Xanax) 0.5 mg tablet, Take 1 tablet (0.5 mg) by mouth as needed at bedtime for sleep., Disp: , Rfl: apixaban (Eliquis) 5 mg tablet, Take 1 tablet (5 mg) by mouth 2 times a day., Disp: , Rfl: aspirin 81 mg EC tablet, Take 1 tablet (81 mg) by mouth 2 times a week., Disp: , Rfl: atorvastatin (Lipitor) 80 mg tablet, Take 1 tablet (80 mg) by mouth once daily., Disp: , Rfl: baclofen (Lioresal) 10 mg tablet, Take 1 tablet (10 mg) by mouth if needed for muscle spasms., Disp: , Rfl: calcium citrate-vitamin D3 (Citracal+D) 315 mg-5 mcg (200 unit) tablet, Take 1 tablet by mouth if needed., Disp: , Rfl: dofetilide (Tikosyn) 250 mcg capsule, TAKE 1 CAPSULE BY MOUTH 2 TIMES A DAY, Disp: 180 capsule, Rfl: 3 lisinopril 2.5 mg tablet, Take 1 tablet (2.5 mg) by mouth once daily., Disp: , Rfl: metoprolol succinate XL (Toprol-XL) 50 mg 24 hr tablet, Take 1 tablet (50 mg) by mouth once daily., Disp: , Rfl: metoprolol tartrate (Lopressor) 25 mg tablet, Take 1 tablet (25 mg) by mouth 2 times a day as needed (elevated heart rate)., Disp: 30 tablet, Rfl: 1 Assessment/Plan 1. Arteriosclerotic cardiovascular disease (ASCVD) Follow Up In Cardiology 2. Paroxysmal atrial fibrillation (Multi) Follow Up In Cardiology 3. History of PTCA 4. Mixed hyperlipidemia 5. BMI 26.0-26.9,adult Scribe Attestation By signing my name below, I, Sharri Honeycutt LPN attest that this documentation has been prepared under the direction and in the presence of Chanda Wing MD. Provider Attestation - Scribe documentation All medical record entries made by the Scribe were at my direction and personally dictated by me. I have reviewed the chart and agree that the record accurately reflects my personal performance of the history, physical exam, discussion and plan. documented in this encounter [facility] Work Phone: 07-31-2024 Instructions Leah Nazario LPN - 07/31/2024 9:30 AM EST Please bring all medicines, vitamins, and herbal supplements with you when you come to the office. Prescriptions will not be filled unless you are compliant with your follow up appointments or have a follow up appointment scheduled as per instruction of your physician. Refills should be requested at the time of your visit. BMI was above normal measurement. Current weight: 80.7 kg (178 lb) Weight change since last visit (-) denotes wt loss -5 lbs Weight loss needed to achieve BMI 25: 9.1 Lbs Weight loss needed to achieve BMI 30: -24.7 Lbs Provided instructions on dietary changes Provided instructions on exercise. The following attachments cannot be sent through Care Everywhere.Heart Healthy Diet (Romanian)documented in this encounter [facility] Work Phone: 06-21-2024 History of Present illness Narrative Images from the original note [...] different lens options were explained including the [id number] fees for any upgrades. Intraocular lens (IOL) [...] of care will be shared with Dr. Ward. Cataract Surgery for OS will take place - and OD - . documented in this encounter [facility] 06-13-2024 History of Present illness Narrative Subjective Patient ID: Tanisha Bentley is a 78 y.o. male. 5 weeks s/p RT CTR (DOS 05/09/24). He notes a little tenderness over the incision and medial to the incision, not taking anything for the pain. Numbness in the tips of the thumb, IF, and MF which comes and goes, he notes he does not notice it much unless he really thinks about it. The tingling has resolved and the numbness has improved since surgery. He notes he is pleased with his outcome and back to his normal routine and even lifted weights this am Objective Ortho Exam Hand/Wrist Musculoskeletal Exam Inspection Right Erythema: none Ecchymosis: none Edema: none Deformity: none Wrist - prior incision: carpal tunnel Incision: well-healed Incisional drainage: none Inspection additional comments: No tenderness to palpation Neurovascular Right Capillary refill: <3 sec Assessment/Plan Encounter Diagnoses: ICD-10-CM 1. S/P carpal tunnel release Z98.890 Activities as tolerated, f/U prn documented in this encounter [facility] 05-16-2024 History of Present illness Narrative Subjective Patient ID: Tanisha Bentley is a 78 y.o. male. 1 week s/p RT CTR (DOS 05/09/24). Sutures intact. Removed today. Steri strips applied. Denies issues with incisions. Denies drainage/fevers/chills. Denies pain at rest. Pain at worst 5/10 with certain movements. Notes he has accidentally pushed off of his RT hand to get out of a chair and had a lot of pain, 6/10. The pain will sometimes be around the base of his thumb, other times around the incision. Denies pain meds. Used ice the first day. Admits N/T in thumb, IF, and MF which comes and goes, this was constant prior to surgery. Admits minimal swelling. Denies waking at night. Objective Ortho Exam Hand/Wrist Musculoskeletal Exam Inspection Right Erythema: none Ecchymosis: mild Edema: mild Deformity: none Wrist - prior incision: carpal tunnel Incision: clean, dry and intact Incisional drainage: none Inspection additional comments: Nv intact, no signs of infection, sutures removed, steri strips applied Neurovascular Right Capillary refill: <3 sec Median nerve sensory distribution: normal Assessment/Plan Encounter Diagnoses: ICD-10-CM 1. S/P carpal tunnel release Z98.890 RT no forceful gripping or heavy lifting for 4 weeks s/p surgery, no submerging in water for 4 weeks s/p surgery, f/u in 4 weeks documented in this encounter [facility] 05-08-2024 Miscellaneous Notes Preoperative Education Checklist- General Surgery date: 05/09/24 Surgery time: 1145 Arrival time: 0945 1. Bring a photo ID and your insurance card with you the day of surgery. You will check in at the main lobby of the [facility]- registration desk is straight ahead as soon as you walk in. Tell them you are here for surgery. 2. If you have a Living Will/Durable Power of [place] [employer] for Health Care that is not on file here, please bring a copy the day of surgery. 3. Please shower/bathe the night before surgery with the provided soap or wipes. Do not shower the morning of surgery- you will do use wipes when you arrive here at the hospital before getting into your surgical gown. Do not shave the area of your procedure for 2 days prior to your surgery. 4. NO powder, lotion, perfume/cologne, aftershave, make-up, deodorant, or hair products after you have bathed. 5. NO nail sammarinese/acrylic on at least one finger. If you are having a hand, wrist or foot surgery then all nail sammarinese and artificial/acrylic nails must be removed from that hand or foot. 6. Avoid ALL Aspirin and non-steroidal anti-inflammatory drugs and certain vitamins (Ibuprofen, Advil, Aleve, Excedrin, Meloxicam, Celebrex, fish/krill oil, etc.) for 7 days prior to surgery as instructed by your surgeon and/or your prescribing doctor. Tylenol IS ALLOWED. If you are on Ticlid, Xarelto, Eliquis, Pradaxa, Plavix or Coumadin, please check with your prescribing doctor for instructions for when to stop them. 7. If you use an inhaler, continue to use it routinely. 8. Nothing to eat or drink (not even water, gum, mints, or hard candy!) AFTER midnight prior to your surgery. 9. Take only medications that you are instructed to on the morning of surgery with a TINY SIP OF WATER. 10. Choose a responsible adult that will be able to drive you home when you are discharged from your hospital stay for your surgery and can stay with you in your home for 24 hours after your procedure. You must NOT drive any vehicle or operate any machinery for 24 hours after surgery. 11. When you dress for your appointment, please wear loose fitting clothing that is appropriate to accommodate your surgical area procedure. BRING WITH YOU ANY DEVICES YOU MAY NEED: RENATO hose, ice machine, sling/swath, brace or special shoe, oversized zip-up or button up shirt, CPAP machine if staying overnight. 12. Do NOT wear jewelry, watches, or any piercings or metal for surgery- leave these valuables and money at home. 13. Do NOT wear contact lenses for surgery- glasses are okay if needed. 14. The anesthesiologist will talk with you the day of surgery and will ask you to sign a Consent Form. 15. Refrain from smoking or any type of tobacco use for at least 8 hours and marijuana for 24 hours prior to arrival for your surgery. 16. If a GREEN BLOOD band is given to you, please bring it with you for the day of surgery. 17. Notify your surgeon if you develop any illness before your surgery. 18. If you are staying overnight, please DO NOT BRING your home medications with you. 19. If you have any questions prior to surgery, please call the Preadmission Testing office at [phone], Mon.-Fri. 7 a.m.-3 p.m. Leave a voicemail if needed. Pre-Surgery Instructions: Medication Instructions apixaban (ELIQUIS) 5 mg tablet Check with prescribing doctor for instructions aspirin 81 mg Stop taking 1 week prior to procedure atorvastatin (LIPITOR) 80 mg tablet Stop taking 0 days prior to procedure baclofen (LIORESAL) 10 mg tablet Stop taking 0 days prior to procedure calcium carbonate (OS-THOMAS) 500 mg elemental (1,250 mg) chewable tablet Stop taking 0 days prior to procedure clopidogreL (PLAVIX) 75 mg tablet Check with prescribing doctor for instructions dofetilide (TIKOSYN) 250 MCG capsule Take morning of procedure lisinopriL (PRINIVIL,ZESTRIL) 2.5 mg tablet Stop taking 0 days prior to procedure metoprolol succinate XL (TOPROL XL) 50 mg 24 hr tablet Take morning of procedure metoprolol tartrate (LOPRESSOR) 25 mg tablet Take morning of procedure documented in this encounter [facility] 05-08-2024 Nurse Note Preoperative Education Checklist- General Surgery date: 05/09/24 Surgery time: 1145 Arrival time: 0945 1. Bring a photo ID and your insurance card with you the day of surgery. You will check in at the main lobby of the [facility]- registration desk is straight ahead as soon as you walk in. Tell them you are here for surgery. 2. If you have a Living Will/Durable Power of [place] [employer] for Health Care that is not on file here, please bring a copy the day of surgery. 3. Please shower/bathe the night before surgery with the provided soap or wipes. Do not shower the morning of surgery- you will do use wipes when you arrive here at the hospital before getting into your surgical gown. Do not shave the area of your procedure for 2 days prior to your surgery. 4. NO powder, lotion, perfume/cologne, aftershave, make-up, deodorant, or hair products after you have bathed. 5. NO nail sammarinese/acrylic on at least one finger. If you are having a hand, wrist or foot surgery then all nail sammarinese and artificial/acrylic nails must be removed from that hand or foot. 6. Avoid ALL Aspirin and non-steroidal anti-inflammatory drugs and certain vitamins (Ibuprofen, Advil, Aleve, Excedrin, Meloxicam, Celebrex, fish/krill oil, etc.) for 7 days prior to surgery as instructed by your surgeon and/or your prescribing doctor. Tylenol IS ALLOWED. If you are on Ticlid, Xarelto, Eliquis, Pradaxa, Plavix or Coumadin, please check with your prescribing doctor for instructions for when to stop them. 7. If you use an inhaler, continue to use it routinely. 8. Nothing to eat or drink (not even water, gum, mints, or hard candy!) AFTER midnight prior to your surgery. 9. Take only medications that you are instructed to on the morning of surgery with a TINY SIP OF WATER. 10. Choose a responsible adult that will be able to drive you home when you are discharged from your hospital stay for your surgery and can stay with you in your home for 24 hours after your procedure. You must NOT drive any vehicle or operate any machinery for 24 hours after surgery. 11. When you dress for your appointment, please wear loose fitting clothing that is appropriate to accommodate your surgical area procedure. BRING WITH YOU ANY DEVICES YOU MAY NEED: RENATO hose, ice machine, sling/swath, brace or special shoe, oversized zip-up or button up shirt, CPAP machine if staying overnight. 12. Do NOT wear jewelry, watches, or any piercings or metal for surgery- leave these valuables and money at home. 13. Do NOT wear contact lenses for surgery- glasses are okay if needed. 14. The anesthesiologist will talk with you the day of surgery and will ask you to sign a Consent Form. 15. Refrain from smoking or any type of tobacco use for at least 8 hours and marijuana for 24 hours prior to arrival for your surgery. 16. If a GREEN BLOOD band is given to you, please bring it with you for the day of surgery. 17. Notify your surgeon if you develop any illness before your surgery. 18. If you are staying overnight, please DO NOT BRING your home medications with you. 19. If you have any questions prior to surgery, please call the Preadmission Testing office at [phone], Mon.-Fri. 7 a.m.-3 p.m. Leave a voicemail if needed. Pre-Surgery Instructions: Medication Instructions apixaban (ELIQUIS) 5 mg tablet Check with prescribing doctor for instructions aspirin 81 mg Stop taking 1 week prior to procedure atorvastatin (LIPITOR) 80 mg tablet Stop taking 0 days prior to procedure baclofen (LIORESAL) 10 mg tablet Stop taking 0 days prior to procedure calcium carbonate (OS-THOMAS) 500 mg elemental (1,250 mg) chewable tablet Stop taking 0 days prior to procedure clopidogreL (PLAVIX) 75 mg tablet Check with prescribing doctor for instructions dofetilide (TIKOSYN) 250 MCG capsule Take morning of procedure lisinopriL (PRINIVIL,ZESTRIL) 2.5 mg tablet Stop taking 0 days prior to procedure metoprolol succinate XL (TOPROL XL) 50 mg 24 hr tablet Take morning of procedure metoprolol tartrate (LOPRESSOR) 25 mg tablet Take morning of procedure [facility] 05-08-2024 Telephone encounter Note Post op pain rx. PDMP reviewed [facility] 05-08-2024 Miscellaneous Notes Post op pain rx. PDMP reviewed documented in this encounter [facility] 12-20-2023 History of Present illness Narrative Subjective Tanisha Bentley is a 78 y.o. male Chief [...] the direction and in the presence of Chanda Wing MD. Provider Attestation - Scribe documentation All medical record entries made by the Scribe were at my direction and personally dictated by me. I have reviewed the chart and agree that the record accurately reflects my personal performance of the history, physical exam, discussion and plan. documented in this encounter [facility] Work Phone: 12-20-2023 Instructions Disha Atkinson LPN - 12/20/2023 [...] instructions on exercise. documented in this encounter [facility] Work Phone: 11-04-2022 Discharge summary Note Date/Time November 04, 2022 1:20pm [facility] [address] [place] [address] Discharge Summary Signed Patient: Tanisha Bentley MR#: [id number] : 1945 Acct:[id number] Age/Sex: 77 / M Adm Date: 3 Loc: Room: [address] [place] [address]: Chanda Wing MD Copies to: Chanda Wing MD, FACC Robert Watts MD~ Providers Date of Discharge: 11/04/22 Discharging Provider: Chanda Wing Primary Care Provider: Robert Watts Discharge Diagnosis (1) Paroxysmal atrial fibrillation [...] tablet 40 mg PO HS Follow Up: Chanda Wing MD [Active Staff] - Documented By: Chanda Wing MD, [facility] 3 1318 Signed By: <Electronically signed by MD JORDAN Wing> 11/04/22 1320 [facility] Work Phone: 1(939) 454-296202-15-2023 Progress note Author Chanda Wing [facility] November 03, 2022 2:50pm Note Date/Time November 03, 2022 2:50pm [facility] [address] [place] [address] Cardiology Progress Note Signed Patient: Tanisha Bentley MR#: [id number] : 1945 Acct:[id number] Age/Sex: 77 / M Adm Date: 3 Loc: 4 Room: [address] [place] [address] Type: ADM IN Attending Dr: Chanda Wing MD Copies to: ~ Date of Service: [...] Code(s): I25.10 - Atherosclerotic heart disease of [place] coronary artery without angina pectoris Status: Acute Plan: Continue secondary prevention measures (3) Stented coronary artery: Assessment/Problem Details: Asymptomatic Status: Acute Plan: Continue statin and antiplatelet therapy (4) Dyslipidemia: Assessment/Problem Details: On statin therapy Code(s): E78.5 - Hyperlipidemia, unspecified Status: Acute Plan: Continue rosuvastatin Documented By: Chanda Wing MD, [facility] 3 1448 Signed By: <Electronically signed by [facility] Chanda Wing> 11/03/22 1450 [facility] Work Phone: 1(167) 448-415002-14-2023 History and physical note Author Chanda Wing [facility] November 02, 2022 5:54pm Note Date/Time November 02, 2022 5:52pm [facility] [address] [place] [address] Cardiology H&P Signed Patient: Tanisha Bentley MR#: [id number] : 1945 Acct:[id number] Age/Sex: 77 / M Adm Date: 3 Loc: 4 Room: [address] [place] [address] Type: ADM IN Attending Dr: Chanda Wing MD Copies to: Chanda Wing MD, [facility] Robert Watts MD~ Date of Service: 11/02/2022 Cardiology [...] dyspnea no chest pain no fever or [id number] point review of system essentially normal PMFSH Vaccinated for COVID-19?: Yes Medical History (Updated 11/02/22 @ 17:52 by Chanda Wing MD) A-fib Hyperlipidemia Surgical History (Updated 11/02/22 @ 17:52 by Chanda Wing MD) H/O cardiac catheterization with stents History [...] in 48 hours cardioversion if necessary. Continue beta-halle therapy with metoprolol Code(s): I48.0 - Paroxysmal atrial fibrillation (2) Coronary artery disease: Assessment/Problem Details: Stable after angioplasty 2019 Plan: Continue secondary prevention measures Code(s): I25.10 - Atherosclerotic heart disease of [place] coronary artery without angina pectoris (3) Stented coronary artery: Assessment/Problem Details: Back in 2019 involving anterior descending artery Plan: Continue statin and antiplatelet therapy (4) Dyslipidemia: Assessment/Problem Details: On rosuvastatin Plan: Continue rosuvastatin Code(s): E78.5 - Hyperlipidemia, unspecified Documented By: Chanda Wing MD, [facility] 3 1749 Signed By: <Electronically signed by [facility] Chanda Wing> 11/02/22 1754 [facility] Work Phone: Evaluation note* Diagnosis Onset Date Resolution Status Coronary artery disease acut e Dyslipidemia acute Paroxysmal atrial fibrillation with RVR acute Stented coronary artery acut e [facility] Work Phone: Evaluation note* Diagnosis Arteriosclerotic cardiovascular disease (ASCVD)- Primary Unspecified cardiovascular disease History of PTCA Postsurgical percutaneous transluminal coronary angioplasty status Paroxysmal atrial fibrillation (CMS/HCC) Atrial fibrillation Mixed hyperlipidemia BMI 27.0-27.9,adult Never smoked tobacco High risk medication use documented in this encounter [facility] Work Phone: Evaluation note* Diagnosis Age-related nuclear cataract of both eyes- Primary documented in this encounter [facility] HealthcareEvaluation note* Diagnosis Arteriosclerotic cardiovascular disease (ASCVD) Unspecified cardiovascular disease Paroxysmal atrial fibrillation (Multi) Atrial fibrillation History of PTCA Postsurgical percutaneous transluminal coronary angioplasty status Mixed hyperlipidemia BMI 26.0-26.9,adult documented in this encounter [facility] Work Phone: Evaluation note* Diagnosis Chronic atrial fibrillation (HCC) (CMS/HCC) Atrial fibrillation Hypertension, unspecified type (CMS/HCC) Routine general medical examination at health care facility- Primary Routine general medical examination at a health care facility Longstanding persistent atrial fibrillation (CMS/HCC) 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) Primary hypertension (CMS/HCC) Unspecified essential hypertension Stented coronary artery Postsurgical percutaneous transluminal coronary angioplasty status Hypercholesterolemia (CMS/HCC) Pure hypercholesterolemia Primary hypertension (CMS/HCC)- Primary Unspecified essential hypertension Paroxysmal atrial fibrillation (CMS/HCC) Atrial fibrillation Moderate mixed hyperlipidemia not requiring statin therapy (CMS/HCC) Routine general medical examination at health care facility- Primary Routine general medical examination at a health care facility Other thrombophilia (CMS/HCC) Paroxysmal atrial fibrillation (CMS/HCC) Atrial fibrillation 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) Primary hypertension (CMS/HCC) Unspecified essential hypertension Pure hypercholesterolemia (CMS/HCC) Pure hypercholesterolemia Medicare annual wellness visit, subsequent Carpal tunnel syndrome of right wrist Carpal tunnel syndrome of right wrist- Primary Primary hypertension (CMS/HCC)- Primary Unspecified essential hypertension Paroxysmal atrial fibrillation (CMS/HCC) Atrial fibrillation [facility] Diagnosis Post-operative pain- Primary Other acute postoperative pain documented in this [facility]* Diagnosis S/P carpal tunnel release- Primary Other postprocedural status documented in this [facility]* Diagnosis S/P carpal tunnel release- Primary Other postprocedural status documented in [facility]* Diagnosis Chronic atrial fibrillation (HCC) ([facility]) Atrial fibrillation Hypertension, unspecified type ([facility]/HCC) Routine general medical examination at health care facility- Primary Routine general medical examination at a health care facility Longstanding persistent atrial fibrillation ([facility]) 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) Primary hypertension ([facility]/HCC) Unspecified essential hypertension Stented coronary artery Postsurgical percutaneous transluminal coronary angioplasty status Hypercholesterolemia (CMS/HCC) Pure hypercholesterolemia Primary hypertension (CMS/HCC)- Primary Unspecified essential hypertension Paroxysmal atrial fibrillation (CMS/HCC) Atrial fibrillation Moderate mixed hyperlipidemia not requiring statin therapy (CMS/HCC) Routine general medical examination at health care facility- Primary Routine general medical examination at a health care facility Other thrombophilia (CMS/HCC) Paroxysmal atrial fibrillation (CMS/HCC) Atrial fibrillation 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) Primary hypertension (CMS/HCC) Unspecified essential hypertension Pure hypercholesterolemia ([facility]/HCC) Pure hypercholesterolemia Medicare annual wellness visit, subsequent Carpal tunnel syndrome of right wrist Carpal tunnel syndrome of right wrist- Primary Primary hypertension (CMS/HCC)- Primary Unspecified essential hypertension Paroxysmal atrial fibrillation (CMS/HCC) Atrial fibrillation Hypertension, unspecified type (CMS/HCC) Hypercholesterolemia (CMS/HCC) Pure hypercholesterolemia documented in this encounter [facility]* Diagnosis Paroxysmal atrial fibrillation (Multi)- Primary Atrial fibrillation At risk for stroke At risk for falling Personal history of fall History of bilateral knee replacement Preop testing Unspecified pre-operative examination Atrial fibrillation, persistent (Multi) Paroxysmal atrial fibrillation (Multi) Atrial fibrillation At risk for stroke At risk for falling Personal history of fall History of bilateral knee replacement Preop testing Unspecified pre-operative examination Atrial fibrillation, persistent (Multi) documented in this encounter [facility] Work Phone: Evaluation note* Diagnosis Paroxysmal atrial fibrillation (Multi) Atrial fibrillation At risk for stroke At risk for falling Personal history of fall History of bilateral knee replacement Preop testing Unspecified pre-operative examination Atrial fibrillation, persistent (Multi) Paroxysmal atrial fibrillation (Multi) Atrial fibrillation Paroxysmal atrial fibrillation (Multi) Atrial fibrillation At risk for stroke At risk for falling Personal history of fall History of bilateral knee replacement Preop testing Unspecified pre-operative examination Atrial fibrillation, persistent (Multi) documented in this encounter [facility] Work Phone: Evaluation note* Diagnosis Paroxysmal atrial fibrillation (Multi)- Primary Atrial fibrillation At risk for stroke At risk for falling Personal history of fall History of bilateral knee replacement Preop testing Unspecified pre-operative examination Atrial fibrillation, persistent (Multi) CAD (coronary artery disease) Coronary atherosclerosis of unspecified type of vessel, [place] or graft Paroxysmal atrial fibrillation (Multi) Atrial fibrillation At risk for stroke At risk for falling Personal history of fall History of bilateral knee replacement Preop testing Unspecified pre-operative examination Atrial fibrillation, persistent (Multi) documented in this encounter [facility] Work Phone: Evaluation note* Diagnosis Chronic atrial fibrillation (HCC) (CMS/HCC) Atrial fibrillation Hypertension, unspecified type (CMS/HCC) Routine general medical examination at health care facility- Primary Routine general medical examination at a health care facility Longstanding persistent atrial fibrillation (CMS/HCC) 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) Primary hypertension (CMS/HCC) Unspecified essential hypertension Stented coronary artery Postsurgical percutaneous transluminal coronary angioplasty status Hypercholesterolemia (CMS/HCC) Pure hypercholesterolemia Primary hypertension (CMS/HCC)- Primary Unspecified essential hypertension Paroxysmal atrial fibrillation (CMS/HCC) Atrial fibrillation Moderate mixed hyperlipidemia not requiring statin therapy (CMS/HCC) Routine general medical examination at health care facility- Primary Routine general medical examination at a health care facility Other thrombophilia Paroxysmal atrial fibrillation (CMS/HCC) Atrial fibrillation 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) Primary hypertension (CMS/HCC) Unspecified essential hypertension Pure hypercholesterolemia (CMS/HCC) Pure hypercholesterolemia Medicare annual wellness visit, subsequent Carpal tunnel syndrome of right wrist Carpal tunnel syndrome of right wrist- Primary Primary hypertension (CMS/HCC)- Primary Unspecified essential hypertension Paroxysmal atrial fibrillation (CMS/HCC) Atrial fibrillation Paroxysmal atrial fibrillation (CMS/HCC)- Primary Atrial fibrillation 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) documented in this encounter [facility]* Diagnosis Atrial fibrillation, persistent (Multi)- Primary Arteriosclerotic cardiovascular disease (ASCVD) Unspecified cardiovascular disease Presence of Watchman left atrial appendage closure device documented in this encounter [facility] Work Phone: Hospital Discharge instructions Additional Instructions You are scheduled [facility] an E[facility] Phone: InstructionsNot on filedocumented in this encounter [facility]* Imaging (Routine) - Authorized Specialty Diagnoses / Procedures Referred By Robi elizabeth Referred To Contact Radiology Diagnoses Paroxysmal atrial fibrillation (Multi) Procedures [place] [address] [place] [address] Phone: tel: fax: Referral ID Status Reason Start Date Expiration Date Visits Requested Visits Authorized [id number] Authorized Perform Procedure 12/11/2024 12/11/2025 1 1 [facility] Work Phone: Reason for visit Narrative* Auth/Cert Specialty Diagnoses / Procedures Referred By Contac t Referred To Contact Diagnoses Paroxysmal atrial fibrillation (Multi) At risk for stroke At risk for falling History of bilateral knee replacement Preop testing Atrial fibrillation, persistent (Multi) AF Procedures VT COMPRE EP EVAL ABLTJ ATR FIB PULM VEIN ISOLATION VT PERQ CLSR TCAT L ATR APNDGE W/ENDOCARDIAL IMPLNT Ablation A-Fib Paroxysmal [place] [address] [place] [address] Phone: tel: fax: [facility] [address] [place] [address] Phone: tel: fax: Referral ID Status Reason Start Date Expiration Date Visits Re quested Visits Authorized [id number] 1 1 [facility] Work Phone: Chief Complaint TANISHA BENTLEY is being seen for a 6 month follow-up of.* TANISHA BENTLEY is being seen for a 6 [...] recurrent an event monitor will berecommended * TANISHA BENTLEY is being seen for follow-up of a hospitalization for [facility]/C 01/05. * Patient is in the office for follow-up for CAD and previous PCI in 2019. Since his last visit in October 2021 he had an admission to [facility] in [place] where he had laparoscopic abdominal procedure for [...] acute abdominal pain 2021. He was in [place]. Records were requested, presently he is on [...] the aspirin as requested by gastroenterology * TANISHA BENTLEY is being seen for a 6 [...] in office for EKG ordered by Dr. Chanda Wing MD due to paroxysmal atrial fibrillation diagnosis. Dr. Charlotte Loya MD in suite. Patient in office for follow up to Tikosyn loading done 11/04/[address] [facility]. Medication list updated verbally. No cardiac complaints while in office. EKG reviewed by Odalys Alaniz RN prior to discharge. To Dr. Chanda Wing MD for review.* TANISHA BENTLEY is being seen for a 6 [...] Advance Directives No October 28, 2022 10:40am Date Activated Date Inactivated Comments 01/02/2022 1:32 PM 01/05/2022 1:39 PM Date Activated Date Inactivated Comments 01/17/2025 4:11 PM Question Answer Comments Plan of Care: Code Status Discussion Completed Decision Maker: Patient Summary Purpose Reason for Referral Specialty Diagnoses / Procedures Referred By Contac t Referred To Contact Diagnoses Paroxysmal atrial fibrillation ([facility]/HCC) Procedures ECG 12 Lead Chanda Wing MD [address] [facility] [address], [address] [address] Referral ID Status Reason Start Date Expiration Date V isits Requested Visits Authorized [id number] Authorized 12/20/2023 12/19/2024 1 1 Specialty Diagnoses / Procedures Referred By Contac t Referred To Contact Cardiology Diagnoses Arteriosclerotic cardiovascular disease (ASCVD) Paroxysmal atrial fibrillation ([facility]/HCC) Procedures Follow Up In Cardiology Chanda Wing MD [address] [facility] [address], [address] [address] Referral ID Status Reason Start Date Expiration Date V isits Requested Visits Authorized [id number] Authorized 12/20/2023 12/19/2024 1 1 Additional Source Comments Care Teams (unrecognized sec tion and content) Team Status: Inactive Member Role Status Dates Robert Watts MD Primary Care Provider Active Chanda Wing MD Admit Provider, Attending Provider Active Team Status: Active Member Role Status Dates Robert Watts MD Primary Care Provider Active Pot Firer Relationship Specialty Start Date End Date Robert Watts MD [address] [facility] [address] [place] [address] PCP - General 09/19/99 Chanda Wing MD [facility] [address], [address] [place] [address] Consulting Physician Cardiology 12/20/23 Pot Firer Relationship Specialty Start Date End Date Robert Watts MD [address] [place] [address] PCP - General Family Medicine 01/31/23 Stephen Ogden MD [address] [place] [address] PCP - [employer] 09/19/21 Pot Firer Relationship Specialty Start Date End Date Robert Watts MD [address] [place] [address] PCP - General Family Medicine 01/31/23 Stephen Ogden MD [address] [place] [address] PCP - [employer] 09/19/21 Pot Firer Relationship Specialty Start Date End Date Robert Watts MD [address] [place] [address] PCP - General 09/19/99 Chanda Wing MD [address] [facility] [address], [address] [place] [address] Consulting Physician Cardiology 12/20/23 Pot Firer Relationship Specialty Start Date End Date Robert Watts MD [address] [place] [address] PCP - General Family Medicine 01/31/23 Stephen Ogden MD [address] [place] [address] PCP - [employer] 09/19/21 Pot Firer Relationship Specialty Start Date End Date Robert Watts MD [address] [place] [address] PCP - General Family Medicine 01/31/23 Stephen Ogden MD [address] [place] [address] PCP - [employer] 09/19/21 Pot Firer Relationship Specialty Start Date End Date Robert Watts MD [address] [place] [address] PCP - General Family Medicine 01/31/23 Stephen Ogden MD [address] [place] [address] PCP - [employer] 09/19/21 Pot Firer Relationship Specialty Start Date End Date Robert Watts MD [address] [place] [address] PCP - General Family Medicine 01/31/23 Stephen Ogden MD [address] [place] [address] PCP - [employer] 09/19/21 Pot Firer Relationship Specialty Start Date End Date Robert Watts MD [address] [place] [address] PCP - General Family Medicine 01/31/23 Stephen Ogden MD [address] [place] [address] PCP - [employer] 09/19/21 Pot Firer Relationship Specialty Start Date End Date Robert Watts MD [address] [place] [address] PCP - [employer] 09/19/20 Robert Watts MD [address] [place] [address] PCP - General Family Medicine 01/31/23 Pot Firer Relationship Specialty Start Date End Date Robert Watts MD [facility] [address] PCP - General Family Medicine 01/04/22 Pot Firer Relationship Specialty Start Date End Date Robert Watts MD [address] [facility] [address] [place] [address] PCP - General 09/19/99 Chanda Wing MD [address] [facility] [address], [address] [place], [place] [id number] Consulting Physician Cardiology 12/20/23 Pot Firer Relationship Specialty Start Date End Date Robert Watts MD [address] [facility] [address] [place] [address] PCP - [employer] 09/19/20 Robert Watts MD [address] [facility] [address] [place] [address] PCP - General Family Medicine 01/31/23 Pot Firer Relationship Specialty Start Date End Date Robert Watts MD [address] [facility] [address] [place] [address] PCP - General 09/19/99 Chanda Wing MD [address] [facility] [address], [address] [place] [address] Consulting Physician Cardiology 12/20/23 Pot Firer Relationship Specialty Start Date End Date Robert Watts MD [address] [place] [address] PCP - General 09/19/99 Chanda Wing MD [address] [facility] [address], [address] [place] [address] Consulting Physician Cardiology 12/20/23 Pot Firer Relationship Specialty Start Date End Date Robert Watts MD [address] [place] [address] PCP - [employer] 09/19/20 Robert Watts MD [address] [place] [address] PCP - General Family Medicine 01/31/23 Pot Firer Relationship Specialty Start Date End Date Robert Watts MD [address] [place] [address] PCP - General 09/19/99 Chanda Wing MD [address] [facility] [address], [address] [place] [address] Consulting Physician Cardiology 12/20/23 (unrecognized sect ion and content) No Status Records FoundNo Status Records FoundNo Status Records FoundNo Status Records FoundNo Status Records FoundNo Status Records FoundNo Status Records FoundNo Status Records FoundNo Status Records Found INFORMATION SOURCE (unrecogn ized section and content) DATE CREATED AUTHOR 11/11/2022 [facility] DATE CREATED AUTHOR AUTHOR'S ORGANIZ ATION 12/03/2022 [employer] DATE CREATED AUTHOR AUTHOR'S ORGANIZ ATION 12/12/2022 [facility] DATE CREATED AUTHOR AUTHOR'S ORGANIZ ATION 12/18/2024 [facility] DATE CREATED AUTHOR AUTHOR'S ORGANIZ ATION 01/03/2025 [facility] DATE CREATED AUTHOR AUTHOR'S ORGANIZ ATION 01/17/2025 [facility] DATE CREATED AUTHOR AUTHOR'S ORGANIZ ATION 02/05/2025 [facility] DATE CREATED AUTHOR AUTHOR'S ORGANIZ ATION 02/19/2025 [facility] DATE CREATED AUTHOR AUTHOR'S ORGANIZ ATION 02/20/2025 [facility] Reason for Visit (unrecogniz ed section and content) Reason Comments Follow-up 6 month Specialty Diagnoses / Procedures Referred By Contac t Referred To Contact Diagnoses Paroxysmal atrial fibrillation (CMS/HCC) Procedures ECG 12 Lead Chanda Wing MD [address] [place] [address] [address], [address] [address] Referral ID Status Reason Start Date Expiration Date V isits Requested Visits Authorized [id number] Authorized 12/20/2023 12/19/2024 1 1 Reason Comments Cataract Reason Comments Follow-up 6m Specialty Diagnoses / Procedures Referred By Contac t Referred To Contact Cardiology Diagnoses Arteriosclerotic cardiovascular disease (ASCVD) Paroxysmal atrial fibrillation (Multi) Procedures Follow Up In Cardiology Chanda Wing MD [facility] [address], [address] [address] Phone: tel: fax: Referral ID Status Reason Start Date Expiration Date V isits Requested Visits Authorized [id number] Authorized 12/20/2023 12/19/2024 1 1 Reason Comments Hypertension Reason Comments Post-op Reason Comments Med Refill Reason Comments Atrial Fibrillation Specialty Diagnoses / Procedures Referred By Contac t Referred To Contact Cardiology Diagnoses Paroxysmal atrial fibrillation (Multi) Chanda Wing MD [address] [facility] [address], [address] [address] Phone: tel: fax: [place] [address] [place] [address] Phone: tel: fax: Referral ID Status Reason Start Date Expiration Date Visits Requested Visits Authorized [id number] Authorized Specialty Services Required 10/11/2024 10/11/2025 1 1 Reason Comments Wound Check Afib ablation and wa tchmen placement Reason Comments Atrial Fibrillation Specialty Diagnoses / Procedures Referred By Contac t Referred To Contact Diagnoses Atrial fibrillation, persistent (Multi) Procedures ECG 12 lead (Clinic Performed) Jane Johnson APRN-ROBE [address] [place] [address] Phone: tel: fax: Referral ID Status Reason Start Date Expiration Date V isits Requested Visits Authorized [id number] Authorized 02/18/2025 02/18/2026 1 1 Scheduled Active and Recently Administ ered Medications (unrecognized section and content) Medication Order 01/16/2025 01/17/2025 01/18/2025 apixaban (Eliquis) tablet 5 mg 5 mg, oral, 2 times daily, First dose on Tue01/17/25 at 2100 2100 (Given - Provider: Marc Lenz RN) 821 (Given - Provider: Romeo Hager, LUIS ALFREDO)2099 (Due) dofetilide (Tikosyn) capsule 250 mcg (CANCELED) 250 mcg, oral, 2 times daily, First dose on Tue01/17/25 at 2100, QTc monitoring required 2-3 hours after each dofetilide dose during initiation or upward titration. Contact provider if QTc exceeds 500 msec on any check., Prescriber certifies: baseline QTc before dofetilide initiation is < 440 msec (or < 500 msec if ventricular conduction abnormality): Yes 2100 (Given - Provider: Marc Lenz RN) 821 (Given - Provider: Romeo Hager, LUIS ALFREDO) dofetilide (Tikosyn) capsule 250 mcg 250 mcg, oral, Every 12 hours, First dose (after last modification) on Tue01/18/25 at 2000, QTc monitoring required 2-3 hours after each dofetilide dose during initiation or upward titration. Contact provider if QTc exceeds 500 msec on any check., Prescriber certifies: baseline QTc before dofetilide initiation is < 440 msec (or < 500 msec if ventricular conduction abnormality): Yes 1999 (Due) metoprolol succinate XL (Toprol-XL) 24 hr tablet 50 mg 50 mg, oral, Daily, First dose on Tue01/18/25 at 0900, Do not crush or chew. 08 (Given - Provid er: Romeo Hager RN) pantoprazole (ProtoNix) EC tablet 40 mg 40 mg, oral, Daily before breakfast, First dose on Tue01/18/25 at 0700, For 30 days, Do not crush, chew, or split. 0607 (Given - Provid er: Marc Lenz RN) PRN Medication Order 01/16/2025 01/17/2025 01/18/2025 heparin 1,000 unit/mL injection (CANCELED) As needed, Starting on Ninfa 01/17/25 at 1355, Intraprocedure 1355 (Given - Provider: Hitesh Wright RN) heparin 25,000 Units in dextrose 5% 250 mL (100 Units/mL) infusion (premix) (CANCELED) Continuous PRN, Starting on Ninfa 01/17/25 at 1355, Intraprocedure 1355 (New Bag - Provider: Hitesh Wright RN)1448 (Stopped - Provider: Hitesh Wright RN) iohexol (OMNIPaque) 350 mg iodine/mL solution (CANCELED) As needed, Starting on Ninfa 01/17/25 at 1506, Intraprocedure 1441 (Given - Provider: Hitesh Wright RN - Comment: given at time of angio for SONDRA) FOR RECORDS PERTAINING TO PATIENTS WHO ARE [...] BE BASED ON THE PRIMARY CLINICAL RECORDS. [facility], [facility]. provides no warranty or guarantee of the accuracy or completeness of information in this document.
--- OUTSIDE RECORDS SUMMARY | 2025-03-09 12:40 | XMS_ITS | Clinical Summary ---
Author Organization [facility] Address [id number] [place] [address] Care Team Providers Care Anatomy Teacher Name Role Phone Jasmin Maurice MD Primary Care Provider [phone] Allergies No known active allergies Medications aspirin 81 mg Take 1 tablet (81 mg total) by mouth in the morning. On Tuesday and . Active metoprolol succinate XL (TOPROL XL) 50 mg 24 hr tablet Take 1 tablet (50 mg total) by mouth in the morning. Active clopidogreL (PLAVIX) 75 mg tablet Take 1 tablet (75 mg total) by mouth in the morning. Active lisinopriL (PRINIVIL,ZESTR IL) 2.5 mg tablet Take 1 tablet (2.5 mg total) by mouth in the morning. Active baclofen (LIORESAL) 10 mg tablet Take 1 tablet (10 mg total) by mouth as needed. Active atorvastatin (LIPITOR) 80 mg tablet Take 1 tablet (80 mg total) by mouth respiratory nightly. Active dofetilide (TIKOSYN) 250 MCG capsule Take 1 capsule (250 mcg total) by mouth in the morning and 1 capsule (250 mcg total) before bedtime. Active metoprolol tartrate (LOPRESSOR) 25 mg tablet Take 1 tablet (25 mg total) by mouth as needed. If in a-fib Active apixaban (ELIQUIS) 5 mg tablet Take 1 tablet (5 mg total) by mouth in the morning and 1 tablet (5 mg total) before bedtime. Active calcium carbonate (OS-THOMAS) 500 mg elemental (1,250 mg) chewable tablet Chew 1 tablet (500 mg total) and swallow in the morning. Active Active Problems Problem Noted Date Diagnosed Date Perforated bowel 01/02/2022 Family History Medical History Relation Name Comments Heart disease Father Prostate cancer Father No Known Problems Mother Relation Name Status Comments Father Mother Social History Tobacco Use Types Packs/Day Years Used Date Smoking Tobacco: Never Smokeless Tobacco: Never Alcohol Use Standard Drinks/Week Comments Not Currently 0 (1 standard drink = 0.6 oz pur e alcohol) Sex and Gender Information Value Date Recorded Sex Assigned at Not on file Legal Sex Male 8:32 AM EDT Gender Identity Not on file Sexual Orientation Not on file Last Filed Vital Signs Vital Sign Reading Time Taken Comments Blood Pressure 105/67 01/05/2022 4:09 AM EDT Pulse 109 01/05/2022 4:09 AM EDT Temperature 36.6 C (97.8 F) 01/05/2022 4:09 AM EDT Respiratory Rate 16 01/05/2022 4:09 AM EDT Oxygen Saturation 90% 01/05/2022 4:09 AM EDT Inhaled Oxygen Concentration - - Weight 81.6 kg (180 lb) 05/08/2024 10:43 AM EDT Height 175.3 cm (5' 9 ) 05/08/2024 10:43 AM EDT Body Mass Index 26.58 05/08/2024 10:43 AM EDT Plan of Treatment Health Maintenance Due Date Last Done Comments Depression Screening 1957 Zoster (Shingles) Vaccine (1 of 2) 1994 Fall Risk Screening 2009 COVID-19 Vaccine (2023-2 5 season) 2024 06/21/2023, 06/02/2022, 12/22/2021, Additional history exists Tobacco Screening 05/09/2025 05/09/2024 Influenza Vaccine 05/20/2025 05/31/2023, , 05/26/2022, Additional history exists DTaP,Tdap and Td Vaccines (2 - Td or Tdap) 12/26/2028 12/26/2018 Goals Goal Patient Goal Type Associated Problems Recent Progress Patient-Stated? Author home General Yes Margo Mcdonald, RN Note: Evaluation of progress towards goal: home w supportive Medical Devices Not on file Insurance AETNA MEDICARE Advance Directives * Full Code (Latest Code Status on File) Date Activated Date Inactivated Comments 01/02/2022 1:32 PM 01/05/2022 1:39 PM Care Teams Anatomy Teacher Relationship Specialty Start Date End [place] [address] [place] [address] PCP - General Family Medicine 01/04/22
--- OUTSIDE RECORDS SUMMARY | 2025-03-09 12:40 | XMS_ITS | Encounter Summary ---
Author Organization [facility] Address [address] [facility] [place] [address] Care Team Providers Care Pedigree Researcher Name Role Phone Jasmin Maurice MD Unavailable Jasmin Maurice MD Primary Care Provider [phone] Encounter Details Date Type Department Care Team (Late Contact Info) Description 07/31/2024 Abstract [facility] [address] [facility] [address] [place] [id number] Jasmin Maurice MD [address] [facility] 110 [place] [address] Social History Tobacco Use Types Packs/Day Years [...] FM [address] [facility] [address] [place] [id number] Alma Gold, JOHNNY [address] [facility] [address] [place] [address] 08/07/2025 9:30 AM EST Office Visit [facility] [address] [facility] [address] [place] [phone] Yani York PA [address] [facility] [address] [place] [address] documented as of this encounter Visit Diagnoses Not on filedocumented in this encounter Care Teams Pedigree Researcher Relationship Specialty Start Date End Date Jasmin Maurice MD [address] [facility] [address] [place] [address] PCP - [employer] 09/19/20 Jasmin Maurice MD [address] [facility] [address] [place] [address] PCP - General Family Medicine 01/31/23 documented as of this encounter
--- OUTSIDE RECORDS SUMMARY | 2025-03-09 12:40 | XMS_ITS | Clinical Summary ---
Author Organization [facility] Address [address] [place] [address] Care Team Providers Care Demolition Worker Name Role Phone Jasmin Maurice MD Unavailable Jasmin Maurice MD Primary Care Provider [phone] Allergies No known active allergies Medications aspirin 81 MG EC tablet Take 81 mg by mouth in the morning. Active baclofen (Lioresal) 10 MG tablet Take 10 mg by mouth in the morning and 10 mg in the evening and 10 mg before bedtime. PRN. Active calcium carbonate 1500 (600 Ca) MG tablet Take 1,500 mg by mouth in the morning and 1,500 mg in the evening. Take with meals. Active dofetilide (Tikosyn) 250 MCG capsule 1 capsule every 12 (twelve) hours. 3 Active fluocinonide (Lidex) 0.05 % cream Apply topically 2 (two) times a day. 9 Active metoprolol tartrate (Lopressor) 25 MG tablet Take 25 mg by mouth 2 (two) times a day as needed. 3 Active ALPRAZolam (Xanax) 0.5 MG tablet Take 0.5 mg by mouth as needed at bedtime for anxiety Active lisinopril 2.5 MG tabletIndication s:Hypertension, unspecified type Take 1 tablet (2.5 mg) by mouth in the morning. 90 tablet 3 5 Active atorvastatin (Lipitor) 80 MG tabletIndication s:Hypercholester olemia Take 1 tablet (80 mg) by mouth in the morning. 90 tablet 3 5 Active apixaban (Eliquis) 5 MG tabletIndication s:Longstanding persistent atrial fibrillation (HCC) TAKE 1 TABLET EVERY MORNINGAND 1 TABLET BEFORE BEDTIME 180 tablet 3 5 Active metoprolol succinate XL (Toprol-XL) 50 MG 24 hr tabletIndication s:Hypertension, unspecified type TAKE 1 TABLET EVERY MORNING 100 tablet 3 5 Active pantoprazole (ProtoNix) 40 MG EC tablet Take 40 mg by mouth in the morning. Take before meals. 5 02/18/20 25 Active Problems Problem Noted Date Diagnosed Date At risk for falling 11/19/2024 At risk for stroke 11/19/2024 History of bilateral knee replacement 11/19/2024 Age-related nuclear cataract of both eyes 2023 Other thrombophilia (HHS-HCC) 03/27/2024 Carpal tunnel syndrome of right wrist 03/27/2024 Assessment & Plan (04/30/2024 3:42 PM EDT): EMG showed mild to moderate Carpal tunnel Referral to Dr. Hou Do a night time cockup wrist splint Avoid overuse activities Assessment & Plan (03/27/2024 10:48 AM EDT): Nighttime cock up wrist splint EMG And eventual referral to Ortho Dyslipidemia 02/28/2024 BMI 27.0-27.9,adult 12/20/2023 Never smoked tobacco 12/20/2023 History of PTCA 10/06/2023 Paroxysmal atrial fibrillati on with rapid ventricular response 10/06/2023 Hyperlipidemia 10/06/2023 Assessment & Plan (03/27/2024 10:38 AM EDT): This is a chronic medical condition that is stable since last assessment. No changes in treatment are suggested at this time. Continue Current meds. Assessment & Plan (02/28/2024 9:05 AM EDT): This is a chronic medical condition that is stable since last assessment. No changes in treatment are suggested at this time. Continue Current meds. Medicare annual wellness visit, subsequent 08/29 Assessment & Plan (03/27/2024 10:37 AM EDT): Colonoscopy every 10 years or Cologuard every 3 years ages 50-75 Flu Vaccine yearly Pneumovax and Prevnar Mammo yearly for women and PSA yearly for men Labs/Screening yearly to rule out Diabetes, Chronic Kidney disease and liver disease Hepatitis Screen forat risk populations Shingles vaccine after 65 if indicated Tetanus Vaccine every 10 years Lipids yearly under the age of 75 If Smoking history: one time CT scan of chest and Ultrasound of Aorta to screen for Anuerysm Assessment & Plan (08/29/2023 9:37 AM EST): Colonoscopy every 10 years or Cologuard every 3 years ages 50-75 Flu Vaccine yearly Pneumovax and Prevnar Mammo yearly for women and PSA yearly for men Labs/Screening yearly to rule out Diabetes, Chronic Kidney disease and liver disease Hepatitis Screen forat risk populations Shingles vaccine after 65 if indicated Tetanus Vaccine every 10 years Lipids yearly under the age of 75 If Smoking history: one time CT scan of chest and Ultrasound of Aorta to screen for Anuerysm Anxiety 01/18/2023 Atrial fibrillation 01/18/2023 Assessment & Plan (02/04/2025 3:13 PM EDT): Watchmen placed On Eliquis fdor two months Plavix then for 3 months Then aspirin lifetime Assessment & Plan (08/28/2024 9:15 AM EST): Alert bracelet On Blood thinner Tikosyn, Metoprolol Assessment & Plan (03/27/2024 10:37 AM EDT): This is a chronic medical condition that is stable since last assessment. No changes in treatment are suggested at this time. Continue Current meds. Assessment & Plan (02/28/2024 9:00 AM EDT): Has to take 1 or 2 times a month will be out of rhytm. Last 1-1 1/2 days Assessment & Plan (08/29/2023 9:35 AM EST): This is a chronic medical condition that is stable since last assessment. No changes in treatment are suggested at this time. Continue Current meds. Assessment & Plan (02/07/2023 9:04 AM EDT): Continue current meds Has seen community association manager 3 months ago Coronary artery disease 01/18/2023 Assessment & Plan (02/04/2025 3:14 PM EDT): No current symptoms Assessment & Plan (03/27/2024 10:38 AM EDT): This is a chronic medical condition that is stable since last assessment. No changes in treatment are suggested at this time. Continue Current meds. Assessment & Plan (08/29/2023 9:36 AM EST): This is a chronic medical condition that is stable since last assessment. No changes in treatment are suggested at this time. Continue Current meds. Hypercholesterolemia 01/18/2023 Hypertension 01/18/2023 Assessment & Plan (08/28/2024 9:12 AM EST): Our specific goals, for your hypertension, is [...] taking them as prescribed. DASH diet handouts Assessment & Plan (03/27/2024 10:37 AM EDT): Our specific goals, for your hypertension, is [...] taking them as prescribed. DASH diet handouts Assessment & Plan (02/28/2024 8:58 AM EDT): Our specific goals, for your hypertension, is [...] taking them as prescribed. DASH diet handouts Assessment & Plan (08/29/2023 9:35 AM EST): Our specific goals, for your hypertension, is [...] the importance of taking them as prescribed. TurningArt handouts Stented coronary artery 01/18/2023 Assessment & Plan (08/29/2023 9:37 AM EST): Continue current meds Perforated bowel 01/02/2022 Encounters Date Type Department Care Team Description 02/04/2025 3:00 PM EDT Office Visit [facility] [address] [facility] [address] [place] [address] Jasmin Maurice MD Paroxysmal atrial fibrillation (HCC) (Primary Dx); Coronary artery disease involving [place] coronary artery of [place] heart without angina pectoris 02/04/2025 Travel 01/11/2025 Clinisync Result Encounter [facility] External Department Unsolicited Provider, Generic External Data 12/18/2024 Refill [facility] [address] [facility] [address] [place] [address] Jasmin Maurice MD Hypertension, unspecified type from Last 3 Months Immunizations Immunization Administration Dates Next Due Influenza, High Dose Seasona l, Preservative Free 05/22/2024,05/28/2019,06/23/2018,06/19,06/01/2017 Influenza, High-dose Seasona l, Quadrivalent, Preservative Free 05/26/2022,06/22/2021,05/23/2020,06/23 Influenza, Seasonal, Quadriv alent, Adjuvanted 05/31/2023 Influenza, injectable, quadr ivalent, preservative free 06/19/2022,06/06/2017 Moderna Bivalent Booster Vaccination 06/02/2022 Novel [id number], preservative-free 09/24/2009 Pneumococcal Conjugate PCV 13 06/19/2018, 017,05/23/2017 Pneumococcal Polysaccharide PPSV23 01/19/2016 Tdap 12/26/2018 Family History Medical History Relation Name Comments No Known Problems Brother 1 Atrial fibrillation Brother 2 Prostate cancer Father 85 yrs old age Mother 96 yrs No Known Problems Son Relation Name Status Comments Brother 1 Alive Brother 2 Alive Father Mother Son Alive Social History Tobacco Use Types Packs/Day Years Used Date Smoking Tobacco: Never Smokeless Tobacco: Never Tobacco Cessation:Counseling Given: Not Answered Alcohol Use Standard Drinks/Week Comments Never 0 (1 standard drink = 0.6 oz pur e alcohol) Caffeine Intake: none PHQ-2 Answer Date Recorded Patient Health Questionnaire-2 Score 0 02/04/2025 Sex and Gender Information Value Date Recorded Sex Assigned at Not on file Legal Sex Male 7:20 PM EDT Gender Identity Not on file Sexual Orientation Not on file Last Filed Vital Signs Vital Sign Reading Time Taken Comments Blood Pressure 112/64 02/04/2025 2:53 PM EDT Pulse 54 02/04/2025 2:53 PM EDT Temperature - - Respiratory Rate 16 04/30/2024 3:33 PM EDT Oxygen Saturation 97% 02/04/2025 2:53 PM EDT Inhaled Oxygen Concentration - - Weight 83 kg (183 lb) 02/04/2025 2:53 PM EDT Height 175.3 cm (5' 9 ) 02/04/2025 2:53 PM EDT Body Mass Index 27.02 02/04/2025 2:53 PM EDT Plan of Treatment Upcoming Encounters Date Type Department Care Team (Late st Contact Info) Description 03/12/2025 9:30 AM EDT Office Visit [facility] [address] [facility] [address] [place] [address] Alma Gold, JOHNNY [address] [facility] [address] [place] [address] 08/07/2025 9:30 AM EST Office Visit [facility] [address] [facility] [address] [place] [address] Yani York PA [address] [facility] [address] [place] [address] Health Maintenance Due Date Last Done Comments Medicare Annual Wellness (AWV) 03/27/2025 0 03/27/2024, 08/29/2023, 03/17/2023 Pneumococcal Vaccine: 65+ Years Completed 06/19/2018, 06/30/2017, 05/23/2017, Additional history exists Influenza Vaccine Completed 05/22/2024, , 06/19/2022, Additional history exists Procedures Procedure Name Priority Date/Time Associated Diagnosis Comments CT WATCHMAN FULL CONTRAST 01/11/2025 11:29 AM EDT from Last 3 Months Results * CT WATCHMAN FULL CONTRAST (01/11/2025 11:29 AM EDT) Anatomical Region Laterality Modality Other 01/11/2025 11:2 9 AM EDT Addenda Addendum by Radiology, RadiologistMD on 01/11/2025 8:09 PM EDT Source Facility: [facility] Interpreted By: Dominick Riley, ADDENDUM: Technical: The [...] PM -------- ORIGINAL REPORT -------- Dictation workstation: [id number] Interpreted By: Dominick Biswas, STUDY: CT PRE WATCHMAN FULL CONTRAST; 01/11/2025 12:23 pm INDICATION: Signs/Symptoms:Pre watchman sizing and thrombus detection. COMPARISON: None. ACCESSION NUMBER(S): [id number] ORDERING CLINICIAN: KEYLA PETE TECHNIQUE: Using multidetector CT technology, Elena CT [...] of left atrial/left atrial appendage thrombus. Reading Decatizer: Dr. Dominick Biswas, Date: 01/11/2025 1:22 pm Signed by: Dominick Biswas 01/11/2025 1:23 PM Dictation workstation: [id number] Narrative 01/11/2025 1:23 PM EDT Source Facility: [facility] Interpreted By: Dominick Biswas, STUDY: CT PRE WATCHMAN FULL CONTRAST; 01/11/2025 12:23 pm INDICATION: Signs/Symptoms:Pre watchman sizing and thrombus detection. COMPARISON: None. ACCESSION NUMBER(S): [id number] ORDERING CLINICIAN: KEYLA PETE TECHNIQUE: Using multidetector CT technology, Elena CT [...] of left atrial/left atrial appendage thrombus. Reading Decatizer: Dr. Dominick Biswas, Date: 01/11/2025 1:22 pm Signed by: Dominick Biswas 01/11/2025 1:23 PM Dictation workstation: [id number] Procedure Note Radiology, Radiologist, MD - 01/11/2025 Source Facility: [facility] Interpreted By: Dominick Biswas, STUDY: CT PRE WATCHMAN FULL CONTRAST; 01/11/2025 12:23 pm INDICATION: Signs/Symptoms:Pre watchman sizing and thrombus detection. COMPARISON: None. ACCESSION NUMBER(S): [id number] ORDERING CLINICIAN: KEYLA PETE TECHNIQUE: Using multidetector CT technology, Elena CT [...] of left atrial/left atrial appendage thrombus. Reading Decatizer: Dr. Dominick Biswas, Date: 01/11/2025 1:22 pm Signed by: Dominick Biswas 01/11/2025 1:23 PM Dictation workstation: [id number] Generic External Data Provider [facility] Edited Result - Final from Last 3 Months Insurance [employer] MEDICARE ADVANTAGE Care Teams Demolition Worker Relationship Specialty Start Date End Date Jasmin Maurice MD [address] [facility] [address] [place] [address] PCP - [employer] 09/19/20 Jasmin Maurice MD [address] [place] [address] PCP - General Family Medicine 01/31/23
--- OUTSIDE RECORDS SUMMARY | 2025-03-09 12:40 | XMS_ITS | Encounter Summary ---
Author Organization [facility] Address [address] [facility] [address] Phone Care Team Providers Care Ethanol Operations Manager Name Role Phone Jasmin Maurice MD Primary Care Provider [phone] Chanda Braga MD Unavailable [phone] Reason for Visit * Reason Comments Med Change Request Encounter Details Date Type Department Care Team (Late st Contact Info) Description 02/08/2025 Refill [facility] [address] [place] [address] [place] [address] [place] [address] Paroxysmal atrial fibrillation (Multi) Social History Tobacco Use Types Packs/Day Years [...] suspected to have Coronavirus/COVID-19? No / Unsure 01/17/2025 9:18 AM EDT documented as of this encounter Plan of Treatment Upcoming Encounters Date Type Department Care Team (Late st Contact Info) Description 03/14/2025 9:30 AM EDT Office Visit [address] [address] Chanda Braga MD [address] [facility] 2, [facility] 250 [place] [address] 05/21/2025 12:30 PM EDT Appointment [address] [place] [id number] documented as of this encounter Visit Diagnoses Diagnosis Paroxysmal atrial fibrillation (Multi) Atrial fibrillation documented in this encounter Additional Health Concerns Assessment Noted Time A fall risk assessment has been complete d for the patient 11/19/2024 2:29 PM EST documented as of this encounter Care Teams Ethanol Operations Manager Relationship Specialty Start Date End Date Jasmin Maurice MD [address] [place] [address] PCP - General 09/19/99 Chanda Braga MD [address] [facility] 2, [facility] [address] [place] [address] Consulting Physician Cardiology 12/20/23 documented as of this encounter
--- OUTSIDE RECORDS SUMMARY | 2025-03-09 12:40 | XMS_ITS | Encounter Summary ---
Author Organization [facility] Address [address] [place] [address] Phone Care Team Providers Care Bias Machine Operator Helper Name Role Phone Jasmin Maurice MD Primary Care Provider [phone] Chanda Braga MD Unavailable [phone] Encounter Details Date Type Department Care Team (Late st Contact Info) Description 06/16/[address] [facility] [address] [place] [address] Conversion, Onbase Social History Tobacco Use Types [...] Description 03/14/2025 9:30 AM EDT Office Visit [address] [address] Chanda Braga MD [address] [place] [address] 2, [facility] [address] [place] [address] 05/21/2025 12:30 PM EDT Appointment [address] [facility] [place] [address] Scheduled Orders Name Type Priority Associated Diagnoses Orde r Schedule OUTSIDE LAB SCAN Lab Ordered: 06/16/2020 OUTSIDE LAB SCAN Lab Ordered: 06/16/2020 documented as of this encounter Visit Diagnoses Not on filedocumented in this encounter Care Teams Bias Machine Operator Helper Relationship Specialty Start Date End Date Jasmin Maurice MD [address] [facility] [place] [address] PCP - General 09/19/99 Chanda Braga MD 703 [facility] 2, [facility] [place] [address] Consulting Physician Cardiology 12/20/23 documented as of this encounter
--- OUTSIDE RECORDS SUMMARY | 2025-03-09 12:40 | XMS_ITS | Encounter Summary ---
Author Organization [facility] Address [address] [place] [address] Phone Care Team Providers Care Learning Support Teacher Name Role Phone Jasmin Maurice MD Primary Care Provider [phone] Chanda Braga MD Unavailable [phone] Encounter Details Date Type Department Care Team (Late st Contact Info) Description 03/10/2020 Orders Only [facility] [address] [place] [address] Conversion, Onbase Social History Tobacco Use Types [...] Description 03/14/2025 9:30 AM EDT Office Visit [address] [address] Chanda Braga MD [address] [place] [address] 2, [facility] [address] [place] [address] 05/21/2025 12:30 PM EDT Appointment [address] [place] [place] [address] Scheduled Orders Name Type Priority Associated Diagnoses Orde r Schedule OUTSIDE LAB SCAN Lab Ordered: 03/10/2020 documented as of this encounter Visit Diagnoses Not on filedocumented in this encounter Care Teams Learning Support Teacher Relationship Specialty Start Date End Date Jasmin Maurice MD 112 [facility] [address] [place] [address] PCP - General 09/19/99 Chanda Braga MD 703 [facility] 2, [address] [place] [address] Consulting Physician Cardiology 12/20/23 documented as of this encounter
--- OUTSIDE RECORDS SUMMARY | 2025-03-09 12:40 | XMS_ITS | Encounter Summary ---
Author Organization [facility] Address [address] [place] [address] Phone Care Team Providers Care Hand Binder Cutter Name Role Phone Jasmin Maurice MD Primary Care Provider [phone] Chanda Braga MD Unavailable Encounter Details Date Type Department Care Team (Late st Contact Info) Description 10/20/2020 Orders Only [facility] [address] [place] [address] Conversion, Onbase Social History Tobacco Use Types [...] Description 03/14/2025 9:30 AM EDT Office Visit [address] [address] Chanda Braga MD [address] [place] [address] 2, [address] [place] [address] 05/21/2025 12:30 PM EDT Appointment [address] Vance [facility] [place] [address] Scheduled Orders Name Type Priority Associated Diagnoses Orde r Schedule OUTSIDE LAB SCAN Lab Ordered: 10/20/2020 documented as of this encounter Visit Diagnoses Not on filedocumented in this encounter Care Teams Hand Binder Cutter Relationship Specialty Start Date End Date Jasmin Maurice MD [address] [place] [address] PCP - General 09/19/99 Chanda Braga MD 7[facility] 2, [address] [place] [address] Consulting Physician Cardiology 12/20/23 documented as of this encounter
--- OUTSIDE RECORDS SUMMARY | 2025-03-09 12:40 | XMS_ITS | Encounter Summary ---
Author Organization [facility] Address [address] [place] [address] Phone Care Team Providers Care Quantitative Strategy Analyst Name Role Phone Jasmin Maurice MD Primary Care Provider [phone] Chanda Braga MD Unavailable [phone] Encounter Details Date Type Department Care Team (Late st Contact Info) Description 06/21/2023 Scanned Document [facility] [address] [place] [id number] Scanning, Generic Provider Social History Tobacco Use Types Packs/Day Years [...] Description 03/14/2025 9:30 AM EDT Office Visit [facility] [address] [facility] [address] [place] [address] Chanda Braga MD [address] [facility] [address], [address] [place] [address] 05/21/2025 12:30 PM EDT Appointment [address] [place] [address] documented as of this encounter Visit Diagnoses Not on filedocumented in this encounter Care Teams Quantitative Strategy Analyst Relationship Specialty Start Date End Date Jasmin Maurice MD [address] [place] [address] [address] [place] [address] PCP - General 09/19/99 Chanda Braga MD [address] [facility] [address] [place] [address] Consulting Physician Cardiology 12/20/23 documented as of this encounter
--- OUTSIDE RECORDS SUMMARY | 2025-03-09 12:40 | XMS_ITS | Encounter Summary ---
Author Organization [facility] Address [address] [place] [address] Phone Care Team Providers Care Illusionist Name Role Phone Jasmin Maurice MD Primary Care Provider [phone] Chanda Braga MD Unavailable Encounter Details Date Type Department Care Team (Late st Contact Info) Description 06/14/2023 Scanned Document [facility] [address] [place] [address] Conversion, Onbase Social History Tobacco Use Types [...] Description 03/14/2025 9:30 AM EDT Office Visit [place] [id number] [facility] [address] [place] [address] Chanda Braga MD 3 [facility] [address], [address] [place] [address] 05/21/2025 12:30 PM EDT Appointment [address] [place] [address] documented as of this encounter Procedures Procedure Name Priority Date/Time Associated Diagnosis Comments ELECTROCARDIOGRAM RHYTHM STRIP 06/14/2023 documented in this encounter Results * ELECTROCARDIOGRAM RHYTHM STRIP (06/14/2023) Narrative 06/14/2023 Ordered by an unspecified provider. us Onbase Conversion ECG ORDERABLES Final Result documented in this encounter Visit Diagnoses Not on filedocumented in this encounter Care Teams Illusionist Relationship Specialty Start Date End Date Jasmin Maurice MD [address] [place] [address] PCP - General 09/19/99 Chanda Braga MD [address] [facility] [address] [place] [address] Consulting Physician Cardiology 12/20/23 documented as of this encounter
--- OUTSIDE RECORDS SUMMARY | 2025-03-09 12:40 | XMS_ITS | Clinical Summary ---
Author Organization [facility] Address [address] [place] [address] Phone Care Team Providers Care [place] Captain Name Role Phone Jasmin Maurice MD Primary Care Provider [phone] Chanda Braga MD Unavailable [phone] Allergies No known active allergies Medications lisinopril 2.5 mg tablet Take 1 tablet (2.5 mg) by mouth once daily. 1 Active metoprolol succinate XL (Toprol-XL) 50 mg 24 hr tablet Take 1 tablet (50 mg) by mouth once daily. 1 Active atorvastatin (Lipitor) 80 mg tablet Take 1 tablet (80 mg) by mouth once daily. Active dofetilide (Tikosyn) 250 mcg capsuleIndications :Paroxysmal atrial fibrillation (Multi) TAKE 1 CAPSULE BY MOUTH 2 TIMES A DAY 180 capsule 3 4 Active ALPRAZolam (Xanax) 0.5 mg tablet Take 1 tablet (0.5 mg) by mouth as needed at bedtime for sleep. 4 Active baclofen (Lioresal) 10 mg tablet Take 1 tablet (10 mg) by mouth if needed for muscle spasms. 4 Active calcium citrate-vitamin D3 (Citracal+D) 315 mg-5 mcg (200 unit) tablet Take 1 tablet by mouth once daily. Active metoprolol tartrate (Lopressor) 25 mg tabletIndications: Paroxysmal atrial fibrillation (Multi) Take 1 tablet (25 mg) by mouth 2 times a day as needed (elevated heart rate). 180 tablet 1 4 08/01/20 25 Active aspirin 81 mg EC tabletIndications: Arteriosclerotic cardiovascular disease (ASCVD) Take 1 tablet (81 mg) by mouth once daily. START ON 03/19 AND STOP ELIQUIS 90 tablet 3 5 02/19/20 26 Active clopidogrel (Plavix) 75 mg tabletIndications: Atrial fibrillation, persistent (Multi) Take 1 tablet (75 mg) by mouth once daily. START ON 03/19 AND STOP ELIQUIS 90 tablet 1 5 08/17/20 25 Active apixaban (Eliquis) 5 mg tablet Take 1 tablet (5 mg) by mouth 2 times a day. 02/19/20 25 Discontin ued(Med List Cleanup) aspirin 81 mg EC tabletIndications: Arteriosclerotic cardiovascular disease (ASCVD) Take 1 tablet (81 mg) by mouth 2 times a week. 24 tablet 3 5 02/19/20 25 Discontin ued(Reord er) pantoprazole (ProtoNix) 40 mg EC tabletIndications: Paroxysmal atrial fibrillation (Multi) Take 1 tablet (40 mg) by mouth once daily in the morning. Take before meals for 29 doses. Do not crush, chew, or split. 29 tablet 5 02/19/20 25 Discontin ued(Thera py completed ) Active Problems Problem Noted Date Diagnosed Date CAD (coronary artery disease) 01/17/2025 At risk for stroke 11/19/2024 At risk for falling 11/19/2024 History of bilateral knee replacement 11/19/2024 Preop testing 11/19/2024 Atrial fibrillation, persistent (Multi) 11/20/19 25 Never smoked tobacco 12/20/2023 BMI 26.0-26.9,adult 12/20/2023 Arteriosclerotic cardiovascular disease (ASCVD) 10/06/2023 History of PTCA 10/06/2023 Hyperlipidemia 10/06/2023 Paroxysmal atrial fibrillation (Multi) 4 Encounters Date Type Department Care Team Description 02/18/2025 1:00 PM EDT Office Visit [facility] [address] [place] [address] Jane Cabello, PRACTICING MD ANESTHESIOLOGIST-PAPER SEALER Atrial fibrillation, persistent (Multi) (Primary Dx); Arteriosclerotic cardiovascular disease (ASCVD); Presence of Watchman left atrial appendage closure device 02/18/2025 Travel 02/08/2025 Refill [facility] [address] [place] [phone] Danielle Cisneros MD Paroxysmal atrial fibrillation (Multi) 01/17/2025 12:00 PM EDT - 01/17/2025 5:00 PM EDT Surgery [facility] [address] [facility] [address] [place] [phone] Keyla Pete MD Ablation A-Fib Paroxysmal [50876 (CPT )] 01/17/2025 11:55 AM EDT Anesthesia Event [facility] [address] [facility] [address] [place] [phone] Jeanine Matthews MD Skinner, Regina [facility] 01/17/2025 8:34 AM EDT - 01/18/2025 3:29 PM EDT Hospital Encounter [facility] [address] [place] [address] Keyla Pete MD Paroxysmal atrial fibrillation (Multi) (Primary Dx); At risk for stroke; At risk for falling; History of bilateral knee replacement; Preop testing; Atrial fibrillation, persistent (Multi) Discharge Disposition: Home 01/17/2025 Travel 01/11/2025 11:29 AM EDT - 01/11/2025 11:59 PM EDT Hospital Encounter [address] [place] [phone] Paroxysmal atrial fibrillation (Multi) Discharge Disposition: Home 01/11/2025 Travel 01/01/2025 5:[address] [facility] ([place], [place]) [address] [place] [address] 12/27/2024 Orders Only [facility] [address] [facility] [address] [place] [phone] Keyla Pete MD Paroxysmal atrial fibrillation (Multi); At risk for stroke; At risk for falling; History of bilateral knee replacement; Preop testing; Atrial fibrillation, persistent (Multi) 12/21/2024 Telephone [facility] [address] [place] [address] Florinda Zambrano RN Procedure instructions 12/17/2024 Telephone [facility] [address] [place] [address] [address] [place] [address] Thelma Hernadez LPN 12/11/2024 Orders Only [facility] [address] [place] [address] Florinda Zambrano RN Paroxysmal atrial fibrillation (Multi) (Primary Dx) 12/07/2024 Refill [facility] [address] [place] [address] [address] [place] [address] Trinidad Garcia LPN Arteriosclerotic cardiovascular disease (ASCVD) from Last 3 Months Social History Tobacco Use Types Packs/Day Years Used Date Smoking Tobacco: Never Smokeless Tobacco: Never Tobacco Cessation:Counseling Given: Not Answered Alcohol Use Standard Drinks/Week Comments Never 0 (1 standard drink = 0.6 oz pur e alcohol) PHQ-2 Answer Date Recorded Patient Health Questionnaire-2 Score 0 02/18/2025 Sex and Gender Information Value Date Recorded Sex Assigned at Not on file Legal Sex Male 2:43 PM EST Gender Identity Not on file Sexual Orientation Not on file COVID-19 Exposure Response Date Recorded In the last 10 days, have shannon u been in contact with someone who was confirmed or suspected to have Coronavirus/COVID-19? No / Unsure 02/18/2025 12:25 PM EDT Last Filed Vital Signs Vital Sign Reading Time Taken Comments Blood Pressure 125/72 02/18/2025 1:10 PM EDT Pulse 59 02/18/2025 1:10 PM EDT Temperature 35.8 C (96.4 F) 01/18/2025 11:55 AM EDT Respiratory Rate 19 01/18/2025 11:55 AM EDT Oxygen Saturation 95% 02/18/2025 1:10 PM EDT Inhaled Oxygen Concentration - - Weight 81.6 kg (180 lb) 02/18/2025 1:10 PM EDT Height 175.3 cm (5' 9 ) 01/17/2025 9:19 AM EDT Body Mass Index 26.58 01/17/2025 9:19 AM EDT Plan of Treatment Upcoming Encounters Date Type Department Care Team (Late st Contact Info) Description 03/14/2025 9:30 AM EDT Office Visit [facility] [address] [facility] [address] [place] [address] Chanda Braga MD [address] [facility] [address] [place] [address] 05/21/2025 12:30 PM EDT Appointment [address] [facility] [address] [place] [address] Health Maintenance Due Date Last Done Comments Lipid Panel 1944 Zoster Vaccines (1 of 2) 1994 RSV High Risk: (Elderly (60+) or Population) (1 - 1-dose 75+ series) 2019 COVID-19 Vaccine ( season) 2024 05/22/2024, 06/21/2023, 06/02/2022, Additional history exists Medicare Annual Wellness Visit (AWV) 03/28/2025 03/27/2024, 08/29/2023, 03/16/2022 Diabetes Screening 01/17/2026 01/17/2025 DTaP/Tdap/Td Vaccines (2 - Td or Tdap) 12/26/2028 12/26/2018 Pneumococcal Vaccine Completed 06/19/2018, 06/30/2017, 05/23/2017, Additional history exists Influenza Vaccine Completed 05/22/2024, , 06/19/2022, Additional history exists HIB Vaccines Aged Out No longer eligi ble based on patient's age to complete this topic HPV Vaccines Aged Out No longer eligi ble based on patient's age to complete this topic Hepatitis A Vaccines Aged Out No long er eligible based on patient's age to complete this topic Hepatitis B Vaccines Aged Out No long er eligible based on patient's age to complete this topic IPV Vaccines Aged Out No longer eligi ble based on patient's age to complete this topic Meningococcal Vaccine Aged Out No christy ankit eligible based on patient's age to complete this topic Rotavirus Vaccines Aged Out No longer eligible based on patient's age to complete this topic Medical Devices Implanted Type Area Box Toe Buffer Device Identifier Shelf Expiration Date Model / Serial / Lot Device, Closure, 20mm Watchman Flx Pro Laac - [id number] Implanted:Qty : 1 on 01/17/2025 by Keyla Pete MD at [facility] Other Cardiac Implant Left: Heart [email or web address] CECILY [id number] 10/31/2027 [id number] Procedures Procedure Name Priority Date/Time Associated Diagnosis Comments ECG 12-LEAD Routine 02/18/2025 1:00 PM EDT Atrial fibrillation, persistent (Multi) Procedure Note - 02/18/2025 1:00 PM EDTThis note is in progress. Sinus bradycardia Otherwise normal ECG When compared with ECG of 18-JAN-2025 08:28, Sinus rhythm has replaced Atrial fibrillation Vent. rate has decreased BY 51 BPM BASIC METABOLIC PANEL Routine 01/17/2025 5:28 PM EDT MAGNESIUM Routine 01/17/2025 5:28 PM EDT ECG 12-LEAD Routine 01/17/2025 4:38 PM EDT ECG 12-LEAD Routine 01/17/2025 4:37 PM EDT LEFT ATRIAL APPENDAGE CLOSURE Routine 01/17/2025 3:08 PM EDT Paroxysmal atrial fibrillation (Multi) At risk for stroke At risk for falling History of bilateral knee replacement Preop testing Atrial fibrillation, persistent (Multi) ABLATION A-FIB PERSISTENT Routine 01/17/2025 3:08 PM EDT Paroxysmal atrial fibrillation (Multi) At risk for stroke At risk for falling History of bilateral knee replacement Preop testing Atrial fibrillation, persistent (Multi) ACTIVATED CLOTTING TIME HIGH Routine 01/17/2025 2:44 PM EDT ACTIVATED CLOTTING TIME HIGH Routine 01/17/2025 2:32 PM EDT ACTIVATED CLOTTING TIME HIGH Routine 01/17/2025 2:07 PM EDT ANESTHESIA PERIPHERAL IV PLACEMENT Routine 01/17/2025 12:23 PM EDT ANESTHESIA ARTERIAL LINE PLACEMENT Routine 01/17/2025 12:22 PM EDT NJ AN ELECTIVE ENDOTRACHEAL AIRWAY Routine 01/17/2025 12:13 PM EDT VERAB/VERIFY ABORH STAT 01/17/2025 9: [address] PRE WATCHMAN FULL CONTRAST Routine 01/11/2025 12:23 PM EDT Paroxysmal atrial fibrillation (Multi) RENAL FUNCTION PANEL Routine 01/01/2025 10:34 AM EDT Paroxysmal atrial fibrillation (Multi) BASIC METABOLIC PANEL Routine 01/01/2025 10:34 AM EDT Paroxysmal atrial fibrillation (Multi) CBC Routine 01/01/2025 10:34 AM EDT Paroxysmal atrial fibrillation (Multi) TYPE AND SCREEN Routine 01/01/2025 10:33 AM EDT Paroxysmal atrial fibrillation (Multi) At risk for stroke At risk for falling History of bilateral knee replacement Preop testing Atrial fibrillation, persistent (Multi) from Last 3 Months Results * (ABNORMAL) Magnesium (01/17/2025 5:28 PM EDT) [facility] Magnesium 2.66(H) 1.60 - 2.40 mg/dL LAB CHEMISTRY METHOD 01/17/2025 7:20 PM EDT [facility] Comment:MILD HEMOLYSIS DETEC RENATO. The result may be falsely elevated due to hemolysis or other interferents. Clinical correlation is recommended. Repeat testing may be considered. Blood Venous blood specimen / Unknown Arterial Line / Unknown 01/17/2025 5:28 PM EDT 01/17/2025 6:18 PM EDT us Danielle Cisneros MD LAB BLOOD ORDERABLES Final Resu lt [facility] [address] [facility] [address] [address] [place] [id number] * (ABNORMAL) Basic metabolic panel (01/17/2025 5:28 PM EDT) Only the most recent of2 resultswithin the time period is included. Glucose 116(H) 74 - 99 mg/dL LAB CHEMISTRY METHOD 01/17/2025 7:20 PM EDT [facility] Sodium 135(L) 136 - 145 mmol/L LAB CHEMISTRY METHOD 01/17/2025 7:20 PM EDT [facility] Potassium 4.6 3.5 - 5.3 mmol/L LAB CHEMISTRY METHOD 01/17/2025 7:20 PM EDT [facility] Comment:MILD HEMOLYSIS DETEC RENATO. The result may be falsely elevated due to hemolysis or other interferents. Clinical correlation is recommended. Repeat testing may be considered. Chloride 106 98 - 107 mmol/L LAB CHEMISTRY METHOD 01/17/2025 7:20 PM EDT [facility] Bicarbonate 15(L) 21 - 32 mmol/L LAB CHEMISTRY METHOD 01/17/2025 7:20 PM EDT [facility] Anion Gap 19 10 - 20 mmol/L LAB CHEMISTRY METHOD 01/17/2025 7:20 PM EDT [facility] Urea Nitrogen 20 6 - 23 mg/dL LAB CHEMISTRY METHOD 01/17/2025 7:20 PM EDT [facility] Creatinine 0.78 0.50 - 1.30 mg/dL LAB CHEMISTRY METHOD 01/17/2025 7:20 PM EDT [facility] eGFR 90 >60 mL/min/1. 73m*2 LAB CHEMISTRY METHOD 01/17/2025 7:20 PM EDT [facility] Comment: Calculations of estimated GFR are performed using the 2020 CKD-EPI Study Refit equation without the race variable for the IDMS-Traceable creatinine methods. https://jasn.asnjournals.org/content//ASN.4419685546 Calcium 8.6 8.6 - 10.6 mg/dL LAB CHEMISTRY METHOD 01/17/2025 7:20 PM EDT [facility] Blood Venous blood specimen / Unknown Arterial Line / Unknown 01/17/2025 5:28 PM EDT 01/17/2025 6:18 PM EDT us Danielle Cisneros MD LAB BLOOD ORDERABLES Final Resu lt [facility] [address] [place] [id number] * Electrocardiogram - Post Ablation (01/17/2025 4:38 PM EDT) Only the most recent of2 resultswithin the time period is included. Ventricular Rate 110 BPM MUSE Atrial Rate 129 BPM MUSE QRS Duration 86 ms MUSE QT Interval 330 ms MUSE QTC Calculation(Baze tt) 446 ms MUSE R [place] 2 degrees MUSE T [place] 9 degrees MUSE QRS Count 18 beats MUSE Q Onset 226 ms MUSE T Offset 391 ms MUSE QTC Fredericia 404 ms MUSE 01/18/2025 8:28 AM EDT 01/21/2025 5:14 PM EDT Narrative MUSE - 01/21/2025 5:14 PM EDT Atrial fibrillation with rapid ventricular response Nonspecific T wave abnormality Abnormal ECG When compared with ECG of 17-JAN-2025 19:37, Atrial fibrillation has replaced Sinus rhythm Vent. rate has increased BY 36 BPM Confirmed by Garret Guerrero ([id number]) on 01/21/2025 5:14:13 PM Procedure Note Garret Guerrero MD - 01/21/2025 Atrial fibrillation with rapid ventricular response Nonspecific T wave abnormality Abnormal ECG When compared with ECG of 17-JAN-2025 19:37, Atrial fibrillation has replaced Sinus rhythm Vent. rate has increased BY 36 BPM Confirmed by Garret Guerrero ([id number]) on 01/21/2025 5:14:13 PM us Danielle Cisneros MD ECG ORDERABLES Final Result MUSE * ABLATION A-FIB PERSISTENT, LEFT ATRIAL APPENDAGE CLOSURE (01/17/2025 3:08 PM EDT) Narrative SYNGO_SECTRA_CARDIOLAB_XPER - 01/18/2025 7:27 AM EDT Images from the original result were not included. Catheter Ablation for Atrial Fibrillation Watchman Implant for LAAO Procedures AF Ablation + Watchman (LAAO) DRG 317; Atrial Fibrillation ablation (44819), LA Pacing and recording (16983), 3D Mapping (59478), Intracardiac Echocardiogram (15402), Transseptal Catheterization (60835), Ultrasound Guided vascular access (74445) Patient history: Please refer to the detailed history and physical on the patient's medical chart for further details. Procedure narrative: The procedure was performed under general anesthesia (administered and monitored by director emergency services and VIDEO GAME ANIMATOR). Anesthesia sedated and intubated the patient without [...] femoral venous access a DuoDecapolar catheter by StARTinitiative was introduced and placed into the distal coronary sinus and high right atrium. The 8.5Fr right femoral vein access was then switched to a deflectable sheath ([facility] EHRriAthenix, Sincerely) and positioned appropriately over an exchange wire cephalad to the site of transeptal puncture. A heparin bolus and drip was initiated with intermittent monitoring of ACT values, ensuring therapeutic anticoagulation throughout the case. Transseptal catheterization: Under fluoroscopic and ICE guidance the RF versacross wire was introduced into the deflectable sheath and single transseptal catheterization was performed using the Gloss48 RF generator. Then the versacross wire was [...] into the LA. Pre-ablation 3D mapping: The [employer] Farapulse PFA catheter was then advanced over a 0.035 Mancini wire into the left atrium. A limited left atrial 3D electroanatomic voltage map was created with the [employer] Farapulse catheter. There were 4 pulmonary [...] sheathes in the right groin, the long (NexBio) deflectable sheath was exchanged over a wire [...] with a combination of heparin boluses +/- infusion. We made a final evaluation for pericardial effusion using the ICE catheter. No effusion was noted at the end of the procedure. 2. Sheaths were removed and hemostasis was obtained at the right femoral venous access sites with Vascade MVP, figure of 8 suture via a stopcock and manual pressure. 3. The patient was successfully extubated and was able to move all 4 extremities spontaneously and follow commands. The patient was then moved to PACU/holding for recovery. The patient tolerated the procedure well with no immediate complications. Summary: Successful pulsed field ablation (PFA) for persistent atrial fibrillation with demonstrable pulmonary vein isolation and posterior wall isolation and anterior wall line. Successful 20 mm WATCHMAN implantation with the average compression: 18 %. The patient was enrolled in a research study and data was included in the LAAO registry. Plan: 1. Bedrest for 3 hours post-sheath pull, then ambulate as tolerated 2. Resume oral anti coagulation @ 7-9pm tonight. Please DO NOT hold blood thinner unless emergency without asking your doctor. 3. Protonix 40 mg daily x 30 days 4. After two months, plan to switch from DOAC to aspirin and Plavix for 6 months then ASA for life. 5. Repeat CT Watchman Imaging in 4 months. See complete procedural log and parameters. us Keyla Pete MD CV ELECTROPHYSIOLOGY PROCED URES Final Result SYNGO_SECTRA_CARDIOLAB_XPER * (ABNORMAL) ACTIVATED CLOTTING TIME HIGH (01/17/2025 2:44 PM EDT) [facility] POCT Activated Clotting Time High Range 302(H) 82 - 174 sec 01/17/2025 2:49 PM EDT [facility] Comment: Target ACT range will vary based on the patient population, clinical status, and surgical intervention occurring. Blood Venous blood specimen / Unknown 01/17/2025 2:44 PM EDT 01/17/2025 2:49 PM EDT us Keyla Pete MD LAB POINT OF CARE T EST DOCKED DEVICE UNSOLICITED RESULTS Final Result Performing Organization Address [facility] Co de Phone Number [facility] [address] [address] * (ABNORMAL) ACTIVATED CLOTTING TIME HIGH (01/17/2025 2:32 PM EDT) [facility] POCT Activated Clotting Time High Range 329(H) 82 - 174 sec 01/17/2025 2:37 PM EDT [facility] Comment: Target ACT range will vary based on the patient population, clinical status, and surgical intervention occurring. Blood Venous blood specimen / Unknown 01/17/2025 2:32 PM EDT 01/17/2025 2:37 PM EDT us Keyla Pete MD LAB POINT OF CARE T EST DOCKED DEVICE UNSOLICITED RESULTS Final Result Performing Organization Address [facility] Co de Phone Number [facility] [id number] [place] [phone] * (ABNORMAL) ACTIVATED CLOTTING TIME HIGH (01/17/2025 2:07 PM EDT) [facility] POCT Activated Clotting Time High Range 332(H) 82 - 174 sec 01/17/2025 2:15 PM EDT [facility] Comment: Target ACT range will vary based on the patient population, clinical status, and surgical intervention occurring. Blood Venous blood specimen / Unknown 01/17/2025 2:07 PM EDT 01/17/2025 2:15 PM EDT us Keyla Pete MD LAB POINT OF CARE T EST DOCKED DEVICE UNSOLICITED RESULTS Final Result Performing Organization Address [facility] Co de Phone Number [facility] [id number] [place] [id number] * ANESTHESIA PERIPHERAL IV PLACEMENT (01/17/2025 12:23 PM EDT) Kasia Lopez CAA - 01/17/2025 12:23 PM EDT NARESH Macias 01/17/2025 12:58 PM Peripheral IV Date/Time: 01/17/2025 12:23 PM Placement Needle size: 16 G Laterality: right Location: wrist Local anesthetic: none Site prep: alcohol Technique: anatomical landmarks Attempts: 1 Jeanine Matthews MD ANESTHESIA ORDERABLES Ed ited Result - Final * ANESTHESIA ARTERIAL LINE PLACEMENT (01/17/2025 12:22 PM EDT) Kasia Lopez CAA - 01/17/2025 12:22 PM EDT NARESH Macias 01/17/2025 12:58 PM Arterial Line: Date/Time: 01/17/2025 12:22 PM Staffing Performed: GEE Authorized by: Jeanine Matthews MD Performed by: NARESH Macias An arterial line was placed. Procedure performed using surface landmarks.in the OR for the following indication(s): continuous blood pressure monitoring. A 20 gauge (size), 1 and 1/4 inch (length), Angiocath (type) catheter was placed into the Left radial artery, secured by Tegadetommie Seldinger technique used. Events: patient tolerated procedure well with no complications. Jeanine Matthews MD ANESTHESIA ORDERABLES Ed ited Result - Final * NJ AN ELECTIVE ENDOTRACHEAL AIRWAY (01/17/2025 12:13 PM EDT) Kasia Lopez CAA - 01/17/2025 12:13 PM EDT NARESH Macias 01/17/2025 12:59 PM Airway Date/Time: 01/17/2025 12:13 PM Reason: elective Airway not difficult Staffing Performed: CAA and GEE Authorized by: Jeanine Matthews MD Performed by: NARESH Macias Patient location during procedure: OR Patient Condition Indications for airway management: anesthesia and airway protection Patient position: sniffing MILS not maintained throughout Planned trial extubation Sedation level: deep Final Airway Details Preoxygenated: yes Final airway type: endotracheal airway Successful airway: ETT Cuffed: yes Successful intubation technique: video laryngoscopy Adjuncts used in placement: intubating stylet Endotracheal tube insertion site: oral Blade: Adarsh Blade size: #4 ETT size (mm): 7.5 Cormack-Lehane Classification: grade I - full view of glottis Placement verified by: chest auscultation and capnometry Measured from: lips ETT to lips (cm): 21 Ventilation between attempts: BVM Number of attempts at approach: 2 Number of other approaches attempted: 0 Additional Comments First attempt SAA2 Mac4 DL no view, second attempt SAA2 McGrath4 Grade I View. Teeth and lips in preanesthetic condition. us Jeanine Matthews MD ANESTHESIA ORDERABLES Ed ited Result - Final * Abo/Rh Group Test (01/17/2025 9:29 AM EDT) ABO TYPE A 01/17/2025 11:24 AM EDT [facility] Rh TYPE POS 01/17/2025 11:24 AM EDT [facility] Blood Venous blood specimen / Unknown Venipuncture / Unknown 01/17/2025 9:29 AM EDT 01/17/2025 10:17 AM EDT us Keyla Pete MD LAB BLOOD BANK TEST ORDERAB LES Final Result [facility] [address] [place] [address] * CT pre watchman full contrast (01/11/2025 12:23 PM EDT) Anatomical Region Laterality Modality Thoracic Computed Tomogra phy 01/11/2025 1:25 PM EDT 01/11/2025 8:11 PM EDT Addenda Addendum by Brock Riley MD on 01/11/2025 8:09 PM EDT Interpreted [...] PM -------- ORIGINAL REPORT -------- Dictation workstation: [id number] Impressions 01/11/2025 1:23 PM EDT 1. Left atrial appendage ostial orifice dimension 28 x 20 mm. 2. Left atrial appendage depth 25 mm. 3. No evidence of left atrial/left atrial appendage thrombus. Reading Bit Bender: Dr. Dominick Biswas, Date: 01/11/2025 1:22 pm Signed by: Dominick Biswas 01/11/2025 1:23 PM Dictation workstation: [id number] Narrative 01/11/2025 1:23 PM EDT Interpreted By: Dominick Biswas, STUDY: CT PRE WATCHMAN FULL CONTRAST; 01/11/2025 12:23 pm INDICATION: Signs/Symptoms:Pre watchman sizing and thrombus detection. COMPARISON: None. ACCESSION NUMBER(S): [id number] ORDERING CLINICIAN: KEYLA PETE TECHNIQUE: Using multidetector [...] There is no pericardial effusion of thickening. Procedure Note Dominick Biswas DO / Brock Riley MD - 01/11/2025 Interpreted By: Dominick Biswas, STUDY: CT PRE WATCHMAN FULL CONTRAST; 01/11/2025 12:23 pm INDICATION: Signs/Symptoms:Pre watchman sizing and thrombus detection. COMPARISON: None. ACCESSION NUMBER(S): [id number] ORDERING CLINICIAN: KEYLA PETE TECHNIQUE: Using multidetector [...] of left atrial/left atrial appendage thrombus. Reading Bit Bender: Dr. Dominick Biswas, Date: 01/11/2025 1:22 pm Signed by: Dominick Biswas 01/11/2025 1:23 PM Dictation workstation: [id number] Keyla Pete MD [facility] CT PROCEDURES Edited Re sult - Final * CBC (01/01/2025 10:34 AM EDT) WHITE BLOOD CELL COUNT 5.2 3.8 - 10.8 Thousand/u L [facility] RED BLOOD CELL COUNT 4.51 4.20 - 5.80 Million/uL [facility] HEMOGLOBIN 14.2 13.2 - 17.1 g/dL [facility] HEMATOCRIT 41.9 38.5 - 50.0 % [facility] MCV 92.9 80.0 - 100.0 fL [facility] MCH 31.5 27.0 - 33.0 pg [facility] MCHC 33.9 32.0 - 36.0 g/dL [facility] Comment: For adults, a slight decrease in the calculated MCHC value (in the range of 30 to 32 g/dL) is most likely not clinically significant; however, it should be interpreted with caution in correlation with other red cell parameters and the patient's clinical condition. RDW 12.1 11.0 - 15.0 % [facility] PLATELET COUNT 176 140 - 400 Thousand/u L [facility] MPV 11.2 7.5 - 12.5 fL [facility] Blood Venous blood specimen / Unknown 01/01/2025 10:34 AM EDT 01/01/2025 10:35 AM EDT Narrative [facility] - 01/02/2025 7:10 AM EDT FASTING:NO FASTING: NO us Keyla Pete MD LAB BLOOD ORDERABLES Final Result [facility] [address] [facility], [address] [place] [address] * Renal Function Panel (01/01/2025 10:34 AM EDT) Pathologist [facility] GLUCOSE 98 65 - 139 mg/dL [facility] Comment: Non-fasting reference interval UREA NITROGEN (BUN) 25 7 - 25 mg/dL [facility] CREATININE 0.75 0.70 - 1.22 mg/dL [facility] EGFR 91 > OR = 60 mL/min/1. 73m2 [facility] BUN/CREATININE RATIO SEE NOTE: 6 - 22 (calc) [facility] Comment: Not Reported: BUN and Creatinine are within reference range. SODIUM 140 135 - 146 mmol/L [facility] POTASSIUM 4.9 3.5 - 5.3 mmol/L [facility] CHLORIDE 103 98 - 110 mmol/L [facility] CARBON DIOXIDE 27 20 - 32 mmol/L [facility] CALCIUM 9.5 8.6 - 10.3 mg/dL [facility] PHOSPHATE ( PHOSPHORUS) 3.5 2.1 - 4.3 mg/dL [facility] ALBUMIN 4.4 3.6 - 5.1 g/dL [facility] Blood Venous blood specimen / Unknown 01/01/2025 10:34 AM EDT 01/01/2025 10:35 AM EDT Narrative [facility] - 01/02/2025 7:10 AM EDT FASTING:NO FASTING: NO Keyla Pete MD LAB BLOOD ORDERABLES Final Result [facility] [place] [address] [facility], [address] [place] [address] * Type And Screen Is this order related to or an upcoming surgery? Yes; Where will this surgery/delivery be performed? [facility]; What is the date of the surgery? 01/17/2025; Hasthis patient ever had a transfusion? Unknown; I... (01/01/2025 10:33 AM EDT) ABO TYPE A 01/02/2025 1:35 AM EDT [facility] Rh TYPE POS 01/02/2025 1:35 AM EDT [facility] Comment:2nd ABO test require d. Order and Collect VERAB ANTIBODY SCREEN NEG 1:35 AM EDT [facility] Blood Venous blood specimen / Unknown Venipuncture / Unknown 01/01/2025 10:33 AM EDT 01/01/2025 5:22 PM EDT us Keyla Pete MD LAB BLOOD BANK TEST ORDERAB LES Final Result [facility] [address] [place] [address] from Last 3 Months Insurance [employer] Advance Directives For more information, please contact: [phone] (Available ) * Full Code (Latest Code Status on File) Date Activated Date Inactivated Comments 01/17/2025 4:11 PM Question Answer Comments Plan of Care: Code Status Discussion Completed Decision Maker: Patient Care Teams Steamboat Captain Relationship Specialty Start Date End Date Jasmin Maurice MD [address] [place] [address] PCP - General 09/19/99 Chanda Braga MD [address] [facility] 2, [address] [place] [address] Consulting Physician Cardiology 12/20/23
--- OUTSIDE RECORDS SUMMARY | 2025-03-09 12:40 | XMS_ITS | Encounter Summary ---
Author Organization [facility] Address [address] [place] [address] Phone Care Team Providers Care Senior Analyst Market Intelligence Name Role Phone Jasmin Maurice MD Primary Care Provider [phone] Chanda Braga MD Unavailable [phone] Encounter Details Date Type Department Care Team (Late Contact Info) Description 10/30/2021 Orders Only [facility] [address] [place] [address] Conversion, Onbase Social History Tobacco Use Types [...] Description 03/14/2025 9:30 AM EDT Office Visit [address] [address] Chanda Braga MD [address] [place] [address] 2, [address] [place] [address] 05/21/2025 12:30 PM EDT Appointment [address] [facility] [place] [address] Scheduled Orders Name Type Priority Associated Diagnoses Orde r Schedule OUTSIDE LAB SCAN Lab Ordered: 10/30/2021 documented as of this encounter Visit Diagnoses Not on filedocumented in this encounter Care Teams Senior Analyst Market Intelligence Relationship Specialty Start Date End Date Jasmin Maurice MD [address] [place] [address] PCP - General 09/19/99 Chanda Braga MD [address] [facility] 2, [address] [place] [address] Consulting Physician Cardiology 12/20/23 documented as of this encounter
--- OUTSIDE RECORDS SUMMARY | 2025-03-09 12:40 | XMS_ITS | Encounter Summary ---
Author Organization [facility] Address [address] [place] [address] Phone Care Team Providers Care Cdc Associate Name Role Phone Jasmin Maurice MD Primary Care Provider [phone] Chanda Braga MD Unavailable [phone] Encounter Details Date Type Department Care Team (Late Contact Info) Description 02/03/2022 Orders Only [facility] [address] [place] [address] Conversion, Onbase Social History Tobacco Use Types [...] Description 03/14/2025 9:30 AM EDT Office Visit [address] [address] Chanda Braga MD [address] [place] [address] 2, [address] [place] [address] 05/21/2025 12:30 PM EDT Appointment [address] [facility] [place] [address] Scheduled Orders Name Type Priority Associated Diagnoses Orde r Schedule OUTSIDE LAB SCAN Lab Ordered: 02/03/2022 documented as of this encounter Visit Diagnoses Not on filedocumented in this encounter Care Teams Cdc Associate Relationship Specialty Start Date End Date Jasmin Maurice MD [address] [place] [address] PCP - General 09/19/99 Chanda Braga MD [address] [facility] 2, [address] [place] [address] Consulting Physician Cardiology 12/20/23 documented as of this encounter
--- OUTSIDE RECORDS SUMMARY | 2025-03-09 12:41 | XMS_ITS | Encounter Summary ---
Author Organization [facility] Address [address] [facility] [place] [address] Care Team Providers Care Shank Sander Name Role Phone Jasmin Maurice MD Unavailable Jasmin Maurice MD Primary Care Provider [phone] Encounter Details Date Type Department Care Team (Late Contact Info) Description 12/20/2023 Abstract [facility] [address] [facility] 110 [place] [phone] Jasmin Maurice MD [address] [facility] 110 [place] [address] Social History Tobacco Use Types Packs/Day Years [...] FM [address] [place] [phone] Alma Gold, JOHNNY [address] [place] [address] 08/07/2025 9:30 AM EST Office Visit [facility] [address] [place] [phone] Yani York PA [address] [facility] 110 [place] [address] documented as of this encounter Visit Diagnoses Not on filedocumented in this encounter Care Teams Shank Sander Relationship Specialty Start Date End Date Jasmin Maurice MD [address] [facility] 110 [place] [address] PCP - [employer] 09/19/20 Jasmin Maurice MD [address] [facility] [address] [place] [address] PCP - General Family Medicine 01/31/23 documented as of this encounter
--- OUTSIDE RECORDS SUMMARY | 2025-03-09 12:41 | XMS_ITS | Encounter Summary ---
Author Organization [facility] Address [address] [facility] [place] [address] Care Team Providers Care Manufacturing Finance Manager Name Role Phone Jasmin Watts MD Unavailable Jasmin Watts MD Primary Care Provider [phone] Encounter Details Date Type Department Care Team (Late Contact Info) Description 10/13/2023 Clinisync Result Encounter [facility] External Department Unsolicited Zuhair York PA [address] [facility] 110 [place] [address] Social History Tobacco Use Types Packs/Day Years [...] FM [address] [place] [phone] Alma Gold NP [address] [place] [address] 08/07/2025 9:30 AM EST Office Visit [facility] [address] [place] [phone] Zuhair York PA [address] [place] [address] documented as of this encounter Procedures Procedure Name Priority Date/Time Associated Diagnosis Comments XR KNEE 3 VIEWS LEFT 10/13/2023 11:24 AM EST documented in this encounter Results * XR knee 3 views left (10/13/2023 11:24 AM EST) Anatomical Region Laterality Modality Lower Extremities, Knee Left [facility] 10/13/2023 11:2 4 AM EST Narrative 10/13/2023 11:27 AM EST [address] [address] XRay Report Signed Patient: HOSSEIN JAIN MR#: [id number] : 1945 Acct:[id number] Age/Sex: 78 / M ADM Date: 10/13/23 Loc: RAD Attending Dr: ZUHAIR YORK Ordering Physician: ZUHAIR YORK Date of Service: 10/13/23 Procedure(s): XR knee LT 3V Accession Number(s): [id number] cc: JASMIN WATTS ; ZUHAIR YORK [address] [address] Patient Name: HOSSEIN JAIN MRN: [id number] date: 1945 Sex: M Assigned Patient Location: [facility] Current Patient Location: RAD Accession/Order Number: [id number] Exam Date: 10/13/2023 11:08 Report Date: 10/13/2023 11:24 At the request of: ZUHAIR YORK Procedure: XR knee LT 3V PROCEDURE: XR knee LT 3V COMPARISON: None. 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 No acute fracture, dislocation or mechanical failure. SOFT TISSUES:Negative. No visible soft tissue swelling. EFFUSION:Moderate joint effusion OTHER: Negative. XR/XR knee LT 3V IMPRESSION: Moderate joint effusion Electronically authenticated by: FORTINO GREENE Date: 10/13/2023 11:24 Dictated By: Fortino Greene M.D. Signed By: 10/13/237 DD/ 23 TD/TT: Brim Welt Sewing Machine Operator: Procedure Note Radiology, Radiologist, - 10/13/2023 [place] [address] XRay Report Signed Patient: HOSSEIN JAIN RMR#: [id number] : 1945cct:[id number] Age/Sex: 78 / MADM Date: 10/13/23 Loc: RAD Attending Dr: ZUHAIR YORK Ordering Physician: ZUHAIR YORK Date of Service: 10/13/23 Procedure(s): XR knee LT 3V Accession Number(s): [id number] cc: JASMIN WATTS ; ZUHAIR YORK [place] [address] Patient Name: HOSSEIN JAIN MRN: [id number] date: 1945 Sex: M Assigned Patient Location: [facility] Current Patient Location: [facility] Accession/Order Number: [id number] Exam Date: 10/13/2023 11:08 Report Date: 10/13/2023 11:24 At the request of: ZUHAIR YORK Procedure: XR knee LT 3V PROCEDURE: XR knee LT 3V COMPARISON: None. 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 No acute fracture, dislocation or mechanical failure. SOFT TISSUES:Negative. No visible soft tissue swelling. EFFUSION:Moderate joint effusion OTHER: Negative. XR/XR knee LT 3V IMPRESSION: Moderate joint effusion Electronically authenticated by: FORTINO GREENE Date: 10/13/2023 11:24 Dictated By: Fortino Greene M.D. Signed By:10/13/23 1127 DD/ 23 TD/TT: Brim Welt Sewing Machine Operator: Zuhair York PA IMG XR PROCEDURES Final Result documented in this encounter Visit Diagnoses Not on filedocumented in this encounter Care Teams Manufacturing Finance Manager Relationship Specialty Start Date End Date Jasmin Watts MD [address] [facility] 110 [place] [address] PCP - Margo 09/19/20 Jasmin Watts MD [address] [facility] 110 [place] [address] PCP - General Family Medicine 01/31/23 documented as of this encounter
--- OUTSIDE RECORDS SUMMARY | 2025-03-09 12:41 | XMS_ITS | Encounter Summary ---
Author Organization [facility] Address [address] [facility] [place] [address] Care Team Providers Care General Maintenance Mechanic Name Role Phone Jasmin Maurice MD Unavailable Jasmin Maurice MD Primary Care Provider [phone] Encounter Details Date Type Department Care Team (Late Contact Info) Description 10/14/2023 Orders Only [facility] [address] [facility] 110 [place] [phone] Unallocated, Noms Provider, [address] [place] [address] Social History Tobacco Use Types Packs/Day Years [...] FM [address] [place] [phone] Alma Gold, CLINICAL APPLICATION CONSULTANT [address] [place] [address] 08/07/2025 9:30 AM EST Office Visit [facility] [address] [place] [address] Yani York PA [address] [facility] [address] [place] [address] documented as of this encounter Procedures Procedure Name Priority Date/Time Associated Diagnosis Comments XR ANKLE 3+ VIEWS LEFT Routine 10/13/2023 8:41 AM EST documented in this encounter Results * XR ankle 3+ views left (10/13/2023 8:41 AM EST) Anatomical Region Laterality Modality Lower Extremities, Ankle Left Radiogr aphic Imaging us Noms Provider Unallocated IMG XR PROCEDURES F inal Result documented in this encounter Visit Diagnoses Not on filedocumented in this encounter Care Teams General Maintenance Mechanic Relationship Specialty Start Date End Date Jasmin Maurice MD [address] [facility] [address] [place] [address] PCP - [employer] 09/19/20 Jasmin Maurice MD [address] [facility] [address] [place] [address] PCP - General Family Medicine 01/31/23 documented as of this encounter
--- NOTE | 2025-03-09 12:43 | ECG_ITS ---
[facility] Test Date: 2025-03-09 Pat Name: TANISHA JAIN Department: Room: - Gender: Male Manager File: : 1945 Requested By: [id number] Order Number: [id number] Reading MD: MAXIMO BARKER M.D. Measurements Intervals [place] Rate: 78 P: 32 MD: 158 QRS: -19 QRSD: 86 T: 34 QT: 352 QTc: 385 Interpretive Statements 1100 Sinus rhythm 9110 normal ECG Compared to ECG 01/02/2022 10:41:02 Atrial flutter no longer present Electronically Signed On 03-10-2025 21:55:12 EDT by MAXIMO BARKER M.D.
--- NOTE | 2025-03-09 12:45 | ED.GENADUL1 ---
HPI HPI - General Adult General Chief complaint: Chest Pain Stated complaint: A FB Time Seen by Provider: 03/09/25 12:36 Source: patient Mode of arrival: walk-in Limitations: no limitations History of Present Illness HPI narrative: The send is an 79-year-old male who presents to the emergency department today for evaluation concerns for cough for the past 2 weeks. Reports he feels as though there is phlegm in his throat and upper chest that he is having difficulty bringing up. He denies any fever/chills or nausea/vomiting. 30 minutes ago he believes he converted back to A-fib and can feel some pressure in his chest. He denies any dizziness or syncopal episodes. Endorses in January he had an ablation for his A-fib that was reportedly successful and mentions he additionally had a watchman placed at that time. He states he will be on Eliquis through the end of the month. Shortness of breath. He denies any orthopnea or peripheral edema. Related Data Home Medications ?Medication ?Instructions ?Recorded ?Confirmed alprazolam 0.5 mg tablet 0.5 mg PO DAILY PRN anxiety 07/24/24 03/09/25 apixaban 5 mg tablet (Eliquis) 5 mg PO BID 07/24/24 03/09/25 aspirin 81 mg chewable tablet 81 mg PO .twice weekly 07/24/24 03/09/25 atorvastatin 80 mg tablet 80 mg PO DAILY 07/24/24 03/09/25 baclofen 10 mg tablet 10 mg PO DAILY PRN back pain 07/24/24 03/09/25 dofetilide 250 mcg capsule 250 mcg PO BID 07/24/24 03/09/25 lisinopril 2.5 mg tablet 2.5 mg PO DAILY 07/24/24 03/09/25 metoprolol succinate 50 mg 50 mg PO DAILY 07/24/24 07/26/24 tablet,extended release 24 hr metoprolol tartrate 50 mg tablet 25 mg PO DAILY PRN elevated heart 07/24/24 03/09/25 rate Previous Rx's ?Medication ?Instructions ?Recorded benzonatate 200 mg capsule 200 mg PO TID PRN cough #15 caps 03/09/25 Allergies Allergy/AdvReac Type Severity Reaction Status Date / Time No Known Drug Allergies Allergy Unverified 03/09/25 12:39 Review of Systems ROS Status of ROS 10 or more systems reviewed and unremarkable except as noted in history and below PFSH [facility] Medical History (Updated 03/09/25 @ 14:00 by Annie Hammond NP) Anxiety ?F41.9 - Anxiety disorder, unspecified (ICD-10) Atrial fibrillation ?I48.91 - Unspecified atrial fibrillation (ICD-10) Hypertension ?I10 - Essential (primary) hypertension (ICD-10) Surgical History (Updated 07/24/24 @ 10:44 by Gina Javed RN) Hx of cataract surgery ?Z98.49 - Cataract extraction status, unspecified eye (ICD-10) History of carpal tunnel surgery ?Z98.890 - Other specified postprocedural states (ICD-10) History of colonoscopy ?Z98.890 - Other specified postprocedural states (ICD-10) H/O esophagogastroduodenoscopy ?Z98.890 - Other specified postprocedural states (ICD-10) S/P laparoscopic procedure ?Z98.890 - Other specified postprocedural states (ICD-10) History of back surgery ?Z98.890 - Other specified postprocedural states (ICD-10) History of bilateral knee arthroplasty ?Z96.653 - Presence of artificial knee joint, bilateral (ICD-10) History of cardiac cath ?Z98.890 - Other specified postprocedural states (ICD-10) Family History (Updated 07/24/24 @ 10:33 by Gina Javed RN) Other Family history of cancer Family history of stroke Social History (Updated 07/24/24 @ 10:32 by Gina Javed RN) Within the past year, how often did you have a drink containing alcohol: never Score interpretation: A score less than 4 is consistent with normal alcohol consumption. Smoking status: Never smoker Non-prescribed substance use: denies use Previous occupational history: retired Highest level of school completed/degree received: Master's degree Little interest or pleasure in doing things: not at all Feeling down, depressed, or hopeless: not at all Exam Narrative Exam Narrative: Constituational: Awake/ alert, no apparent distress, well hydrated HENMT: normocephalic, external ears normal, moist oral mucous membranes and oropharynx normal Eyes: EOMI and conjunctivae normal Neck: ROM intact Chest: inspection of chest normal Respiratory: Normal respiratory effort, clear to auscultation bilaterally Cardio: Rhythm, regular rate GI: soft to palpation and non-tender Back: nontender MSK: ROM intact, +NVI Skin: no rashes or petechiae Neuro: no focal deficits Psych: mental status grossly normal Constitutional Vital Signs, click to edit/add: Last Vital Signs Temp 97.8 F 03/09/25 12:39 Pulse 86 03/09/25 12:39 Resp 03/09/25 12:39 BP 149/89 H 03/09/25 12:39 Pulse Ox 96 03/09/25 12:39 O2 Del Method Room Air 03/09/25 12:39 Course Vital Signs Vital signs: Vital Signs Temperature 97.8 F 03/09/25 12:39 Pulse Rate 86 03/09/25 12:39 Respiratory Rate 20 03/09/25 12:39 Blood Pressure 149/89 H 03/09/25 12:39 Pulse Oximetry 96 03/09/25 12:39 Oxygen Delivery Method Room Air 03/09/25 12:39 Temperature 97.8 F 03/09/25 12:39 Pulse Rate 86 03/09/25 12:39 Respiratory Rate 03/09/25 12:39 Blood Pressure 149/89 H 03/09/25 12:39 Pulse Oximetry 96 03/09/25 12:39 Oxygen Delivery Method Room Air 03/09/25 12:39 Medical Decision Making MDM Narrative Medical decision making narrative: Patient is a well-appearing 79-year-old male who presented to the emergency department today for evaluation of concerns for cough/cold symptoms and concerns for converting to A-fib with known history of A-fib and recent ablation and Watchman procedure on 01/17. Initial examination vital signs overall stable. Patient was noted to briefly be in A-fib with a controlled ventricular rate on arrival to the ER however he did spontaneously convert shortly following arrival. Patient has noted to have a mild and intermittent congested cough. He is on an LUCY inhibitor however this does not seem to be related to his current medical therapy and historically patient's at home is sick with similar symptoms of a cough. He otherwise appears euvolemic on exam and did not be exhibiting any ischemic symptoms. Chest x-ray stable. Normal range. EKG without acute changes and troponin is negative x 1. Labs show no significant leukocytosis, anemia, thrombocytopenia. Electrolytes including renal and hepatic function stable. Patient cough, URI, likely viral etiology. Discussed these findings with the patient including recommendations for supportive care. Patient did receive supportive measures of Tessalon Perles while in the ER and on reevaluation he reported some improvement in condition. Will discharge home with Tessalon Perles as needed. Advised on close follow-up with patient's primary care provider for reevaluation. Discussed signs and symptoms of any worsening condition and when to consider reevaluation by the emergency department. Patient verbalized an understanding of this and is agreeable with the plan to be discharged home. Medical Records Medical records reviewed: Yes I reviewed the patient's medical records Lab Data Lab results reviewed: Yes I reviewed the patient's lab results Labs: Lab Results 03/09/25 Range/Units 12:55 WBC 7.2 (4.0-11.0) 10^3/uL RBC 4.59 L (4.70-6.10) 10^6/uL Hgb 14.7 (14.0-18.0) g/dL Hct 41.5 L (42.0-54.0) % MCV 90.4 (80.0-94.0) fL MCH 32.0 (25.9-34.0) pg MCHC 35.4 H (29.9-35.2) g/dL RDW 11.9 (11.0-15.0) % Plt Count 228 (150-450) 10^3/uL MPV 9.8 (9.5-13.5) fL Neut % (Auto) 61.3 (43.0-75.0) % Lymph % (Auto) 27.6 (20.5-60.0) % [place] % (Auto) 7.8 (1.7-12.0) % Eos % (Auto) 1.5 (0.9-7.0) % Baso % (Auto) 0.7 (0.2-2.0) % Neut # (Auto) 4.4 (1.4-6.5) 10^3/uL Lymph # (Auto) 2.0 (1.2-3.8) 10^3/uL [place] # (Auto) 0.6 (0.3-0.8) 10^3/uL Eos # (Auto) 0.1 (0.0-0.7) 10^3/uL Baso # (Auto) 0.1 (0.0-0.1) 10^3/uL Abs Immat Gran (auto) 0.08 H (0.00-0.03) 10^3/uL Imm/Tot Granulo (auto) 1.1 H (0.0-0.5) % Sodium 139 (136-145) mmol/L Potassium 4.3 (3.5-5.1) mmol/L Chloride 101 (98-107) mmol/L Carbon Dioxide 30.6 (21.0-32.0) mmol/L Anion Gap 11.7 BUN 20.0 H (7.0-18.0) mg/dL Creatinine 0.94 (0.70-1.30) mg/dL Est GFR ( Amer) >60 (>=60 mL/min/1.73m^2) Est GFR (Non-Af Amer) >60 (>=60 mL/min/1.73m^2) BUN/Creatinine Ratio 21.3 Glucose 134 H (74-106) mg/dL Calcium 8.9 (8.5-10.1) mg/dL Total Bilirubin 0.5 (0.2-1.0) mg/dL AST 25 (15-37) U/L ALT 42 (16-63) U/L Alkaline Phosphatase 99 (46-116) U/L Troponin I High Sens 12.9 (4.0-76.1) pg/mL NT-Pro-B Natriuret Pep 73.0 (<=1800.0) pg/mL Total Protein 7.2 (6.4-8.2) g/dL Albumin 3.7 (3.4-5.0) g/dL Globulin 3.5 g/dL Albumin/Globulin Ratio 1.1 Imaging Data Chest x-ray: Attestation: I have reviewed the pertinent imaging results. Radiologist's impression: No evidence of acute disease in chest per radiology interpretation ECG Data Attestation: I personally reviewed and interpreted this ECG as follows: (SR with HR 78, no acute/ischemic changes) Discharge Plan Discharge Chief Complaint: Chest Pain Clinical Impression: Cough Patient Disposition: Home, Self-Care Prescriptions / Home Meds: New benzonatate 200 mg capsule 200 mg PO TID PRN (Reason: cough) Qty: 15 0RF No Action Eliquis 5 mg tablet 5 mg PO BID lisinopril 2.5 mg tablet 2.5 mg PO DAILY metoprolol tartrate 50 mg tablet 25 mg PO DAILY PRN (Reason: elevated heart rate) metoprolol succinate 50 mg tablet extended release 24 hr 50 mg PO DAILY aspirin 81 mg tablet,chewable 81 mg PO .twice weekly dofetilide 250 mcg capsule 250 mcg PO BID atorvastatin 80 mg tablet 80 mg PO DAILY baclofen 10 mg tablet 10 mg PO DAILY PRN (Reason: back pain) alprazolam 0.5 mg tablet 0.5 mg PO DAILY PRN (Reason: anxiety) Print Language: Spanish Instructions: Acute Cough (ED) Additional Instructions: May take Tessalon Perles as needed for any coughing as prescribed. Stay hydrated and drink plenty of fluids to help loosen any mucus or secretions. Follow-up with your primary care provider for reevaluation as discussed. Referrals: ROBERT WATTS [Primary Care Provider, Family Practice] - 1 week
[2025-03-09 12:47] VITALS: PULSE 112
[2025-03-09 12:50] VITALS: PULSE 78; O2SAT 94
[2025-03-09] MEDS: BENZONATATE 100 MG CAPSULE 200 MG PO (12:50)
[2025-03-09 13:05] LABS: Basophils Absolute Auto 0.1 10^3/uL (0.0-0.1); Basophils Percent Auto 0.7 % (0.2-2.0); Eosinophils Absolute Auto 0.1 10^3/uL (0.0-0.7); Eosinophils Percent Auto 1.5 % (0.9-7.0); Hematocrit 41.5 % (42.0-54.0); Hemoglobin 14.7 g/dL (14.0-18.0); Immature Granulocytes Abs Auto 0.08 10^3/uL (0.00-0.03); Immature Granulocytes Pct Auto 1.1 % (0.0-0.5); Lymphocytes Percent Auto 27.6 % (20.5-60.0); Mean Corpuscular HGB Conc 35.4 g/dL (29.9-35.2); Mean Corpuscular Volume 90.4 fL (80.0-94.0); Mean Platelet Volume 9.8 fL (9.5-13.5); Monocytes Absolute Auto 0.6 10^3/uL (0.3-0.8); Monocytes Percent Auto 7.8 % (1.7-12.0); Neutrophils Absolute Auto 4.4 10^3/uL (1.4-6.5); Neutrophils Percent Auto 61.3 % (43.0-75.0); Platelet Count 228 10^3/uL (150-450); Red Blood Count 4.59 10^6/uL (4.70-6.10); Red Cell Distribution Width 11.9 % (11.0-15.0); White Blood Count 7.2 10^3/uL (4.0-11.0)
[2025-03-09 13:19] LABS: Anion Gap 11.7
[2025-03-09 13:26] LABS: Alanine Aminotransferase 42 U/L (16-63); Albumin Globulin Ratio 1.1; Albumin Level 3.7 g/dL (3.4-5.0); Alkaline Phosphatase 99 U/L (46-116); Aspartate Amino Transferase 25 U/L (15-37); BUN Creatinine Ratio 21.3; Bilirubin Total 0.5 mg/dL (0.2-1.0); Calcium 8.9 mg/dL (8.5-10.1); Carbon Dioxide 30.6 mmol/L (21.0-32.0); Chloride 101 mmol/L (98-107); Estimated GFR (African America >60 (>=60 mL/min/1.73m^2); Estimated GFR (Non-African Ame >60 (>=60 mL/min/1.73m^2); Globulin 3.5 g/dL; Glucose 134 mg/dL (74-106); Potassium 4.3 mmol/L (3.5-5.1); Sodium 139 mmol/L (136-145); Total Protein 7.2 g/dL (6.4-8.2); Troponin I High Sensitivity 12.9 pg/mL (4.0-76.1)
[2025-03-09 13:30] VITALS: BP 122/82; PULSE 77; O2SAT 95
[2025-03-09 14:00] VITALS: BP 125/77; PULSE 73; O2SAT 95
== END 2025-03-09 14:17 | disposition home or self-care (01) ==
PROVIDERS: Nurse Practitioner; Emergency Provider Student in an Organized Health Care Education/Training Program; PCP Family Medicine
DX: R05.9 Cough, unspecified (principal); Z79.01 Long term (current) use of anticoagulants; I48.91 Unspecified atrial fibrillation; Z95.818 Presence of other cardiac implants and grafts; R07.9 Chest pain, unspecified; R06.02 Shortness of breath
CPT/HCPCS: 36415; 71046; 80053; 83880; 84484; 85025; 93005; 99285